=== PATIENT | male | born 1945 | race Caucasian/White ===

== ENCOUNTER 2021-04-19 04:00 | Inpatient (IN) | payer MEDICARE ==
[2021-04-19] MEDS ORDERED: NITROGLYCERIN SL TABS 0.4 MG TAB SUBLINGUAL PRN (04:16)
[2021-04-19 04:44] LABS: Anisocytosis Slight; Basophils # (A) 0.1 k/uL (0-0.2); Basophils % (A) 0 %; Eosinophils % (A) 0 %; HCT 36.1 % (39.0-53.0); HGB 11.3 gm/dL (13.0-17.5); Hypochromasia Slight; Lymphocytes # (A) 1.1 k/uL (1.0-4.8); Lymphocytes % (A) 8 %; MCH 27.7 pg (25.0-35.0); MCHC 31.4 g/dL (31.0-37.0); MCV 88.2 fL (80.0-100.0); Mean Platelet Volume 7.6; Monocytes # (A) 0.4 k/uL (0-1.0); Monocytes % (A) 3 %; Neutrophils % (A) 88 %; Platelet Count 339 k/uL (150-450); RBC 4.09 m/uL (4.30-5.90); RDW 17.7 % (11.5-15.5); WBC 14.8 k/uL (3.8-10.6)
[2021-04-19] MEDS ORDERED: SODIUM CHLORIDE 0.9% 1,000 ML IV ONE (04:48)
--- NOTE | 2021-04-19 04:49 | ED ---
Syncope HPI - General Chief Complaint: Syncope Stated Complaint: Weakness Time Seen by Provider: 04/19/21 04:10 Source: patient Mode of arrival: EMS Limitations: no limitations - History of Present Illness Initial Comments: This patient is a 76-year-old man who has been transferred here from [facility] where he had gone to see evening after having syncopal episode. The patient's recent history was notable for an admission there for a few days re lated to Coumadin coagulopathy. The patient has history of atrial fibrillation, takes Coumadin and apparently had developed elevated INR. He was admitted for approximately 4 days for his INR to normalize. The patient had been discharged. At home he had gotten up to go use the bathroom, felt that he was getting lightheaded and then reportedly passed out. He did strike his back against furniture. The patient was seen in [facility] having workup including CT scan of the head and C-spine which was negative. The patient was then transferred here for concerns about dehydration and acute kidney injury. MD Complaint: loss of consciousness, collapsed -: hour(s) Prodromal Symptoms: lightheaded Injuries Sustained Associated with Event: Neck, Back Current Symptoms: back to baseline Context: standing up Treatments Prior to Arrival: IV fluids, other - Related Data Home Medications Medication Instructions Recorded Confirmed Aspirin EC [Ecotrin Low Dose] 81 mg PO DAILY@1800 04/19/21 04/19/21 Baclofen [Lioresal] 10 mg PO TID@0800,1400,2100 04/19/21 04/19/21 Cholecalciferol [Vitamin D3 (25 50 mcg PO DAILY@0800 04/19/21 04/19/21 Mcg = 1000 Iu)] Digoxin [Lanoxin] 125 mcg PO DAILY@0800 04/19/21 04/19/21 Doxycycline Hyclate [Vibramycin] 100 mg PO BID@0900,2100 04/19/21 04/19/21 Ferrous Sulfate [Feosol] 325 mg PO DAILY@0800 04/19/21 04/19/21 Furosemide [Lasix] 40 mg PO BID@0600,1400 04/19/21 04/19/21 Levothyroxine Sodium [Synthroid] 50 mcg PO DAILY@0700 04/19/21 04/19/21 Lidocaine 5% Patch [Lidoderm] 1 patch TOPICAL DAILY 04/19/21 04/19/21 Metoprolol Tartrate [Lopressor] 25 mg PO BID@0800,1700 04/19/21 04/19/21 Multivitamins, Thera [Multivitamin 1 tab PO DAILY@0800 04/19/21 04/19/21 (formulary)] Ondansetron Odt [Zofran Odt] 4 mg PO Q6H PRN 04/19/21 04/19/21 Potassium Chloride ER [K-Dur 10] 20 meq PO DAILY@0800 04/19/21 04/19/21 Simvastatin [Zocor] 20 mg PO HS@2100 04/19/21 04/19/21 Tamsulosin HCl [Flomax] 0.4 mg PO DAILY@0800 04/19/21 04/19/21 Warfarin Sodium 4 mg PO DIRECTED 04/19/21 04/19/21 Warfarin [Coumadin] 2 mg PO DAILY@1700 04/19/21 04/19/21 lisinopriL [Zestril] 2.5 mg PO DAILY@0800 04/19/21 04/19/21 metroNIDAZOLE [Flagyl] 500 mg PO TID@0500,1400,2200 04/19/21 04/19/21 traMADol HCL 50 mg PO Q6H PRN 04/19/21 04/19/21 Allergies Allergy/AdvReac Type Severity Reaction Status Date / Time No Known Allergies Allergy Verified 04/19/21 06:19 Review of Systems ROS Statement: Those systems with pertinent positive or pertinent negative responses have been documented in the HPI. ROS Other: All systems not noted in ROS Statement are negative. Constitutional: Denies: fever, chills, weakness Eyes: Denies: vision change Respiratory: Denies: cough, dyspnea Cardiovascular: Reports: syncope. Denies: chest pain, palpitations, orthopnea, edema Gastrointestinal: Denies: abdominal pain, vomiting, diarrhea, constipation Genitourinary: Denies: dysuria, hematuria Musculoskeletal: Denies: back pain Skin: Denies: rash Neurological: Denies: headache, weakness, numbness Past Medical History History of Any Multi-Drug Resistant Organisms: None Reported Past Psychological History: No Psychological Hx Reported Smoking Status: Never smoker Past Alcohol Use History: Occasional Past Drug Use History: None Reported General Exam Limitations: no limitations General appearance: alert, in no apparent distress Head exam: Present: atraumatic, normocephalic Eye exam: Present: normal appearance. Absent: scleral icterus, conjunctival injection ENT exam: Present: mucous membranes dry Neck exam: Present: normal inspection, full ROM Respiratory exam: Present: normal lung sounds bilaterally. Absent: respiratory distress, wheezes, rales, rhonchi, stridor Cardiovascular Exam: Present: regular rate, irregular rhythm, systolic murmur. Absent: diastolic murmur, rubs, gallop GI/Abdominal exam: Present: soft. Absent: distended, tenderness, guarding, rebound, rigid, mass Extremities exam: Present: normal inspection, normal capillary refill. Absent: pedal edema, calf tenderness Back exam: Present: normal inspection. Absent: CVA tenderness (R), CVA tenderness (L) Neurological exam: Present: alert, oriented X3, CN II-XII intact. Absent: motor sensory deficit Skin exam: Present: warm, dry, intact, normal color. Absent: rash Course Vital Signs 04/19/21 04/19/21 04/19/21 04:08 04:40 04:52 Temperature 97.6 F Pulse Rate 80 80 87 Pulse Rate [ Sitting] Pulse Rate [ Standing] Pulse Rate [ Supine] Respiratory 18 18 18 Rate Blood Pressure 98/62 77/58 90/67 Blood Pressure [Sitting] Blood Pressure [Standing] Blood Pressure [Supine] O2 Sat by Pulse 97 98 97 Oximetry 04/19/21 04/19/21 04/19/21 06:00 09:16 11:18 Temperature 98.5 F Pulse Rate 72 78 Pulse Rate [ 90 Sitting] Pulse Rate [ 110 H Standing] Pulse Rate [ 78 Supine] Respiratory 18 16 Rate Blood Pressure 92/65 105/73 Blood Pressure 110/75 [Sitting] Blood Pressure 102/65 [Standing] Blood Pressure 119/78 [Supine] O2 Sat by Pulse 98 97 Oximetry 04/19/21 14:24 Temperature Pulse Rate 90 Pulse Rate [ Sitting] Pulse Rate [ Standing] Pulse Rate [ Supine] Respiratory 16 Rate Blood Pressure 102/56 Blood Pressure [Sitting] Blood Pressure [Standing] Blood Pressure [Supine] O2 Sat by Pulse 96 Oximetry EKG Findings - EKG Results: EKG: interpreted by ERMD EKG shows: atrial fibrillation - Blocks, [place], Hypertrophy, ST Abn: AV and intraventricular conduction: right bundle branch block (fixed/intermittent, complete/incomplete) (Incomplete) Repolarization changes or abnormalities: nonspecific abnormality, ST segment, and/or T wave, suggestive of digitalis effect or toxicity Medical Decision Making - Lab Data Result diagrams: 04/21/21 04:34 04/21/21 04:34 Lab Results 04/19/21 04/19/21 04/19/21 Range/Units 04:29 04:29 04:29 WBC 14.8 H (3.8-10.6) k/uL RBC 4.09 L (4.30-5.90) m/uL Hgb 11.3 L (13.0-17.5) gm/dL Hct 36.1 L (39.0-53.0) % MCV 88.2 (80.0-100.0) fL MCH 27.7 (25.0-35.0) pg MCHC 31.4 (31.0-37.0) g/dL RDW 17.7 H (11.5-15.5) % Plt Count 339 (150-450) k/uL MPV 7.6 Immature Gran % (Auto) % Absolute Nucleated RBC (0.00-0.00) X 10*3/uL Neutrophils % 88 % Lymphocytes % 8 % Monocytes % 3 % Eosinophils % 0 % Basophils % 0 % Immature Gran # (0.00-0.04) X 10*3/uL Neutrophils # 13.0 H (1.3-7.7) k/uL Lymphocytes # 1.1 (1.0-4.8) k/uL Monocytes # 0.4 (0-1.0) k/uL Eosinophils # 0.0 (0-0.7) k/uL Basophils # 0.1 (0-0.2) k/uL NRBC/100 WBC Diff (0.0-0.0) /100 WBCS Hypochromasia Slight Anisocytosis Slight ESR (0-20) mm/Hr PT (9.0-12.0) sec INR (<1.2) APTT (22.0-30.0) sec Sodium 134 L (137-145) mmol/L Potassium 4.8 (3.5-5.1) mmol/L Chloride 103 (98-107) mmol/L Carbon Dioxide 21 L (22-30) mmol/L Anion Gap 10 mmol/L BUN 41 H (9-20) mg/dL Creatinine 1.22 (0.66-1.25) mg/dL Est GFR (CKD-EPI)AfAm 67 (>60 ml/min/1.73 sqM) Est GFR (CKD-EPI)NonAf 58 (>60 ml/min/1.73 sqM) Glucose 127 H (74-99) mg/dL Plasma Lactic Acid Telly 1.5 (0.7-2.0) mmol/L Calcium 9.1 (8.4-10.2) mg/dL Magnesium 1.9 (1.6-2.3) mg/dL Total Bilirubin 0.7 (0.2-1.3) mg/dL AST 56 (17-59) U/L ALT 42 (4-49) U/L Alkaline Phosphatase 116 (38-126) U/L Troponin I (0.000-0.034) ng/mL C-Reactive Protein (0.00-0.80) mg/dL Total Protein 6.2 L (6.3-8.2) g/dL Albumin 2.9 L (3.5-5.0) g/dL Triglycerides (0.00-149.00) mg/dL Cholesterol (0.00-200.00) mg/dL LDL Cholesterol, Calc (0.0-131.0) mg/dL VLDL Cholesterol, Calc (5.00-40.00) mg/dL HDL Cholesterol (40.00-60.00) mg/dL Cholesterol/HDL Ratio Ratio Vitamin B12 (200.0-944.0) pg/mL Folate (4.40-31.00) ng/mL Procalcitonin (0.02-0.09) ng/mL Urine Color Urine Appearance (Clear) Urine pH (5.0-8.0) Ur Specific [place] (1.001-1.035) Urine Protein (Negative) Urine Glucose (UA) (Negative) Urine Ketones (Negative) Urine Blood (Negative) Urine Nitrite (Negative) Urine Bilirubin (Negative) Urine Urobilinogen (<2.0) mg/dL Ur Leukocyte Esterase (Negative) Digoxin 0.6 ng/mL Coronavirus (PCR) (Not Detectd) 04/19/21 04/19/21 04/19/21 Range/Units 04:29 04:29 04:51 WBC (3.8-10.6) k/uL RBC (4.30-5.90) m/uL Hgb (13.0-17.5) gm/dL Hct (39.0-53.0) % MCV (80.0-100.0) fL MCH (25.0-35.0) pg MCHC (31.0-37.0) g/dL RDW (11.5-15.5) % Plt Count (150-450) k/uL MPV Immature Gran % (Auto) % Absolute Nucleated RBC (0.00-0.00) X 10*3/uL Neutrophils % % Lymphocytes % % Monocytes % % Eosinophils % % Basophils % % Immature Gran # (0.00-0.04) X 10*3/uL Neutrophils # (1.3-7.7) k/uL Lymphocytes # (1.0-4.8) k/uL Monocytes # (0-1.0) k/uL Eosinophils # (0-0.7) k/uL Basophils # (0-0.2) k/uL NRBC/100 WBC Diff (0.0-0.0) /100 WBCS Hypochromasia Anisocytosis ESR (0-20) mm/Hr PT 13.2 H (9.0-12.0) sec INR 1.3 H (<1.2) APTT 24.6 (22.0-30.0) sec Sodium (137-145) mmol/L Potassium (3.5-5.1) mmol/L Chloride (98-107) mmol/L Carbon Dioxide (22-30) mmol/L Anion Gap mmol/L BUN (9-20) mg/dL Creatinine (0.66-1.25) mg/dL Est GFR (CKD-EPI)AfAm (>60 ml/min/1.73 sqM) Est GFR (CKD-EPI)NonAf (>60 ml/min/1.73 sqM) Glucose (74-99) mg/dL Plasma Lactic Acid Telly (0.7-2.0) mmol/L Calcium (8.4-10.2) mg/dL Magnesium (1.6-2.3) mg/dL Total Bilirubin (0.2-1.3) mg/dL AST (17-59) U/L ALT (4-49) U/L Alkaline Phosphatase (38-126) U/L Troponin I 0.020 (0.000-0.034) ng/mL C-Reactive Protein (0.00-0.80) mg/dL Total Protein (6.3-8.2) g/dL Albumin (3.5-5.0) g/dL Triglycerides (0.00-149.00) mg/dL Cholesterol (0.00-200.00) mg/dL LDL Cholesterol, Calc (0.0-131.0) mg/dL VLDL Cholesterol, Calc (5.00-40.00) mg/dL HDL Cholesterol (40.00-60.00) mg/dL Cholesterol/HDL Ratio Ratio Vitamin B12 (200.0-944.0) pg/mL Folate (4.40-31.00) ng/mL Procalcitonin (0.02-0.09) ng/mL Urine Color Urine Appearance (Clear) Urine pH (5.0-8.0) Ur Specific [place] (1.001-1.035) Urine Protein (Negative) Urine Glucose (UA) (Negative) Urine Ketones (Negative) Urine Blood (Negative) Urine Nitrite (Negative) Urine Bilirubin (Negative) Urine Urobilinogen (<2.0) mg/dL Ur Leukocyte Esterase (Negative) Digoxin ng/mL Coronavirus (PCR) Not Detected (Not Detectd) 04/19/21 04/19/21 04/19/21 Range/Units 07:19 10:25 11:34 WBC (3.8-10.6) k/uL RBC (4.30-5.90) m/uL Hgb (13.0-17.5) gm/dL Hct (39.0-53.0) % MCV (80.0-100.0) fL MCH (25.0-35.0) pg MCHC (31.0-37.0) g/dL RDW (11.5-15.5) % Plt Count (150-450) k/uL MPV Immature Gran % (Auto) % Absolute Nucleated RBC (0.00-0.00) X 10*3/uL Neutrophils % % Lymphocytes % % Monocytes % % Eosinophils % % Basophils % % Immature Gran # (0.00-0.04) X 10*3/uL Neutrophils # (1.3-7.7) k/uL Lymphocytes # (1.0-4.8) k/uL Monocytes # (0-1.0) k/uL Eosinophils # (0-0.7) k/uL Basophils # (0-0.2) k/uL NRBC/100 WBC Diff (0.0-0.0) /100 WBCS Hypochromasia Anisocytosis ESR (0-20) mm/Hr PT (9.0-12.0) sec INR (<1.2) APTT (22.0-30.0) sec Sodium (137-145) mmol/L Potassium (3.5-5.1) mmol/L Chloride (98-107) mmol/L Carbon Dioxide (22-30) mmol/L Anion Gap mmol/L BUN (9-20) mg/dL Creatinine (0.66-1.25) mg/dL Est GFR (CKD-EPI)AfAm (>60 ml/min/1.73 sqM) Est GFR (CKD-EPI)NonAf (>60 ml/min/1.73 sqM) Glucose (74-99) mg/dL Plasma Lactic Acid Telly (0.7-2.0) mmol/L Calcium (8.4-10.2) mg/dL Magnesium (1.6-2.3) mg/dL Total Bilirubin (0.2-1.3) mg/dL AST (17-59) U/L ALT (4-49) U/L Alkaline Phosphatase (38-126) U/L Troponin I 0.017 0.015 (0.000-0.034) ng/mL C-Reactive Protein (0.00-0.80) mg/dL Total Protein (6.3-8.2) g/dL Albumin (3.5-5.0) g/dL Triglycerides (0.00-149.00) mg/dL Cholesterol (0.00-200.00) mg/dL LDL Cholesterol, Calc (0.0-131.0) mg/dL VLDL Cholesterol, Calc (5.00-40.00) mg/dL HDL Cholesterol (40.00-60.00) mg/dL Cholesterol/HDL Ratio Ratio Vitamin B12 (200.0-944.0) pg/mL Folate (4.40-31.00) ng/mL Procalcitonin (0.02-0.09) ng/mL Urine Color Yellow Urine Appearance Clear (Clear) Urine pH 5.0 (5.0-8.0) Ur Specific [place] 1.018 (1.001-1.035) Urine Protein Trace H (Negative) Urine Glucose (UA) Negative (Negative) Urine Ketones Negative (Negative) Urine Blood Negative (Negative) Urine Nitrite Negative (Negative) Urine Bilirubin Negative (Negative) Urine Urobilinogen <2.0 (<2.0) mg/dL Ur Leukocyte Esterase Negative (Negative) Digoxin ng/mL Coronavirus (PCR) (Not Detectd) 04/20/21 04/20/21 04/20/21 Range/Units 06:33 06:33 06:33 WBC (3.8-10.6) k/uL RBC (4.30-5.90) m/uL Hgb (13.0-17.5) gm/dL Hct (39.0-53.0) % MCV (80.0-100.0) fL MCH (25.0-35.0) pg MCHC (31.0-37.0) g/dL RDW (11.5-15.5) % Plt Count (150-450) k/uL MPV Immature Gran % (Auto) % Absolute Nucleated RBC (0.00-0.00) X 10*3/uL Neutrophils % % Lymphocytes % % Monocytes % % Eosinophils % % Basophils % % Immature Gran # (0.00-0.04) X 10*3/uL Neutrophils # (1.3-7.7) k/uL Lymphocytes # (1.0-4.8) k/uL Monocytes # (0-1.0) k/uL Eosinophils # (0-0.7) k/uL Basophils # (0-0.2) k/uL NRBC/100 WBC Diff (0.0-0.0) /100 WBCS Hypochromasia Anisocytosis ESR (0-20) mm/Hr PT 17.5 H (9.0-12.0) sec INR 1.66 H (<1.2) APTT (22.0-30.0) sec Sodium 138 (137-145) mmol/L Potassium 4.6 (3.5-5.1) mmol/L Chloride 107 (98-107) mmol/L Carbon Dioxide 28 (22-30) mmol/L Anion Gap 3 mmol/L BUN 31 H (9-20) mg/dL Creatinine 0.82 (0.66-1.25) mg/dL Est GFR (CKD-EPI)AfAm >90 (>60 ml/min/1.73 sqM) Est GFR (CKD-EPI)NonAf 87 (>60 ml/min/1.73 sqM) Glucose 103 H (74-99) mg/dL Plasma Lactic Acid Telly (0.7-2.0) mmol/L Calcium 9.2 (8.4-10.2) mg/dL Magnesium 1.8 (1.6-2.3) mg/dL Total Bilirubin (0.2-1.3) mg/dL AST (17-59) U/L ALT (4-49) U/L Alkaline Phosphatase (38-126) U/L Troponin I (0.000-0.034) ng/mL C-Reactive Protein 4.20 H (0.00-0.80) mg/dL Total Protein (6.3-8.2) g/dL Albumin (3.5-5.0) g/dL Triglycerides 89.10 (0.00-149.00) mg/dL Cholesterol 77.00 (0.00-200.00) mg/dL LDL Cholesterol, Calc 28.1 (0.0-131.0) mg/dL VLDL Cholesterol, Calc 17.82 (5.00-40.00) mg/dL HDL Cholesterol 31.50 L (40.00-60.00) mg/dL Cholesterol/HDL Ratio 2.46 Ratio Vitamin B12 1358.0 H (200.0-944.0) pg/mL Folate 19.90 (4.40-31.00) ng/mL Procalcitonin (0.02-0.09) ng/mL Urine Color Urine Appearance (Clear) Urine pH (5.0-8.0) Ur Specific [place] (1.001-1.035) Urine Protein (Negative) Urine Glucose (UA) (Negative) Urine Ketones (Negative) Urine Blood (Negative) Urine Nitrite (Negative) Urine Bilirubin (Negative) Urine Urobilinogen (<2.0) mg/dL Ur Leukocyte Esterase (Negative) Digoxin ng/mL Coronavirus (PCR) (Not Detectd) 10/06/21 10/06/21 10/07/21 Range/Units 06:33 06:34 04:34 WBC 8.30 6.5 (3.8-10.6) k/uL RBC 3.84 L 3.74 L (4.30-5.90) m/uL Hgb 10.1 L 10.5 L (13.0-17.5) gm/dL Hct 33.8 L 32.8 L (39.0-53.0) % MCV 88.0 87.8 (80.0-100.0) fL MCH 26.3 L 28.0 (25.0-35.0) pg MCHC 29.9 L 31.9 (31.0-37.0) g/dL RDW 18.8 H 18.0 H (11.5-15.5) % Plt Count 326 361 (150-450) k/uL MPV 9.5 8.1 Immature Gran % (Auto) 0.8 % Absolute Nucleated RBC 0 (0.00-0.00) X 10*3/uL Neutrophils % 86.5 85 % Lymphocytes % 8.4 11 % Monocytes % 3.4 3 % Eosinophils % 0.4 1 % Basophils % 0.5 1 % Immature Gran # 0.07 H (0.00-0.04) X 10*3/uL Neutrophils # 7.18 5.5 (1.3-7.7) k/uL Lymphocytes # 0.70 L 0.7 L (1.0-4.8) k/uL Monocytes # 0.28 0.2 (0-1.0) k/uL Eosinophils # 0.03 L 0.0 (0-0.7) k/uL Basophils # 0.04 0.0 (0-0.2) k/uL NRBC/100 WBC Diff 0 (0.0-0.0) /100 WBCS Hypochromasia Slight Anisocytosis Slight ESR (0-20) mm/Hr PT (9.0-12.0) sec INR (<1.2) APTT (22.0-30.0) sec Sodium (137-145) mmol/L Potassium (3.5-5.1) mmol/L Chloride (98-107) mmol/L Carbon Dioxide (22-30) mmol/L Anion Gap mmol/L BUN (9-20) mg/dL Creatinine (0.66-1.25) mg/dL Est GFR (CKD-EPI)AfAm (>60 ml/min/1.73 sqM) Est GFR (CKD-EPI)NonAf (>60 ml/min/1.73 sqM) Glucose (74-99) mg/dL Plasma Lactic Acid Telly (0.7-2.0) mmol/L Calcium (8.4-10.2) mg/dL Magnesium (1.6-2.3) mg/dL Total Bilirubin (0.2-1.3) mg/dL AST (17-59) U/L ALT (4-49) U/L Alkaline Phosphatase (38-126) U/L Troponin I (0.000-0.034) ng/mL C-Reactive Protein (0.00-0.80) mg/dL Total Protein (6.3-8.2) g/dL Albumin (3.5-5.0) g/dL Triglycerides (0.00-149.00) mg/dL Cholesterol (0.00-200.00) mg/dL LDL Cholesterol, Calc (0.0-131.0) mg/dL VLDL Cholesterol, Calc (5.00-40.00) mg/dL HDL Cholesterol (40.00-60.00) mg/dL Cholesterol/HDL Ratio Ratio Vitamin B12 (200.0-944.0) pg/mL Folate (4.40-31.00) ng/mL Procalcitonin 0.33 H (0.02-0.09) ng/mL Urine Color Urine Appearance (Clear) Urine pH (5.0-8.0) Ur Specific [place] (1.001-1.035) Urine Protein (Negative) Urine Glucose (UA) (Negative) Urine Ketones (Negative) Urine Blood (Negative) Urine Nitrite (Negative) Urine Bilirubin (Negative) Urine Urobilinogen (<2.0) mg/dL Ur Leukocyte Esterase (Negative) Digoxin ng/mL Coronavirus (PCR) (Not Detectd) 04/21/21 04/21/21 04/21/21 Range/Units 04:34 04:37 04:37 WBC (3.8-10.6) k/uL RBC (4.30-5.90) m/uL Hgb (13.0-17.5) gm/dL Hct (39.0-53.0) % MCV (80.0-100.0) fL MCH (25.0-35.0) pg MCHC (31.0-37.0) g/dL RDW (11.5-15.5) % Plt Count (150-450) k/uL MPV Immature Gran % (Auto) % Absolute Nucleated RBC (0.00-0.00) X 10*3/uL Neutrophils % % Lymphocytes % % Monocytes % % Eosinophils % % Basophils % % Immature Gran # (0.00-0.04) X 10*3/uL Neutrophils # (1.3-7.7) k/uL Lymphocytes # (1.0-4.8) k/uL Monocytes # (0-1.0) k/uL Eosinophils # (0-0.7) k/uL Basophils # (0-0.2) k/uL NRBC/100 WBC Diff (0.0-0.0) /100 WBCS Hypochromasia Anisocytosis ESR 58 H (0-20) mm/Hr PT 20.2 H (9.0-12.0) sec INR 2.1 H (<1.2) APTT (22.0-30.0) sec Sodium 135 L (137-145) mmol/L Potassium 4.3 (3.5-5.1) mmol/L Chloride 107 (98-107) mmol/L Carbon Dioxide 23 (22-30) mmol/L Anion Gap 5 mmol/L BUN 19 (9-20) mg/dL Creatinine 0.60 L (0.66-1.25) mg/dL Est GFR (CKD-EPI)AfAm >90 (>60 ml/min/1.73 sqM) Est GFR (CKD-EPI)NonAf >90 (>60 ml/min/1.73 sqM) Glucose 100 H (74-99) mg/dL Plasma Lactic Acid Telly (0.7-2.0) mmol/L Calcium 8.9 (8.4-10.2) mg/dL Magnesium (1.6-2.3) mg/dL Total Bilirubin (0.2-1.3) mg/dL AST (17-59) U/L ALT (4-49) U/L Alkaline Phosphatase (38-126) U/L Troponin I (0.000-0.034) ng/mL C-Reactive Protein (0.00-0.80) mg/dL Total Protein (6.3-8.2) g/dL Albumin (3.5-5.0) g/dL Triglycerides (0.00-149.00) mg/dL Cholesterol (0.00-200.00) mg/dL LDL Cholesterol, Calc (0.0-131.0) mg/dL VLDL Cholesterol, Calc (5.00-40.00) mg/dL HDL Cholesterol (40.00-60.00) mg/dL Cholesterol/HDL Ratio Ratio Vitamin B12 (200.0-944.0) pg/mL Folate (4.40-31.00) ng/mL Procalcitonin (0.02-0.09) ng/mL Urine Color Urine Appearance (Clear) Urine pH (5.0-8.0) Ur Specific [place] (1.001-1.035) Urine Protein (Negative) Urine Glucose (UA) (Negative) Urine Ketones (Negative) Urine Blood (Negative) Urine Nitrite (Negative) Urine Bilirubin (Negative) Urine Urobilinogen (<2.0) mg/dL Ur Leukocyte Esterase (Negative) Digoxin ng/mL Coronavirus (PCR) (Not Detectd) Disposition Clinical Impression: Syncope, Dehydration Disposition: ADMITTED IP TO THIS [facility] Condition: Serious
[2021-04-19 05:14] LABS: Albumin 2.9 g/dL (3.5-5.0); Calcium 9.1 mg/dL (8.4-10.2); Digoxin 0.6 ng/mL; Magnesium 1.9 mg/dL (1.6-2.3); Potassium 4.8 mmol/L (3.5-5.1); Total Bilirubin 0.7 mg/dL (0.2-1.3); Total Protein 6.2 g/dL (6.3-8.2)
[2021-04-19 05:31] LABS: INR 1.3 (<1.2); Partial Thromboplastin Time 24.6 sec (22.0-30.0); Prothrombin Time 13.2 sec (9.0-12.0)
[2021-04-19] MEDS ORDERED: ONDANSETRON ODT 4 MG TAB PO PRN (08:26)
--- NOTE | 2021-04-19 08:47 | P.HPIM ---
History of Present Illness This is a pleasant 76 years old male with past medical history of atrial fibrillation, hypertension, hypothyroidism. 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 Patient was discharged about 5 PM and to his house. Into the evening he was moving from his living room to bedroom to get to sleep when he passed out after he felt very weak without dizziness, he fell on his back worse for a few seconds but workup right away with no seizure-like activity, no urine/bowel incontinence or tongue biting patient denies chest pain or dyspnea. He feels mild left lower quadrant abdominal pain about 1-2/10 for about a week. No vomiting. Last bowel movement was last night which was normal but put him on after constipation for 2 days. He denies any urinary symptoms No smoking, alcohol or illicit drugs He was hypotensive upon admission 77/58. Currently blood pressure is 92/56 Labs showing mild leukocytosis of 14.8 K, 10.3 and platelet count is 339. INR is 1.3, sodium 134, BUN is elevated 41 with creatinine 1.2. Potassium is Normal at 4.8. Liver enzymes not elevated. Digoxin 0.6. Troponins 2 are negative with 0.02 and 0.017. Davalos virus not detected. EKG showing normal sinus rhythm at 89 with atrial fibrillation and no significant ST-T changes Review of Systems CONSTITUTIONAL: No fever, no malaise, no fatigue. HEENT: No recent visual problems or hearing problems. Denied any sore throat. CARDIOVASCULAR: No orthopnea, PND, no palpitations, no syncope. PULMONARY: No shortness of breath, no cough, no hemoptysis. GASTROINTESTINAL: No diarrhea, no nausea, no vomiting, no abdominal pain. Normoactive bowel sounds. NEUROLOGICAL: No headaches, no weakness, no numbness. HEMATOLOGICAL: Denies any bleeding or petechiae. GENITOURINARY: Denies any burning micturition, frequency, or urgency. MUSCULOSKELETAL/RHEUMATOLOGICAL: Denies any joint pain, swelling, or any muscle pain. ENDOCRINE: Denies any polyuria or polydipsia. Past Medical History Past Medical History: Atrial Fibrillation, Hypertension Additional Past Medical History / Comment(s): Acute Sciatica, Lumbar pain, History of Any Multi-Drug Resistant Organisms: None Reported Past Surgical History: Joint Replacement, Pacemaker Additional Past Surgical History / Comment(s): Hip replacement, Replacement of aortic valve, Past Psychological History: No Psychological Hx Reported Smoking Status: Never smoker Past Alcohol Use History: Occasional Past Drug Use History: None Reported Medications and Allergies Home Medications Medication Instructions Recorded Confirmed Type Aspirin EC [Ecotrin Low Dose] 81 mg PO DAILY@1800 04/19/21 04/19/21 History Baclofen [Lioresal] 10 mg PO TID@0800,1400,2100 04/19/21 04/19/21 History Cholecalciferol [Vitamin D3 (25 50 mcg PO DAILY@0800 04/19/21 04/19/21 History Mcg = 1000 Iu)] Digoxin [Lanoxin] 125 mcg PO DAILY@0800 04/19/21 04/19/21 History Doxycycline Hyclate [Vibramycin] 100 mg PO BID@0900,2100 04/19/21 04/19/21 History Ferrous Sulfate [Feosol] 325 mg PO DAILY@0800 04/19/21 04/19/21 History Furosemide [Lasix] 40 mg PO BID@0600,1400 04/19/21 04/19/21 History Levothyroxine Sodium [Synthroid] 50 mcg PO DAILY@0700 04/19/21 04/19/21 History Lidocaine 5% Patch [Lidoderm] 1 patch TOPICAL DAILY 04/19/21 04/19/21 History Metoprolol Tartrate [Lopressor] 25 mg PO BID@0800,1700 04/19/21 04/19/21 History Multivitamins, Thera [Multivitamin 1 tab PO DAILY@0800 04/19/21 04/19/21 History (formulary)] Ondansetron Odt [Zofran Odt] 4 mg PO Q6H PRN 04/19/21 04/19/21 History Potassium Chloride ER [K-Dur 10] 20 meq PO DAILY@0800 04/19/21 04/19/21 History Simvastatin [Zocor] 20 mg PO HS@2100 04/19/21 04/19/21 History Tamsulosin HCl [Flomax] 0.4 mg PO DAILY@0800 04/19/21 04/19/21 History Warfarin Sodium 4 mg PO DIRECTED 04/19/21 04/19/21 History Warfarin [Coumadin] 2 mg PO DAILY@1700 04/19/21 04/19/21 History lisinopriL [Zestril] 2.5 mg PO DAILY@0800 04/19/21 04/19/21 History metroNIDAZOLE [Flagyl] 500 mg PO TID@0500,1400,2200 04/19/21 04/19/21 History traMADol HCL 50 mg PO Q6H PRN 04/19/21 04/19/21 History Allergies Allergy/AdvReac Type Severity Reaction Status Date / Time No Known Allergies Allergy Verified 04/19/21 06:19 Physical Exam Vitals: Vital Signs Temp Pulse Resp BP Pulse Ox 04/19/21 06:00 72 18 92/65 98 04/19/21 04:52 87 18 90/67 97 04/19/21 04:40 80 18 77/58 98 04/19/21 04:08 97.6 F 80 18 98/62 97 Intake and Output 04/18/21 04/19/21 04/19/21 22:59 06:59 14:59 Other: Weight 99.79 kg -GENERAL: The patient is alert and oriented x3, not in any acute distress. Well developed, well nourished. Generally weak HEENT: Pupils are round and equally reacting to light. EOMI. No scleral icterus. No conjunctival pallor. Normocephalic, atraumatic. No pharyngeal erythema. No thyromegaly. CARDIOVASCULAR: S1 and S2 present. No murmurs, rubs, or gallops. PULMONARY: Chest is clear to auscultation, no wheezing or crackles. ABDOMEN: Soft, nontender, nondistended, normoactive bowel sounds. No palpable o rganomegaly. MUSCULOSKELETAL: No joint swelling or deformity. EXTREMITIES: No cyanosis, clubbing, or pedal edema. NEUROLOGICAL: Gross neurological examination did not reveal any focal deficits. SKIN: No rashes. No petechiae Results CBC & Chem 7: 04/19/21 04:29 04/19/21 04:29 Labs: Abnormal Lab Results - Last 24 Hours (Table) 04/19/21 04/19/21 04/19/21 Range/Units 04:29 04:29 04:29 WBC 14.8 H (3.8-10.6) k/uL RBC 4.09 L (4.30-5.90) m/uL Hgb 11.3 L (13.0-17.5) gm/dL Hct 36.1 L (39.0-53.0) % RDW 17.7 H (11.5-15.5) % Neutrophils # 13.0 H (1.3-7.7) k/uL PT 13.2 H (9.0-12.0) sec INR 1.3 H (<1.2) Sodium 134 L (137-145) mmol/L Carbon Dioxide 21 L (22-30) mmol/L BUN 41 H (9-20) mg/dL Glucose 127 H (74-99) mg/dL Total Protein 6.2 L (6.3-8.2) g/dL Albumin 2.9 L (3.5-5.0) g/dL Assessment and Plan Assessment: Syncope Hypotension Chronic atrial fibrillation on digoxin and warfarin. Status post pacemaker Hypertension, currently blood pressure on the low side Hypothyroidism Plan: This is a pleasant 76 years old male who presents with syncope Hold Lasix and lisinopril. Resume warfarin pharmacy to dose Check orthostatic vitals. Check chest x-ray and urine analysis Continue with gentle hydration Get records from [facility] Labs and medication were reviewed.. Continue same treatment. Continue with symptomatic treatment. Resume home medication. Monitor lytes and vitals. DVT and GI prophylaxis. Further recommendations depends on the clinical course of the patient DVT prophylaxis: Subcutaneous heparin GI Prophylaxis: Pepcid PT/OT: Pending Prognosis is guarded
[2021-04-19] MEDS ORDERED: FAMOTIDINE 20 MG/2 ML VIAL IV SCH (09:00)
[2021-04-19] MEDS: LIDOCAINE 5% PATCH TOPICAL SCH (09:25)
[2021-04-19] MEDS: LEVOTHYROXINE 50 MCG TAB PO SCH (09:28)
[2021-04-19] MEDS: BACLOFEN 10 MG TAB PO SCH ×2 (09:28→20:55)
[2021-04-19] MEDS: SODIUM CHLORIDE 0.9% 1,000 ML IV SCH ×2 (09:33→20:55)
--- NOTE | 2021-04-19 10:14 | XR ---
EXAMINATION TYPE: XR chest 2V DATE OF EXAM: 04/19/2021 COMPARISON: NONE HISTORY: Trauma, pain, hypotension TECHNIQUE: Frontal and lateral views of the chest are obtained. FINDINGS: Patient is post median sternotomy and cardiac valve replacement. There is a generator in t he left pectoral region, lesions are present in the right atrium and ventricle. Heart is enlarged. Th ere is no evident pneumothorax or pleural effusion. Patchy basilar density is noted. Aorta is dense. IMPRESSION: No acute cardiopulmonary process. Cardiomegaly and postop changes.
[2021-04-19 11:43] LABS: Appearance,Urine Clear (Clear); Bilirubin,Urine Negative (Negative); Blood,Urine Negative (Negative); Color,Urine Yellow; Glucose,Urine (UA) Negative (Negative); Ketones,Urine Negative (Negative); Leukocyte Esterase,Urine Negative (Negative); Nitrite,Urine Negative (Negative); Protein,Urine Trace (Negative); Specific Gravity,Urine 1.018 (1.001-1.035); Urobilinogen,Urine <2.0 mg/dL (<2.0)
[2021-04-19] MEDS: DOXYCYCLINE 100 MG CAP PO SCH ×2 (12:49→20:55)
[2021-04-19] MEDS: metroNIDAZOLE 500 MG TAB PO SCH ×2 (14:24→20:55)
[2021-04-19] MEDS ORDERED: WARFARIN 3 MG TAB PO ONE (18:00)
[2021-04-19] MEDS: ASPIRIN 81 MG PO SCH (18:18)
[2021-04-19] MEDS: FAMOTIDINE 20 MG TAB PO SCH (20:55)
[2021-04-20] MEDS: metroNIDAZOLE 500 MG TAB PO SCH ×3 (05:41→21:46)
[2021-04-20] MEDS: SODIUM CHLORIDE 0.9% 1,000 ML IV SCH ×2 (05:41→18:07)
[2021-04-20 08:06] LABS: African American GFR (CKD) >90 (>60 ml/min/1.73 sqM); Anion Gap 3 mmol/L; Blood Urea Nitrogen 31 mg/dL (9-20); Calcium 9.2 mg/dL (8.4-10.2); Carbon Dioxide 28 mmol/L (22-30); Chloride 107 mmol/L (98-107); Glucose 103 mg/dL (74-99); Magnesium 1.8 mg/dL (1.6-2.3); Non-African American GFR(CKD) 87 (>60 ml/min/1.73 sqM); Potassium 4.6 mmol/L (3.5-5.1); Sodium 138 mmol/L (137-145)
[2021-04-20] MEDS: FERROUS SULFATE 325 MG TAB PO SCH (08:58)
[2021-04-20] MEDS: DIGOXIN 125 MCG TAB PO SCH (08:58)
[2021-04-20] MEDS: FAMOTIDINE 20 MG TAB PO SCH ×2 (08:58→21:46)
[2021-04-20] MEDS: LEVOTHYROXINE 50 MCG TAB PO SCH (08:58)
[2021-04-20] MEDS: TAMSULOSIN 0.4 MG CAP.ER.24H PO SCH (08:58)
[2021-04-20] MEDS: BACLOFEN 10 MG TAB PO SCH ×3 (08:58→21:46)
[2021-04-20] MEDS: DOXYCYCLINE 100 MG CAP PO SCH ×2 (08:58→21:46)
[2021-04-20] MEDS: LIDOCAINE 5% PATCH TOPICAL SCH (08:59)
[2021-04-20 09:06] LABS: Basophils # (A) 0.04 X 10*3/uL (0.00-0.10); Basophils % (A) 0.5 %; Eosinophils # (A) 0.03 X 10*3/uL (0.04-0.35); Eosinophils % (A) 0.4 %; HCT 33.8 % (39.6-50.0); HGB 10.1 g/dL (13.0-17.0); Lymphocytes % (A) 8.4 %; MCH 26.3 pg (27.0-32.0); MCHC 29.9 g/dL (32.0-37.0); Mean Platelet Volume 9.5 fL (9.5-12.2); Monocytes # (A) 0.28 X 10*3/uL (0.20-1.00); Monocytes % (A) 3.4 %; Neutrophils # (A) 7.18 X 10*3/uL (1.80-7.70); Neutrophils % (A) 86.5 %; Platelet Count 326 X 10*3/uL (140-440); RBC 3.84 X 10*6/uL (4.40-5.60); RDW 18.8 % (11.5-14.5)
[2021-04-20 09:24] LABS: INR 1.66 (0.90-1.11); Prothrombin Time 17.5 sec (9.9-11.9)
[2021-04-20] MEDS: ENOXAPARIN 80 MG/0.8 ML SYRINGE SQ SCH ×2 (11:04→21:46)
[2021-04-20] MEDS: IOPAMIDOL CONTRAST (ORAL USE) VIAL PO PRN ×2 (11:04→12:09)
--- NOTE | 2021-04-20 12:40 | P.PN ---
Subjective This is a pleasant 76 years old male with past medical history of atrial fibrillation, hypertension, hypothyroidism. 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 Agustin mendez patient states that he was discharged from [facility] in bed ax yesterday it was there since Sunday but he could not tell me exactly for what reason for hospitalization but he pointed to his lower abdomen. Patient was discharged about 5 PM and to his house. Into the evening he was moving from his living room to bedroom to get to sleep when he passed out after he felt very weak without dizziness, he fell on his back worse for a few seconds but workup right away with no seizure-like activity, no urine/bowel incontinence or tongue biting patient denies chest pain or dyspnea. He feels mild left lower quadrant abdominal pain about 1-2/10 for about a week. No vomiting. Last bowel movement was last night which was normal but put him on after constipation for 2 days. He denies any urinary symptoms No smoking, alcohol or illicit drugs He was hypotensive upon admission 77/58. Currently blood pressure is 92/56 Labs showing mild leukocytosis of 14.8 K, 10.3 and platelet count is 339. INR is 1.3, sodium 134, BUN is elevated 41 with creatinine 1.2. Potassium is Normal at 4.8. Liver enzymes not elevated. Digoxin 0.6. Troponins 2 are negative with 0.02 and 0.017. Davalos virus not detected. EKG showing normal sinus rhythm at 89 with atrial fibrillation and no significant ST-T changes 04/20/2021 Patient still feeling generally weak with low appetite, he ate 50% of his pelvis morning. Also was complaining of from chronic low back pain for the last 2 months. He does not have back pain from the fall, only little tenderness on the right side of the rib cage as he states. No chest pain or dyspnea. No coughing. He has constipation. But he complains from left lower quadrant abdominal pain with mild tenderness, no rebound tenderness. No fever. We got the records from that [facility] and his blood culture is came positive yesterday for Enterococcus faecalis. Repeat blood culture and procalcitonin are ordered, infectious disease team were consulted he remains on normal saline at 100 mL per hour, Flagyl and doxycycline, also warfarin with an INR subtherapeutic at 1.6 so he was placed on bridging dose of Lovenox. 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 He is hemodynamically stable Review of Systems -CONSTITUTIONAL: No fever,positive for fatigue. HEENT: No recent visual problems or hearing problems. Denied any sore throat. CARDIOVASCULAR: No orthopnea, PND, no palpitations, no syncope. PULMONARY: No shortness of breath, no cough, no hemoptysis. GASTROINTESTINAL: No diarrhea, no nausea, no vomiting, no abdominal pain. Normoactive bowel sounds. NEUROLOGICAL: No headaches, no weakness, no numbness. Active Medications Generic Name Dose Route Start Last Admin Trade Name Freq PRN Reason Stop Dose Admin Aspirin 81 mg 04/19/21 18:00 04/19/21 18:18 Aspirin 81 Mg PO 81 mg DAILY@1800 JAMIE Administration Baclofen 10 mg 04/19/21 14:00 04/20/21 08:58 Baclofen 10 Mg Tab PO 10 mg TID@0800,1400,2100 JAMIE Administration Digoxin 125 mcg 04/20/21 08:00 04/20/21 08:58 Digoxin 125 Mcg Tab PO 125 mcg DAILY@0800 JAMIE Administration Doxycycline Monohydrate 100 mg 04/19/21 12:00 04/20/21 08:58 Doxycycline 100 Mg Cap PO 100 mg BID@0900,2100 JAMIE Administration Enoxaparin Sodium 80 mg 04/20/21 10:00 04/20/21 11:04 Enoxaparin 80 Mg/0.8 Ml Syringe SQ 80 mg Q12HR JAMIE Administration Famotidine 20 mg 04/19/21 21:00 04/20/21 08:58 Famotidine 20 Mg Tab PO 20 mg BID JAMIE Administration Ferrous Sulfate 325 mg 04/20/21 08:00 04/20/21 08:58 Ferrous Sulfate 325 Mg Tab PO 325 mg DAILY@0800 JAMIE Administration Sodium Chloride 1,000 mls @ 100 mls/hr 04/19/21 09:30 04/20/21 05:41 Saline 0.9% IV 100 mls/hr .Q10H JAMIE Administration Levothyroxine Sodium 50 mcg 04/19/21 07:00 04/20/21 08:58 Levothyroxine 50 Mcg Tab PO 50 mcg DAILY@0700 JAMIE Administration Lidocaine 1 patch 04/19/21 09:00 04/20/21 08:59 Lidocaine 5% Patch TOPICAL 1 patch DAILY [facility] Administration Protocol Metronidazole 500 mg 04/19/21 14:00 04/20/21 05:41 Metronidazole 500 Mg Tab PO 500 mg TID@0500,1400,2200 [facility] Administration Miscellaneous Information 1 each 04/19/21 08:28 Warfarin Per Pharmacy MISCELLANE DIRECTED PRN Per Protocol Protocol Nitroglycerin 0.4 mg 04/19/21 04:16 Nitroglycerin Sl Tabs 0.4 Mg Tab SUBLINGUAL Q5M PRN Chest Pain Ondansetron HCl 4 mg 04/19/21 08:26 Ondansetron Odt 4 Mg Tab PO Q6H PRN Nausea Tamsulosin HCl 0.4 mg 04/20/21 08:00 04/20/21 08:58 Tamsulosin 0.4 Mg Cap.Er.24h PO 0.4 mg DAILY@0800 [facility] Administration Warfarin Sodium 4 mg 04/20/21 18:00 Warfarin 2 Mg Tab PO 04/20/21 18:01 ONCE@1800 ONE Objective - Vital Signs Vital signs: Vital Signs Temp 98.5 F 04/20/21 06:58 Pulse 59 L 04/20/21 08:00 Resp 16 04/20/21 08:00 BP 115/75 04/20/21 06:58 Pulse Ox 99 04/20/21 06:58 Intake & Output 04/19/21 04/20/21 04/20/21 18:59 06:59 18:59 Intake Total 120 120 Output Total 100 1200 400 Balance 20 -1200 -280 Weight 99.79 kg Intake: Oral 120 120 Output: Urine 100 1200 400 Other: Voiding Method Urinal Urinal # Voids 1 1 1 - Exam -GENERAL: The patient is alert and oriented x3, not in any acute distress. Well developed, well nourished. Generally weak HEENT: Pupils are round and equally reacting to light. EOMI. No scleral icterus. No conjunctival pallor. Normocephalic, atraumatic. No pharyngeal erythema. No thyromegaly. CARDIOVASCULAR: S1 and S2 present. No murmurs, rubs, or gallops. PULMONARY: Chest is clear to auscultation, no wheezing or crackles. -ABDOMEN: Soft, LLQ tenderness, no rebound tenderness nondistended, normoactive bowel sounds. No palpable organomegaly. MUSCULOSKELETAL: No joint swelling or deformity. EXTREMITIES: No cyanosis, clubbing, or pedal edema. NEUROLOGICAL: Gross neurological examination did not reveal any focal deficits. SKIN: No rashes. no petechiae. - Labs CBC & Chem 7: 04/20/21 06:34 04/20/21 06:33 Labs: Abnormal Lab Results - Last 24 Hours (Table) 04/20/21 04/20/21 04/20/21 Range/Units 06:33 06:33 06:34 RBC 3.84 L (4.40-5.60) X 10*6/uL Hgb 10.1 L (13.0-17.0) g/dL Hct 33.8 L (39.6-50.0) % MCH 26.3 L (27.0-32.0) pg MCHC 29.9 L (32.0-37.0) g/dL RDW 18.8 H (11.5-14.5) % Immature Gran # 0.07 H (0.00-0.04) X 10*3/uL Lymphocytes # 0.70 L (0.90-5.00) X 10*3/uL Eosinophils # 0.03 L (0.04-0.35) X 10*3/uL PT 17.5 H (9.9-11.9) sec INR 1.66 H (0.90-1.11) BUN 31 H (9-20) mg/dL Glucose 103 H (74-99) mg/dL Assessment and Plan Assessment: Enterococcus faecalis bacteremia Left lower quadrant abdominal pain and tenderness Syncope, most likely secondary to hypertension and infection Hypotension, improving with IV fluid Chronic atrial fibrillation on digoxin and warfarin. Status post pacemaker Hypertension, currently blood pressure on the low side Hypothyroidism Plan: This is a pleasant 76 years old male who presents with syncope Hold Lasix and lisinopril. Continue with IV fluid Check CT of the abdomen and pelvis with contrast, risks including but not limited to ALLERGY and nephrotoxicity are explained to the patient and he verbalized understanding and acceptance Neck shows disease consult Resume warfarin pharmacy to dose with Lovenox bridging Labs and medication were reviewed.. Continue same treatment. Continue with symptomatic treatment. Resume home medication. Monitor lytes and vitals. DVT and GI prophylaxis. Further recommendations depends on the clinical course of the patient DVT prophylaxis: Subcutaneous Lovenox and warfarin GI Prophylaxis: Pepcid PT/OT: Pending Prognosis is guarded
[2021-04-20 12:55] LABS: Chol/HDL Ratio 2.46 Ratio; LDL Cholesterol,Calculated 28.1 mg/dL (0.0-131.0); VLDL Calculation 17.82 mg/dL (5.00-40.00)
--- NOTE | 2021-04-20 12:59 | CT ---
EXAMINATION TYPE: CT abdomen pelvis w con DATE OF EXAM: 04/20/2021 COMPARISON: None. HISTORY: LLQ pain into back. CT DLP: 1358.4 mGycm, Automated Exposure Control for Dose Reduction was Utilized. CONTRAST: CT scan of the abdomen and pelvis is performed with oral and with IV Contrast, patient injected with 100 mL of Isovue 300. FINDINGS: LUNG BASES: There is cardiomegaly with pacemaker leads partially imaged. There is severe right atrial dilatation and moderate right ventricular dilatation. There is a metallic aortic valve prosthesis. T here is dependent and bibasilar linear atelectasis LIVER/GB: No significant abnormality is appreciated. PANCREAS: No significant abnormality is seen. SPLEEN: No significant abnormality is seen. ADRENALS: No significant abnormality is seen. KIDNEYS: Symmetric cortical medullary uptake and excretion with no hydronephrosis seen bilaterally. T here are single simple-appearing thin-walled cysts bilaterally, largest on the left measures 3.7 cm l yo axis upper pole level laterally. BOWEL: Oral contrast does not reach level of terminal ileum making evaluation of distal bowel subopti mal. No suspicious small or large bowel dilatation PROSTATE/SEMINAL VESICLES: Prostate is suboptimally evaluated. LYMPH NODES: No greater than 1cm abdominal or pelvic lymph nodes are appreciated. OSSEOUS STRUCTURES: Metallic hardware from bilateral hip arthroplasty causes streak artifact limiting evaluation of pelvic structures. There is severe disc space narrowing with endplate sclerosis and mo derate to severe lateral spurring at the L2-L3 level. Posterior spur disc complex effaces the anterio r thecal sac at this level. Grade 1 retrolisthesis L2 on L3. Slight left lateral step-off of L3 and L 2. Slight grade 1 anterolisthesis L5 on S1. Facet arthropathy lower lumbar levels. OTHER: Focus of subcutaneous gas in the left lower quadrant anterior abdominal wall axial image 57 no eddi. Correlate clinically for subcutaneous medicine injection. IMPRESSION: 1. Acute Source of left lower quadrant pain extending into back is not identified. 2. Severe findings L2-L3 level could reflect product of a chronic discitis/osteomyelitis as there is some bony erosive changes and sclerosis noted.
[2021-04-20 15:30] VITALS: BMI 26.7
[2021-04-20] MEDS ORDERED: WARFARIN 2 MG TAB PO ONE (18:00)
[2021-04-20] MEDS: ASPIRIN 81 MG PO SCH (18:06)
[2021-04-20 20:54] LABS: C Reactive Protein 4.2 mg/dL (0.00-0.80); Folate, Serum 19.9 ng/mL (4.40-31.00)
--- NOTE | 2021-04-21 00:13 | P.CONS ---
History of Present Illness - Reason for Consult Consult date: 04/20/21 bacteremia Requesting physician: Solomon Vieira Sheet - Chief Complaint passed out x 1 day - History of Present Illness History of present illness : Patient is 76-year-old male who has been transferred from [facility] with the patient has presented after the patient did have a syncopal episode patient was transferred to this facility yesterday morning for further work-up apparently the patient was also noticed to have evidence of Enterococcus faecalis bacteremia however the patient not very sure exactly where he can of antibiotic he was getting for it patient presented to their facility apparently came did felt lightheaded when going to the bathroom and positive subsequently patient is striking his back against the furniture patient was noticed to have evidence of a dehydration and acute kidney injury for the patient be transferred to this facility on presentation to this hospital patient has been afebrile and no fever has been recorded subsequently patient did have white count 14.8 on admission BUN was elevated as well as creatinine has came down to normal patient urine has been negative lopez PCR was negative patient did have a chest x-ray that was reported negative for acute cardiopulmonary process patient did have a CT of abdominal pelvis completed with concern for L2-L3 level chronic discitis or osteomyelitis infectious was consulted because of his bacteremia that was noticed and the other facility patient himself but not very good historian so most information has been extracted from review the chart Review of system: CONSTITUTIONAL: Positive for weakness, however denies fever. EYES: No complaint. ENT: No complaint. RESPIRATORY: No complaint. CARDIOVASCULAR: No complaint. GENITOURINARY: No complaint. GASTROINTESTINAL: No complaint. MUSCULOSKELETAL: As per history of present illness INTEGUMENTARY: No complaint. PSYCHOLOGIC: No complaint. ENDOCRINE: No complaint. NEUROLOGIC: No complaint. Past medical history : Reviewed, documented below Past surgical history : Reviewed, documented below Social history: Reviewed, documented below Medications: Reviewed, as documented below EXAMINATION: Vital sigans= Reviewed and documented below GENERAL DESCRIPTION: Elderly male lying in bed, no distress. No tachypnea or accessory muscle of respiration use. HEENT: Shows Pallor , no scleral icterus. Oral mucous membrane is dry. NECK: Trachea central, no thyromegaly. LUNGS: Unlabored breathing. Clear to auscultation anteriorly. No wheeze or crackle. HEART: S1, S2, regular rate and rhythm. ABDOMEN: Soft, no tenderness , guarding or rigidity EXTREMITIES: No edema of feet. SKIN: No rash, no masses palpable. NEUROLOGICAL: The patient is awake, alert, oriented x3, mood and affect normal. LABS AND RADIOLOGY: Reviewed results see below Assessment : Patient presented to the hospital for evaluation of a syncopal episode in this patient who did have a fall hitting his back in this patient who did have evidence of Enterococcus faecalis bacteremia antibiotic hospital which is usually off the gut or urinary origin however the patient did have a negative UA CT abdominal pelvis did not show any intra-abdominal pathology however did shows possible evidence of discitis at the L2-3 level and could be the likely source of his bacteremia Plan: 1-blood cultures will be repeated to document clearance of his bacteremia 2-check inflammatory markers 3-start the patient on ampicillin 2 g every 6 hours We will follow on clinical condition and cultures to further adjust medication if needed Thank you for this consultation we will follow the patient along with you Past Medical History Past Medical History: Atrial Fibrillation, Hypertension Additional Past Medical History / Comment(s): Acute Sciatica, Lumbar pain, History of Any Multi-Drug Resistant Organisms: None Reported Past Surgical History: Joint Replacement, Pacemaker Additional Past Surgical History / Comment(s): Hip replacement, Replacement of aortic valve, Type of Cardiac Device: Permanent Pacemaker Device Placement Date:: unk Past Psychological History: No Psychological Hx Reported Smoking Status: Never smoker Past Alcohol Use History: Occasional Past Drug Use History: None Reported Medications and Allergies Home Medications Medication Instructions Recorded Confirmed Type Aspirin EC [Ecotrin Low Dose] 81 mg PO DAILY@1800 04/19/21 04/19/21 History Baclofen [Lioresal] 10 mg PO TID@0800,1400,209904/19/21 04/19/21 History Cholecalciferol [Vitamin D3 (25 50 mcg PO DAILY@0800 04/19/21 04/19/21 History Mcg = 1000 Iu)] Digoxin [Lanoxin] 125 mcg PO DAILY@0800 04/19/21 04/19/21 History Doxycycline Hyclate [Vibramycin] 100 mg PO BID@0900,2100 04/19/21 04/19/21 History Ferrous Sulfate [Feosol] 325 mg PO DAILY@0800 04/19/21 04/19/21 History Furosemide [Lasix] 40 mg PO BID@0600,1400 04/19/21 04/19/21 History Levothyroxine Sodium [Synthroid] 50 mcg PO DAILY@0700 04/19/21 04/19/21 History Lidocaine 5% Patch [Lidoderm] 1 patch TOPICAL DAILY 04/19/21 04/19/21 History Metoprolol Tartrate [Lopressor] 25 mg PO BID@0800,1700 04/19/21 04/19/21 History Multivitamins, Thera [Multivitamin 1 tab PO DAILY@0800 04/19/21 04/19/21 History (formulary)] Ondansetron Odt [Zofran Odt] 4 mg PO Q6H PRN 04/19/21 04/19/21 History Potassium Chloride ER [K-Dur 10] 20 meq PO DAILY@0800 04/19/21 04/19/21 History Simvastatin [Zocor] 20 mg PO HS@2100 04/19/21 04/19/21 History Tamsulosin HCl [Flomax] 0.4 mg PO DAILY@0800 04/19/21 04/19/21 History Warfarin Sodium 4 mg PO DIRECTED 04/19/21 04/19/21 History Warfarin [Coumadin] 2 mg PO DAILY@1700 04/19/21 04/19/21 History lisinopriL [Zestril] 2.5 mg PO DAILY@0800 04/19/21 04/19/21 History metroNIDAZOLE [Flagyl] 500 mg PO TID@0500,1400,2200 04/19/21 04/19/21 History traMADol HCL 50 mg PO Q6H PRN 04/19/21 04/19/21 History Allergies Allergy/AdvReac Type Severity Reaction Status Date / Time No Known Allergies Allergy Verified 04/19/21 06:19 Physical Exam Vitals: Vital Signs Temp Pulse Pulse Pulse Resp BP BP 04/20/21 14:50 98 F 93 18 119/74 04/20/21 08:00 59 L 16 04/20/21 06:58 98.5 F 81 16 115/75 04/20/21 01:55 59 L 75 20 04/20/21 00:46 97.7 F 75 20 125/76 04/19/21 19:41 98.0 F 83 22 100/66 04/19/21 19:29 59 L 106 H 18 Pulse Ox 04/20/21 14:50 96 10/06/21 08:00 04/20/21 06:58 99 04/20/21 01:55 04/20/21 00:46 96 04/19/21 19:41 98 04/19/21 19:29 Intake and Output 04/20/21 04/20/21 04/20/21 06:59 14:59 22:59 Intake Total 360 Output Total 400 800 Balance -400 -440 Intake: Oral 360 Output: Urine 400 800 Other: Voiding Method Urinal Urinal # Voids 1 Weight 99.79 kg Results CBC & Chem 7: 04/20/21 06:34 04/20/21 06:33 Labs: Abnormal Lab Results - Last 24 Hours (Table) 04/20/21 04/20/21 04/20/21 Range/Units 06:33 06:33 06:34 RBC 3.84 L (4.40-5.60) X 10*6/uL Hgb 10.1 L (13.0-17.0) g/dL Hct 33.8 L (39.6-50.0) % MCH 26.3 L (27.0-32.0) pg MCHC 29.9 L (32.0-37.0) g/dL RDW 18.8 H (11.5-14.5) % Immature Gran # 0.07 H (0.00-0.04) X 10*3/uL Lymphocytes # 0.70 L (0.90-5.00) X 10*3/uL Eosinophils # 0.03 L (0.04-0.35) X 10*3/uL PT 17.5 H (9.9-11.9) sec INR 1.66 H (0.90-1.11) BUN 31 H (9-20) mg/dL Glucose 103 H (74-99) mg/dL HDL Cholesterol 31.50 L (40.00-60.00) mg/dL
[2021-04-21] MEDS: AMPICILLIN 2,000 MG in SODIUM CHLORIDE 0.9% 100 ML IVPB SCH ×5 (01:01→23:56)
[2021-04-21] MEDS: SODIUM CHLORIDE 0.9% 1,000 ML IV SCH ×2 (01:02→08:47)
[2021-04-21 05:26] LABS: INR 2.1 (<1.2); Prothrombin Time 20.2 sec (9.0-12.0)
[2021-04-21] MEDS: metroNIDAZOLE 500 MG TAB PO SCH ×2 (05:28→14:55)
[2021-04-21] MEDS: LIDOCAINE 5% PATCH TOPICAL SCH (08:45)
[2021-04-21] MEDS: ENOXAPARIN 80 MG/0.8 ML SYRINGE SQ SCH (08:45)
[2021-04-21] MEDS: TAMSULOSIN 0.4 MG CAP.ER.24H PO SCH (08:47)
[2021-04-21] MEDS: DIGOXIN 125 MCG TAB PO SCH (08:47)
[2021-04-21] MEDS: FERROUS SULFATE 325 MG TAB PO SCH (08:47)
[2021-04-21] MEDS: FAMOTIDINE 20 MG TAB PO SCH ×2 (08:47→21:09)
[2021-04-21] MEDS: LEVOTHYROXINE 50 MCG TAB PO SCH (08:47)
[2021-04-21] MEDS: BACLOFEN 10 MG TAB PO SCH ×3 (08:47→21:09)
[2021-04-21 11:53] LABS: Anisocytosis Slight; Basophils % (A) 1 %; Eosinophils % (A) 1 %; HCT 32.8 % (39.0-53.0); HGB 10.5 gm/dL (13.0-17.5); Hypochromasia Slight; Lymphocytes # (A) 0.7 k/uL (1.0-4.8); Lymphocytes % (A) 11 %; MCHC 31.9 g/dL (31.0-37.0); MCV 87.8 fL (80.0-100.0); Mean Platelet Volume 8.1; Monocytes # (A) 0.2 k/uL (0-1.0); Monocytes % (A) 3 %; Neutrophils # (A) 5.5 k/uL (1.3-7.7); Neutrophils % (A) 85 %; Platelet Count 361 k/uL (150-450); RBC 3.74 m/uL (4.30-5.90); WBC 6.5 k/uL (3.8-10.6)
[2021-04-21 12:04] LABS: African American GFR (CKD) >90 (>60 ml/min/1.73 sqM); Anion Gap 5 mmol/L; Blood Urea Nitrogen 19 mg/dL (9-20); Calcium 8.9 mg/dL (8.4-10.2); Carbon Dioxide 23 mmol/L (22-30); Chloride 107 mmol/L (98-107); Glucose 100 mg/dL (74-99); Non-African American GFR(CKD) >90 (>60 ml/min/1.73 sqM); Potassium 4.3 mmol/L (3.5-5.1); Sodium 135 mmol/L (137-145)
[2021-04-21] MEDS ORDERED: WARFARIN 2 MG TAB PO ONE (18:00)
[2021-04-21] MEDS: ASPIRIN 81 MG PO SCH (18:27)
--- NOTE | 2021-04-21 19:22 | P.PN ---
Subjective This is a pleasant 76 years old male with past medical history of atrial fibrillation, hypertension, hypothyroidism. [facility] , his supervisor heading is Dr. Agustin mendez patient states that he was discharged from [facility] in bed ax yesterday it was there since Sunday but he could not tell me exactly for what reason for hospitalization but he pointed to his lower abdomen. Patient was discharged about 5 PM and to his house. Into the evening he was moving from his living room to bedroom to get to sleep when he passed out after he felt very weak without dizziness, he fell on his back worse for a few seconds but workup right away with no seizure-like activity, no urine/bowel incontinence or tongue biting patient denies chest pain or dyspnea. He feels mild left lower quadrant abdominal pain about 1-2/10 for about a week. No vomiting. Last bowel movement was last night which was normal but put him on after constipation for 2 days. He denies any urinary symptoms No smoking, alcohol or illicit drugs He was hypotensive upon admission 77/58. Currently blood pressure is 92/56 Labs showing mild leukocytosis of 14.8 K, 10.3 and platelet count is 339. INR is 1.3, sodium 134, BUN is elevated 41 with creatinine 1.2. Potassium is Normal at 4.8. Liver enzymes not elevated. Digoxin 0.6. Troponins 2 are negative with 0.02 and 0.017. Davalos virus not detected. EKG showing normal sinus rhythm at 89 with atrial fibrillation and no significant ST-T changes 04/20/2021 Patient still feeling generally weak with low appetite, he ate 50% of his pelvis morning. Also was complaining of from chronic low back pain for the last 2 months. He does not have back pain from the fall, only little tenderness on the right side of the rib cage as he states. No chest pain or dyspnea. No coughing. He has constipation. But he complains from left lower quadrant abdominal pain with mild tenderness, no rebound tenderness. No fever. We got the records from that [facility] and his blood culture is came positive yesterday for Enterococcus faecalis. Repeat blood culture and procalcitonin are ordered, infectious disease team were consulted he remains on normal saline at 100 mL per hour, Flagyl and doxycycline, also warfarin with an INR subtherapeutic at 1.6 so he was placed on bridging dose of Lovenox. 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 He is hemodynamically stable 04/21/2021 Patient remains awake with generally weak. Lying in bed most of the time complaining of from lower back pain since last February, also he has some left lower quadrant abdominal pain which is mild most likely referred pain from his lumbar spine disease. Blood pressure improved 129/87. Patient have some evidence of basilic dictation to IV fluids were stopped and we will keep monitoring his fluid status. His antihypertensive medication from a more held since admission CT of the abdomen and pelvis: No source for left lower quadrant pain is identified however patient have severe findings L2 to L3 level discitis/ost eomyelitis. Patient currently is covered with antibiotic, ampicillin per ID team recommendation for possible L2-L3 discitis. Flagyl from home dose was stopped INR is therapeutic 2.1 with warfarin continued. Consult orthopedic team Objective - Vital Signs Vital signs: Vital Signs Temp 98.5 F 04/21/21 14:22 Pulse 91 04/21/21 14:22 Resp 18 04/21/21 14:22 BP 129/87 04/21/21 14:22 Pulse Ox 98 04/21/21 14:22 Intake & Output 04/20/21 04/21/21 04/21/21 18:59 06:59 18:59 Intake Total 530 420 Output Total 800 1450 1250 Balance -270 -1450 -830 Weight 99.79 kg 99.79 kg Intake: Oral 530 420 Output: Urine 800 1450 1250 Other: Voiding Method Urinal Urinal Urinal Diaper # Voids 1 1 - Exam -GENERAL: The patient is alert and oriented x3, not in any acute distress. Well developed, well nourished. Generally weak HEENT: Pupils are round and equally reacting to light. EOMI. No scleral icterus. No conjunctival pallor. Normocephalic, atraumatic. No pharyngeal erythema. No thyromegaly. CARDIOVASCULAR: S1 and S2 present. No murmurs, rubs, or gallops. PULMONARY: Chest is clear to auscultation, no wheezing or crackles. -ABDOMEN: Soft, LLQ tenderness, no rebound tenderness nondistended, normoactive bowel sounds. No palpable organomegaly. MUSCULOSKELETAL: No joint swelling or deformity. EXTREMITIES: No cyanosis, clubbing, or pedal edema. NEUROLOGICAL: Gross neurological examination did not reveal any focal deficits. SKIN: No rashes. no petechiae. - Labs CBC & Chem 7: 04/21/21 04:34 04/21/21 04:34 Labs: Abnormal Lab Results - Last 24 Hours (Table) 04/20/21 04/20/21 04/21/21 Range/Units 06:33 06:33 04:34 RBC 3.74 L (4.30-5.90) m/uL Hgb 10.5 L (13.0-17.5) gm/dL Hct 32.8 L (39.0-53.0) % RDW 18.0 H (11.5-15.5) % Lymphocytes # 0.7 L (1.0-4.8) k/uL ESR (0-20) mm/Hr PT (9.0-12.0) sec INR (<1.2) Sodium (137-145) mmol/L Creatinine (0.66-1.25) mg/dL Glucose (74-99) mg/dL C-Reactive Protein 4.20 H (0.00-0.80) mg/dL Vitamin B12 1358.0 H (200.0-944.0) pg/mL Procalcitonin 0.33 H (0.02-0.09) ng/mL 04/21/21 04/21/21 04/21/21 Range/Units 04:34 04:37 04:37 RBC (4.30-5.90) m/uL Hgb (13.0-17.5) gm/dL Hct (39.0-53.0) % RDW (11.5-15.5) % Lymphocytes # (1.0-4.8) k/uL ESR 58 H (0-20) mm/Hr PT 20.2 H (9.0-12.0) sec INR 2.1 H (<1.2) Sodium 135 L (137-145) mmol/L Creatinine 0.60 L (0.66-1.25) mg/dL Glucose 100 H (74-99) mg/dL C-Reactive Protein (0.00-0.80) mg/dL Vitamin B12 (200.0-944.0) pg/mL Procalcitonin (0.02-0.09) ng/mL Microbiology - Last 24 Hours (Table) 04/20/21 10:34 Blood Culture - Preliminary Blood No Growth after 24 hours Assessment and Plan Assessment: Enterococcus faecalis bacteremia , Mostly secondary to lower lumbar discitis L2 to L3 discitis/osteomyelitis Left lower quadrant abdominal pain, most likely referred pain from lower lumbar lesion Syncope, most likely secondary to hypotension and infection, improved Hypotension, improved Chronic atrial fibrillation on digoxin and warfarin. Status post pacemaker Hypertension, currently blood pressure on the low side Hypothyroidism Plan: This is a pleasant 76 years old male who presents with syncope Hold Lasix and lisinopril. Discontinue with IV fluid Continue with ampicillin per ID team for L2 to L3 discitis. Also consult orthopedic team Resume warfarin pharmacy to dose with Lovenox bridging Labs and medication were reviewed.. Continue same treatment. Continue with symptomatic treatment. Resume home medication. Monitor lytes and vitals. DVT and GI prophylaxis. Further recommendations depends on the clinical course of the patient DVT prophylaxis: warfarin GI Prophylaxis: Pepcid PT/OT: Subacute rehab Prognosis is guarded
[2021-04-22 05:17] LABS: INR 2.1 (<1.2); Prothrombin Time 20.7 sec (9.0-12.0)
[2021-04-22] MEDS: AMPICILLIN 2,000 MG in SODIUM CHLORIDE 0.9% 100 ML IVPB SCH ×3 (05:48→17:29)
[2021-04-22] MEDS: LEVOTHYROXINE 50 MCG TAB PO SCH (05:49)
--- NOTE | 2021-04-22 07:02 | PN ---
PROGRESS NOTE DATE OF SERVICE: 04/21/2021 REASON FOR FOLLOWUP: Bacteremia and concern for possible diskitis. INTERVAL HISTORY: Patient is afebrile, has been breathing comfortably. No chest pain, shortness of breath or cough. No abdominal pain. Patient mentioned has been complaining of low back pain since any trauma and no extension down to the leg. PHYSICAL EXAMINATION: Blood pressure is 122/75 with a pulse of 104, temperature 98.1, he is 100% on room air. General description is an elderly male lying in bed in no distress. Respiratory system: Unlabored breathing, clear to auscultation anteriorly. Heart S1, S2. Regular rate and rhythm. Abdomen soft, no tenderness. LABS: Hemoglobin is 10.5, white count of 6.5, creatinine 0.60. Blood culture has been negative so far. DIAGNOSTIC IMPRESSION AND PLAN: Patient with Enterococcus faecalis bacteremia diagnosed in outside facility. Blood culture has been negative so far. A CT of abdomen and pelvis was reviewed with the radiologist Dr. Lakhani. There was no abnormality seen on the intraabdominal area. There was a question of possible sclerosis or old fracture / diskitis to the lumbosacral spine. MRI has been requested per recommendation by Neurology. Continue with ampicillin with discharge antibiotic on the basis of the cultures. Continue supportive care. MMODL / IJN: [id number] / GORDON
[2021-04-22] MEDS: BACLOFEN 10 MG TAB PO SCH ×3 (07:46→19:24)
[2021-04-22] MEDS: FAMOTIDINE 20 MG TAB PO SCH ×2 (07:46→19:24)
[2021-04-22] MEDS: DIGOXIN 125 MCG TAB PO SCH (07:46)
[2021-04-22] MEDS: FERROUS SULFATE 325 MG TAB PO SCH (07:46)
[2021-04-22] MEDS: TAMSULOSIN 0.4 MG CAP.ER.24H PO SCH (07:46)
[2021-04-22] MEDS: LIDOCAINE 5% PATCH TOPICAL SCH (07:46)
[2021-04-22] MEDS ORDERED: ACETAMINOPHEN TAB 325 MG TAB PO PRN (09:55)
--- NOTE | 2021-04-22 13:18 | P.CNOR ---
History of Present Illness - [facility] Consult date: 04/22/21 Requesting physician: Solomon E Sheet Consult reason: low back pain, other (L2-3 discitis/osteomyelitis) History of present illness: Patient is a pleasant 76-year-old male who is seen examining the bedside for further evaluation regard to his lumbar spine. He states he has been having ongoing low back pain over the past 2 months without injury. He has difficulty getting in and out of bed. He has some increased pain with trying to stand which does improve over time. He was originally seen at the hospital in [place], [place]. He was having some difficulty with INR which took 4 days to resolve. He was discharged home. He did sustain a fall hitting his lumbar spine. He does not feel his low back pain is worse since that fall. He underwent further evaluation in [place], [place]. While there he had evidence of bacteremia with positive blood cultures positive for Enterococcus faecalis. We were consulted in regards to L2-3 discitis/osteomyelitis following CT imaging. He has been following with Dr. Guardado in infectious disease. He has been started on antibiotic medication including ampicillin. Blood cultures during his presentation to [facility] have been negative. He does not currently have any leukocytosis. He did have elevated sed rate with lab testing yesterday. He has remained afebrile. Patient denies any lower extremity radiculopathy bilaterally. He has had some generalized weakness and difficulty with mobility. He did recently pass out and had the fall. He states this is due to change in his blood pressure. He does admit to some left lower quadrant abdominal pain over the past week. He is being seen examining multiple medical providers including medicine and infectious disease. He continues to be seen by medicine for his other medical diagnoses including hypertension, chronic atrial fibrillation, status post pacemaker placement, hypothyroidism, left lower quadrant abdominal pain, improved hypotension. His pacemaker card states he is able to have an MRI. He does have a history of previous total hip arthroplasty performed bilaterally. Past Medical History Past Medical History: Atrial Fibrillation, Hypertension Additional Past Medical History / Comment(s): Acute Sciatica, Lumbar pain, History of Any Multi-Drug Resistant Organisms: None Reported Past Surgical History: Joint Replacement, Pacemaker Additional Past Surgical History / Comment(s): Hip replacement, Replacement of aortic valve, Type of Cardiac Device: Permanent Pacemaker Device Placement Date:: unk Past Psychological History: No Psychological Hx Reported Smoking Status: Never smoker Past Alcohol Use History: Occasional Past Drug Use History: None Reported Medications and Allergies Home Medications Medication Instructions Recorded Confirmed Type Aspirin EC [Ecotrin Low Dose] 81 mg PO DAILY@1800 04/19/21 04/19/21 History Baclofen [Lioresal] 10 mg PO TID@0800,1400,2100 04/19/21 04/19/21 History Cholecalciferol [Vitamin D3 (25 50 mcg PO DAILY@0800 04/19/21 04/19/21 History Mcg = 1000 Iu)] Digoxin [Lanoxin] 125 mcg PO DAILY@0800 04/19/21 04/19/21 History Doxycycline Hyclate [Vibramycin] 100 mg PO BID@0900,2100 04/19/21 04/19/21 History Ferrous Sulfate [Feosol] 325 mg PO DAILY@0800 04/19/21 04/19/21 History Furosemide [Lasix] 40 mg PO BID@0600,1400 04/19/21 04/19/21 History Levothyroxine Sodium [Synthroid] 50 mcg PO DAILY@0700 04/19/21 04/19/21 History Lidocaine 5% Patch [Lidoderm] 1 patch TOPICAL DAILY 04/19/21 04/19/21 History Metoprolol Tartrate [Lopressor] 25 mg PO BID@0800,1700 04/19/21 04/19/21 History Multivitamins, Thera [Multivitamin 1 tab PO DAILY@0800 04/19/21 04/19/21 History (formulary)] Ondansetron Odt [Zofran Odt] 4 mg PO Q6H PRN 04/19/21 04/19/21 History Potassium Chloride ER [K-Dur 10] 20 meq PO DAILY@0800 04/19/21 04/19/21 History Simvastatin [Zocor] 20 mg PO HS@2100 04/19/21 04/19/21 History Tamsulosin HCl [Flomax] 0.4 mg PO DAILY@0800 04/19/21 04/19/21 History Warfarin Sodium 4 mg PO DIRECTED 04/19/21 04/19/21 History Warfarin [Coumadin] 2 mg PO DAILY@1700 04/19/21 04/19/21 History lisinopriL [Zestril] 2.5 mg PO DAILY@0800 04/19/21 04/19/21 History metroNIDAZOLE [Flagyl] 500 mg PO TID@0500,1400,2200 04/19/21 04/19/21 History traMADol HCL 50 mg PO Q6H PRN 04/19/21 04/19/21 History Allergies Allergy/AdvReac Type Severity Reaction Status Date / Time No Known Allergies Allergy Verified 04/19/21 06:19 Physical Examination Physical exam: Patient is awake, alert, and oriented 3 Vital signs stable Good chest excursion with deep inspiration and expiration Abdomen soft nontender Examination of lumbar spine reveals skin is intact with no abrasions, lacerations, or bruises; no erythema, purulence or signs of infection Over the right side of the paraspinals there is some mild bruising that appears to be healing as the bruising has transitioned to more of a green/yellowish color Evidence of a small healing bruise over the left lumbar paraspinals Dorsiflexion, plantarflexion, and extensor hallucis longus positive sustained bilaterally Patient is able to go through active range of motion in the bilateral lower extremities without difficulty except movements are slow Straight leg test negative bilateral lower extremities No signs or symptoms of DVT; no calf pain No pain with internal and external rotation of the hips bilaterally Neurovascularly intact Results Pertinent studies: CT the abdomen and pelvis taken on 04/20/2021: Severe finding at L2-3 which could reflect product of chronic discitis/osteomyelitis with some bony erosive changes and sclerosis with severe lateral spurring; L2-3 grade 1 retrolisthesis; L5-S1 spondylolisthesis; lumbar facet arthropathy - Labs Labs: Abnormal Lab Results - Last 24 Hours (Table) 04/21/21 04/22/21 Range/Units 04:37 04:29 ESR 58 H (0-20) mm/Hr PT 20.7 H (9.0-12.0) sec INR 2.1 H (<1.2) Microbiology - Last 24 Hours (Table) 04/20/21 10:34 Blood Culture - Preliminary Blood No Growth after 48 hours 04/21/21 04:37 Blood Culture - Preliminary Blood No Growth after 24 hours H & H 04/19/21 04/20/21 04/21/21 Range/Units 04:29 06:34 04:34 Hgb 11.3 L 10.1 L 10.5 L (13.0-17.5) gm/dL Hct 36.1 L 33.8 L 32.8 L (39.0-53.0) % Coagulation 04/19/21 04/20/21 04/21/21 Range/Units 04:29 06:33 04:37 INR 1.3 H 1.66 H 2.1 H (<1.2) 04/22/21 Range/Units 04:29 INR 2.1 H (<1.2) Result Diagrams: 04/21/21 04:34 04/21/21 04:34 Assessment and Plan Assessment: Assessment: Low back pain 2 months L2-3 discitis/osteomyelitis Lumbar facet arthropathy L2-3 retrolisthesis L5-S1 spondylolisthesis Lumbar osteophytic spurring Positive blood cultures positive for Enterococcus faecalis taken at an outside facility Recent fall Hypertension Chronic atrial fibrillation on anticoagulation Status post pacemaker placement Hypothyroidism Left lower quadrant abdominal pain Improved hypotension History of total hip arthroplasty performed bilaterally (1) Lumbar discitis Current Visit: Yes Status: Acute Code(s): M46.46 - DISCITIS, UNSPECIFIED, LUMBAR REGION SNOMED Code(s): 705152401 (2) Low back pain Current Visit: Yes Status: Acute Code(s): M54.50 - SNOMED Code(s): 249056911 (3) Lumbar facet arthropathy Current Visit: Yes Status: Acute Code(s): M47.816 - SPONDYLOSIS W/O MYELOPATHY OR RADICULOPATHY, LUMBAR REGION SNOMED Code(s): 782439646 (4) Spondylolisthesis, lumbar region Current Visit: Yes Status: Acute Code(s): M43.16 - SPONDYLOLISTHESIS, LUMBAR REGION SNOMED Code(s): 535980428414994 (5) Spondylolisthesis, lumbosacral region Current Visit: Yes Status: Acute Code(s): M43.17 - SPONDYLOLISTHESIS, LUMBOSACRAL REGION SNOMED Code(s): 847359779 (6) Osteophyte Current Visit: Yes Status: Acute Code(s): M25.70 - OSTEOPHYTE, UNSPECIFIED JOINT SNOMED Code(s): 256198868783988 (7) Hypertension Current Visit: Yes Status: Acute Code(s): I10 - ESSENTIAL (PRIMARY) HYPERTENSION SNOMED Code(s): 76975662 (8) Chronic atrial fibrillation Current Visit: Yes Status: Acute Code(s): I48.20 - CHRONIC ATRIAL FIBRILLATION, UNSPECIFIED SNOMED Code(s): 097111228 (9) History of permanent cardiac pacemaker placement Current Visit: Yes Status: Acute Code(s): Z95.0 - PRESENCE OF CARDIAC PACEMAKER SNOMED Code(s): 000123714 (10) Hypothyroidism Current Visit: Yes Status: Acute Code(s): E03.9 - HYPOTHYROIDISM, UNSPECIFIED SNOMED Code(s): 18658008 (11) History of total replacement of both hip joints Current Visit: Yes Status: Acute Code(s): Z96.643 - PRESENCE OF ARTIFICIAL HIP JOINT, BILATERAL SNOMED Code(s): 159945984381 (12) Left lower quadrant abdominal pain Current Visit: Yes Status: Acute Code(s): R10.32 - LEFT LOWER QUADRANT PAIN SNOMED Code(s): 393956227 (13) Bacteremia due to Enterococcus Current Visit: Yes Status: Acute Code(s): R78.81 - BACTEREMIA; B95.2 - ENTEROCOCCUS THE CAUSE OF DISEASES CLASSIFIED ELSEWHERE SNOMED Code(s): 618477617933 (14) Hypotension Current Visit: Yes Status: Acute Code(s): I95.9 - HYPOTENSION, UNSPECIFIED SNOMED Code(s): 79783107 (15) Syncope Current Visit: Yes Status: Acute Code(s): R55 - SYNCOPE AND COLLAPSE SNOMED Code(s): 592047638 Plan: Plan: 1. Patient has been treated for multiple medical diagnoses recently including hypotension with fall. He had some difficulty with controlling his INR. Recent blood cultures taken in [place], [place] showed evidence of bacteremia with positive blood cultures positive for Enterococcus faecalis. He continues to be seen and examined by infectious disease. He is currently on ampicillin antibiotic medication. He is currently afebrile with a normal white count. His sed rate was elevated yesterday. He does have significant changes found CT imaging of the abdomen and pelvis. Patient did recently sustained a fall as well hitting his lumbar spine but has not had increased pain since that time. He has had difficulty with mobility and ambulation given his pain. He denies any current lower extremity radiculopathy bilaterally. Given his significant findings on CT imaging along with his positive blood cultures at an outside facility, we'll currently plan to obtain an MRI of the lumbar spine, which has been ordered by another provider. Patient does have a pacemaker but his pacemaker card states he is able to have MRI imaging. We would encourage continuing with infectious disease and antibiotics per the recommendations. We did discuss the patient if the patient would need surgical intervention in regards to his lumbar spine we may plan to transfer to a tertiary facility given the approach necessary for surgical intervention. We will currently encourage the patient continue with conservative treatment while MRI imaging of the lumbar spine is obtained. We'll plan to review this MRI imaging and follow-up with the patient to discuss an appropriate plan of care proceeding forward. Patient agrees with this plan. 2. Patient will continue be seen examining other medical providers including medicine and infectious disease. Time with Patient: Greater than 30 (Including obtaining history, physical examination, reviewing of imaging, and dictation.)
[2021-04-22 14:14] VITALS: RESP 17
--- NOTE | 2021-04-22 14:46 | P.PN ---
Subjective This is a pleasant 76 years old male with past medical history of atrial fibrillation, hypertension, hypothyroidism. 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 Agustin mendez patient states that he was discharged from [facility] in bed ax yesterday it was there since Sunday but he could not tell me exactly for what reason for hospitalization but he pointed to his lower abdomen. Patient was discharged about 5 PM and to his house. Into the evening he was moving from his living room to bedroom to get to sleep when he passed out after he felt very weak without dizziness, he fell on his back worse for a few seconds but workup right away with no seizure-like activity, no urine/bowel incontinence or tongue biting patient denies chest pain or dyspnea. He feels mild left lower quadrant abdominal pain about 1-2/10 for about a week. No vomiting. Last bowel movement was last night which was normal but put him on after constipation for 2 days. He denies any urinary symptoms No smoking, alcohol or illicit drugs He was hypotensive upon admission 77/58. Currently blood pressure is 92/56 Labs showing mild leukocytosis of 14.8 K, 10.3 and platelet count is 339. INR is 1.3, sodium 134, BUN is elevated 41 with creatinine 1.2. Potassium is Normal at 4.8. Liver enzymes not elevated. Digoxin 0.6. Troponins 2 are negative with 0.02 and 0.017. Davalos virus not detected. EKG showing normal sinus rhythm at 89 with atrial fibrillation and no significant ST-T changes 04/20/2021 Patient still feeling generally weak with low appetite, he ate 50% of his pelvis morning. Also was complaining of from chronic low back pain for the last 2 months. He does not have back pain from the fall, only little tenderness on the right side of the rib cage as he states. No chest pain or dyspnea. No coughing. He has constipation. But he complains from left lower quadrant abdominal pain with mild tenderness, no rebound tenderness. No fever. We got the records from that [facility] and his blood culture is came positive yesterday for Enterococcus faecalis. Repeat blood culture and procalcitonin are ordered, infectious disease team were consulted he remains on normal saline at 100 mL per hour, Flagyl and doxycycline, also warfarin with an INR subtherapeutic at 1.6 so he was placed on bridging dose of Lovenox. 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 He is hemodynamically stable 04/21/2021 Patient remains awake with generally weak. Lying in bed most of the time complaining of from lower back pain since last February, also he has some left lower quadrant abdominal pain which is mild most likely referred pain from his lumbar spine disease. Blood pressure improved 129/87. Patient have some evidence of basilic dictation to IV fluids were stopped and we will keep monitoring his fluid status. His antihypertensive medication from a more held since admission CT of the abdomen and pelvis: No source for left lower quadrant pain is identified however patient have severe findings L2 to L3 level discitis/ost eomyelitis. Patient currently is covered with antibiotic, ampicillin per ID team recommendation for possible L2-L3 discitis. Flagyl from home dose was stopped INR is therapeutic 2.1 with warfarin continued. Consult orthopedic team 04/22/2021 Patient does not complain from LLQ pain and tenderness today, I have low back pain which is mild since last February. Suspicious for L2 to L3 discitis. MRI recommended for him and he has a pacemaker cart stated it is compatible with MRI however the test was consulted by poultry picking machine tender reporting no MRI with pacemaker in this facility disease. Other than that he is hemodynamically stable. INR is 2.1 which is therapeutic since yesterday. He remains on ampicillin and repeat blood culture showing no growth in 24 hours Subacute rehab recommended for the patient and he agrees Objective - Vital Signs Vital signs: Vital Signs Temp 97.9 F 04/22/21 14:00 Pulse 103 H 04/22/21 14:00 Resp 17 04/22/21 14:00 BP 114/77 04/22/21 14:00 Pulse Ox 93 L 04/22/21 14:00 Intake & Output 04/21/21 04/22/21 04/22/21 18:59 06:59 18:59 Intake Total 660 236 Output Total 1250 300 Balance -590 -64 Weight 99.79 kg Intake: Oral 660 236 Output: Urine 1250 300 Other: Voiding Method Urinal Urinal Diaper # Voids 2 1 - Exam -GENERAL: The patient is alert and oriented x3, not in any acute distress. Well developed, well nourished. Generally weak HEENT: Pupils are round and equally reacting to light. EOMI. No scleral icterus. No conjunctival pallor. Normocephalic, atraumatic. No pharyngeal erythema. No thyromegaly. CARDIOVASCULAR: S1 and S2 present. No murmurs, rubs, or gallops. PULMONARY: Chest is clear to auscultation, no wheezing or crackles. -ABDOMEN: Soft, LLQ tenderness, no rebound tenderness nondistended, normoactive bowel sounds. No palpable organomegaly. MUSCULOSKELETAL: No joint swelling or deformity. EXTREMITIES: No cyanosis, clubbing, or pedal edema. NEUROLOGICAL: Gross neurological examination did not reveal any focal deficits. SKIN: No rashes. no petechiae. - Labs CBC & Chem 7: 04/21/21 04:34 04/21/21 04:34 Labs: Abnormal Lab Results - Last 24 Hours (Table) 04/22/21 Range/Units 04:29 PT 20.7 H (9.0-12.0) sec INR 2.1 H (<1.2) Microbiology - Last 24 Hours (Table) 04/20/21 10:34 Blood Culture - Preliminary Blood No Growth after 48 hours 04/21/21 04:37 Blood Culture - Preliminary Blood No Growth after 24 hours Assessment and Plan Assessment: Enterococcus faecalis bacteremia , Mostly secondary to lower lumbar discitis L2 to L3 discitis/osteomyelitis Left lower quadrant abdominal pain, most likely referred pain from lower lumbar lesion Syncope, most likely secondary to hypotension and infection, improved Hypotension, improved Chronic atrial fibrillation on digoxin and warfarin. Status post pacemaker Hypertension, currently blood pressure on the low side Hypothyroidism Plan: This is a pleasant 76 years old male who presents with syncope, enterococcus bacteremia secondary to L2 to L3 discitis Hold Lasix and lisinopril. Discontinue with IV fluid. Blood pressure is stable now Continue with ampicillin per ID team for L2 to L3 discitis. Orthopedic and infectious disease team on the case MRI canceled by radiology team. We will follow-up with consultants recommendation Labs and medication were reviewed.. Continue same treatment. Continue with symptomatic treatment. Resume home medication. Monitor lytes and vitals. DVT and GI prophylaxis. Further recommendations depends on the clinical course of the patient DVT prophylaxis: warfarin GI Prophylaxis: Pepcid PT/OT: Subacute rehab Prognosis is guarded
--- NOTE | 2021-04-22 15:20 | PN ---
PROGRESS NOTE DATE OF SERVICE: 04/22/2021 REASON FOR FOLLOWUP: Enterococcus faecalis bacteremia and a question of diskitis. INTERVAL HISTORY: The patient is currently afebrile. The patient is breathing comfortably. The patient denies any worsening pain to the lower back area or any on the leg. No chest pain, shortness of breath or cough. PHYSICAL EXAMINATION: His vital signs are stable. He is afebrile. General description is an elderly male lying in bed in no distress. RESPIRATORY SYSTEM: Unlabored breathing. Clear to auscultation anteriorly. HEART: S1, S2. Regular rate and rhythm. ABDOMEN: Soft. No tenderness. EXTREMITIES: No edema of the feet. LABS: Blood culture from here has been negative so far. DIAGNOSTIC IMPRESSION AND PLAN: Patient with Enterococcus faecalis bacteremia in this patient who did have abnormal CT of the abdomen and pelvis with the possibility of L2-3 diskitis. waiting an MRI. However, the patient did have a pacemaker and is currently being interrogated by Radiology to see whether the patient can undergo MRI or not. Plan at this time is to continue with ampicillin and continue with supportive care. MMODL / IJN: [id number] / GORD[place]
[2021-04-22] MEDS: ASPIRIN 81 MG PO SCH (17:29)
[2021-04-22] MEDS ORDERED: WARFARIN 2 MG TAB PO ONE (18:00)
[2021-04-22] MEDS ORDERED: WARFARIN 2 MG TAB PO SCH (18:00)
[2021-04-22 19:26] VITALS: BP 120/80; PULSE 107; TEMP 98.4
== END 2021-04-22 20:42 | disposition short-term general hospital (02) | DRG 540 ==
LOC: SUPCPDRO 04:00 → EC 04:00 → 6NMEDSUR 04:16 → OBSVTOIN 04-21 12:31
PROVIDERS: ADMIT Hospitalist; ATTEND Hospitalist
DX: M46.26 Osteomyelitis of vertebra, lumbar region (principal); I48.20 Chronic atrial fibrillation, unspecified; M47.16 Other spondylosis with myelopathy, lumbar region; R78.81 Bacteremia; Z20.822 Contact with and (suspected) exposure to COVID-19; E03.9 Hypothyroidism, unspecified; E86.0 Dehydration; B95.2 Enterococcus as the cause of diseases classified elsewhere; G89.29 Other chronic pain; I10 Essential (primary) hypertension; M43.16 Spondylolisthesis, lumbar region; M43.17 Spondylolisthesis, lumbosacral region; M46.46 Discitis, unspecified, lumbar region; M47.26 Other spondylosis with radiculopathy, lumbar region; Z96.643 Presence of artificial hip joint, bilateral; I95.9 Hypotension, unspecified; M54.30 Sciatica, unspecified side; R00.0 Tachycardia, unspecified; R26.9 Unspecified abnormalities of gait and mobility; R94.8 Abnormal results of function studies of other organs and systems; K59.00 Constipation, unspecified; Z79.01 Long term (current) use of anticoagulants; Z79.82 Long term (current) use of aspirin; Z79.890 Hormone replacement therapy; Z79.899 Other long term (current) drug therapy; Z95.0 Presence of cardiac pacemaker
CPT/HCPCS: 71046; 74177; 80048; 80053; 80061; 80162; 81003; 82607; 82746; 83605; 83735; 84145; 84484; 85025; 85610; 85652; 85730; 86140; 87040; 87635; 93005; 96361; 96374; 99285

== ENCOUNTER 2021-06-08 05:41 | Inpatient (IN) | payer MEDICARE ==
[2021-06-08 06:06] LABS: Anisocytosis Slight; Basophils % (A) 1 %; Eosinophils # (A) 0.2 k/uL (0-0.7); Eosinophils % (A) 3 %; HCT 33.3 % (39.0-53.0); Hypochromasia Moderate; Lymphocytes # (A) 0.8 k/uL (1.0-4.8); Lymphocytes % (A) 13 %; MCH 27.7 pg (25.0-35.0); MCHC 30.1 g/dL (31.0-37.0); Mean Platelet Volume 7.9; Monocytes # (A) 0.2 k/uL (0-1.0); Monocytes % (A) 3 %; Neutrophils # (A) 4.6 k/uL (1.3-7.7); Neutrophils % (A) 79 %; Platelet Count 245 k/uL (150-450); RBC 3.62 m/uL (4.30-5.90); WBC 5.8 k/uL (3.8-10.6)
--- NOTE | 2021-06-08 06:17 | ED ---
SOB HPI - General Chief Complaint: Shortness of Breath Stated Complaint: Shortness of Breath Time Seen by Provider: 06/08/21 05:52 Source: EMS Mode of arrival: EMS - History of Present Illness Initial Comments: Aly is a 76-year-old gentleman with extensive past medical history most significant for a prior CVA with right-sided deficits, chronic bilateral heel wounds with osteomyelitis, congestive heart failure recent admission to the hospital with sepsis, heart failure, aspiration pneumonia. Patient was intubated and had a central line during that admission. He was discharged to a halfway earlier this week, yesterday he tested positive for COVID-19, today is noted to be in moderate respiratory distress. Oxygen saturation is in the mid 80s he was tachycardic and febrile. Decision was made to refer back to the hospital for further management. - Related Data Home Medications Medication Instructions Recorded Confirmed Aspirin EC [Ecotrin Low Dose] 81 mg PO DAILY@0900 04/19/21 05/14/21 Baclofen [Lioresal] 10 mg PO TID@0900,1300,2100 04/19/21 05/14/21 Cholecalciferol [Vitamin D3 (25 25 mcg PO DAILY@0900 04/19/21 05/14/21 Mcg = 1000 Iu)] Levothyroxine Sodium [Synthroid] 50 mcg PO DAILY@0600 04/19/21 05/14/21 Lidocaine 5% Patch [Lidoderm 5% 1 patch TOPICAL DAILY@0900 04/19/21 05/14/21 Patch] Tamsulosin HCl [Flomax] 0.4 mg PO DAILY@0900 04/19/21 05/14/21 Ampicillin Sodium Solution 2 gm IV Q4H 05/14/21 05/14/21 Reconstituted 2gm Docusate Sodium [Dok] 100 mg PO BID@0900,1700 05/14/21 05/14/21 Gentamicin In Saline Solution 100 mg IV BID@0900,2100 05/14/21 05/14/21 0.8mg/Ml Magnesium Hydroxide [Milk of 1,600 mg PO DAILY PRN 05/14/21 05/14/21 Magnesia] Sennosides [Senokot] 17.2 mg PO BID@0900,1700 05/14/21 05/14/21 bisacodyL [Dulcolax] 10 mg RECTAL DAILY PRN 05/14/21 05/14/21 methocarbamoL [Methocarbamol] 750 mg PO Q8H PRN 05/14/21 05/14/21 Previous Rx's Medication Instructions Recorded Amiodarone [Cordarone] 200 mg PO BID tab 06/06/21 DAPTOmycin [Cubicin] 600 mg IV DAILY #21 each 06/06/21 Fluconazole [Diflucan] 100 mg PO DAILY #7 tablet 06/06/21 HYDROcodone/APAP 5-325MG [[place] 1 tab PO Q4HR PRN #9 tab 06/06/21 5-325] Ipratropium-Albuterol Nebulize 3 ml INHALATION RT-Q2H PRN ml 06/06/21 [Duoneb 0.5 mg-3 mg/3 ml Soln] Ipratropium-Albuterol Nebulize 3 ml INHALATION RT-QID ml 06/06/21 [Duoneb 0.5 mg-3 mg/3 ml Soln] Midodrine [ProAmatine] 10 mg PO AC-TID tab 06/06/21 Warfarin Sodium 1 mg PO HS@2100 #1 06/06/21 Allergies Allergy/AdvReac Type Severity Reaction Status Date / Time No Known Allergies Allergy Verified 05/14/21 18:03 Review of Systems ROS Statement: Those systems with pertinent positive or pertinent negative responses have been documented in the HPI. ROS Other: All systems not noted in ROS Statement are negative. Past Medical History Past Medical History: Atrial Fibrillation, Hypertension Additional Past Medical History / Comment(s): Acute Sciatica, Lumbar pain, History of Any Multi-Drug Resistant Organisms: None Reported Past Surgical History: Joint Replacement, Pacemaker Additional Past Surgical History / Comment(s): Hip replacement, Replacement of aortic valve, back surgey at [place] 05/01/21 Type of Cardiac Device: Permanent Pacemaker Device Placement Date:: unk Past Psychological History: No Psychological Hx Reported Smoking Status: Never smoker Past Alcohol Use History: Occasional Past Drug Use History: None Reported General Exam - General Exam Comments Initial Comments: Physical Exam GENERAL: Chronically ill-appearing HENT: Normocephalic, Atraumatic. EYES: PERRL, EOMI PULMONARY: Coarse breath sounds all lung singh Tachypnea CARDIOVASCULAR: Tachycardic, irregular ABDOMEN: PEG tube in place SKIN: Decubitus ulcer on the nose from previous prolonged BiPAP use Bruises in multiple stages of healing from previous hospitalization, IV accesses Chronic wounds of bilateral feet : Torrez catheter placed NEUROLOGIC: Expressive aphasia, right-sided paralysis at baseline MUSCULOSKELETAL: Left arm edema PSYCHIATRIC: Unable to assess Course Vital Signs 06/08/21 06/08/21 05:42 06:27 Temperature 99.0 F Pulse Rate 108 H 111 H Respiratory 22 22 Rate Blood Pressure 89/42 112/68 O2 Sat by Pulse 93 L 98 Oximetry Procedures - [place] Protocol (Time Out) Nurse: Ellyn Soto Medical Decision Making - Medical Decision Making Was seen and evaluated immediately upon arrival the emergency department the patient presented in acute respiratory distress, he was receiving oxygen via nonrebreather mask after having oxygen saturations in the high 70s and low 80s. It increased work of breathing. He has called with positive Labs chest x-rays were obtained Chest x-ray looks much improved from previous EKG reveals resumed A. fib RVR rate 111, blood pressure stable Patient was placed on BiPAP with a full facemask Patient care was discussed with [facility] hospitalist who accepts the admission for A. fib RVR, COVID-19, respiratory distress - Lab Data Result diagrams: 06/08/21 05:57 06/08/21 05:57 Lab Results 06/08/21 06/08/21 06/08/21 Range/Units 05:57 05:57 05:57 WBC 5.8 (3.8-10.6) k/uL RBC 3.62 L (4.30-5.90) m/uL Hgb 10.0 L (13.0-17.5) gm/dL Hct 33.3 L (39.0-53.0) % MCV 92.0 (80.0-100.0) fL MCH 27.7 (25.0-35.0) pg MCHC 30.1 L (31.0-37.0) g/dL RDW 19.0 H (11.5-15.5) % Plt Count 245 (150-450) k/uL MPV 7.9 Neutrophils % 79 % Lymphocytes % 13 % Monocytes % 3 % Eosinophils % 3 % Basophils % 1 % Neutrophils # 4.6 (1.3-7.7) k/uL Lymphocytes # 0.8 L (1.0-4.8) k/uL Monocytes # 0.2 (0-1.0) k/uL Eosinophils # 0.2 (0-0.7) k/uL Basophils # 0.0 (0-0.2) k/uL Hypochromasia Moderate Anisocytosis Slight PT 28.4 H (9.0-12.0) sec INR 2.9 H (<1.2) APTT 38.9 H (22.0-30.0) sec Sodium 144 (137-145) mmol/L Potassium 4.7 (3.5-5.1) mmol/L Chloride 105 (98-107) mmol/L Carbon Dioxide 36 H (22-30) mmol/L Anion Gap 3 mmol/L BUN 45 H (9-20) mg/dL Creatinine 1.13 (0.66-1.25) mg/dL Est GFR (CKD-EPI)AfAm 73 (>60 ml/min/1.73 sqM) Est GFR (CKD-EPI)NonAf 64 (>60 ml/min/1.73 sqM) Glucose 123 H (74-99) mg/dL Calcium 9.1 (8.4-10.2) mg/dL Magnesium 1.9 (1.6-2.3) mg/dL Total Bilirubin 0.3 (0.2-1.3) mg/dL AST 49 (17-59) U/L ALT 31 (4-49) U/L Alkaline Phosphatase 121 (38-126) U/L Lactate Dehydrogenase 747 H (313-618) U/L Troponin I (0.000-0.034) ng/mL Total Protein 6.1 L (6.3-8.2) g/dL Albumin 2.6 L (3.5-5.0) g/dL 06/08/21 Range/Units 05:57 WBC (3.8-10.6) k/uL RBC (4.30-5.90) m/uL Hgb (13.0-17.5) gm/dL Hct (39.0-53.0) % MCV (80.0-100.0) fL MCH (25.0-35.0) pg MCHC (31.0-37.0) g/dL RDW (11.5-15.5) % Plt Count (150-450) k/uL MPV Neutrophils % % Lymphocytes % % Monocytes % % Eosinophils % % Basophils % % Neutrophils # (1.3-7.7) k/uL Lymphocytes # (1.0-4.8) k/uL Monocytes # (0-1.0) k/uL Eosinophils # (0-0.7) k/uL Basophils # (0-0.2) k/uL Hypochromasia Anisocytosis PT (9.0-12.0) sec INR (<1.2) APTT (22.0-30.0) sec Sodium (137-145) mmol/L Potassium (3.5-5.1) mmol/L Chloride (98-107) mmol/L Carbon Dioxide (22-30) mmol/L Anion Gap mmol/L BUN (9-20) mg/dL Creatinine (0.66-1.25) mg/dL Est GFR (CKD-EPI)AfAm (>60 ml/min/1.73 sqM) Est GFR (CKD-EPI)NonAf (>60 ml/min/1.73 sqM) Glucose (74-99) mg/dL Calcium (8.4-10.2) mg/dL Magnesium (1.6-2.3) mg/dL Total Bilirubin (0.2-1.3) mg/dL AST (17-59) U/L ALT (4-49) U/L Alkaline Phosphatase (38-126) U/L Lactate Dehydrogenase (313-618) U/L Troponin I 0.033 (0.000-0.034) ng/mL Total Protein (6.3-8.2) g/dL Albumin (3.5-5.0) g/dL - EKG Data -: EKG Interpreted by Me EKG Comments: EKG was obtained due to complaint of shortness of breath and tachycardia, EKG w as obtained at 5:44 AM rate is 108 rhythm is narrow complex irregularly irregular rhythm consistent with an atrial fibrillation with rapid ventricular response. There are no acute ST elevations no evidence of acute infarction. Disposition Clinical Impression: Atrial fibrillation with RVR, COVID-19, Chronic atrial fibrillation Disposition: ADMITTED IP TO THIS HOSP Condition: Serious Referrals: Nonstaff,Physician [Primary Care Provider] - 1-2 days
[2021-06-08 06:31] LABS: INR 2.9 (<1.2); Partial Thromboplastin Time 38.9 sec (22.0-30.0); Prothrombin Time 28.4 sec (9.0-12.0)
[2021-06-08 06:32] LABS: Albumin 2.6 g/dL (3.5-5.0); Calcium 9.1 mg/dL (8.4-10.2); Magnesium 1.9 mg/dL (1.6-2.3); Potassium 4.7 mmol/L (3.5-5.1); Total Bilirubin 0.3 mg/dL (0.2-1.3); Total Protein 6.1 g/dL (6.3-8.2)
[2021-06-08] MEDS ORDERED: NALOXONE 0.4 MG/ML 1 ML VIAL IV PRN (06:48)
--- NOTE | 2021-06-08 07:26 | XR ---
EXAMINATION TYPE: XR chest 1V portable DATE OF EXAM: 06/08/2021 Comparison: 06/06/2021 Clinical History: 76-year-old male Suspected COVID-19 pneumonia Findings: Left anterior chest wall pacemaker generator with right atrial and ventricular leads. Right PICC tip at the cavoatrial junction. Median sternotomy wires. Prosthetic aortic valve. Heart remains enlarged. Relative lung lucencies. Focal bibasilar opacities persist and may be slightly increased. Impression: 1. Cardiomediastinal COPD. 2. Bibasilar opacities are increased suggesting prominent areas of airspace disease. Some underlying pleural fusion is difficult to exclude.
[2021-06-08 08:05] LABS: C Reactive Protein 5.4 mg/dL (<1.0)
--- NOTE | 2021-06-08 11:38 | XR ---
EXAMINATION TYPE: XR chest 1V portable DATE OF EXAM: 06/08/2021 COMPARISON: Chest x-ray 06/08/2021 at earlier time HISTORY: Congestive heart failure TECHNIQUE: Single frontal view of the chest is obtained. FINDINGS: Patient is rotated. Patient is post median sternotomy and cardiac valve replacement. There is a generator in left pectoral region, leads in right atrium and ventricle. Postop change is presen t in the lumbar region. No evident pneumothorax. Right-sided PICC line is stable. Bibasilar increased attenuation persists, heart is enlarged. Aorta is dense. There are overlying artifacts. IMPRESSION: Findings are similar to prior exam. Cardiomegaly, basilar effusions versus pneumonia, at electasis or edema.
[2021-06-08 11:52] LABS: Glucose,Whole Blood 119 mg/dL (75-99)
[2021-06-08] MEDS ORDERED: MAGNESIUM HYDROXIDE 2,400 MG/10 ML CUP PEG/G-TUBE PRN (15:04)
[2021-06-08] MEDS ORDERED: IPRATROPIUM-ALBUTEROL 3 ML NEB INHALATION PRN (15:04)
[2021-06-08] MEDS ORDERED: methocarbamoL 750 MG TAB PEG/G-TUBE PRN (15:04)
--- NOTE | 2021-06-08 15:59 | HP ---
HISTORY AND PHYSICAL CHIEF COMPLAINT: Shortness of breath. HISTORY OF PRESENT ILLNESS: This 76-year-old gentleman with a past medical history of multiple medical problems, including history of atrial fibrillation, CHF, CVA, TIA, hypertension, history of acute sciatica, was recently admitted to [facility] with features of acute right- sided stroke as well as hypotension and septic shock. The patient had PEG tube placement. The patient also had high risk of aspiration and patient was sent to long term yesterday, but the patient was found to have shortness of breath and hypoxia and the patient was sent back and was admitted for further evaluation and treatment. The patient tested positive for COVID-19 also. Currently the patient is stuporous and unable to give any significant history. The patient is with a mask and most of the history is taken from my discussion with staff and review of the chart at this time. Chest x-ray apparently showed bilateral infiltrates. PAST MEDICAL HISTORY: History of recent stroke, atrial fibrillation, CHF, CVA, TIA, hypertension, history of sciatica. HOME MEDICATIONS: Methocarbamol, Coumadin, Flomax, nystatin, midodrine, milk of magnesia, Lidoderm patch, levothyroxine, DuoNeb, [place], DOK, Cubicin, vitamin D3, Lioresal, Ecotrin, Cordarone, Tylenol. Doses are reviewed. ALLERGIES: NONE. Family history, social history, review of systems could not be taken because of mental status. PHYSICAL EXAMINATION: Patient is conscious, confused. Pulse is 114, blood pressure 83/60, respiration 22, temperature 98.6, pulse ox 99% on BiPAP 80%. HEENT: Conjunctivae normal. Oral mucosa moist. NECK: No jugular venous distention. No carotid bruit. No lymph node enlargement. CARDIOVASCULAR: S1, S2 muffled. RESPIRATION: Breath sounds diminished at the bases. A few scattered rhonchi and crackles. ABDOMEN: Soft, nontender. PEG tube in place. LEGS: No edema. No swelling. NERVOUS SYSTEM: Diffusely weak with some mild right-sided weakness. LABS: WBC 5.2, hemoglobin 10. INR is 2.9. Sodium 144. ASSESSMENT: 1. Acute bilateral pneumonia with acute hypoxic respiratory failure. 2. Change in mental status, metabolic encephalopathy. 3. COVID-19 positive. 4. History of recent aspiration pneumonia with hypoxic respiratory failure. 5. History of recent acute stroke with change in mental status and right-sided weakness. 6. History of recent complete opacification of left hemithorax secondary to aspiration. 7. Status post PEG tube placement. 8. Multiple organisms grown from the culture, including Makenna albicans and Klebsiella previously. 9. Congestive heart failure with chronic diastolic dysfunction. 10.Atrial fibrillation with fast ventricular rate. 11.History of chronic persistent atrial fibrillation. 12.Acute kidney injury with acute renal failure, acute tubular necrosis with severe sepsis. 13.History of aortic prosthetic placement. 14.Chronic low back pain, degenerative joint disease. 15.Stage II sacral decubitus ulcer. 16.Bilateral calcaneus stage I ulcer. 17.Hypertension. 18.Permanent pacemaker. 19.Severe protein-calorie malnutrition. 20.Anemia, normocytic anemia of chronic disease. 21.Coumadin monitoring. 22.Acute respiratory acidosis. 23.NO CODE, NO CPR, NO VENT. RECOMMENDATIONS AND DISCUSSION: I recommend to continue current medications, continue with symptomatic treatment. Otherwise at this time bronchodilators. Consult Dr. Copeland and Dr. Guardado. Cardiology also will be consulted for atrial fibrillation. Resume the home medications. Aspiration precautions. Prognosis guarded. Further recommendations to follow. MMODL / IJN: [id number] / MTDD
[2021-06-08] MEDS ORDERED: WARFARIN 3 MG TAB PO ONE (18:00)
[2021-06-08] MEDS: AMIODARONE 200 MG TAB PEG/G-TUBE SCH (18:51)
[2021-06-08] MEDS: MIDODRINE 5 MG TAB PEG/G-TUBE SCH (18:51)
[2021-06-08 20:12] LABS: Glucose,Whole Blood 97 mg/dL (75-99)
[2021-06-08] MEDS ORDERED: IPRATROPIUM-ALBUTEROL 3 ML NEB INHALATION SCH (21:00)
[2021-06-08] MEDS: DOCUSATE ORAL SOLN 100 MG/10 ML CUP PEG/G-TUBE SCH (22:01)
[2021-06-08] MEDS: BACLOFEN 10 MG TAB PEG/G-TUBE SCH (22:02)
[2021-06-09 06:05] LABS: Glucose,Whole Blood 95 mg/dL (75-99)
[2021-06-09] MEDS: LEVOTHYROXINE 50 MCG TAB PEG/G-TUBE SCH (06:54)
--- NOTE | 2021-06-09 08:02 | XR ---
EXAMINATION TYPE: XR chest 1V portable DATE OF EXAM: 06/09/2021 CLINICAL HISTORY: Difficulty breathing and pneumonia progress study. TECHNIQUE: Single AP portable upright view of the chest is obtained. COMPARISON: Chest x-ray from 2 days earlier and older studies. FINDINGS: Stable right-sided PICC line. Stable cardiomegaly with dual lead pacemaker. Surgical change cardiac valve redemonstrated. Overlying sternal wires again seen. Background chronic emphysematous c hange with bibasilar opacities redemonstrated. Osseous structures are intact. IMPRESSION: Chronic emphysematous change and cardiomegaly with small to tiny bilateral pleural effusi ons and bibasilar acute infiltrate and/or atelectasis redemonstrated. No significant change from most recent x-ray.
[2021-06-09] MEDS: MIDODRINE 5 MG TAB PEG/G-TUBE SCH ×3 (09:13→16:48)
[2021-06-09] MEDS: LIDOCAINE 5% PATCH TOPICAL SCH (09:13)
[2021-06-09] MEDS: BACLOFEN 10 MG TAB PEG/G-TUBE SCH ×3 (09:14→20:10)
[2021-06-09] MEDS: TAMSULOSIN 0.4 MG CAP.ER.24H PO SCH (09:14)
[2021-06-09] MEDS: DOCUSATE ORAL SOLN 100 MG/10 ML CUP PEG/G-TUBE SCH ×2 (09:14→16:47)
[2021-06-09] MEDS: CHOLECALCIFEROL 25 MCG (1000 IU) TABLET PEG/G-TUBE SCH (09:14)
[2021-06-09] MEDS: AMIODARONE 200 MG TAB PEG/G-TUBE SCH ×2 (09:14→16:48)
[2021-06-09] MEDS: ASPIRIN 81 MG PEG/G-TUBE SCH (09:14)
[2021-06-09] MEDS: ALBUTEROL HFA INHALER INHALATION PRN ×4 (09:41→20:52)
--- NOTE | 2021-06-09 10:21 | P.HPCAR ---
History of Present Illness H&P Date: 06/09/21 Chief Complaint: Covid Respiratory Failure; EKG Changes This is Alon Go NP dictating a consult on this patient on behalf of Dr. Banda. The patient was interviewed and examined. HPI: [Patient is a 76-year-old male who initially presented to the hospital with Covid Respiratory failure. Patient has a past medical history that includes atrial fibrillation, congestive heart failure, CVA, TIA, hypertension, sciatica, stroke, and PEG tube placement. Patient was recently discharged from the hospital but readmitted due to shortness of breath and hypoxia. Patient was found to have bibasilar pneumonia on imaging. Cardiology was consult for patient's atrial fibrillation. Review of the patient's EKG shows some mild ST depression in leads V3 through V6, otherwise the patient is in atrial fibrillation and is rate controlled at this time. Troponins are negative.] ROS: [No fever, chills, or rigors] [no cough, phlegm, or expectoration] [no nausea, vomiting, or diarrhea] [no hematuria, dysuria] [no musculoskelatal complaints] [no strokes or seizures] [no skin lesions] EXAMINATION: GENERAL: Well-appearing, well-nourished and in no acute distress. NECK: Supple without JVD or thyromegaly. LUNGS: Breath sounds diminished crackles. Respiration equal and unlabored. HEART: Regular rate and rhythm without murmurs, rubs or gallops. S1 and S2 heard. EXTREMITIES: Normal range of motion, no edema. No clubbing or cyanosis. Peripheral pulses intact and strong. REVIEW OF LABS, ECG & MEDICAL DATA: LABS: White blood cell 5.8, hemoglobin 10.0, platelets 245, PT 28.4, INR 2.9, sodium 144, potassium 4.7, B1 45, creatinine 1.13, magnesium 1.9, ferritin 624.0, troponin 0.033, BNP 3320 EKG: Atrial fibrillation, with mild ST depression in leads V3 through V6 IMAGING: Chest x-ray dated 06/09/2021 demonstrates chronic emphysematous change and cardiomegaly with small or tiny bilateral pleural effusions and bibasilar acute infiltrate and/or atelectasis redemonstrated. No significant change from most recent x-ray. VITALS: Temp 97.4, pulse 69, respirations 19, blood pressure 95/65, O2 saturati on 100% on BiPAP with an 80% FiO2 IMPRESSION/PLAN: [1. Atrial fibrillation-patient's currently rate controlled on current medications. Continue anticoagulation. Would consider an echocardiogram if there is a change in the patient's condition, or this could also be done as an outpatient. Seeing as how this patient is being successfully managed by the medical team, please contact us if any further needs arise.] Thank you for the consult and allowing us to participate in the care of this patient. Physical Exam Vitals: Vital Signs Temp Pulse Resp BP Pulse Ox 06/09/21 06:00 100 06/09/21 04:00 97.4 F L 69 19 95/65 100 06/09/21 00:00 97.4 F L 100 15 103/68 100 06/08/21 20:00 97.6 F 94 17 103/59 100 06/08/21 16:13 98.6 F 98 18 101/75 99 06/08/21 14:00 115 H 22 06/08/21 13:49 92/77 06/08/21 12:00 98.6 F 114 H 22 83/63 99 06/08/21 11:26 98.5 F 107 H 18 92/72 99 Intake and Output 06/08/21 06/09/21 06/09/21 22:59 06:59 14:59 Intake Total 100 Output Total 20 800 Balance -20 -700 Intake: Oral 100 Output: Urine 20 800 Coude 20 800 Other: Voiding Method Indwelling Catheter Indwelling Catheter # Voids 1 # Bowel Movements 1 2 Weight 92 kg Past Medical History Past Medical History: Atrial Fibrillation, Heart Failure, CVA/TIA, Hypertension, Respiratory Disorder Additional Past Medical History / Comment(s): Acute Sciatica, Lumbar pain, aspiraton pnuemonia, osteomyelitis b/l heels, peg tube History of Any Multi-Drug Resistant Organisms: None Reported Past Surgical History: Joint Replacement, Pacemaker Additional Past Surgical History / Comment(s): Hip replacement, Replacement of aortic valve, back surgey at [place] 05/01/21 Past Anesthesia/Blood Transfusion Reactions: No Reported Reaction Type of Cardiac Device: Permanent Pacemaker Device Placement Date:: unk Smoking Status: Never smoker Physical Examination Vital Signs Temp Pulse Resp BP Pulse Ox 06/09/21 06:00 100 06/09/21 04:00 97.4 F L 69 19 95/65 100 06/09/21 00:00 97.4 F L 100 15 103/68 100 06/08/21 20:00 97.6 F 94 17 103/59 100 06/08/21 16:13 98.6 F 98 18 101/75 99 06/08/21 14:00 115 H 22 06/08/21 13:49 92/77 06/08/21 12:00 98.6 F 114 H 22 83/63 99 06/08/21 11:26 98.5 F 107 H 18 92/72 99 Intake and Output 06/08/21 06/09/21 06/09/21 22:59 06:59 14:59 Intake Total 100 Output Total 20 800 Balance -20 -700 Intake: Oral 100 Output: Urine 20 800 Coude 20 800 Other: Voiding Method Indwelling Catheter Indwelling Catheter # Voids 1 # Bowel Movements 1 2 Weight 92 kg Results 06/08/21 05:57 06/08/21 05:57 Current Medications Generic Name Dose Route Start Last Admin Trade Name Freq PRN Reason Stop Dose Admin Hydrocodone Bitart/Acetaminophen 1 each 06/08/21 15:04 Hydrocodone/Apap 5-325mg 1 Each Tab PEG/G-TUBE Q4HR PRN Pain Albuterol Sulfate 2 puff 06/08/21 15:57 06/09/21 09:41 Albuterol Hfa Inhaler INHALATION 2 puff RT-TID PRN Administration Shortness Of Breath Or Wheezing Amiodarone HCl 200 mg 06/08/21 17:00 06/09/21 09:14 Amiodarone 200 Mg Tab PEG/G-TUBE 200 mg BID@0900,1700 JAMIE Administration Aspirin 81 mg 06/09/21 09:00 06/09/21 09:14 Aspirin 81 Mg PEG/G-TUBE 81 mg DAILY@0900 JAMIE Administration Baclofen 10 mg 06/08/21 21:00 06/09/21 09:14 Baclofen 10 Mg Tab PEG/G-TUBE 10 mg TID@0900,1300,2100 JAMIE Administration Cholecalciferol 25 mcg 06/09/21 09:00 06/09/21 09:14 Cholecalciferol 25 Mcg (1000 Iu) Tablet PEG/G-TUBE 25 mcg DAILY JAMIE Administration Docusate Sodium 100 mg 06/08/21 17:00 06/09/21 09:14 Docusate Oral Soln 100 Mg/10 Ml Cup PEG/G-TUBE 100 mg BID@0900,1700 JAMIE Administration Daptomycin 600 mg/ Sodium 50 mls @ 100 mls/hr 06/08/21 16:00 06/08/21 16:02 Chloride IVPB 06/27/21 16:29 100 mls/hr Q24H JAMIE Administration Levothyroxine Sodium 50 mcg 06/09/21 06:00 06/09/21 06:54 Levothyroxine 50 Mcg Tab PEG/G-TUBE 50 mcg DAILY@0600 JAMIE Administration Lidocaine 1 patch 06/09/21 09:00 06/09/21 09:13 Lidocaine 5% Patch TOPICAL 1 patch DAILY JAMIE Administration Protocol Magnesium Hydroxide 2,400 mg 06/08/21 15:04 Magnesium Hydroxide 2,400 Mg/10 Ml Cup PEG/G-TUBE DAILY PRN Constipation Methocarbamol 750 mg 06/08/21 15:04 Methocarbamol 750 Mg Tab PEG/G-TUBE Q8H PRN Muscle Pain Midodrine 10 mg 06/08/21 17:00 06/09/21 09:13 Midodrine 5 Mg Tab PEG/G-TUBE 10 mg TID@0900,1300,1700 JAMIE Administration Miscellaneous Information 1 each 06/08/21 16:18 Warfarin Per Pharmacy MISCELLANE DIRECTED PRN Per Protocol Naloxone HCl 0.2 mg 06/08/21 06:48 Naloxone 0.4 Mg/Ml 1 Ml Vial IV Q2M PRN Opioid Reversal Tamsulosin HCl 0.4 mg 06/09/21 09:00 06/09/21 09:14 Tamsulosin 0.4 Mg Cap.Er.24h PO 0.4 mg DAILY@0900 JAMIE Administration Intake and Output 06/08/21 06/09/21 06/09/21 22:59 06:59 14:59 Intake Total 100 Output Total 20 800 Balance -20 -700 Intake: Oral 100 Output: Urine 20 800 Coude 20 800 Other: Voiding Method Indwelling Catheter Indwelling Catheter # Voids 1 # Bowel Movements 1 2 Weight 92 kg 06/08/21 05:57 06/08/21 05:57
[2021-06-09 11:06] LABS: Anisocytosis Slight; Basophils % (A) 1 %; Eosinophils # (A) 0.1 k/uL (0-0.7); Eosinophils % (A) 3 %; HCT 31.2 % (39.0-53.0); HGB 9.3 gm/dL (13.0-17.5); Hypochromasia Marked; Lymphocytes # (A) 0.5 k/uL (1.0-4.8); Lymphocytes % (A) 12 %; MCH 28.1 pg (25.0-35.0); MCHC 29.9 g/dL (31.0-37.0); Macrocytosis Slight; Mean Platelet Volume 7.9; Monocytes # (A) 0.2 k/uL (0-1.0); Monocytes % (A) 4 %; Neutrophils # (A) 3.3 k/uL (1.3-7.7); Neutrophils % (A) 79 %; Platelet Count 192 k/uL (150-450); RBC 3.32 m/uL (4.30-5.90); WBC 4.2 k/uL (3.8-10.6)
[2021-06-09 11:12] LABS: INR 4.1 (<1.2)
[2021-06-09 11:18] LABS: Potassium 4.9 mmol/L (3.5-5.1)
[2021-06-09 11:36] LABS: Glucose,Whole Blood 94 mg/dL (75-99)
[2021-06-09] MEDS ORDERED: DAPTOmycin 500 MG VIAL IV SCH (12:00)
--- NOTE | 2021-06-09 14:49 | P.CNPUL ---
History of Present Illness Consult date: 06/09/21 Requesting physician: Payton Lazar Reason for consult: dyspnea, cough, hypoxemia, pneumonia, abnormal CXR/CT Chief complaint: Shortness of breath. History of present illness: Pulmonary consult dated 06/09/2021. 76-year-old male, seen in the emergency department, at 5:41 AM, on June 08. The patient came in with complaints of shortness of breath. He was actually brought in by EMS. The patient has a history of previous left-sided CVA, with right-sided deficits, chronic bilateral heel wounds, and osteomyelitis, as well as CHF. The patient had a recent admission to this hospital for sepsis, heart failure, and aspiration pneumonia. At that time, he was intubated and had a central line. The patient was discharged to [facility], and subsequently developed shortness of breath with saturations in the mid 80s. He tested positive for coronavirus on June 07. The patient was brought back to the hospital to be evaluated, and he was admitted. Currently, he's not on any IV fluids. The patient is on BiPAP with settings of 12 over 6 and 80%. He appears to be in [id number] respiratory distress. Chest x-ray show some emphysematous changes, cardiomegaly, and small bilateral pleural effusions. There also may be some atelectasis or infiltrate at the right and left lung base. White count 4.2, hemoglobin 9.3, hematocrit 31.2, and platelet count 192,000. PTT 39, INR 4.1, sodium 144, potassium 4.9, chlorides 107, CO2 34, anion gap 3, BUN 45, and creatinine 1.11. N-terminal proBNP was 3320. Troponin was 0.033. LDH was 747. Pro-calcitonin level was 1. Coronavirus testing was positive. Review of Systems REVIEW OF SYSTEMS: CONSTITUTIONAL: [Negative.] NEUROLOGIC: [ Negative.] HEENT: [ Negative.] CARDIAC: [Negative.] PULMONARY: Shortness of breath, and low saturations. GI: [Negative.] : [Negative.] RHEUMATOLOGIC: [ Negative.] IMMUNOLOGIC: [ Negative.] ENDOCRINE: [Negative. ] DERMATOLOGIC: [Negative.] Past Medical History Past Medical History: Atrial Fibrillation, Heart Failure, CVA/TIA, Hypertension, Respiratory Disorder Additional Past Medical History / Comment(s): Acute Sciatica, Lumbar pain, aspiraton pnuemonia, osteomyelitis b/l heels, peg tube History of Any Multi-Drug Resistant Organisms: None Reported Past Surgical History: Joint Replacement, Pacemaker Additional Past Surgical History / Comment(s): Hip replacement, Replacement of aortic valve, back surgey at [facility] 05/01/21 Past Anesthesia/Blood Transfusion Reactions: No Reported Reaction Type of Cardiac Device: Permanent Pacemaker Device Placement Date:: unk Smoking Status: Never smoker Medications and Allergies Home Medications Medication Instructions Recorded Confirmed Type Aspirin EC [Ecotrin Low Dose] 81 mg PEG/G-TUBE DAILY@0900 04/19/21 06/08/21 H istory Baclofen [Lioresal] 10 mg PEG/G-TUBE TID@0900,1300,2100 04/19/21 06/08/21 History Cholecalciferol [Vitamin D3 (25 25 mcg PEG/G-TUBE DAILY 04/19/21 06/08/21 History Mcg = 1000 Iu)] Levothyroxine Sodium [Synthroid] 50 mcg PEG/G-TUBE DAILY@0600 04/19/21 06/08/21 History Lidocaine 5% Patch [Lidoderm 5% 1 patch TRANSDERM DAILY 04/19/21 06/08/21 History Patch] Tamsulosin HCl [Flomax] 0.4 mg PEG/G-TUBE DAILY@0900 04/19/21 06/08/21 History Docusate Sodium [Dok] 100 mg PEG/G-TUBE BID@0900,1700 05/14/21 06/08/21 History Magnesium Hydroxide [Milk of 2,400 mg PEG/G-TUBE DAILY PRN 05/14/21 06/08/21 History Magnesia] methocarbamoL [Methocarbamol] 750 mg PEG/G-TUBE Q8H PRN 05/14/21 06/08/21 History Ipratropium-Albuterol Nebulize 3 ml INHALATION RT-Q2H PRN ml 06/06/21 06/08/21 Rx [Duoneb 0.5 mg-3 mg/3 ml Soln] Acetaminophen Tab [Tylenol] 650 mg PEG/G-TUBE Q6H PRN 06/08/21 06/08/21 History Amiodarone [Cordarone] 200 mg PEG/G-TUBE BID@0900,1700 06/08/21 06/08/21 History DAPTOmycin [Cubicin] 600 mg IV DAILY@1200 06/08/21 06/08/21 History HYDROcodone/APAP 5-325MG [[place] 1 tab PEG/G-TUBE Q4HR PRN 06/08/21 06/08/21 History 5-325] Ipratropium-Albuterol Nebulize 3 ml INHALATION RT-TID@,,06/08/21 06/08/21 History [Duoneb 0.5 mg-3 mg/3 ml Soln] Midodrine HCl [ProAmatine] 10 mg PEG/G-TUBE TID@0900,1300,1700 06/08/21 06/08/21 History Nystatin 100,000 Unit/gm Oint 1 applic TOPICAL BID@0900,1700 06/08/21 06/08/21 History [Mycostatin Oint] Warfarin [Coumadin] 7.5 mg PEG/G-TUBE HS 06/08/21 06/08/21 History Allergies Allergy/AdvReac Type Severity Reaction Status Date / Time No Known Allergies Allergy Verified 06/08/21 07:32 Physical Exam Osteopathic Statement: *. No significant issues noted on an osteopathic structural exam other than those noted in the History and Physical/Consult. Vitals: Vital Signs Temp Pulse Resp BP Pulse Ox 06/09/21 12:04 91 18 06/09/21 12:00 97.9 F 102 H 18 90/58 100 06/09/21 08:00 97.5 F L 91 18 101/58 100 06/09/21 06:00 100 06/09/21 04:00 97.4 F L 69 19 95/65 100 06/09/21 00:00 97.4 F L 100 15 103/68 100 06/08/21 20:00 97.6 F 94 17 103/59 100 06/08/21 16:13 98.6 F 98 18 101/75 99 Intake and Output 06/08/21 06/09/21 06/09/21 22:59 06:59 14:59 Intake Total 100 Output Total 20 800 Balance -20 -700 Intake: Oral 100 Output: Urine 20 800 Coude 20 800 Other: Voiding Method Indwelling Catheter Indwelling Catheter Indwelling Catheter # Voids 1 # Bowel Movements 1 2 Weight 92 kg 92 kg Oriented 3, mild tachypnea, BiPAP mask in place. Saturations are 100%. Blood pressure 90/58, heart rate is 91. HEENT examination is grossly unremarkable. Neck supple. Full range of motion. No adenopathy thyromegaly or neck vein distention. Cardiovascular examination reveals an irregular rhythm and rate. S1-S2 normal. No S3 or S4. No discernible murmur noted. Heart sounds are distant. Heart ra te 91 bpm. Lungs reveal scattered bilateral rhonchi. Bibasilar crackles are noted. No wheezes. Breath sounds equal bilaterally. Abdomen soft bowel sounds are heard. No masses or tenderness. Extremities are intact. No cyanosis clubbing or edema. Skin is without rash or lesion. Neurologic examination is brief but nonfocal. Results - Laboratory Findings CBC and BMP: 06/09/21 10:11 06/09/21 10:11 PT/INR, D-dimer PT 39.0 sec (9.0-12.0) H 06/09/21 10:11 INR 4.1 (<1.2) H 06/09/21 10:11 Abnormal lab findings: Abnormal Labs 06/08/21 06/08/21 06/08/21 05:57 05:57 05:57 RBC 3.62 L Hgb 10.0 L Hct 33.3 L MCHC 30.1 L RDW 19.0 H Lymphocytes # 0.8 L PT 28.4 H INR 2.9 H APTT 38.9 H Carbon Dioxide 36 H BUN 45 H Glucose 123 H POC Glucose (mg/dL) Ferritin 624.0 H Lactate Dehydrogenase 747 H C-Reactive Protein 5.4 H Total Protein 6.1 L Albumin 2.6 L Procalcitonin Coronavirus (PCR) 06/08/21 06/08/21 06/08/21 05:57 11:50 19:25 RBC Hgb Hct MCHC RDW Lymphocytes # PT INR APTT Carbon Dioxide BUN Glucose POC Glucose (mg/dL) 119 H Ferritin Lactate Dehydrogenase C-Reactive Protein Total Protein Albumin Procalcitonin 1.00 H Coronavirus (PCR) Detected A 06/09/21 06/09/21 06/09/21 10:11 10:11 10:11 RBC 3.32 L Hgb 9.3 L Hct 31.2 L MCHC 29.9 L RDW 19.0 H Lymphocytes # 0.5 L PT 39.0 H INR 4.1 H APTT Carbon Dioxide 34 H BUN 45 H Glucose POC Glucose (mg/dL) Ferritin Lactate Dehydrogenase C-Reactive Protein Total Protein Albumin Procalcitonin Coronavirus (PCR) - Diagnostic Findings Chest x-ray: image reviewed Assessment and Plan Assessment: Acute hypoxemic respiratory failure, likely multifactorial, in part related to diastolic CHF, as well as possible coronavirus associated pneumonia. History of chronic atrial fibrillation. History of hypertension. Status post pacemaker insertion. History of aortic valve replacement. History of diastolic CHF. History of CVA. History of essential hypertension. Status post PEG tube placement. History of aspiration pneumonia. Multiple other medical problems and comorbidities. Plan: Plan dated the 2020. The patient's medications are reviewed. Everything seems be appropriate. He remains on warfarin. The patient was started on daptomycin. I believe he was on this medication when he left the last time he was here. His other medications are appropriate. He is on an albuterol inhaler used as needed. Continues on BiPAP. Chest x-ray was not real consistent with coronavirus associated pneumonia. This may be a minor component and his hypoxemic respiratory failure. We will continue to follow make recommendations where appropriate. Time with Patient: Greater than 30
[2021-06-09 16:27] LABS: Glucose,Whole Blood 97 mg/dL (75-99)
[2021-06-09] MEDS ORDERED: WARFARIN 0.5 MG TAB PO ONE (18:00)
--- NOTE | 2021-06-09 18:51 | PN ---
PROGRESS NOTE DATE OF SERVICE: 06/09/2021 This 76-year-old gentleman who was admitted with acute bilateral pneumonia with acute hypoxic respiratory failure had change in mental status. The patient is slightly better today. The most recent chest x-ray done today was reviewed personally by me and showed extensive bilateral lower lobe lesions. The patient was started on antibiotics and other medication. Patient was seen by Cardiology and Pulmonology also. Past medical reviewed. Review of systems could not be taken. The patient is drowsy. CURRENT MEDICATIONS: Reviewed. They include [place], Ventolin, Cordarone, aspirin, Lioresal, daptomycin, Colace, Synthroid, Lidoderm, Robaxin, procainamide, Flomax Coumadin. PHYSICAL EXAMINATION: Patient is stuporous, arousable. Pulse is 102, blood pressure 90/58, respiration 18, temperature 97.9, pulse ox 100% on BiPAP. HEENT: Conjunctivae normal. NECK: No jugular venous distention. CARDIOVASCULAR: S1, S2 muffled. RESPIRATION: Breath sounds diminished at the bases. A few scattered rhonchi. ABDOMEN: Soft, obese LEGS: No edema. No swelling. NERVOUS SYSTEM: No focal deficit. LABS: INR 1.1. Otherwise, COVID-19 is still positive. ASSESSMENT: 1. Acute bilateral pneumonia with acute hypoxic respiratory failure with possible sepsis, present on admission. 2. Change in mental status, acute metabolic encephalopathy, multifactorial. 3. Coumadin coagulopathy. 4. COVID-19 still positive. 5. History of recent aspiration pneumonia with hypoxic respiratory failure. 6. History of recent acute stroke and change in mental status with right-sided stroke. 7. History of recent complete opacification of the left hemithorax secondary to aspiration. 8. Status post PEG tube placement. 9. PEG tube feedings and monitoring. 10.Multiple organisms grown from the culture, including Makenna albicans and Klebsiella recently. 11.Congestive heart failure with chronic diastolic dysfunction. 12.Atrial fibrillation with a fast ventricular rate. 13.History of chronic persistent atrial fibrillation. 14.Acute kidney injury with acute renal failure, acute tubular necrosis with severe sepsis. 15.History of aortic prosthetic replacement. 16.Chronic low back pain and degenerative joint disease. 17.Stage II sacral decubitus ulcer. 18.Bilateral calcaneus stage I ulcer. 19.Hypertension. 20.Permanent pacemaker. 21.Severe protein-calorie malnutrition. 22.Anemia, normocytic anemia of chronic disease. 23.Coumadin monitoring. 24.Acute respiratory acidosis. 25.NO CODE, NO CPR, NO VENT. RECOMMENDATIONS AND DISCUSSION: I recommend to continue current medications, continue with symptomatic treatment. Continue the broad-spectrum IV antibiotics. Cultures are obtained. Will closely follow with multiple consultants, including Pulmonary, Cardiology and Infectious Disease. Guarded prognosis because of multiple complex medical issues. Further recommendations to follow. Will hold the Coumadin today. INR is 4.1. Will obtain Pharmacy to re- dose the Coumadin. MMODL / IJN: [id number] / MTDD
[2021-06-09 20:39] LABS: Glucose,Whole Blood 89 mg/dL (75-99)
[2021-06-10 00:17] LABS: Glucose,Whole Blood 106 mg/dL (75-99)
[2021-06-10] MEDS: LEVOTHYROXINE 50 MCG TAB PEG/G-TUBE SCH (05:23)
[2021-06-10 06:20] LABS: Glucose,Whole Blood 114 mg/dL (75-99)
[2021-06-10] MEDS: LIDOCAINE 5% PATCH TOPICAL SCH (08:36)
[2021-06-10] MEDS: TAMSULOSIN 0.4 MG CAP.ER.24H PO SCH (09:05)
[2021-06-10] MEDS: BACLOFEN 10 MG TAB PEG/G-TUBE SCH ×3 (09:05→19:36)
[2021-06-10] MEDS: AMIODARONE 200 MG TAB PEG/G-TUBE SCH ×2 (09:05→15:05)
[2021-06-10] MEDS: ASPIRIN 81 MG PEG/G-TUBE SCH (09:05)
[2021-06-10] MEDS: CHOLECALCIFEROL 25 MCG (1000 IU) TABLET PEG/G-TUBE SCH (09:05)
[2021-06-10] MEDS: MIDODRINE 5 MG TAB PEG/G-TUBE SCH ×3 (09:05→15:05)
[2021-06-10] MEDS: DOCUSATE ORAL SOLN 100 MG/10 ML CUP PEG/G-TUBE SCH ×2 (09:06→15:04)
--- NOTE | 2021-06-10 09:35 | P.CONS ---
History of Present Illness - Reason for Consult Consult date: 06/09/21 sepsis Requesting physician: Payton Lazar - Chief Complaint shortness of breath and hypoxima x 1 day - History of Present Illness History of present illness : Patient is 76-year-old male with a past medical history significant for nontoxic in his bacteremia suspicious for lumbar discitis 40 the patient was subsequently treated at [facility] and did have a lumbar surgical procedure patient was subsequently readmitted at this facility and was treated for diastolic heart failure in addition to an aspiration pneumonia with a sputum positive for Klebsiella for the patient completed a 10-day course of antibiotics patient was initially on Unasyn however was switched over to Rocephin and daptomycin when he developed a rash patient did completed his Rocephin before discharge and the patient was subsequently [facility] to the [facility] on IV daptomycin for another 2 to 3 weeks to finish his course of therapy for his lumbar discitis patient is brought back to the hospital yesterday morning for evaluation of respiratory distress apparently the patient tested positive for COVID-19 on 06/07/2021 patient was noticed to be hypoxic with O2 sats in the mid 80s tachycardic and febrile patient was brought to the hospital on arrival to the ER patient is afebrile and no fever was recorded subsequently patient is currently on BiPAP patient did have a normal white count with lymphopenia BUN was slightly elevated liver enzymes are normal CRP is 5.4 lopez PCR was positive patient did have a chest x-ray COPD bibasilar opacity are increased suggesting prominent areas of airspace disease patient was started on bronchodilator continued on Coumadin infectious disease was consulted for further management most information has been obtained from review the chart as the patient himself was unable to provide reliable history Review of system: Positive point has been mentioned in HPI complete review could not be obtained because of underlying mental status Past medical history : Reviewed, documented below Past surgical history : Reviewed, documented below Social history: Reviewed, documented below Medications: Reviewed, as documented below EXAMINATION: Vital sigans= Reviewed and documented below GENERAL DESCRIPTION: Elderly male lying in bed, mild distress. No tachypnea or accessory muscle of respiration use. HEENT: Shows Pallor , no scleral icterus. Oral mucous membrane is dry. NECK: Trachea central, no thyromegaly. LUNGS: Unlabored breathing. Decrease intensity of breath sounds. No wheeze or crackle. HEART: S1, S2, regular rate and rhythm. ABDOMEN: Soft, no tenderness , guarding or rigidity EXTREMITIES: No edema of feet. SKIN: No rash, no masses palpable. NEUROLOGICAL: The patient is lethargic on the BiPAP orientation but IV treatment LABS AND RADIOLOGY: Reviewed results see below Assessment : 1-patient presented to hospital with acute respiratory failure with anticipated have hypoxemia requiring a BiPAP no fever has been recorded so far did have a normal white count with lymphopenia the symptom more likely combination of diastolic heart failure plus minus a component of COVID-19 infection pulmonary is already managing his underlying respiratory condition clinical suspicion low for secondary bacterial pneumonia 2-patient with Enterococcus faecalis bacteremia lumbar discitis penicillin allergy on daptomycin Plan: 1-patient to continue with the daptomycin 600 mg IV piggyback daily 2-we will recheck his inflammatory markers with a.m. lab 3-management of the BiPAP and underlying respiratory status per pulmonary we will follow on clinical condition and cultures to further adjust medication if needed Thank you for this consultation we will follow the patient along with you Past Medical History Past Medical History: Atrial Fibrillation, Heart Failure, CVA/TIA, Hypertension, Respiratory Disorder Additional Past Medical History / Comment(s): Acute Sciatica, Lumbar pain, aspiraton pnuemonia, osteomyelitis b/l heels, peg tube History of Any Multi-Drug Resistant Organisms: None Reported Past Surgical History: Joint Replacement, Pacemaker Additional Past Surgical History / Comment(s): Hip replacement, Replacement of aortic valve, back surgey at [facility] 05/01/21 Past Anesthesia/Blood Transfusion Reactions: No Reported Reaction Type of Cardiac Device: Permanent Pacemaker Device Placement Date:: unk Smoking Status: Never smoker Medications and Allergies Home Medications Medication Instructions Recorded Confirmed Type Aspirin EC [Ecotrin Low Dose] 81 mg PEG/G-TUBE DAILY@0900 04/19/21 06/08/21 History Baclofen [Lioresal] 10 mg PEG/G-TUBE TID@0900,1300,2100 04/19/21 06/08/21 History Cholecalciferol [Vitamin D3 (25 25 mcg PEG/G-TUBE DAILY 04/19/21 06/08/21 History Mcg = 1000 Iu)] Levothyroxine Sodium [Synthroid] 50 mcg PEG/G-TUBE DAILY@0600 04/19/21 06/08/21 History Lidocaine 5% Patch [Lidoderm 5% 1 patch TRANSDERM DAILY 04/19/21 06/08/21 History Patch] Tamsulosin HCl [Flomax] 0.4 mg PEG/G-TUBE DAILY@0900 04/19/21 06/08/21 History Docusate Sodium [Dok] 100 mg PEG/G-TUBE BID@0900,1700 05/14/21 06/08/21 History Magnesium Hydroxide [Milk of 2,400 mg PEG/G-TUBE DAILY PRN 05/14/21 06/08/21 History Magnesia] methocarbamoL [Methocarbamol] 750 mg PEG/G-TUBE Q8H PRN 05/14/21 06/08/21 History Ipratropium-Albuterol Nebulize 3 ml INHALATION RT-Q2H PRN ml 06/06/21 06/08/21 Rx [Duoneb 0.5 mg-3 mg/3 ml Soln] Acetaminophen Tab [Tylenol] 650 mg PEG/G-TUBE Q6H PRN 06/08/21 06/08/21 History Amiodarone [Cordarone] 200 mg PEG/G-TUBE BID@0900,1700 06/08/21 06/08/21 History DAPTOmycin [Cubicin] 600 mg IV DAILY@1200 06/08/21 06/08/21 History HYDROcodone/APAP 5-325MG [[place] 1 tab PEG/G-TUBE Q4HR PRN 06/08/21 06/08/21 History 5-325] Ipratropium-Albuterol Nebulize 3 ml INHALATION RT-TID@,,06/08/21 06/08/21 History [Duoneb 0.5 mg-3 mg/3 ml Soln] Midodrine HCl [ProAmatine] 10 mg PEG/G-TUBE TID@0900,1300,1700 06/08/21 06/08/21 History Nystatin 100,000 Unit/gm Oint 1 applic TOPICAL BID@0900,1700 06/08/21 06/08/21 History [Mycostatin Oint] Warfarin [Coumadin] 7.5 mg PEG/G-TUBE HS 06/08/21 06/08/21 History Allergies Allergy/AdvReac Type Severity Reaction Status Date / Time No Known Allergies Allergy Verified 06/08/21 07:32 Physical Exam Vitals: Vital Signs Temp Pulse Resp BP Pulse Ox 06/09/21 12:04 91 18 06/09/21 12:00 97.9 F 102 H 18 90/58 100 06/09/21 08:00 97.5 F L 91 18 101/58 100 06/09/21 06:00 100 06/09/21 04:00 97.4 F L 69 19 95/65 100 06/09/21 00:00 97.4 F L 100 15 103/68 100 06/08/21 20:00 97.6 F 94 17 103/59 100 06/08/21 16:13 98.6 F 98 18 101/75 99 06/08/21 14:00 115 H 22 06/08/21 13:49 92/77 Intake and Output 06/08/21 06/09/21 06/09/21 22:59 06:59 14:59 Intake Total 100 Output Total 20 800 Balance -20 -700 Intake: Oral 100 Output: Urine 20 800 Coude 20 800 Other: Voiding Method Indwelling Catheter Indwelling Catheter Indwelling Catheter # Voids 1 # Bowel Movements 1 2 Weight 92 kg 92 kg Results CBC & Chem 7: 06/09/21 10:11 06/09/21 10:11 Labs: Abnormal Lab Results - Last 24 Hours (Table) 06/08/21 06/09/21 06/09/21 Range/Units 19:25 10:11 10:11 RBC 3.32 L (4.30-5.90) m/uL Hgb 9.3 L (13.0-17.5) gm/dL Hct 31.2 L (39.0-53.0) % MCHC 29.9 L (31.0-37.0) g/dL RDW 19.0 H (11.5-15.5) % Lymphocytes # 0.5 L (1.0-4.8) k/uL PT (9.0-12.0) sec INR (<1.2) Carbon Dioxide 34 H (22-30) mmol/L BUN 45 H (9-20) mg/dL Coronavirus (PCR) Detected A (Not Detectd) 06/09/21 Range/Units 10:11 RBC (4.30-5.90) m/uL Hgb (13.0-17.5) gm/dL Hct (39.0-53.0) % MCHC (31.0-37.0) g/dL RDW (11.5-15.5) % Lymphocytes # (1.0-4.8) k/uL PT 39.0 H (9.0-12.0) sec INR 4.1 H (<1.2) Carbon Dioxide (22-30) mmol/L BUN (9-20) mg/dL Coronavirus (PCR) (Not Detectd) Microbiology - Last 24 Hours (Table) 06/08/21 06:22 Blood Culture - Preliminary Blood No Growth after 24 hours 06/08/21 05:59 Blood Culture - Preliminary Blood No Growth after 24 hours
[2021-06-10 10:18] LABS: Prothrombin Time 53.8 sec (9.0-12.0)
[2021-06-10 10:32] LABS: INR 5.6 (<1.2)
[2021-06-10 11:58] LABS: Glucose,Whole Blood 113 mg/dL (75-99)
[2021-06-10 17:10] LABS: Glucose,Whole Blood 105 mg/dL (75-99)
--- NOTE | 2021-06-10 17:31 | PN ---
PROGRESS NOTE DATE OF SERVICE: 06/10/2021 REASON FOR FOLLOWUP: 1. Lumbar diskitis. 2. Positive COVID test. INTERVAL HISTORY: The patient is afebrile. The patient is more awake and alert today. He is currently on 4 L nasal cannula. The patient denies having any chest pain or worsening cough. No abdominal pain or diarrhea. PHYSICAL EXAMINATION: Blood pressure 101/58 with a pulse of 91, temperature 97.9. He is 98% on 4 L nasal cannula. General description is an elderly male lying in bed in no distress. Respiratory system: Unlabored breathing, decreased intensity of breath sounds. No wheeze. Heart S1, S2. Regular rate and rhythm. Abdomen soft, no tenderness. LAB: INR is .6. DIAGNOSTIC IMPRESSION AND PLAN: 1. Patient with lumbar diskitis with Enterococcus bacteremia. Patient is covered with daptomycin. 2. Patient admitted to hospital with respiratory distress, possible diastolic heart failure, as the patient has improved very quickly and not behaving as COVID pneumonia. Continue current supportive treatment. MMODL / IJN: [id number] /
--- NOTE | 2021-06-10 18:24 | P.PN ---
Subjective Progress Note Date: 06/10/21 Principal diagnosis: Shortness of breath. Pulmonary consult dated 06/09/2021. 76-year-old male, seen in the emergency department, at 5:41 AM, on June 08. The patient came in with complaints of shortness of breath. He was actually brought in by EMS. The patient has a history of previous left-sided CVA, with right-sided deficits, chronic bilateral heel wounds, and osteomyelitis, as well as CHF. The patient had a recent admission to this hospital for sepsis, heart failure, and aspiration pneumonia. At that time, he was intubated and had a central line. The patient was discharged to long term, and subsequently developed shortness of breath with saturations in the mid 80s. He tested positive for coronavirus on June 07. The patient was brought back to the hospital to be evaluated, and he was admitted. Currently, he's not on any IV fluids. The patient is on BiPAP with settings of 12 over 6 and 80%. He appears to be in [id number] respiratory distress. Chest x-ray show some emphysematous changes, cardiomegaly, and small bilateral pleural effusions. There also may be some atelectasis or infiltrate at the right and left lung base. White count 4.2, hemoglobin 9.3, hematocrit 31.2, and platelet count 192,000. PTT 39, INR 4.1, sodium 144, potassium 4.9, chlorides 107, CO2 34, anion gap 3, BUN 45, and creatinine 1.11. N-terminal proBNP was 3320. Troponin was 0.033. LDH was 747. Pro-calcitonin level was 1. Coronavirus testing was positive. Progress note dated 06/10/2021. This is a patient who we saw yesterday in consultation. He 76 years of age, and we saw him in room 362. The patient was thought to have acute hypoxemic respi ratory failure, in part related to diastolic CHF, as well as possible coronavirus associated pneumonia. Currently, the patient is on 4 L nasal cannula. He is getting tube feedings with vital AF at 50 mL an hour. He is getting saline at 10 mL an hour. He appears much more comfortable today than he did yesterday. He's not a particularly good historian. Today's labs include a PT of 53.8, and an INR of 5.6, as well as a glucose of 105. Objective - Vital Signs Vital signs: Vital Signs Temp 97.9 F 06/10/21 15:13 Pulse 91 06/10/21 15:13 Resp 18 06/10/21 15:13 BP 101/58 06/10/21 15:13 Pulse Ox 98 06/10/21 15:13 Intake & Output 06/09/21 06/10/21 06/10/21 18:59 06:59 18:59 Output Total 650 900 Balance -650 -900 Weight 92 kg 92 kg 92 kg Output: Urine 650 900 Other: Voiding Method Indwelling Catheter Indwelling Catheter Indwelling Catheter # Bowel Movements 1 - Exam Oriented 3, mild tachypnea. Currently on 4 L nasal cannula. Saturations are 98%. HEENT examination is grossly unremarkable. Neck supple. Full range of motion. No adenopathy thyromegaly or neck vein distention. Cardiovascular examination reveals an irregular rhythm and rate. S1-S2 normal. No S3 or S4. No discernible murmur noted. Heart sounds are distant. Heart rate 91 bpm. Lungs reveal scattered bilateral rhonchi. Bibasilar crackles are noted. No wheezes. Breath sounds equal bilaterally. Abdomen soft bowel sounds are heard. No masses or tenderness. Extremities are intact. No cyanosis clubbing or edema. Skin is without rash or lesion. Neurologic examination is brief but nonfocal. - Labs CBC & Chem 7: 06/09/21 10:11 06/09/21 10:11 Labs: Abnormal Lab Results - Last 24 Hours (Table) 06/10/21 06/10/21 06/10/21 Range/Units 00:16 06:18 09:14 PT 53.8 H (9.0-12.0) sec INR 5.6 H* (<1.2) POC Glucose (mg/dL) 106 H 114 H (75-99) mg/dL 06/10/21 06/10/21 Range/Units 11:55 17:08 PT (9.0-12.0) sec INR (<1.2) POC Glucose (mg/dL) 113 H 105 H (75-99) mg/dL Microbiology - Last 24 Hours (Table) 06/08/21 06:22 Blood Culture - Preliminary Blood No Growth after 48 hours 06/08/21 05:59 Blood Culture - Preliminary Blood No Growth after 48 hours Assessment and Plan Assessment: Acute hypoxemic respiratory failure, likely multifactorial, in part related to diastolic CHF, as well as possible coronavirus associated pneumonia. History of chronic atrial fibrillation. History of hypertension. Status post pacemaker insertion. History of aortic valve replacement. History of diastolic CHF. History of CVA. History of essential hypertension. Status post PEG tube placement. History of aspiration pneumonia. Multiple other medical problems and comorbidities. Plan: Plan dated the 2020. The patient's medications are reviewed. Everything seems be appropriate. He remains on warfarin. The patient was started on daptomycin. I believe he was on this medication when he left the last time he was here. His other medications are appropriate. He is on an albuterol inhaler used as needed. Continues on BiPAP. Chest x-ray was not real consistent with coronavirus associated pneumonia. This may be a minor component and his hypoxemic respiratory failure. We will continue to follow make recommendations where appropriate. Plan dated 06/10/2021. The patient appears to be doing better. He's on 4 L nasal cannula. Yesterday, he was on BiPAP. He is much more alert today than he was yesterday. He continues on daptomycin. The rest of his medications are appropriate. We will continue to follow make recommendations where appropriate. He is currently on Coumadin as a blood thinner for his atrial fibrillation. It is currently being held because his PT/INR are prolonged. Prognosis is guarded. We will continue to follow this patient. Time with Patient: Less than 30
[2021-06-11 00:15] LABS: Glucose,Whole Blood 111 mg/dL (75-99)
--- NOTE | 2021-06-11 01:31 | P.PN ---
Subjective Progress Note Date: 06/10/21 This is a 76-year-old male who was recently admitted with acute bilateral pneumonia with acute hypoxic respiratory failure and also has had changes in mental status and is being closely monitored. Pulmonary and ID following. Patient is continued on IV daptomycin for recent diskitis. Patient had a positi ve covid test. Patient was recently at [facility] for rehabilitation and IV antibiotic therapy. Patient continued on tube feeds with recent peg tube placement. Patient off of bipap this morning and weaning FI02 as tolerated. Patient is on coumadin and will continue hold with close monitoring and labs in the am. Labs: INR is 5.6 Review of systems: Constitutional: reports of fatigue, no reports of fever, or chills Cardiovascular: No reports of chest pain or palpitations Respiratory: No reports of worsening shortness of breath GI: No reports of nausea, vomiting, or diarrhea, tolerating tube feeds : No reports of dysuria or retention Neurovascular: reports generalized weakness All medications have been reviewed Active Medications Hydrocodone Bitart/Acetaminophen (Hydrocodone/Apap 5-325mg 1 Each Tab) 1 each PEG/G-TUBE Q4HR PRN PRN Reason: Pain Albuterol Sulfate (Albuterol Hfa Inhaler) 2 puff INHALATION RT-TID PRN PRN Reason: Shortness Of Breath Or Wheezing Last Admin: 06/09/21 20:52 Dose: 2 puff Documented by: Amiodarone HCl (Amiodarone 200 Mg Tab) 200 mg PEG/G-TUBE BID@0900,1700 [facility] Last Admin: 06/10/21 15:05 Dose: 200 mg Documented by: Aspirin (Aspirin 81 Mg) 81 mg PEG/G-TUBE DAILY@0900 [facility] Last Admin: 06/10/21 09:05 Dose: 81 mg Documented by: Baclofen (Baclofen 10 Mg Tab) 10 mg PEG/G-TUBE TID@0900,1300,2100 [facility] Last Admin: 06/10/21 12:36 Dose: 10 mg Documented by: Cholecalciferol (Cholecalciferol 25 Mcg (1000 Iu) Tablet) 25 mcg PEG/G-TUBE DAILY [facility] Last Admin: 06/10/21 09:05 Dose: 25 mcg Documented by: Docusate Sodium (Docusate Oral Soln 100 Mg/10 Ml Cup) 100 mg PEG/G-TUBE BID@0900,1700 [facility] Last Admin: 06/10/21 15:04 Dose: Not Given Documented by: Daptomycin 600 mg/ Sodium (Chloride) 50 mls @ 100 mls/hr IVPB Q24H [facility] Stop: 06/27/21 16:29 Last Admin: 06/10/21 15:04 Dose: 100 mls/hr Documented by: Levothyroxine Sodium (Levothyroxine 50 Mcg Tab) 50 mcg PEG/G-TUBE DAILY@0600 [facility] Last Admin: 06/10/21 05:23 Dose: 50 mcg Documented by: Lidocaine (Lidocaine 5% Patch) 1 patch TOPICAL DAILY [facility]; Protocol Last Admin: 06/10/21 08:36 Dose: Not Given Documented by: Magnesium Hydroxide (Magnesium Hydroxide 2,400 Mg/10 Ml Cup) 2,400 mg PEG/G- TUBE DAILY PRN PRN Reason: Constipation Methocarbamol (Methocarbamol 750 Mg Tab) 750 mg PEG/G-TUBE Q8H PRN PRN Reason: Muscle Pain Midodrine (Midodrine 5 Mg Tab) 10 mg PEG/G-TUBE TID@0900,1300,1700 [facility] Last Admin: 06/10/21 15:05 Dose: 10 mg Documented by: Miscellaneous Information (Warfarin Per Pharmacy) 1 each MISCELLANE DIRECTED PRN PRN Reason: Per Protocol Naloxone HCl (Naloxone 0.4 Mg/Ml 1 Ml Vial) 0.2 mg IV Q2M PRN PRN Reason: Opioid Reversal Tamsulosin HCl (Tamsulosin 0.4 Mg Cap.Er.24h) 0.4 mg PO DAILY@0900 [facility] Last Admin: 06/10/21 09:05 Dose: 0.4 mg Documented by: Physical exam: Gen: This is 76-year-old male who is awake, alert and oriented 1-2, well- developed, well-nourished.. Temp is 98F, pulse is 91, respirations are 16, blood pressure is 94/60, oxygen saturation is 99% on 15 L via high flow nasal cannula HEENT: Head is atraumatic, normocephalic. Pupils equal, round. Sclerae is anicteric. NECK: Supple. No JVD. No lymphadenopathy. No thyromegaly. LUNGS: Breath sounds are diminished at the bases with scattered course rhonchi noted. No intercostal retractions. HEART: S1, S2 are muffled ABDOMEN: Soft. Obese. Bowel sounds are present. No masses. No tenderness. peg tube intact and infusing EXTREMITIES: generalized edema. No calf tenderness. offloading boots noted bilaterally NEUROLOGICAL: Alert and oriented 2, diffusely weak Assessment: Acute bilateral pneumonia with acute hypoxic respiratory failure with possible sepsis, present on admission Change in mental status, acute metabolic encephalopathy, multifactorial Coumadin coagulopathy COVID-19, test positive history of recent aspiration pneumonia with hypoxic respiratory failure History of recent acute stroke and change in mental status with right-sided stroke history of recent complete opacification of the left hemithorax secondary to aspiration Status post PEG tube placement PEG tube feedings and monitoring Multiple organisms growing from the culture including Makenna albicans and Klebsiella recently congestive heart failure with chronic diastolic dysfunction atrial fibrillation with fast ventricular rate history of chronic persistent atrial fibrillation Acute kidney injury with acute renal failure, acute tubular necrosis with severe sepsis history of aortic prosthetic replacement chronic low back pain and degenerative joint disease Stage II decubitus ulcer Bilateral calcaneus stage I ulcers Hypertension permanent pacemaker severe protein calorie malnutrition anemia, normocytic anemia of chronic disease Coumadin monitoring acute respiratory acidosis No code, no CPR, no vent Plan: Recommend to continue with current medications and management and symptomatic treatment. pulmonary, ID, cardio, and neurology following. Patient to continue on IV daptomycin. Patient is weaning FI02 as tolerated and was at 15L HF this morning and has been titrating down to 4 L via NC and being closely monitored. Due to multiple complex medical issues prognosis is guarded. Will Continue to monitor closely and repeat labs. Continue to hold Coumadin today and recheck INR in the am. Objective - Vital Signs Vital signs: Vital Signs Temp 98 F 06/10/21 08:00 Pulse 91 06/10/21 08:00 Resp 16 06/10/21 08:00 BP 94/60 06/10/21 08:00 Pulse Ox 99 06/10/21 08:00 Intake & Output 06/09/21 06/10/21 06/10/21 18:59 06:59 18:59 Output Total 650 900 Balance -650 -900 Weight 92 kg 92 kg Output: Urine 650 900 Other: Voiding Method Indwelling Catheter Indwelling Catheter Indwelling Catheter # Bowel Movements 1 - Labs CBC & Chem 7: 06/09/21 10:11 06/09/21 10:11 Labs: Abnormal Lab Results - Last 24 Hours (Table) 06/09/21 06/10/21 06/10/21 Range/Units 10:11 00:16 06:18 PT (9.0-12.0) sec INR (<1.2) Carbon Dioxide 34 H (22-30) mmol/L BUN 45 H (9-20) mg/dL POC Glucose (mg/dL) 106 H 114 H (75-99) mg/dL 06/10/21 Range/Units 09:14 PT 53.8 H (9.0-12.0) sec INR 5.6 H* (<1.2) Carbon Dioxide (22-30) mmol/L BUN (9-20) mg/dL POC Glucose (mg/dL) (75-99) mg/dL Microbiology - Last 24 Hours (Table) 06/08/21 06:22 Blood Culture - Preliminary Blood No Growth after 48 hours 06/08/21 05:59 Blood Culture - Preliminary Blood No Growth after 48 hours
[2021-06-11] MEDS: LEVOTHYROXINE 50 MCG TAB PEG/G-TUBE SCH (05:16)
[2021-06-11 06:09] LABS: Glucose,Whole Blood 122 mg/dL (75-99)
[2021-06-11] MEDS: ALBUTEROL HFA INHALER INHALATION PRN (07:30)
--- NOTE | 2021-06-11 08:17 | XR ---
EXAMINATION TYPE: XR chest 1V portable DATE OF EXAM: 06/11/2021 CLINICAL HISTORY: Difficulty breathing and covid progress study. TECHNIQUE: Single AP portable upright view of the chest is obtained. COMPARISON: Chest x-ray from 2 days earlier and older studies FINDINGS: Stable right-sided PICC line. Stable cardiomegaly with dual lead pacemaker. Surgical change cardiac valve redemonstrated. Overlying sternal wires and mediastinal clips redemonstrated. Background chronic emphysematous change with bib asilar opacities redemonstrated. Osseous structures are intact. IMPRESSION: Chronic emphysematous change and cardiomegaly with small bilateral pleural effusions and associated bibasilar acute infiltrate and/or atelectasis redemonstrated. No significant change from 2 days earlier.
[2021-06-11 08:58] LABS: Anisocytosis Slight; Basophils % (A) 1 %; Eosinophils # (A) 0.1 k/uL (0-0.7); Eosinophils % (A) 3 %; HCT 30.6 % (39.0-53.0); HGB 9.6 gm/dL (13.0-17.5); Hypochromasia Moderate; Lymphocytes # (A) 0.5 k/uL (1.0-4.8); Lymphocytes % (A) 13 %; MCH 28.1 pg (25.0-35.0); MCHC 31.5 g/dL (31.0-37.0); MCV 89.2 fL (80.0-100.0); Monocytes # (A) 0.2 k/uL (0-1.0); Monocytes % (A) 4 %; Neutrophils # (A) 3.3 k/uL (1.3-7.7); Neutrophils % (A) 79 %; Platelet Count 206 k/uL (150-450); RBC 3.43 m/uL (4.30-5.90); RDW 18.9 % (11.5-15.5); WBC 4.2 k/uL (3.8-10.6)
[2021-06-11 09:12] LABS: Calcium 8.8 mg/dL (8.4-10.2)
[2021-06-11 09:14] LABS: INR 3.9 (<1.2); Prothrombin Time 37.4 sec (9.0-12.0)
[2021-06-11] MEDS: ASPIRIN 81 MG PEG/G-TUBE SCH (10:10)
[2021-06-11] MEDS: LIDOCAINE 5% PATCH TOPICAL SCH (10:11)
[2021-06-11] MEDS: DOCUSATE ORAL SOLN 100 MG/10 ML CUP PEG/G-TUBE SCH ×2 (10:11→17:57)
[2021-06-11] MEDS: MIDODRINE 5 MG TAB PEG/G-TUBE SCH ×3 (10:11→17:57)
[2021-06-11] MEDS: CHOLECALCIFEROL 25 MCG (1000 IU) TABLET PEG/G-TUBE SCH (10:11)
[2021-06-11] MEDS: TAMSULOSIN 0.4 MG CAP.ER.24H PO SCH (10:11)
[2021-06-11] MEDS: AMIODARONE 200 MG TAB PEG/G-TUBE SCH ×2 (10:11→17:57)
[2021-06-11] MEDS: BACLOFEN 10 MG TAB PEG/G-TUBE SCH ×3 (10:11→20:52)
[2021-06-11 12:00] LABS: Glucose,Whole Blood 117 mg/dL (75-99)
--- NOTE | 2021-06-11 14:53 | P.PN ---
Subjective Progress Note Date: 06/11/21 This is a 76-year-old male who was recently admitted with acute bilateral pneumonia with acute hypoxic respiratory failure and also has had changes in mental status and is being closely monitored. Pulmonary and ID following. Patient is continued on IV daptomycin for recent diskitis. Patient had a positi ve covid test. Patient was recently at [facility] for rehabilitation and IV antibiotic therapy. Patient continued on tube feeds with recent peg tube placement. Patient off of bipap this morning and weaning FI02 as tolerated. Patient is on coumadin and will continue hold with close monitoring and labs in the am. 06/11/2021 Patient is seen and evaluated and follow-up this morning awake and responding to commands and questions appropriately. Patient continues with BiPAP at night and maintained on 4 L via nasal cannula and denies any worsening shortness of breath. Patient states he still feels shortness of breath though. Coumadin continues to be held pharmacy to dose and INR today is 3.9 and will hold and repeat labs. Pulmonary following closely and chest x-ray was ordered showing chronic emphysematous change and cardiomegaly with small bilateral pleural effusions and associated bibasilar infiltrate and/or atelectasis redemonstrated with no significant change from 2 days previous. Continue with local wound care to the coccyx region along with bilateral calcaneus. Continue with offloading boots and frequent position changes. Labs: White blood count is 4.2, hemoglobin is 9.6, platelets are 206, INR is 3.9, sodium is 143, potassium is 4.0, creatinine is 1.07, calcium is 8.8. Review of systems: Constitutional: reports of fatigue, no reports of fever, or chills Cardiovascular: No reports of chest pain or palpitations Respiratory: No reports of worsening shortness of breath continues with shortness of breath GI: No reports of nausea, vomiting, or diarrhea, tolerating tube feeds : No reports of dysuria or retention Neurovascular: reports generalized weakness All medications have been reviewed Active Medications Hydrocodone Bitart/Acetaminophen (Hydrocodone/Apap 5-325mg 1 Each Tab) 1 each PEG/G-TUBE Q4HR PRN PRN Reason: Pain Albuterol Sulfate (Albuterol Hfa Inhaler) 2 puff INHALATION RT-TID PRN PRN Reason: Shortness Of Breath Or Wheezing Last Admin: 06/11/21 07:30 Dose: 2 puff Documented by: Amiodarone HCl (Amiodarone 200 Mg Tab) 200 mg PEG/G-TUBE BID@0900,1700 [facility] Last Admin: 06/11/21 10:11 Dose: 200 mg Documented by: Aspirin (Aspirin 81 Mg) 81 mg PEG/G-TUBE DAILY@0900 [facility] Last Admin: 06/11/21 10:10 Dose: 81 mg Documented by: Baclofen (Baclofen 10 Mg Tab) 10 mg PEG/G-TUBE TID@0900,1300,2100 [facility] Last Admin: 06/11/21 13:03 Dose: 10 mg Documented by: Cholecalciferol (Cholecalciferol 25 Mcg (1000 Iu) Tablet) 25 mcg PEG/G-TUBE DAILY [facility] Last Admin: 06/11/21 10:11 Dose: 25 mcg Documented by: Docusate Sodium (Docusate Oral Soln 100 Mg/10 Ml Cup) 100 mg PEG/G-TUBE BID@0900,1700 [facility] Last Admin: 06/11/21 10:11 Dose: Not Given Documented by: Daptomycin 600 mg/ Sodium (Chloride) 50 mls @ 100 mls/hr IVPB Q24H [facility] Stop: 06/27/21 16:29 Last Admin: 06/10/21 15:04 Dose: 100 mls/hr Documented by: Levothyroxine Sodium (Levothyroxine 50 Mcg Tab) 50 mcg PEG/G-TUBE DAILY@0600 [facility] Last Admin: 06/11/21 05:16 Dose: 50 mcg Documented by: Lidocaine (Lidocaine 5% Patch) 1 patch TOPICAL DAILY [facility]; Protocol Last Admin: 06/11/21 10:11 Dose: Not Given Documented by: Magnesium Hydroxide (Magnesium Hydroxide 2,400 Mg/10 Ml Cup) 2,400 mg PEG/G- TUBE DAILY PRN PRN Reason: Constipation Methocarbamol (Methocarbamol 750 Mg Tab) 750 mg PEG/G-TUBE Q8H PRN PRN Reason: Muscle Pain Midodrine (Midodrine 5 Mg Tab) 10 mg PEG/G-TUBE TID@0900,1300,1700 [facility] Last Admin: 06/11/21 13:03 Dose: 10 mg Documented by: Miscellaneous Information (Warfarin Per Pharmacy) 1 each MISCELLANE DIRECTED PRN PRN Reason: Per Protocol Naloxone HCl (Naloxone 0.4 Mg/Ml 1 Ml Vial) 0.2 mg IV Q2M PRN PRN Reason: Opioid Reversal Tamsulosin HCl (Tamsulosin 0.4 Mg Cap.Er.24h) 0.4 mg PO DAILY@0900 [facility] Last Admin: 06/11/21 10:11 Dose: 0.4 mg Documented by: Warfarin Sodium (Warfarin 0.5 Mg Tab) 0 mg PO ONCE@1800 [facility] Stop: 06/11/21 18:01 Physical exam: Gen: This is 76-year-old male who is awake, alert and oriented 1-2, well- developed, well-nourished.. Temp is 98.2F, pulse is 94, respirations are 18, blood pressure is 97/60, oxygen saturation is 94% on 4 L via high flow nasal cannula HEENT: Head is atraumatic, normocephalic. Pupils equal, round. Sclerae is anicteric. NECK: Supple. No JVD. No lymphadenopathy. No thyromegaly. LUNGS: Breath sounds are diminished at the bases with scattered course rhonchi noted. No intercostal retractions. HEART: S1, S2 are muffled ABDOMEN: Soft. Obese. Bowel sounds are present. No masses. No tenderness. peg tube intact and infusing EXTREMITIES: generalized edema. No calf tenderness. offloading boots noted bilaterally NEUROLOGICAL: Alert and oriented 2, diffusely weak Assessment: Acute bilateral pneumonia with acute hypoxic respiratory failure with possible sepsis, present on admission Change in mental status, acute metabolic encephalopathy, multifactorial Coumadin coagulopathy COVID-19, test positive history of recent aspiration pneumonia with hypoxic respiratory failure History of recent acute stroke and change in mental status with right-sided stroke history of recent complete opacification of the left hemithorax secondary to aspiration Status post PEG tube placement PEG tube feedings and monitoring Multiple organisms growing from the culture including Makenna albicans and Klebsiella recently congestive heart failure with chronic diastolic dysfunction atrial fibrillation with fast ventricular rate history of chronic persistent atrial fibrillation Acute kidney injury with acute renal failure, acute tubular necrosis with severe sepsis history of aortic prosthetic replacement chronic low back pain and degenerative joint disease Stage II decubitus ulcer Bilateral calcaneus stage I ulcers Hypertension permanent pacemaker severe protein calorie malnutrition anemia, normocytic anemia of chronic disease Coumadin monitoring acute respiratory acidosis No code, no CPR, no vent Plan: Recommend to continue with current medications and management and symptomatic treatment. pulmonary, ID, cardio, and neurology following. Patient to continue on IV daptomycin. Patient is weaning FI02 as tolerated and currently 4 L via NC and being closely monitored. Continues with BiPAP at night. INR continues to be elevated although improving at 3.9 and will hold and pharmacy to dose. Recommend continue with local wound care and frequent position changes and offloading boots. Discussed with nursing staff about goal rate as it is 75 mL p er hour and will discuss further with dietitian about this goal order as patient is high risk for aspiration and this large volume. Also discussed with the nurse about maintaining strict aspiration precautions of head of the bed elevated 45 at all times. As patient is an extremely high risk for aspiration pneumonia. Due to multiple complex medical issues prognosis is guarded. Will Continue to monitor closely and repeat labs. Continue to hold Coumadin today and recheck INR in the am. Objective - Vital Signs Vital signs: Vital Signs Temp 98.1 F 06/11/21 04:00 Pulse 89 06/11/21 04:00 Resp 18 06/11/21 04:00 BP 116/75 06/11/21 04:00 Pulse Ox 93 L 06/11/21 04:00 Intake & Output 06/10/21 06/11/21 06/11/21 18:59 06:59 18:59 Output Total 1375 Balance -1375 Weight 92 kg Output: Urine 1375 Other: Voiding Method Indwelling Catheter Indwelling Catheter # Bowel Movements 1 - Labs CBC & Chem 7: 06/11/21 08:00 06/11/21 08:00 Labs: Abnormal Lab Results - Last 24 Hours (Table) 06/10/21 06/10/21 06/10/21 Range/Units 09:14 11:55 17:08 RBC (4.30-5.90) m/uL Hgb (13.0-17.5) gm/dL Hct (39.0-53.0) % RDW (11.5-15.5) % Lymphocytes # (1.0-4.8) k/uL PT 53.8 H (9.0-12.0) sec INR 5.6 H* (<1.2) Carbon Dioxide (22-30) mmol/L BUN (9-20) mg/dL Glucose (74-99) mg/dL POC Glucose (mg/dL) 113 H 105 H (75-99) mg/dL 06/11/21 06/11/21 06/11/21 Range/Units 00:14 06:08 08:00 RBC (4.30-5.90) m/uL Hgb (13.0-17.5) gm/dL Hct (39.0-53.0) % RDW (11.5-15.5) % Lymphocytes # (1.0-4.8) k/uL PT 37.4 H (9.0-12.0) sec INR 3.9 H (<1.2) Carbon Dioxide (22-30) mmol/L BUN (9-20) mg/dL Glucose (74-99) mg/dL POC Glucose (mg/dL) 111 H 122 H (75-99) mg/dL 06/11/21 06/11/21 Range/Units 08:00 08:00 RBC 3.43 L (4.30-5.90) m/uL Hgb 9.6 L (13.0-17.5) gm/dL Hct 30.6 L (39.0-53.0) % RDW 18.9 H (11.5-15.5) % Lymphocytes # 0.5 L (1.0-4.8) k/uL PT (9.0-12.0) sec INR (<1.2) Carbon Dioxide 37 H (22-30) mmol/L BUN 40 H (9-20) mg/dL Glucose 125 H (74-99) mg/dL POC Glucose (mg/dL) (75-99) mg/dL Microbiology - Last 24 Hours (Table) 06/08/21 06:22 Blood Culture - Preliminary Blood No Growth after 72 hours 06/08/21 05:59 Blood Culture - Preliminary Blood No Growth after 72 hours
--- NOTE | 2021-06-11 15:47 | P.PN ---
Subjective Progress Note Date: 06/11/21 Principal diagnosis: Shortness of breath. Pulmonary consult dated 06/09/2021. 76-year-old male, seen in the emergency department, at 5:41 AM, on June 08. The patient came in with complaints of shortness of breath. He was actually brought in by EMS. The patient has a history of previous left-sided CVA, with right-sided deficits, chronic bilateral heel wounds, and osteomyelitis, as well as CHF. The patient had a recent admission to this hospital for sepsis, heart failure, and aspiration pneumonia. At that time, he was intubated and had a central line. The patient was discharged to group home, and subsequently developed shortness of breath with saturations in the mid 80s. He tested positive for coronavirus on June 07. The patient was brought back to the hospital to be evaluated, and he was admitted. Currently, he's not on any IV fluids. The patient is on BiPAP with settings of 12 over 6 and 80%. He appears to be in [id number] respiratory distress. Chest x-ray show some emphysematous changes, cardiomegaly, and small bilateral pleural effusions. There also may be some atelectasis or infiltrate at the right and left lung base. White count 4.2, hemoglobin 9.3, hematocrit 31.2, and platelet count 192,000. PTT 39, INR 4.1, sodium 144, potassium 4.9, chlorides 107, CO2 34, anion gap 3, BUN 45, and creatinine 1.11. N-terminal proBNP was 3320. Troponin was 0.033. LDH was 747. Pro-calcitonin level was 1. Coronavirus testing was positive. Progress note dated 06/10/2021. This is a patient who we saw yesterday in consultation. He 76 years of age, and we saw him in room 362. The patient was thought to have acute hypoxemic respi ratory failure, in part related to diastolic CHF, as well as possible coronavirus associated pneumonia. Currently, the patient is on 4 L nasal cannula. He is getting tube feedings with vital AF at 50 mL an hour. He is getting saline at 10 mL an hour. He appears much more comfortable today than he did yesterday. He's not a particularly good historian. Today's labs include a PT of 53.8, and an INR of 5.6, as well as a glucose of 105. Progress note dated 06/11/2021. This is a 76-year-old male, who is again seen today in room 362. Currently, he's on 4 L nasal cannula. He is getting saline at 10 mL an hour, and getting tube feedings with vital AF. He appears to be relatively stable. He is not manifesting any signs or symptoms of respiratory distress or difficulty. Currently, his temperature is 98.9, heart rate 92, respiratory rate 18, blood pressure 100/64, and saturations on 4 L of 96%. White count 4.2, hemoglobin 9.6, hematocrit 30.6, and platelet count 20 6000. PTT 37.4 with an INR 3.9. Sodium 143, potassium 4, chlorides 104, CO2 37. Anion gap is 2. BUN and creatinine were 40 and 1.07. Chest x-ray shows COPD changes, cardiomegaly, small bilateral pleural effusions. The chest x-ray is unchanged when compared to an x-ray that was done 2 days earlier. Objective - Vital Signs Vital signs: Vital Signs Temp 98.9 F 06/11/21 12:00 Pulse 92 06/11/21 12:00 Resp 18 06/11/21 12:00 BP 98/64 06/11/21 12:00 Pulse Ox 96 06/11/21 12:00 Intake & Output 06/10/21 06/11/21 06/11/21 18:59 06:59 18:59 Output Total 1375 440 Balance -1375 -440 Weight 92 kg Output: Urine 1375 440 Other: Voiding Method Indwelling Catheter Indwelling Catheter # Bowel Movements 1 - Exam Oriented 3, mild tachypnea. Currently on 4 L nasal cannula. Saturations are 96 %. HEENT examination is grossly unremarkable. Neck supple. Full range of motion. No adenopathy thyromegaly or neck vein distention. Cardiovascular examination reveals an irregular rhythm and rate. S1-S2 normal. No S3 or S4. No discernible murmur noted. Heart sounds are distant. Heart rate 92 bpm. Lungs reveal scattered bilateral rhonchi. Bibasilar crackles are noted. No wheezes. Breath sounds equal bilaterally. Abdomen soft bowel sounds are heard. No masses or tenderness. Extremities are intact. No cyanosis clubbing or edema. Skin is without rash or lesion. Neurologic examination is brief but nonfocal. - Labs CBC & Chem 7: 06/11/21 08:00 06/11/21 08:00 Labs: Abnormal Lab Results - Last 24 Hours (Table) 06/10/21 06/11/21 06/11/21 Range/Units 17:08 00:14 06:08 RBC (4.30-5.90) m/uL Hgb (13.0-17.5) gm/dL Hct (39.0-53.0) % RDW (11.5-15.5) % Lymphocytes # (1.0-4.8) k/uL PT (9.0-12.0) sec INR (<1.2) Carbon Dioxide (22-30) mmol/L BUN (9-20) mg/dL Glucose (74-99) mg/dL POC Glucose (mg/dL) 105 H 111 H 122 H (75-99) mg/dL 06/11/21 06/11/21 06/11/21 Range/Units 08:00 08:00 08:00 RBC 3.43 L (4.30-5.90) m/uL Hgb 9.6 L (13.0-17.5) gm/dL Hct 30.6 L (39.0-53.0) % RDW 18.9 H (11.5-15.5) % Lymphocytes # 0.5 L (1.0-4.8) k/uL PT 37.4 H (9.0-12.0) sec INR 3.9 H (<1.2) Carbon Dioxide 37 H (22-30) mmol/L BUN 40 H (9-20) mg/dL Glucose 125 H (74-99) mg/dL POC Glucose (mg/dL) (75-99) mg/dL 06/11/21 Range/Units 11:58 RBC (4.30-5.90) m/uL Hgb (13.0-17.5) gm/dL Hct (39.0-53.0) % RDW (11.5-15.5) % Lymphocytes # (1.0-4.8) k/uL PT (9.0-12.0) sec INR (<1.2) Carbon Dioxide (22-30) mmol/L BUN (9-20) mg/dL Glucose (74-99) mg/dL POC Glucose (mg/dL) 117 H (75-99) mg/dL Microbiology - Last 24 Hours (Table) 06/08/21 06:22 Blood Culture - Preliminary Blood No Growth after 72 hours 06/08/21 05:59 Blood Culture - Preliminary Blood No Growth after 72 hours Assessment and Plan Assessment: Acute hypoxemic respiratory failure, likely multifactorial, in part related to diastolic CHF, as well as possible coronavirus associated pneumonia. History of chronic atrial fibrillation. History of hypertension. Status post pacemaker insertion. History of aortic valve replacement. History of diastolic CHF. History of CVA. History of essential hypertension. Status post PEG tube placement. History of aspiration pneumonia. Multiple other medical problems and comorbidities. Plan: Plan dated the 2020. The patient's medications are reviewed. Everything seems be appropriate. He remains on warfarin. The patient was started on daptomycin. I believe he was on this medication when he left the last time he was here. His other medications are appropriate. He is on an albuterol inhaler used as needed. Continues on BiPAP. Chest x-ray was not real consistent with coronavirus associated pneumonia. This may be a minor component and his hypoxemic respiratory failure. We will continue to follow make recommendations where appropriate. Plan dated 06/10/2021. The patient appears to be doing better. He's on 4 L nasal cannula. Yesterday, he was on BiPAP. He is much more alert today than he was yesterday. He continues on daptomycin. The rest of his medications are appropriate. We will continue to follow make recommendations where appropriate. He is currently on Coumadin as a blood thinner for his atrial fibrillation. It is currently being held because his PT/INR are prolonged. Prognosis is guarded. We will continue to follow this patient. Plan dated 06/11/2021. The patient remains on 4 L nasal cannula. He is getting saline at 10 mL an hour. He is getting tube feeds. The patient continues on daptomycin. We will continue to follow make recommendations where appropriate. Clinically, he looks very stable. He is not manifesting any signs or symptoms of respiratory distress or difficulty. The patient is currently on Coumadin for his atrial fibrillation. Prognosis is guarded. Time with Patient: Less than 30
--- NOTE | 2021-06-11 17:54 | PN ---
PROGRESS NOTE DATE OF SERVICE: 06/11/2021 REASON FOR FOLLOW UP: 1. Diskitis. 2. Pneumonia. INTERVAL HISTORY: The patient is afebrile. The patient is currently on BiPAP. The patient is slightly lethargic, is unable to provide any history. No vomiting, diarrhea or any other changes reported by the nursing staff. PHYSICAL EXAMINATION: Blood pressure 98/64, pulse of 92, temperature 98.9. He is 96% on 3 L nasal cannula. General description is an elderly male lying in bed in no distress. Respiratory system: Unlabored breathing, decreased intensity of breath sounds, no wheeze. Heart S1, S2. Regular rate and rhythm. Abdomen soft, no tenderness. LABS: Hemoglobin 9.6, white count 4.2, creatinine 1.07. DIAGNOSTIC IMPRESSION AND PLAN: 1. Patient with lumbar diskitis with Enterococcus faecalis bacteremia for which the patient is currently covered with daptomycin. 2. Patient admitted to the hospital with hypoxemia, shortness of breath. Did have positive COVID test, currently being treated with supportive treatment. Continue supportive care. MMODL / IJN: [id number] /
[2021-06-11 18:00] LABS: Glucose,Whole Blood 125 mg/dL (75-99)
[2021-06-11] MEDS ORDERED: WARFARIN 0.5 MG TAB PO ONE (18:00)
[2021-06-11 23:58] LABS: Glucose,Whole Blood 107 mg/dL (75-99)
[2021-06-12] MEDS: LEVOTHYROXINE 50 MCG TAB PEG/G-TUBE SCH (05:21)
[2021-06-12 06:36] LABS: Glucose,Whole Blood 111 mg/dL (75-99)
[2021-06-12] MEDS: ALBUTEROL HFA INHALER INHALATION PRN ×3 (08:14→21:16)
[2021-06-12] MEDS: DOCUSATE ORAL SOLN 100 MG/10 ML CUP PEG/G-TUBE SCH ×2 (08:19→12:48)
[2021-06-12] MEDS: LIDOCAINE 5% PATCH TOPICAL SCH (08:19)
[2021-06-12] MEDS: MIDODRINE 5 MG TAB PEG/G-TUBE SCH ×3 (08:25→17:25)
[2021-06-12] MEDS: TAMSULOSIN 0.4 MG CAP.ER.24H PO SCH (08:26)
[2021-06-12] MEDS: BACLOFEN 10 MG TAB PEG/G-TUBE SCH ×3 (08:26→21:28)
[2021-06-12] MEDS: ASPIRIN 81 MG PEG/G-TUBE SCH (08:26)
[2021-06-12] MEDS: CHOLECALCIFEROL 25 MCG (1000 IU) TABLET PEG/G-TUBE SCH (08:26)
[2021-06-12] MEDS: AMIODARONE 200 MG TAB PEG/G-TUBE SCH ×2 (08:26→17:25)
[2021-06-12 08:46] LABS: Anisocytosis Slight; Basophils % (A) 0 %; Eosinophils # (A) 0.2 k/uL (0-0.7); Eosinophils % (A) 3 %; HCT 29.8 % (39.0-53.0); HGB 9.4 gm/dL (13.0-17.5); Hypochromasia Moderate; Lymphocytes # (A) 0.6 k/uL (1.0-4.8); Lymphocytes % (A) 12 %; MCH 28.2 pg (25.0-35.0); MCHC 31.7 g/dL (31.0-37.0); MCV 89.1 fL (80.0-100.0); Monocytes # (A) 0.2 k/uL (0-1.0); Monocytes % (A) 4 %; Neutrophils # (A) 3.9 k/uL (1.3-7.7); Neutrophils % (A) 80 %; Platelet Count 191 k/uL (150-450); RBC 3.34 m/uL (4.30-5.90); RDW 18.6 % (11.5-15.5); WBC 4.9 k/uL (3.8-10.6)
[2021-06-12 08:49] LABS: INR 2.7 (<1.2); Prothrombin Time 25.7 sec (9.0-12.0)
[2021-06-12 11:08] LABS: Calcium 8.7 mg/dL (8.4-10.2); Magnesium 1.7 mg/dL (1.6-2.3); Potassium 4.6 mmol/L (3.5-5.1)
[2021-06-12 11:48] LABS: Glucose,Whole Blood 125 mg/dL (75-99)
[2021-06-12] MEDS: MAGNESIUM SULFATE-D5W PMX 1 GM in DEXTROSE/WATER 1 100ML.BAG IVPB SCH ×2 (15:43→16:45)
--- NOTE | 2021-06-12 16:45 | P.PN ---
Subjective Progress Note Date: 06/12/21 Principal diagnosis: Shortness of breath. Pulmonary consult dated 06/09/2021. 76-year-old male, seen in the emergency department, at 5:41 AM, on June 08. The patient came in with complaints of shortness of breath. He was actually brought in by EMS. The patient has a history of previous left-sided CVA, with right-sided deficits, chronic bilateral heel wounds, and osteomyelitis, as well as CHF. The patient had a recent admission to this hospital for sepsis, heart failure, and aspiration pneumonia. At that time, he was intubated and had a central line. The patient was discharged to correction, and subsequently developed shortness of breath with saturations in the mid 80s. He tested positive for coronavirus on June 07. The patient was brought back to the hospital to be evaluated, and he was admitted. Currently, he's not on any IV fluids. The patient is on BiPAP with settings of 12 over 6 and 80%. He appears to be in [id number] respiratory distress. Chest x-ray show some emphysematous changes, cardiomegaly, and small bilateral pleural effusions. There also may be some atelectasis or infiltrate at the right and left lung base. White count 4.2, hemoglobin 9.3, hematocrit 31.2, and platelet count 192,000. PTT 39, INR 4.1, sodium 144, potassium 4.9, chlorides 107, CO2 34, anion gap 3, BUN 45, and creatinine 1.11. N-terminal proBNP was 3320. Troponin was 0.033. LDH was 747. Pro-calcitonin level was 1. Coronavirus testing was positive. Progress note dated 06/10/2021. This is a patient who we saw yesterday in consultation. He 76 years of age, and we saw him in room 362. The patient was thought to have acute hypoxemic respi ratory failure, in part related to diastolic CHF, as well as possible coronavirus associated pneumonia. Currently, the patient is on 4 L nasal cannula. He is getting tube feedings with vital AF at 50 mL an hour. He is getting saline at 10 mL an hour. He appears much more comfortable today than he did yesterday. He's not a particularly good historian. Today's labs include a PT of 53.8, and an INR of 5.6, as well as a glucose of 105. Progress note dated 06/11/2021. This is a 76-year-old male, who is again seen today in room 362. Currently, he's on 4 L nasal cannula. He is getting saline at 10 mL an hour, and getting tube feedings with vital AF. He appears to be relatively stable. He is not manifesting any signs or symptoms of respiratory distress or difficulty. Currently, his temperature is 98.9, heart rate 92, respiratory rate 18, blood pressure 100/64, and saturations on 4 L of 96%. White count 4.2, hemoglobin 9.6, hematocrit 30.6, and platelet count 20 6000. PTT 37.4 with an INR 3.9. Sodium 143, potassium 4, chlorides 104, CO2 37. Anion gap is 2. BUN and creatinine were 40 and 1.07. Chest x-ray shows COPD changes, cardiomegaly, small bilateral pleural effusions. The chest x-ray is unchanged when compared to an x-ray that was done 2 days earlier. Progress note dated 06/12/2021. 76-year-old male, again seen in room 362. Currently, he's up to 6 L nasal annie wilian. He is getting saline at 10 mL an hour, and getting tube feedings with vital AF, at 60 mL an hour. Apparently, his saturations were lower, which is widely bumped up his oxygen requirements. Currently, his white count is 4.9, hemoglobin 9.4, hematocrit 29.8, and platelet count 191,000. PTT was 25.7 with an INR of 2.7. Sodium 142, potassium 4.6, chlorides 105, CO2 33, anion gap 4, BUN 45, and creatinine 1.01. Chest x-ray from yesterday shows diffuse bilateral infiltrates. Objective - Vital Signs Vital signs: Vital Signs Temp 97.8 F 06/12/21 16:02 Pulse 98 06/12/21 16:02 Resp 17 06/12/21 16:02 BP 103/68 06/12/21 16:02 Pulse Ox 95 06/12/21 16:02 Intake & Output 06/11/21 06/12/21 06/12/21 18:59 06:59 18:59 Intake Total 360 Output Total 440 1650 Balance -440 -1650 360 Weight 93.5 kg Intake: Tube Feeding 360 Output: Urine 440 1650 Other: Voiding Method Indwelling Catheter Indwelling Catheter Indwelling Catheter # Bowel Movements 1 1 - Exam Oriented 3, mild tachypnea. Currently on 6 L nasal cannula. Saturations are 95 %. HEENT examination is grossly unremarkable. Neck supple. Full range of motion. No adenopathy thyromegaly or neck vein distention. Cardiovascular examination reveals an irregular rhythm and rate. S1-S2 normal. No S3 or S4. No discernible murmur noted. Heart sounds are distant. Heart rate 98 bpm. Lungs reveal scattered bilateral rhonchi. Bibasilar crackles are noted. No wheezes. Breath sounds equal bilaterally. Abdomen soft bowel sounds are heard. No masses or tenderness. Extremities are intact. No cyanosis clubbing or edema. Skin is without rash or lesion. Neurologic examination is brief but nonfocal. - Labs CBC & Chem 7: 06/12/21 07:56 06/12/21 09:54 Labs: Abnormal Lab Results - Last 24 Hours (Table) 06/11/21 06/11/21 06/12/21 Range/Units 17:58 23:55 06:33 RBC (4.30-5.90) m/uL Hgb (13.0-17.5) gm/dL Hct (39.0-53.0) % RDW (11.5-15.5) % Lymphocytes # (1.0-4.8) k/uL PT (9.0-12.0) sec INR (<1.2) Carbon Dioxide (22-30) mmol/L BUN (9-20) mg/dL Glucose (74-99) mg/dL POC Glucose (mg/dL) 125 H 107 H 111 H (75-99) mg/dL 06/12/21 06/12/21 06/12/21 Range/Units 07:56 07:56 09:54 RBC 3.34 L (4.30-5.90) m/uL Hgb 9.4 L (13.0-17.5) gm/dL Hct 29.8 L (39.0-53.0) % RDW 18.6 H (11.5-15.5) % Lymphocytes # 0.6 L (1.0-4.8) k/uL PT 25.7 H (9.0-12.0) sec INR 2.7 H (<1.2) Carbon Dioxide 33 H (22-30) mmol/L BUN 45 H (9-20) mg/dL Glucose 116 H (74-99) mg/dL POC Glucose (mg/dL) (75-99) mg/dL 06/12/21 Range/Units 11:46 RBC (4.30-5.90) m/uL Hgb (13.0-17.5) gm/dL Hct (39.0-53.0) % RDW (11.5-15.5) % Lymphocytes # (1.0-4.8) k/uL PT (9.0-12.0) sec INR (<1.2) Carbon Dioxide (22-30) mmol/L BUN (9-20) mg/dL Glucose (74-99) mg/dL POC Glucose (mg/dL) 125 H (75-99) mg/dL Microbiology - Last 24 Hours (Table) 06/08/21 06:22 Blood Culture - Preliminary Blood No Growth after 96 hours 06/08/21 05:59 Blood Culture - Preliminary Blood No Growth after 96 hours Assessment and Plan Assessment: Acute hypoxemic respiratory failure, likely multifactorial, in part related to diastolic CHF, as well as possible coronavirus associated pneumonia. History of chronic atrial fibrillation. History of hypertension. Status post pacemaker insertion. History of aortic valve replacement. History of diastolic CHF. History of CVA. History of essential hypertension. Status post PEG tube placement. History of aspiration pneumonia. Multiple other medical problems and comorbidities. Plan: Plan dated the 2020. The patient's medications are reviewed. Everything seems be appropriate. He r emains on warfarin. The patient was started on daptomycin. I believe he was on this medication when he left the last time he was here. His other medications are appropriate. He is on an albuterol inhaler used as needed. Continues on BiPAP. Chest x-ray was not real consistent with coronavirus associated pneumonia. This may be a minor component and his hypoxemic respiratory failure. We will continue to follow make recommendations where appropriate. Plan dated 06/10/2021. The patient appears to be doing better. He's on 4 L nasal cannula. Yesterday, he was on BiPAP. He is much more alert today than he was yesterday. He continues on daptomycin. The rest of his medications are appropriate. We will continue to follow make recommendations where appropriate. He is currently on Coumadin as a blood thinner for his atrial fibrillation. It is currently being held because his PT/INR are prolonged. Prognosis is guarded. We will continue to follow this patient. Plan dated 06/11/2021. The patient remains on 4 L nasal cannula. He is getting saline at 10 mL an hour. He is getting tube feeds. The patient continues on daptomycin. We will continue to follow make recommendations where appropriate. Clinically, he looks very stable. He is not manifesting any signs or symptoms of respiratory distress or difficulty. The patient is currently on Coumadin for his atrial fibrillation. Prognosis is guarded. Plan dated 06/12/2021. The patient was up to 6 L nasal cannula. His saturation had dropped earlier. He is getting saline at 10 mL an hour, and tube feeds, at 60 mL an hour. The patient continues on daptomycin. The patient is also been on and off the BiPAP. Patient has been adequately anticoagulated for his atrial fibrillation with Coumadin. We will continue to follow make recommendations were appropriate. Prognosis is certainly guarded. Time with Patient: Less than 30
[2021-06-12 17:31] LABS: Glucose,Whole Blood 131 mg/dL (75-99)
[2021-06-12] MEDS ORDERED: WARFARIN 3 MG TAB PO ONE (18:00)
--- NOTE | 2021-06-12 22:39 | PN ---
PROGRESS NOTE DATE OF SERVICE: 06/12/2021 REASON FOR FOLLOWUP: 1. Lumbar diskitis. 2. COVID-19 infection. INTERVAL HISTORY: The patient is afebrile. The patient remains the patient seems lethargic and is unable to provide any history. No vomiting or diarrhea or any other changes reported by the nursing staff. PHYSICAL EXAMINATION: Blood pressure 97/68 with a pulse 100, temperature 98.3. He is 98% on BiPAP. General description is an elderly male lying in bed in no distress. Respiratory system: Unlabored breathing, decreased intensity of breath sounds. No wheeze. Heart S1, S2. Regular rate and rhythm. Abdomen soft, no tenderness. LABS: Hemoglobin is 9.4, white count 4.9, creatinine is 2.7, 1.01. DIAGNOSTIC IMPRESSION AND PLAN: 1. Patient with lumbar diskitis with the previous culture positive for Enterococcus faecalis. Patient is covered with daptomycin because of his [employer]ILL[employer], which should be documented. 2. Patient with positive COVID test and admitted to hospital with acute respiratory distress that could be related to diastolic clinically not behaving as COVID pneumonia. Continue with current supportive treatment. Continue supportive care. MMODL / IJN: [id number] /
--- NOTE | 2021-06-12 23:56 | P.PN ---
Subjective Progress Note Date: 06/12/21 This is a 76-year-old male who was recently admitted with acute bilateral pneumonia with acute hypoxic respiratory failure and also has had changes in mental status and is being closely monitored. Pulmonary and ID following. Patient is continued on IV daptomycin for recent diskitis. Patient had a positi ve covid test. Patient was recently at [facility] for rehabilitation and IV antibiotic therapy. Patient continued on tube feeds with recent peg tube placement. Patient off of bipap this morning and weaning FI02 as tolerated. Patient is on coumadin and will continue hold with close monitoring and labs in the am. 06/11/2021 Patient is seen and evaluated and follow-up this morning awake and responding to commands and questions appropriately. Patient continues with BiPAP at night and maintained on 4 L via nasal cannula and denies any worsening shortness of breath. Patient states he still feels shortness of breath though. Coumadin continues to be held pharmacy to dose and INR today is 3.9 and will hold and repeat labs. Pulmonary following closely and chest x-ray was ordered showing chronic emphysematous change and cardiomegaly with small bilateral pleural effusions and associated bibasilar infiltrate and/or atelectasis redemonstrated with no significant change from 2 days previous. Continue with local wound care to the coccyx region along with bilateral calcaneus. Continue with offloading boots and frequent position changes. 06/12/2021 Patient is seen in follow up this morning and is being closely monitored. Patient is having some low oxygen readings and using intermittent bipap and also maintained on 5-6 L via NC. Patient is awake, somewhat confused at times, but more alert. Patient is being followed by ID and pulmonary. Patient is also maintained on IV antibiotics and tube feedings and tolerating. Patient is afebrile. No reports of chest pain. Patient has been having loose frequent stools and will order cdiff. Discontinue colace. INR is 2.7 and will have pharmacy dose coumadin. Labs: White blood count is 4.9, hemoglobin is 9.4, platelets are 191, INR is 2.7, sodi um is 142, potassium 4.6, BUN 45, creatinine 1.01, magnesium 1.7, calcium 8.7 Review of systems: Constitutional: reports of fatigue, no reports of fever, or chills Cardiovascular: No reports of chest pain or palpitations Respiratory: No reports of worsening shortness of breath continues with shor tness of breath GI: No reports of nausea, vomiting, reports frequent episodes of diarrhea, tolerating tube feeds : No reports of dysuria or retention Neurovascular: reports generalized weakness All medications have been reviewed Active Medications Hydrocodone Bitart/Acetaminophen (Hydrocodone/Apap 5-325mg 1 Each Tab) 1 each PEG/G-TUBE Q4HR PRN PRN Reason: Pain Albuterol Sulfate (Albuterol Hfa Inhaler) 2 puff INHALATION RT-TID PRN PRN Reason: Shortness Of Breath Or Wheezing Last Admin: 06/12/21 12:02 Dose: 2 puff Documented by: Amiodarone HCl (Amiodarone 200 Mg Tab) 200 mg PEG/G-TUBE BID@0900,1700 [facility] Last Admin: 06/12/21 08:26 Dose: 200 mg Documented by: Aspirin (Aspirin 81 Mg) 81 mg PEG/G-TUBE DAILY@0900 [facility] Last Admin: 06/12/21 08:26 Dose: 81 mg Documented by: Baclofen (Baclofen 10 Mg Tab) 10 mg PEG/G-TUBE TID@0900,1300,2100 [facility] Last Admin: 06/12/21 11:37 Dose: 10 mg Documented by: Cholecalciferol (Cholecalciferol 25 Mcg (1000 Iu) Tablet) 25 mcg PEG/G-TUBE DAILY [facility] Last Admin: 06/12/21 08:26 Dose: 25 mcg Documented by: Docusate Sodium (Docusate Oral Soln 100 Mg/10 Ml Cup) 100 mg PEG/G-TUBE BID@0900,1700 [facility] Last Admin: 06/12/21 12:48 Dose: Not Given Documented by: Daptomycin 600 mg/ Sodium (Chloride) 50 mls @ 100 mls/hr IVPB Q24H [facility] Stop: 06/27/21 16:29 Last Admin: 06/11/21 17:57 Dose: 100 mls/hr Documented by: Levothyroxine Sodium (Levothyroxine 50 Mcg Tab) 50 mcg PEG/G-TUBE DAILY@0600 [facility] Last Admin: 06/12/21 05:21 Dose: 50 mcg Documented by: Lidocaine (Lidocaine 5% Patch) 1 patch TOPICAL DAILY [facility]; Protocol Last Admin: 06/12/21 08:19 Dose: Not Given Documented by: Magnesium Hydroxide (Magnesium Hydroxide 2,400 Mg/10 Ml Cup) 2,400 mg PEG/G- TUBE DAILY PRN PRN Reason: Constipation Methocarbamol (Methocarbamol 750 Mg Tab) 750 mg PEG/G-TUBE Q8H PRN PRN Reason: Muscle Pain Midodrine (Midodrine 5 Mg Tab) 10 mg PEG/G-TUBE TID@0900,1300,1700 [facility] Last Admin: 06/12/21 11:37 Dose: 10 mg Documented by: Miscellaneous Information (Warfarin Per Pharmacy) 1 each MISCELLANE DIRECTED PRN PRN Reason: Per Protocol Naloxone HCl (Naloxone 0.4 Mg/Ml 1 Ml Vial) 0.2 mg IV Q2M PRN PRN Reason: Opioid Reversal Tamsulosin HCl (Tamsulosin 0.4 Mg Cap.Er.24h) 0.4 mg PO DAILY@0900 [facility] Last Admin: 06/12/21 08:26 Dose: 0.4 mg Documented by: Warfarin Sodium (Warfarin 3 Mg Tab) 3 mg PO ONCE@1800 [facility] Stop: 06/12/21 18:01 Physical exam: Gen: This is 76-year-old male who is awake, alert and oriented 2-3, well- developed, well-nourished.. Temp is 98.1F, pulse is 90, respirations are 17, blood pressure is 96/63, oxygen saturation is 94% on 5 L via high flow nasal cannula HEENT: Head is atraumatic, normocephalic. Pupils equal, round. Sclerae is anicteric. NECK: Supple. No JVD. No lymphadenopathy. No thyromegaly. LUNGS: Breath sounds are diminished at the bases with scattered course rhonchi noted. Some mild crackles noted as well. No intercostal retractions. HEART: S1, S2 are muffled ABDOMEN: Soft. Obese. Bowel sounds are present. No masses. No tenderness. peg tube intact and infusing EXTREMITIES: generalized edema. No calf tenderness. offloading boots noted mei aterally NEUROLOGICAL: Alert and oriented 2, diffusely weak Assessment: Acute bilateral pneumonia with acute hypoxic respiratory failure with possible sepsis, present on admission Change in mental status, acute metabolic encephalopathy, multifactorial Coumadin coagulopathy COVID-19, test positive diarrhea history of recent aspiration pneumonia with hypoxic respiratory failure History of recent acute stroke and change in mental status with right-sided stroke history of recent complete opacification of the left hemithorax secondary to aspiration Status post PEG tube placement PEG tube feedings and monitoring Multiple organisms growing from the culture including Makenna albicans and Klebsiella recently congestive heart failure with chronic diastolic dysfunction atrial fibrillation with fast ventricular rate, currently rate controlled. history of chronic persistent atrial fibrillation Acute kidney injury with acute renal failure, acute tubular necrosis with severe sepsis history of aortic prosthetic replacement chronic low back pain and degenerative joint disease Stage II decubitus ulcer Bilateral calcaneus stage I ulcers Hypertension permanent pacemaker severe protein calorie malnutrition anemia, normocytic anemia of chronic disease Coumadin monitoring acute respiratory acidosis No code, no CPR, no vent Plan: Recommend to continue with current medications and management and symptomatic treatment. pulmonary, ID, cardio, and neurology following. Patient to continue on IV daptomycin. Patient is weaning FI02 as tolerated and currently requiring more oxygen today with low saturations. Currently on 5 L via NC and being closely monitored. Continues with BiPAP at night and as needed. INR trending down and is 2.7 and will have pharmacy to dose. Recommend continue with local wound care and frequent position changes and offloading boots. Discussed with nursing staff about goal rate as it is 75 mL per hour and will discuss further with dietitian about this goal order as patient is high risk for aspiration and this large volume. Closely monitor for residuals.Also discussed with the nurse about maintaining strict aspiration precautions of head of the bed elevated 45 at all times. As patient is an extremely high risk Patient with multiple episodes of loose stools and Cdiff was ordered although cancelled as stool was more formed. will discontinue colace. Due to multiple complex medical issues prognosis is guarded. Will Continue to monitor closely and repeat labs. Will discuss with social work about possible Covid hubs for placement once stabilized. Objective - Vital Signs Vital signs: Vital Signs Temp 97.4 F L 06/12/21 03:28 Pulse 93 06/12/21 03:28 Resp 22 06/12/21 03:28 BP 106/71 06/12/21 03:28 Pulse Ox 94 L 06/12/21 06:03 Intake & Output 06/11/21 06/12/21 06/12/21 18:59 06:59 18:59 Output Total 440 1650 Balance -440 -1650 Weight 93.5 kg Output: Urine 440 1650 Other: Voiding Method Indwelling Catheter Indwelling Catheter # Bowel Movements 1 - Labs CBC & Chem 7: 11/28/21 07:56 06/12/21 09:54 Labs: Abnormal Lab Results - Last 24 Hours (Table) 06/11/21 06/11/21 06/11/21 Range/Units 08:00 08:00 08:00 RBC 3.43 L (4.30-5.90) m/uL Hgb 9.6 L (13.0-17.5) gm/dL Hct 30.6 L (39.0-53.0) % RDW 18.9 H (11.5-15.5) % Lymphocytes # 0.5 L (1.0-4.8) k/uL PT 37.4 H (9.0-12.0) sec INR 3.9 H (<1.2) Carbon Dioxide 37 H (22-30) mmol/L BUN 40 H (9-20) mg/dL Glucose 125 H (74-99) mg/dL POC Glucose (mg/dL) (75-99) mg/dL 06/11/21 06/11/21 06/11/21 Range/Units 11:58 17:58 23:55 RBC (4.30-5.90) m/uL Hgb (13.0-17.5) gm/dL Hct (39.0-53.0) % RDW (11.5-15.5) % Lymphocytes # (1.0-4.8) k/uL PT (9.0-12.0) sec INR (<1.2) Carbon Dioxide (22-30) mmol/L BUN (9-20) mg/dL Glucose (74-99) mg/dL POC Glucose (mg/dL) 117 H 125 H 107 H (75-99) mg/dL 06/12/21 Range/Units 06:33 RBC (4.30-5.90) m/uL Hgb (13.0-17.5) gm/dL Hct (39.0-53.0) % RDW (11.5-15.5) % Lymphocytes # (1.0-4.8) k/uL PT (9.0-12.0) sec INR (<1.2) Carbon Dioxide (22-30) mmol/L BUN (9-20) mg/dL Glucose (74-99) mg/dL POC Glucose (mg/dL) 111 H (75-99) mg/dL Microbiology - Last 24 Hours (Table) 06/08/21 05:59 Blood Culture - Preliminary Blood No Growth after 96 hours 06/08/21 06:22 Blood Culture - Preliminary Blood No Growth after 72 hours
[2021-06-13 00:01] LABS: Glucose,Whole Blood 107 mg/dL (75-99)
[2021-06-13] MEDS: LEVOTHYROXINE 50 MCG TAB PEG/G-TUBE SCH (05:47)
[2021-06-13 05:55] LABS: Glucose,Whole Blood 124 mg/dL (75-99)
[2021-06-13 06:44] LABS: Anisocytosis Slight; Basophils % (A) 1 %; Eosinophils # (A) 0.1 k/uL (0-0.7); Eosinophils % (A) 2 %; HCT 28.8 % (39.0-53.0); HGB 9.2 gm/dL (13.0-17.5); Hypochromasia Slight; Lymphocytes # (A) 0.6 k/uL (1.0-4.8); Lymphocytes % (A) 13 %; MCH 28.2 pg (25.0-35.0); MCHC 31.8 g/dL (31.0-37.0); MCV 88.8 fL (80.0-100.0); Mean Platelet Volume 8.1; Monocytes # (A) 0.2 k/uL (0-1.0); Monocytes % (A) 3 %; Neutrophils % (A) 80 %; Platelet Count 185 k/uL (150-450); RBC 3.24 m/uL (4.30-5.90); RDW 18.7 % (11.5-15.5); WBC 4.9 k/uL (3.8-10.6)
[2021-06-13 06:51] LABS: Prothrombin Time 19.7 sec (9.0-12.0)
[2021-06-13 08:47] LABS: Calcium 8.6 mg/dL (8.4-10.2); Potassium 4.4 mmol/L (3.5-5.1)
[2021-06-13] MEDS: TAMSULOSIN 0.4 MG CAP.ER.24H PO SCH (09:53)
[2021-06-13] MEDS: AMIODARONE 200 MG TAB PEG/G-TUBE SCH ×2 (09:54→18:12)
[2021-06-13] MEDS: BACLOFEN 10 MG TAB PEG/G-TUBE SCH ×3 (09:54→21:35)
[2021-06-13] MEDS: MIDODRINE 5 MG TAB PEG/G-TUBE SCH ×3 (09:54→18:12)
[2021-06-13] MEDS: CHOLECALCIFEROL 25 MCG (1000 IU) TABLET PEG/G-TUBE SCH (09:54)
[2021-06-13] MEDS: LIDOCAINE 5% PATCH TOPICAL SCH (09:54)
[2021-06-13] MEDS: ASPIRIN 81 MG PEG/G-TUBE SCH (09:54)
--- NOTE | 2021-06-13 10:48 | P.PN ---
Subjective Progress Note Date: 06/13/21 76-year-old male patient was hospitalized on 06/08/2021 for shortness of breath. 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 He was also recently admitted for sepsis, aspiration pneumonia and congestion heart failure. At that time the patient was intubated and he was in a mechanical ventilator. He also tested positive for COVID-19 on 06/07/2021. Since admission, the patient was on BiPAP at a pressure of 12/6 cm of water with an FiO2 of 80%. His chest x-ray showed emphysema, cardiomegaly and small bilateral pleural effusions and some atelectatic changes in lung bases right more than le ft. His pro calcitonin level was at 1.0, LDH level was 747, and his proBNP level was 3320. he was subsequently weaned off and he was placed on oxygen 6 L per minute nasal cannula. His hypoxemic respiratory failure was multifactorial related to diastolic heart failure and a component of COVID-19 related pneumonia. He is also known to have chronic atrial fibrillation and he has a permanent pacemaker in place. He has undergone previous aortic valve replacement. He has PEG tube for enteral feeding and nutritional support and currently is on vital AF for enteral feeding and nutritional support at 60 mL an hour. He remains to receive rapamycin regarding his wounds and osteomyelitis. He was on warfarin on outpatient basis and his INR is therapeutic at this point in time at 2.7 from yesterday and 2.0 from today. Currently is on oxygen at 15 L high flow nasal cannula. Note that he was able to wean off as low as 26 L and currently is up to 15 L. In terms of his blood work, the patient is on white cell count of 4.9, sodium is at 142, potassium is at 4.4, the renal function is normal. INR is at 2.0. Objective - Vital Signs Vital signs: Vital Signs Temp 98.3 F 06/13/21 08:00 Pulse 95 06/13/21 08:00 Resp 20 06/13/21 08:00 BP 99/62 06/13/21 08:00 Pulse Ox 92 L 06/13/21 09:16 Intake & Output 06/12/21 06/13/21 06/13/21 18:59 06:59 18:59 Intake Total 930 Output Total 750 Balance 930 -750 Weight 90.5 kg Intake: Intake, IV Titration 150 Amount DAPTOmycin 600 mg In 50 Sodium Chloride 0.9% 50 ml @ 100 mls/hr IVPB Q24H [facility] Rx#:[id number] Magnesium Sulfate-D5w Pmx 100 1 gm In Dextrose/Water 1 100ml.bag @ 100 mls/hr IVPB Q1H [facility] Rx#: [id number] Tube Feeding 780 Output: Urine 750 Coude 300 Other: Voiding Method Indwelling Catheter Indwelling Catheter # Bowel Movements 1 - Exam Oriented 3, mild tachypnea. Currently on 6 L nasal cannula. Saturations are 95 %. HEENT examination is grossly unremarkable. Neck supple. Full range of motion. No adenopathy thyromegaly or neck vein di stention. Cardiovascular examination reveals an irregular rhythm and rate. S1-S2 normal. No S3 or S4. No discernible murmur noted. Heart sounds are distant. Heart rate 98 bpm. Lungs reveal scattered bilateral rhonchi. Bibasilar crackles are noted. No wheezes. Breath sounds equal bilaterally. Abdomen soft bowel sounds are heard. No masses or tenderness. Extremities are intact. No cyanosis clubbing or edema. Skin is without rash or lesion. Neurologic examination is brief but nonfocal. - Labs CBC & Chem 7: 06/13/21 06:23 06/13/21 06:23 Labs: Abnormal Lab Results - Last 24 Hours (Table) 06/12/21 06/12/21 06/12/21 Range/Units 09:54 11:46 17:18 RBC (4.30-5.90) m/uL Hgb (13.0-17.5) gm/dL Hct (39.0-53.0) % RDW (11.5-15.5) % Lymphocytes # (1.0-4.8) k/uL PT (9.0-12.0) sec INR (<1.2) Carbon Dioxide 33 H (22-30) mmol/L BUN 45 H (9-20) mg/dL Glucose 116 H (74-99) mg/dL POC Glucose (mg/dL) 125 H 131 H (75-99) mg/dL 06/13/21 06/13/21 06/13/21 Range/Units 00:00 05:38 06:23 RBC (4.30-5.90) m/uL Hgb (13.0-17.5) gm/dL Hct (39.0-53.0) % RDW (11.5-15.5) % Lymphocytes # (1.0-4.8) k/uL PT 19.7 H (9.0-12.0) sec INR 2.0 H (<1.2) Carbon Dioxide (22-30) mmol/L BUN (9-20) mg/dL Glucose (74-99) mg/dL POC Glucose (mg/dL) 107 H 124 H (75-99) mg/dL 06/13/21 06/13/21 Range/Units 06:23 06:23 RBC 3.24 L (4.30-5.90) m/uL Hgb 9.2 L (13.0-17.5) gm/dL Hct 28.8 L (39.0-53.0) % RDW 18.7 H (11.5-15.5) % Lymphocytes # 0.6 L (1.0-4.8) k/uL PT (9.0-12.0) sec INR (<1.2) Carbon Dioxide 33 H (22-30) mmol/L BUN 46 H (9-20) mg/dL Glucose 117 H (74-99) mg/dL POC Glucose (mg/dL) (75-99) mg/dL Microbiology - Last 24 Hours (Table) 06/08/21 06:22 Blood Culture - Preliminary Blood No Growth after 120 hours 06/08/21 05:59 Blood Culture - Preliminary Blood No Growth after 120 hours Assessment and Plan Plan: 1 Acute hypoxemic respiratory failure, likely multifactorial, in part related to diastolic CHF, as well as possible coronavirus associated pneumonia. Note that the patient was in the hospital back in early May 2021 and at that time, the patient had complete opacification of the left lung requiring intubation mechanical ventilation and a bronchial alveolar lavage that was obtained via bronchoscopy on 05/20/2021 was positive for Klebsiella and the patient was covered with IV Zosyn. He did have also bilateral pneumonia with lower lobe pulmonary infiltrates. At that time, the patient had a weak cough and inability to protect his airways and his overall respiratory status was quite borderline. On today's evaluation, there has been some interval worsening in his oxygenation and is currently on 15 L. 2 History of chronic atrial fibrillation. Patient has been maintained on warfarin outpatient basis, INR from yesterday was at 2.0 3 History of discitis with recent surgical intervention [facility] with underlying enterococcal bacteremia and the patient remains on daptomycin 4 Status post pacemaker insertion. 5 History of aortic valve replacement. 6 History of diastolic CHF. The patient has chronic diastolic heart failure with an ejection fraction of 55-60% 7 History of CVA. 8 History of essential hypertension. 9 Status post PEG tube placement. The patient is being vital AF at the rate of 60s an hour 10 History of aspiration pneumonia. 11 Multiple other medical problems and comorbidities. 12 decubitus ulcer stage III unstageable at other spots 13 hypertension 14 chronic back pain 15 history of persistent chronic atrial fibrillation maintained on amiodarone on outpatient basis Plan: The patient was up to 15 L nasal cannula. His saturation had dropped earlier. He is getting saline at 10 mL an hour, and tube feeds vital 1.5, at 60 mL an hour. The patient continues on daptomycin. The patient is also been on and off the BiPAP. Patient has been adequately anticoagulated for his atrial fibrillation with Coumadin. We will continue to follow make recommendations were appropriate. Prognosis is certainly guarded. Going to repeat the chest x-ray. Monitor the oxygenation. CODE STATUS is full. The patient continues to have a week off and for ability to perform adequate pulmonate toileting. I made recommendations on several occasions to change his CODE STATUS to comfort care only. The brother has not been able to make it final decision. On today's evaluation, his oxidation is slightly worse in the patient's breathing is slightly more labored compared to earlier. We'll continue to follow. The pulmonary toileting and encouraged use of incentive spirometer if possible.
--- NOTE | 2021-06-13 11:26 | XR ---
EXAMINATION TYPE: XR chest 1V portable DATE OF EXAM: 06/13/2021 COMPARISON: 06/11/2021 HISTORY: Shortness of breath TECHNIQUE: Single frontal view of the chest is obtained. FINDINGS: Heart is enlarged. Postoperative changes cardiac device. Bilateral consolidation and pleur al effusion. Right-sided PICC line noted. No pneumothorax. Diffuse osteopenia. Postsurgical changes n oted. IMPRESSION: Stable x-ray correlate for bilateral pneumonia. Likely superimposed on a background COPD .
[2021-06-13 12:56] LABS: Glucose,Whole Blood 103 mg/dL (75-99)
--- NOTE | 2021-06-13 13:37 | P.CONS ---
History of Present Illness - Reason for Consult Consult date: 06/13/21 wound care - History of Present Illness This is a 76-year-old patient being seen in the 3 [facility]. for nonhealing ulceration to the sacrum. Patient has maceration to bilateral buttocks. He has a stage II ulceration to his left buttocks measuring approximately 12 x 4 x 0.2 cm with fat layer exposure, minimal to no granulation seen within the wound bed significant amount of slough maceration and ecchymosis. Wound edges are attached to the wound base there is no tunneling or undermining noted. Her wound shows excoriation with flaking of the skin. Left calcaneus has a stage I pressure ulcer with intact skin. Patient's past medical history significant for atrial fibrillation, hypertension, no diabetes, lifelong nonsmoker. Review Of Systems: Constitutional: No fever, no chills, no night sweats. No weight change. No weakness, fatigue or lethargy. No daytime sleepiness. Integumentary:reports wounds, no lesions. No rash or pruritus. No unusual bruising. No change in hair or nails. Physical exam: General Appearance: Alert, cooperative, no distress, appears stated age. Skin: See HPI all other Skin color, texture, tugor normal, no rashes or lesions. Neurologic: Alert oriented x3 Assessment: 1. Stage II pressure ulcer sacrum 2. Stage I pressure injury to bilateral calcaneus Plan: 1. Sacral ulceration: Apply honey alginate, saline moistened gauze, border foam. Change Sunday. Turn patient every 2 hours. Consult nutrition to ensure a increasing protein. Patient will require wound care post discharge. We will be happy to see him in the wound care center. Utilize a waffle cushion when sitting in a chair. Recommend a mattress overlay or air filled mattress. 2. Left calcaneus ulceration: Stage I pressure injury. Utilize foam boot heel protectors. Thank you for the consultation any questions please contact the wound care center DNP note has been reviewed and discussed with Dr. Garcia and the impression and plan of care has been directed as dictated. Past Medical History Past Medical History: Atrial Fibrillation, Heart Failure, CVA/TIA, Hypertension, Respiratory Disorder Additional Past Medical History / Comment(s): Acute Sciatica, Lumbar pain, aspiraton pnuemonia, osteomyelitis b/l heels, peg tube History of Any Multi-Drug Resistant Organisms: None Reported Past Surgical History: Joint Replacement, Pacemaker Additional Past Surgical History / Comment(s): Hip replacement, Replacement of aortic valve, back surgey at [facility] 05/01/21 Past Anesthesia/Blood Transfusion Reactions: No Reported Reaction Type of Cardiac Device: Permanent Pacemaker Device Placement Date:: unk Smoking Status: Never smoker Medications and Allergies Home Medications Medication Instructions Recorded Confirmed Type Aspirin EC [Ecotrin Low Dose] 81 mg PEG/G-TUBE DAILY@0900 04/19/21 06/08/21 History Baclofen [Lioresal] 10 mg PEG/G-TUBE TID@0900,1300,2100 04/19/21 06/08/21 History Cholecalciferol [Vitamin D3 (25 25 mcg PEG/G-TUBE DAILY 04/19/21 06/08/21 History Mcg = 1000 Iu)] Levothyroxine Sodium [Synthroid] 50 mcg PEG/G-TUBE DAILY@0600 04/19/21 06/08/21 History Lidocaine 5% Patch [Lidoderm 5% 1 patch TRANSDERM DAILY 04/19/21 06/08/21 History Patch] Tamsulosin HCl [Flomax] 0.4 mg PEG/G-TUBE DAILY@0900 04/19/21 06/08/21 History Docusate Sodium [Dok] 100 mg PEG/G-TUBE BID@0900,1700 05/14/21 06/08/21 History Magnesium Hydroxide [Milk of 2,400 mg PEG/G-TUBE DAILY PRN 05/14/21 06/08/21 History Magnesia] methocarbamoL [Methocarbamol] 750 mg PEG/G-TUBE Q8H PRN 05/14/21 06/08/21 History Ipratropium-Albuterol Nebulize 3 ml INHALATION RT-Q2H PRN ml 06/06/21 06/08/21 Rx [Duoneb 0.5 mg-3 mg/3 ml Soln] Acetaminophen Tab [Tylenol] 650 mg PEG/G-TUBE Q6H PRN 06/08/21 06/08/21 History Amiodarone [Cordarone] 200 mg PEG/G-TUBE BID@0900,1700 06/08/21 06/08/21 History DAPTOmycin [Cubicin] 600 mg IV DAILY@1200 06/08/21 06/08/21 History HYDROcodone/APAP 5-325MG [Lenore 1 tab PEG/G-TUBE Q4HR PRN 06/08/21 06/08/21 History 5-325] Ipratropium-Albuterol Nebulize 3 ml INHALATION RT-TID@,,06/08/21 06/08/21 History [Duoneb 0.5 mg-3 mg/3 ml Soln] Midodrine HCl [ProAmatine] 10 mg PEG/G-TUBE TID@0900,1300,1700 06/08/21 06/08/21 History Nystatin 100,000 Unit/gm Oint 1 applic TOPICAL BID@0900,1700 06/08/21 06/08/21 History [Mycostatin Oint] Warfarin [Coumadin] 7.5 mg PEG/G-TUBE HS 06/08/21 06/08/21 History Allergies Allergy/AdvReac Type Severity Reaction Status Date / Time No Known Allergies Allergy Verified 06/08/21 07:32 Physical Exam Vitals: Vital Signs Temp Pulse Resp BP Pulse Ox 06/13/21 09:16 92 L 06/13/21 08:00 98.3 F 95 20 99/62 90 L 06/13/21 05:51 98 06/13/21 04:00 98.7 F 93 23 98/66 97 06/13/21 00:00 98.6 F 92 24 99/63 98 06/12/21 20:00 98.3 F 100 20 97/68 98 06/12/21 16:02 97.8 F 98 17 103/68 95 Intake and Output 06/12/21 06/13/21 06/13/21 22:59 06:59 14:59 Intake Total 570 Output Total 450 300 Balance 120 -300 Intake: Intake, IV Titration 150 Amount DAPTOmycin 600 mg In 50 Sodium Chloride 0.9% 50 ml @ 100 mls/hr IVPB Q24H [facility] Rx#:[id number] Magnesium Sulfate-D5w Pmx 100 1 gm In Dextrose/Water 1 100ml.bag @ 100 mls/hr IVPB Q1H [facility] Rx#: [id number] Tube Feeding 420 Output: Urine 450 300 Coude 300 Other: Voiding Method Indwelling Catheter Indwelling Catheter Indwelling Catheter # Voids 0 # Bowel Movements 1 Weight 90.5 kg 90.5 kg Results CBC & Chem 7: 06/13/21 06:23 06/13/21 06:23 Labs: Abnormal Lab Results - Last 24 Hours (Table) 06/12/21 06/13/21 06/13/21 Range/Units 17:18 00:00 05:38 RBC (4.30-5.90) m/uL Hgb (13.0-17.5) gm/dL Hct (39.0-53.0) % RDW (11.5-15.5) % Lymphocytes # (1.0-4.8) k/uL PT (9.0-12.0) sec INR (<1.2) Carbon Dioxide (22-30) mmol/L BUN (9-20) mg/dL Glucose (74-99) mg/dL POC Glucose (mg/dL) 131 H 107 H 124 H (75-99) mg/dL 06/13/21 06/13/21 06/13/21 Range/Units 06:23 06:23 06:23 RBC 3.24 L (4.30-5.90) m/uL Hgb 9.2 L (13.0-17.5) gm/dL Hct 28.8 L (39.0-53.0) % RDW 18.7 H (11.5-15.5) % Lymphocytes # 0.6 L (1.0-4.8) k/uL PT 19.7 H (9.0-12.0) sec INR 2.0 H (<1.2) Carbon Dioxide 33 H (22-30) mmol/L BUN 46 H (9-20) mg/dL Glucose 117 H (74-99) mg/dL POC Glucose (mg/dL) (75-99) mg/dL 06/13/21 Range/Units 12:21 RBC (4.30-5.90) m/uL Hgb (13.0-17.5) gm/dL Hct (39.0-53.0) % RDW (11.5-15.5) % Lymphocytes # (1.0-4.8) k/uL PT (9.0-12.0) sec INR (<1.2) Carbon Dioxide (22-30) mmol/L BUN (9-20) mg/dL Glucose (74-99) mg/dL POC Glucose (mg/dL) 103 H (75-99) mg/dL Microbiology - Last 24 Hours (Table) 06/08/21 06:22 Blood Culture - Preliminary Blood No Growth after 120 hours 06/08/21 05:59 Blood Culture - Preliminary Blood No Growth after 120 hours Assessment and Plan (1) Pressure injury of left heel, stage 1 Current Visit: No Status: Acute Code(s): L89.621 - PRESSURE ULCER OF LEFT HEEL, STAGE 1 SNOMED Code(s): 080809491 (2) Pressure ulcer of sacral region, stage 2 Current Visit: No Status: Acute Code(s): L89.152 - PRESSURE ULCER OF SACRAL REGION, STAGE 2 SNOMED Code(s): 471763180
[2021-06-13 17:00] LABS: Glucose,Whole Blood 103 mg/dL (75-99)
[2021-06-13] MEDS ORDERED: WARFARIN 3 MG TAB PO ONE (18:00)
[2021-06-13] MEDS: ALBUTEROL HFA INHALER INHALATION PRN (19:50)
--- NOTE | 2021-06-13 22:22 | PN ---
PROGRESS NOTE DATE OF SERVICE: 06/13/2021 REASON FOR FOLLOWUP: 1. Lumbar diskitis. 2. Positive COVID test. INTERVAL HISTORY: The patient is afebrile. The patient remains on a non-rebreather on high-flow oxygen. The patient is lethargic and sleepy. He is unable to provide any history. No vomiting, diarrhea or other changes reported by the nursing staff. PHYSICAL EXAMINATION: Blood pressure 119/72 with a pulse of 83, temperature 97.2. He is 91% on 15 L high- flow oxygen. General description is an elderly male lying in bed in no distress. Respiratory system: Unlabored breathing, coarse breath sounds bilaterally. No wheeze. Heart S1, S2. Regular rate and rhythm. Abdomen soft, no tenderness. LABS: Hemoglobin is 9.2, white count creatinine is 1.04. DIAGNOSTIC IMPRESSION AND PLAN: 1. Patient with lumbar diskitis with Enterococcus faecalis bacteremia. Patient does have PENICILLIN ALLERGY. Currently on daptomycin; to be continued. 2. Patient admitted to hospital with acute respiratory failure with concern for possible COVID infection. This patient did not have any fever during this admission; could relate to underlying heart failure. Patient is currently being monitored by Pulmonary and Cardiology Services. Continue with supportive care. MMODL / IJN: [id number] /
[2021-06-13 23:47] LABS: Glucose,Whole Blood 112 mg/dL (75-99)
--- NOTE | 2021-06-14 02:28 | P.PN ---
Subjective Progress Note Date: 06/13/21 This is a 76-year-old male who was recently admitted with acute bilateral pneumonia with acute hypoxic respiratory failure and also has had changes in mental status and is being closely monitored. Pulmonary and ID following. Patient is continued on IV daptomycin for recent diskitis. Patient had a positi ve covid test. Patient was recently at [facility] for rehabilitation and IV antibiotic therapy. Patient continued on tube feeds with recent peg tube placement. Patient off of bipap this morning and weaning FI02 as tolerated. Patient is on coumadin and will continue hold with close monitoring and labs in the am. 06/11/2021 Patient is seen and evaluated and follow-up this morning awake and responding to commands and questions appropriately. Patient continues with BiPAP at night and maintained on 4 L via nasal cannula and denies any worsening shortness of breath. Patient states he still feels shortness of breath though. Coumadin continues to be held pharmacy to dose and INR today is 3.9 and will hold and repeat labs. Pulmonary following closely and chest x-ray was ordered showing chronic emphysematous change and cardiomegaly with small bilateral pleural effusions and associated bibasilar infiltrate and/or atelectasis redemonstrated with no significant change from 2 days previous. Continue with local wound care to the coccyx region along with bilateral calcaneus. Continue with offloading boots and frequent position changes. 06/12/2021 Patient is seen in follow up this morning and is being closely monitored. Patient is having some low oxygen readings and using intermittent bipap and also maintained on 5-6 L via NC. Patient is awake, somewhat confused at times, but more alert. Patient is being followed by ID and pulmonary. Patient is also maintained on IV antibiotics and tube feedings and tolerating. Patient is afebrile. No reports of chest pain. Patient has been having loose frequent stools and will order cdiff. Discontinue colace. INR is 2.7 and will have pharmacy dose coumadin. 06/13/2021 Patient seen this morning extremely lethargic and requiring more oxygen. Patient continues with bipap at night and as needed. Patient currently on 15L HF and non-rebreather. Chest xray shows stable correlate for bilateral pneumonia. Pulmonary, ID, and cardio following. Patient was also covid positive although not behaving as such. Patient continues on IV daptomycin. Review of systems: Unable to obtain as patient is lethargic All medications have been reviewed Active Medications Hydrocodone Bitart/Acetaminophen (Hydrocodone/Apap 5-325mg 1 Each Tab) 1 each PEG/G-TUBE Q4HR PRN PRN Reason: Pain Albuterol Sulfate (Albuterol Hfa Inhaler) 2 puff INHALATION RT-TID PRN PRN Reason: Shortness Of Breath Or Wheezing Last Admin: 06/13/21 19:50 Dose: 2 puff Documented by: Amiodarone HCl (Amiodarone 200 Mg Tab) 200 mg PEG/G-TUBE BID@0900,1700 [facility] Last Admin: 06/13/21 18:12 Dose: 200 mg Documented by: Aspirin (Aspirin 81 Mg) 81 mg PEG/G-TUBE DAILY@0900 [facility] Last Admin: 06/13/21 09:54 Dose: 81 mg Documented by: Baclofen (Baclofen 10 Mg Tab) 10 mg PEG/G-TUBE TID@0900,1300,2100 [facility] Last Admin: 06/13/21 21:35 Dose: 10 mg Documented by: Cholecalciferol (Cholecalciferol 25 Mcg (1000 Iu) Tablet) 25 mcg PEG/G-TUBE DAILY [facility] Last Admin: 06/13/21 09:54 Dose: 25 mcg Documented by: Daptomycin 600 mg/ Sodium (Chloride) 50 mls @ 100 mls/hr IVPB Q24H [facility] Stop: 06/27/21 16:29 Last Admin: 06/13/21 15:04 Dose: 100 mls/hr Documented by: Levothyroxine Sodium (Levothyroxine 50 Mcg Tab) 50 mcg PEG/G-TUBE DAILY@0600 [facility] Last Admin: 06/13/21 05:47 Dose: 50 mcg Documented by: Lidocaine (Lidocaine 5% Patch) 1 patch TOPICAL DAILY [facility]; Protocol Last Admin: 06/13/21 09:54 Dose: 1 patch Documented by: Magnesium Hydroxide (Magnesium Hydroxide 2,400 Mg/10 Ml Cup) 2,400 mg PEG/G- TUBE DAILY PRN PRN Reason: Constipation Methocarbamol (Methocarbamol 750 Mg Tab) 750 mg PEG/G-TUBE Q8H PRN PRN Reason: Muscle Pain Midodrine (Midodrine 5 Mg Tab) 10 mg PEG/G-TUBE TID@0900,1300,1700 [facility] Last Admin: 06/13/21 18:12 Dose: 10 mg Documented by: Miscellaneous Information (Warfarin Per Pharmacy) 1 each MISCELLANE DIRECTED PRN PRN Reason: Per Protocol Naloxone HCl (Naloxone 0.4 Mg/Ml 1 Ml Vial) 0.2 mg IV Q2M PRN PRN Reason: Opioid Reversal Tamsulosin HCl (Tamsulosin 0.4 Mg Cap.Er.24h) 0.4 mg PO DAILY@0900 [facility] Last Admin: 06/13/21 09:53 Dose: Not Given Documented by: Physical exam: Gen: This is 76-year-old male who is extremely lethargic and somewhat arousable but falls asleep quickly, well-developed, well-nourished..Ill appearing HEENT: Head is atraumatic, normocephalic. Pupils equal, round. Sclerae is anicteric. NECK: Supple. No JVD. No lymphadenopathy. No thyromegaly. LUNGS: Breath sounds are diminished at the bases with scattered course rhonchi noted. Some mild crackles noted as well. No intercostal retractions. HEART: S1, S2 are muffled ABDOMEN: Soft. Obese. Bowel sounds are present. No masses. No tenderness. peg tube intact and infusing EXTREMITIES: generalized edema. No calf tenderness. offloading boots noted bilaterally NEUROLOGICAL: Alert and oriented 2, diffusely weak SKIN: generalized edema noted throughout, muscle wasting noted as well. Assessment: Acute bilateral pneumonia with acute hypoxic respiratory failure with possible sepsis, present on admission Change in mental status, acute metabolic encephalopathy, multifactorial Coumadin coagulopathy COVID-19, test positive diarrhea history of recent aspiration pneumonia with hypoxic respiratory failure History of recent acute stroke and change in mental status with right-sided stroke history of recent complete opacification of the left hemithorax secondary to aspiration Status post PEG tube placement PEG tube feedings and monitoring Multiple organisms growing from the culture including Makenna albicans and Klebsiella recently congestive heart failure with chronic diastolic dysfunction atrial fibrillation with fast ventricular rate, currently rate controlled. history of chronic persistent atrial fibrillation Acute kidney injury with acute renal failure, acute tubular necrosis with severe sepsis history of aortic prosthetic replacement chronic low back pain and degenerative joint disease Stage II decubitus ulcer Bilateral calcaneus stage I ulcers Hypertension permanent pacemaker severe protein calorie malnutrition anemia, normocytic anemia of chronic disease Coumadin monitoring acute respiratory acidosis No code, no CPR, no vent Plan: Recommend to continue with current medications and management and symptomatic treatment. pulmonary, ID, cardio, and neurology following. Patient to continue on IV daptomycin. Patient is weaning FI02 as tolerated and continues to require more oxygen today with 15 L HF and Non-rebreather. Continues with BiPAP at night and as needed. INR trending down and is 2.0 and will have pharmacy to dose. Recommend continue with local wound care and frequent position changes and offloading boots. Discussed with nursing staff about goal rate as it is 75 mL p er hour and will discuss further with dietitian about this goal order as patient is high risk for aspiration and this large volume. Decreased rate to 60ml. Closely monitor for residuals.Also discussed with the nurse about maintaining strict aspiration precautions of head of the bed elevated 45 at all times. As patient is an extremely high risk Due to multiple complex medical issues prognosis is guarded. Will Continue to monitor closely and repeat labs. Objective - Vital Signs Vital signs: Vital Signs Temp 98.7 F 06/13/21 04:00 Pulse 93 06/13/21 04:00 Resp 23 06/13/21 04:00 BP 98/66 06/13/21 04:00 Pulse Ox 98 06/13/21 05:51 Intake & Output 06/12/21 06/13/21 06/13/21 18:59 06:59 18:59 Intake Total 930 Output Total 750 Balance 930 -750 Weight 90.5 kg Intake: Intake, IV Titration 150 Amount DAPTOmycin 600 mg In 50 Sodium Chloride 0.9% 50 ml @ 100 mls/hr IVPB Q24H [facility] Rx#:[id number] Magnesium Sulfate-D5w Pmx 100 1 gm In Dextrose/Water 1 100ml.bag @ 100 mls/hr IVPB Q1H [facility] Rx#: [id number] Tube Feeding 780 Output: Urine 750 Coude 300 Other: Voiding Method Indwelling Catheter Indwelling Catheter # Bowel Movements 1 - Labs CBC & Chem 7: 06/13/21 06:23 06/13/21 06:23 Labs: Abnormal Lab Results - Last 24 Hours (Table) 06/12/21 06/12/21 06/12/21 Range/Units 09:54 11:46 17:18 RBC (4.30-5.90) m/uL Hgb (13.0-17.5) gm/dL Hct (39.0-53.0) % RDW (11.5-15.5) % Lymphocytes # (1.0-4.8) k/uL PT (9.0-12.0) sec INR (<1.2) Carbon Dioxide 33 H (22-30) mmol/L BUN 45 H (9-20) mg/dL Glucose 116 H (74-99) mg/dL POC Glucose (mg/dL) 125 H 131 H (75-99) mg/dL 06/13/21 06/13/21 06/13/21 Range/Units 00:00 05:38 06:23 RBC (4.30-5.90) m/uL Hgb (13.0-17.5) gm/dL Hct (39.0-53.0) % RDW (11.5-15.5) % Lymphocytes # (1.0-4.8) k/uL PT 19.7 H (9.0-12.0) sec INR 2.0 H (<1.2) Carbon Dioxide (22-30) mmol/L BUN (9-20) mg/dL Glucose (74-99) mg/dL POC Glucose (mg/dL) 107 H 124 H (75-99) mg/dL 06/13/21 06/13/21 Range/Units 06:23 06:23 RBC 3.24 L (4.30-5.90) m/uL Hgb 9.2 L (13.0-17.5) gm/dL Hct 28.8 L (39.0-53.0) % RDW 18.7 H (11.5-15.5) % Lymphocytes # 0.6 L (1.0-4.8) k/uL PT (9.0-12.0) sec INR (<1.2) Carbon Dioxide 33 H (22-30) mmol/L BUN 46 H (9-20) mg/dL Glucose 117 H (74-99) mg/dL POC Glucose (mg/dL) (75-99) mg/dL Microbiology - Last 24 Hours (Table) 06/08/21 06:22 Blood Culture - Preliminary Blood No Growth after 120 hours 06/08/21 05:59 Blood Culture - Preliminary Blood No Growth after 120 hours
[2021-06-14] MEDS: LEVOTHYROXINE 50 MCG TAB PEG/G-TUBE SCH (05:48)
[2021-06-14 06:01] LABS: Glucose,Whole Blood 112 mg/dL (75-99)
[2021-06-14 06:32] LABS: Anisocytosis Slight; Basophils % (A) 0 %; Eosinophils # (A) 0.2 k/uL (0-0.7); Eosinophils % (A) 4 %; HCT 28.5 % (39.0-53.0); HGB 8.9 gm/dL (13.0-17.5); Hypochromasia Moderate; Lymphocytes # (A) 0.6 k/uL (1.0-4.8); Lymphocytes % (A) 12 %; MCHC 31.3 g/dL (31.0-37.0); MCV 89.4 fL (80.0-100.0); Mean Platelet Volume 8.2; Monocytes # (A) 0.2 k/uL (0-1.0); Monocytes % (A) 3 %; Neutrophils # (A) 3.9 k/uL (1.3-7.7); Neutrophils % (A) 80 %; Platelet Count 186 k/uL (150-450); RBC 3.19 m/uL (4.30-5.90); RDW 18.6 % (11.5-15.5); WBC 4.9 k/uL (3.8-10.6)
[2021-06-14 06:48] LABS: INR 1.9 (<1.2); Prothrombin Time 18.8 sec (9.0-12.0)
[2021-06-14 06:59] LABS: African American GFR (CKD) >90 (>60 ml/min/1.73 sqM); Anion Gap 2 mmol/L; Blood Urea Nitrogen 43 mg/dL (9-20); Calcium 8.6 mg/dL (8.4-10.2); Carbon Dioxide 34 mmol/L (22-30); Chloride 105 mmol/L (98-107); Glucose 112 mg/dL (74-99); Non-African American GFR(CKD) 81 (>60 ml/min/1.73 sqM); Potassium 4.4 mmol/L (3.5-5.1); Sodium 141 mmol/L (137-145)
--- NOTE | 2021-06-14 08:01 | XR ---
EXAMINATION TYPE: XR chest 1V DATE OF EXAM: 06/14/2021 COMPARISON: 06/13/2021 HISTORY: Shortness of breath TECHNIQUE: Single frontal view of the chest is obtained. FINDINGS: Heart is enlarged. Postoperative changes cardiac device. Bilateral consolidation and pleur al effusion. Right-sided PICC line noted. No pneumothorax. Diffuse osteopenia. Postsurgical changes n oted. IMPRESSION: Stable x-ray correlate for bilateral pneumonia. Likely superimposed on a background COPD.
[2021-06-14] MEDS: ALBUTEROL HFA INHALER INHALATION PRN (08:38)
[2021-06-14] MEDS: ASPIRIN 81 MG PEG/G-TUBE SCH (09:25)
[2021-06-14] MEDS: CHOLECALCIFEROL 25 MCG (1000 IU) TABLET PEG/G-TUBE SCH (09:25)
[2021-06-14] MEDS: MIDODRINE 5 MG TAB PEG/G-TUBE SCH ×3 (09:25→17:35)
[2021-06-14] MEDS: BACLOFEN 10 MG TAB PEG/G-TUBE SCH ×3 (09:26→20:36)
[2021-06-14] MEDS: AMIODARONE 200 MG TAB PEG/G-TUBE SCH ×2 (09:26→17:35)
--- NOTE | 2021-06-14 11:05 | P.PN ---
Subjective Progress Note Date: 06/14/21 76-year-old male patient was hospitalized on 06/08/2021 for shortness of breath. 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 He was also recently admitted for sepsis, aspiration pneumonia and congestion heart failure. At that time the patient was intubated and he was in a mechanical ventilator. He also tested positive for COVID-19 on 06/07/2021. Since admission, the patient was on BiPAP at a pressure of 12/6 cm of water with an FiO2 of 80%. His chest x-ray showed emphysema, cardiomegaly and small bilateral pleural effusions and some atelectatic changes in lung bases right more than l eft. His pro calcitonin level was at 1.0, LDH level was 747, and his proBNP level was 3320. he was subsequently weaned off and he was placed on oxygen 6 L per minute nasal cannula. His hypoxemic respiratory failure was multifactorial related to diastolic heart failure and a component of COVID-19 related pneumonia. He is also known to have chronic atrial fibrillation and he has a permanent pacemaker in place. He has undergone previous aortic valve replacement. He has PEG tube for enteral feeding and nutritional support and currently is on vital AF for enteral feeding and nutritional support at 60 mL an hour. He remains to receive rapamycin regarding his wounds and osteomyelitis. He was on warfarin on outpatient basis and his INR is therapeutic at this point in time at 2.7 from yesterday and 2.0 from today. Currently is on oxygen at 15 L high flow nasal cannula. Note that he was able to wean off as low as 26 L and currently is up to 15 L. In terms of his blood work, the patient is on white cell count of 4.9, sodium is at 142, potassium is at 4.4, the renal function is normal. INR is at 2.0. Days evaluation of 06/14/2021, the patient seems to much more alert and awake co mpared to yesterday. He is currently on oxygen which is running at 10 L high flow. He has a congested cough. Unable to bring up much sputum. A repeat chest x-ray was done yesterday which showed stable bilateral pulmonary infiltrates and I repeated the chest x-ray today which again showed stable changes with bilateral pneumonia. The patient has diffuse osteopenia. Small bilateral pleural effusions also also suspected. The blood cultures of been negative. The patient's white cell count is at 4.9. Electrolytes are all within normal limits. He continues to receive enteral feeding for nutritional support and the patient is currently on vital AF at the rate of 60 mL an hour. Otherwise, no other significant events overnight. INR today is at 1.9 and the patient has limited on anticoagulation with warfarin on outpatient basis. He has a stage II coccygeal wound and wound services have been consulted. Note that there are other areas around the 1 that are essentially unstageable. Objective - Vital Signs Vital signs: Vital Signs Temp 98.5 F 06/14/21 08:00 Pulse 78 06/14/21 08:00 Resp 20 06/14/21 08:00 BP 100/66 06/14/21 08:00 Pulse Ox 100 06/14/21 08:36 Intake & Output 06/13/21 06/14/21 06/14/21 18:59 06:59 18:59 Output Total 1201 825 Balance -1201 -825 Weight 90.5 kg 90 kg Output: Urine 1200 825 Coude 825 Stool 1 Other: Voiding Method Indwelling Catheter Indwelling Catheter # Voids 0 # Bowel Movements 1 - Exam Oriented 3, mild tachypnea. Currently on 10 L nasal cannula. Saturations are 95 %. HEENT examination is grossly unremarkable. Neck supple. Full range of motion. No adenopathy thyromegaly or neck vein distention. Cardiovascular examination reveals an irregular rhythm and rate. S1-S2 normal. No S3 or S4. No discernible murmur noted. Heart sounds are distant. Heart rate 98 bpm. Lungs reveal scattered bilateral rhonchi. Bibasilar crackles are noted. No wheezes. Breath sounds equal bilaterally. Abdomen soft bowel sounds are heard. No masses or tenderness. Extremities are intact. No cyanosis clubbing or edema. Skin is without rash or lesion. Neurologic examination is brief but nonfocal. - Labs CBC & Chem 7: 06/14/21 06:01 06/14/21 06:01 Labs: Abnormal Lab Results - Last 24 Hours (Table) 06/13/21 06/13/21 06/13/21 Range/Units 12:21 16:56 23:42 RBC (4.30-5.90) m/uL Hgb (13.0-17.5) gm/dL Hct (39.0-53.0) % RDW (11.5-15.5) % Lymphocytes # (1.0-4.8) k/uL PT (9.0-12.0) sec INR (<1.2) Carbon Dioxide (22-30) mmol/L BUN (9-20) mg/dL Glucose (74-99) mg/dL POC Glucose (mg/dL) 103 H 103 H 112 H (75-99) mg/dL 06/14/21 06/14/21 06/14/21 Range/Units 05:59 06:01 06:01 RBC (4.30-5.90) m/uL Hgb (13.0-17.5) gm/dL Hct (39.0-53.0) % RDW (11.5-15.5) % Lymphocytes # (1.0-4.8) k/uL PT 18.8 H (9.0-12.0) sec INR 1.9 H (<1.2) Carbon Dioxide 34 H (22-30) mmol/L BUN 43 H (9-20) mg/dL Glucose 112 H (74-99) mg/dL POC Glucose (mg/dL) 112 H (75-99) mg/dL 06/14/21 Range/Units 06:01 RBC 3.19 L (4.30-5.90) m/uL Hgb 8.9 L (13.0-17.5) gm/dL Hct 28.5 L (39.0-53.0) % RDW 18.6 H (11.5-15.5) % Lymphocytes # 0.6 L (1.0-4.8) k/uL PT (9.0-12.0) sec INR (<1.2) Carbon Dioxide (22-30) mmol/L BUN (9-20) mg/dL Glucose (74-99) mg/dL POC Glucose (mg/dL) (75-99) mg/dL Microbiology - Last 24 Hours (Table) 06/08/21 06:22 Blood Culture - Final Blood No Growth after 144 hours 06/08/21 05:59 Blood Culture - Final Blood No Growth after 144 hours Assessment and Plan Plan: 1 Acute hypoxemic respiratory failure, likely multifactorial, in part related to diastolic CHF, as well as possible coronavirus associated pneumonia. Note that the patient was in the hospital back in early May 2021 and at that time, the patient had complete opacification of the left lung requiring intubation mechanical ventilation and a bronchial alveolar lavage that was obtained via bronchoscopy on 05/20/2021 was positive for Klebsiella and the patient was covered with IV Zosyn. He did have also bilateral pneumonia with lower lobe pulmonary infiltrates. the chest x-ray still showing bilateral lower lobe pulmonary infiltrates and effusions. The patient clinically is improved on today's evaluation. Is able to cough although his cough is weak. I was able to wean himself from 15 L down to 10 L. 2 History of chronic atrial fibrillation. Patient has been maintained on warfarin outpatient basis, INR from yesterday was at 1.9 3 History of discitis with recent surgical intervention [facility] with underlying enterococcal bacteremia and the patient remains on daptomycin 4 Status post pacemaker insertion. 5 History of aortic valve replacement. 6 History of diastolic CHF. The patient has chronic diastolic heart failure w ith an ejection fraction of 55-60% 7 History of CVA. 8 History of essential hypertension. 9 Status post PEG tube placement. The patient is being vital AF at the rate of 60s an hour 10 History of aspiration pneumonia. 11 Multiple other medical problems and comorbidities. 12 decubitus ulcer stage II/ unstageable at other spots 13 hypertension 14 chronic back pain 15 history of persistent chronic atrial fibrillation maintained on amiodarone on outpatient basis Plan: On today's evaluation the patient is clinically more stable compared to yesterday. He has been weaned down to 10 L of oxygen by nasal cannula. Overall prognosis remains extremely poor. The patient continues to have poor cough and for ability to clear his secretions. He is obviously at high risk of progressing either from COVID 19 or from aspiration pneumonia which can be an ongoing episodic problem. For now, we'll patient will be kept nothing by mouth. Continue enteral feeding for nutritional support. I checked a chest x-ray from today. Findings were noted. We are going to move Monitor the oxygenation. CODE STATUS is full. The patient continues to have a week off and for ability to perform adequate pulmonate toileting. I made recommendations on several occasions to change his CODE STATUS to comfort care only. The brother has not been able to make it final decision. On today's evaluation, his oxidation is slightly worse in the patient's breathing is slightly more labored compared to earlier. We'll continue to follow. The pulmonary toileting and encouraged use of incentive spirometer if possible. Meanwhile, we'll continue anticoagulation with Coumadin. The patient will be given a dose of 5 mg today and repeat PT/INR will be done tomorrow. INR today is at 1.9. Wound care services have been involved as the patient has a stage II and a surrounding unstageable coccygeal wounds. No signs of any infection.
[2021-06-14 11:54] LABS: Glucose,Whole Blood 115 mg/dL (75-99)
[2021-06-14] MEDS: LIDOCAINE 5% PATCH TOPICAL SCH (12:11)
[2021-06-14] MEDS: TAMSULOSIN 0.4 MG CAP.ER.24H PO SCH (12:11)
--- NOTE | 2021-06-14 16:31 | P.PN ---
Subjective Progress Note Date: 06/14/21 This is a 76-year-old male who was recently admitted with acute bilateral pneumonia with acute hypoxic respiratory failure and also has had changes in mental status and is being closely monitored. Pulmonary and ID following. Patient is continued on IV daptomycin for recent diskitis. Patient had a positi ve covid test. Patient was recently at [facility] for rehabilitation and IV antibiotic therapy. Patient continued on tube feeds with recent peg tube placement. Patient off of bipap this morning and weaning FI02 as tolerated. Patient is on coumadin and will continue hold with close monitoring and labs in the am. 06/11/2021 Patient is seen and evaluated and follow-up this morning awake and responding to commands and questions appropriately. Patient continues with BiPAP at night and maintained on 4 L via nasal cannula and denies any worsening shortness of breath. Patient states he still feels shortness of breath though. Coumadin continues to be held pharmacy to dose and INR today is 3.9 and will hold and repeat labs. Pulmonary following closely and chest x-ray was ordered showing chronic emphysematous change and cardiomegaly with small bilateral pleural effusions and associated bibasilar infiltrate and/or atelectasis redemonstrated with no significant change from 2 days previous. Continue with local wound care to the coccyx region along with bilateral calcaneus. Continue with offloading boots and frequent position changes. 06/12/2021 Patient is seen in follow up this morning and is being closely monitored. Patient is having some low oxygen readings and using intermittent bipap and also maintained on 5-6 L via NC. Patient is awake, somewhat confused at times, but more alert. Patient is being followed by ID and pulmonary. Patient is also maintained on IV antibiotics and tube feedings and tolerating. Patient is afebrile. No reports of chest pain. Patient has been having loose frequent stools and will order cdiff. Discontinue colace. INR is 2.7 and will have pharmacy dose coumadin. 06/13/2021 Patient seen this morning extremely lethargic and requiring more oxygen. Patient continues with bipap at night and as needed. Patient currently on 15L HF and non-rebreather. Chest xray shows stable correlate for bilateral pneumonia. Pulmonary, ID, and cardio following. Patient was also covid positive although not behaving as such. Patient continues on IV daptomycin. 06/14/2021 Patient is seen today awake alert and oriented 2-3. Patient is maintained on 15 L high flow this morning and did not use BiPAP last night. Attempts at weaning FiO2 continue and patient tends to have shortness of breath. Rhonchorous lung sounds throughout and crackles noted as well. Chest x-ray shows a stable x-ray to correlate for bilateral pneumonia likely superimposed on a background COPD. Wound care consulted again as patient's decubitus ulcer is worse in intensity. Stage II decubitus ulcer being treated with honey alginate and saline moistened gauze and sacrum border foam and recommend continue with frequent position changes. Is extremely weak and will require ECF once st abilized. Patient may also likely require a Covid hub center that can accommodate BiPAP. Social work is following. Review of systems: Unable to obtain as patient is lethargic and somewhat confused Labs: White blood count is 4.9, hemoglobin is 8.9, platelets are 186, INR is 1.9, sodium is 141, potassium 4.4, BUN 43, creatinine 0.92, calcium 8.6. All medications have been reviewed Active Medications Hydrocodone Bitart/Acetaminophen (Hydrocodone/Apap 5-325mg 1 Each Tab) 1 each PEG/G-TUBE Q4HR PRN PRN Reason: Pain Albuterol Sulfate (Albuterol Hfa Inhaler) 2 puff INHALATION RT-TID PRN PRN Reason: Shortness Of Breath Or Wheezing Last Admin: 06/14/21 08:38 Dose: 2 puff Documented by: Amiodarone HCl (Amiodarone 200 Mg Tab) 200 mg PEG/G-TUBE BID@0900,1700 [facility] Last Admin: 06/14/21 09:26 Dose: 200 mg Documented by: Aspirin (Aspirin 81 Mg) 81 mg PEG/G-TUBE DAILY@0900 [facility] Last Admin: 06/14/21 09:25 Dose: 81 mg Documented by: Baclofen (Baclofen 10 Mg Tab) 10 mg PEG/G-TUBE TID@0900,1300,2100 [facility] Last Admin: 06/14/21 15:35 Dose: 10 mg Documented by: Cholecalciferol (Cholecalciferol 25 Mcg (1000 Iu) Tablet) 25 mcg PEG/G-TUBE DAILY [facility] Last Admin: 06/14/21 09:25 Dose: 25 mcg Documented by: Daptomycin 600 mg/ Sodium (Chloride) 50 mls @ 100 mls/hr IVPB Q24H [facility] Stop: 06/27/21 16:29 Last Admin: 06/14/21 15:35 Dose: 100 mls/hr Documented by: Levothyroxine Sodium (Levothyroxine 50 Mcg Tab) 50 mcg PEG/G-TUBE DAILY@0600 [facility] Last Admin: 06/14/21 05:48 Dose: 50 mcg Documented by: Lidocaine (Lidocaine 5% Patch) 1 patch TOPICAL DAILY [facility]; Protocol Last Admin: 06/14/21 12:11 Dose: Not Given Documented by: Magnesium Hydroxide (Magnesium Hydroxide 2,400 Mg/10 Ml Cup) 2,400 mg PEG/G- TUBE DAILY PRN PRN Reason: Constipation Methocarbamol (Methocarbamol 750 Mg Tab) 750 mg PEG/G-TUBE Q8H PRN PRN Reason: Muscle Pain Midodrine (Midodrine 5 Mg Tab) 10 mg PEG/G-TUBE TID@0900,1300,1700 [facility] Last Admin: 06/14/21 15:18 Dose: Not Given Documented by: Miscellaneous Information (Warfarin Per Pharmacy) 1 each MISCELLANE DIRECTED PRN PRN Reason: Per Protocol Naloxone HCl (Naloxone 0.4 Mg/Ml 1 Ml Vial) 0.2 mg IV Q2M PRN PRN Reason: Opioid Reversal Tamsulosin HCl (Tamsulosin 0.4 Mg Cap.Er.24h) 0.4 mg PO DAILY@0900 [facility] Last Admin: 06/14/21 12:11 Dose: Not Given Documented by: Warfarin Sodium (Warfarin 3 Mg Tab) 3 mg PO ONCE@1800 ONE Stop: 06/14/21 18:01 Physical exam: Gen: This is 76-year-old male who is awake, alert and oriented 2, well- developed, well-nourished..Ill appearing HEENT: Head is atraumatic, normocephalic. Pupils equal, round. Sclerae is anicteric. NECK: Supple. No JVD. No lymphadenopathy. No thyromegaly. LUNGS: Breath sounds are diminished at the bases with scattered course rhonchi noted. Some mild crackles noted as well. No intercostal retractions. HEART: S1, S2 are muffled ABDOMEN: Soft. Obese. Bowel sounds are present. No masses. No tenderness. peg tube intact and infusing EXTREMITIES: generalized edema. No calf tenderness. offloading boots noted bilaterally NEUROLOGICAL: Alert and oriented 2, diffusely weak SKIN: generalized edema noted throughout, muscle wasting noted as well. Assessment: Acute bilateral pneumonia with acute hypoxic respiratory failure with possible sepsis, present on admission Change in mental status, acute metabolic encephalopathy, multifactorial Coumadin coagulopathy COVID-19, test positive diarrhea history of recent aspiration pneumonia with hypoxic respiratory failure History of recent acute stroke and change in mental status with right-sided stroke history of recent complete opacification of the left hemithorax secondary to a spiration Status post PEG tube placement PEG tube feedings and monitoring Multiple organisms growing from the culture including Makenna albicans and Klebsiella recently congestive heart failure with chronic diastolic dysfunction atrial fibrillation with fast ventricular rate, currently rate controlled. history of chronic persistent atrial fibrillation Acute kidney injury with acute renal failure, acute tubular necrosis with severe sepsis history of aortic prosthetic replacement chronic low back pain and degenerative joint disease Stage II decubitus ulcer Bilateral calcaneus stage I ulcers Hypertension permanent pacemaker severe protein calorie malnutrition anemia, normocytic anemia of chronic disease Coumadin monitoring acute respiratory acidosis No code, no CPR, no vent Plan: Recommend to continue with current medications and management and symptomatic treatment. pulmonary, ID, cardio, and neurology following. Patient to continue on IV daptomycin. Patient is weaning FI02 as tolerated and continues to require more oxygen today with 15 L HF. Continues with BiPAP at night and as needed. Patient did not wear the BiPAP last night. Patient oxygen settings varying between 8 and 15 L high flow. INR is 1.9 and will have pharmacy to dose. Recommend continue with local wound care and frequent position changes and offloading boots. discussed with the nurse about maintaining strict aspiration precautions of head of the bed elevated 45 at all times. As patient is an extremely high risk Due to multiple complex medical issues prognosis is guarded. Will Continue to monitor closely and repeat labs. Objective - Vital Signs Vital signs: Vital Signs Temp 97.6 F 06/14/21 04:00 Pulse 72 06/14/21 04:00 Resp 20 06/14/21 04:00 BP 103/65 06/14/21 04:00 Pulse Ox 100 06/14/21 08:36 Intake & Output 06/13/21 06/14/21 06/14/21 18:59 06:59 18:59 Output Total 1201 825 Balance -1201 -825 Weight 90.5 kg 90 kg Output: Urine 1200 825 Coude 825 Stool 1 Other: Voiding Method Indwelling Catheter Indwelling Catheter # Voids 0 # Bowel Movements 1 - Labs CBC & Chem 7: 06/14/21 06:01 06/14/21 06:01 Labs: Abnormal Lab Results - Last 24 Hours (Table) 06/13/21 06/13/21 06/13/21 Range/Units 06:23 12:21 16:56 RBC (4.30-5.90) m/uL Hgb (13.0-17.5) gm/dL Hct (39.0-53.0) % RDW (11.5-15.5) % Lymphocytes # (1.0-4.8) k/uL PT (9.0-12.0) sec INR (<1.2) Carbon Dioxide 33 H (22-30) mmol/L BUN 46 H (9-20) mg/dL Glucose 117 H (74-99) mg/dL POC Glucose (mg/dL) 103 H 103 H (75-99) mg/dL 06/13/21 06/14/21 06/14/21 Range/Units 23:42 05:59 06:01 RBC (4.30-5.90) m/uL Hgb (13.0-17.5) gm/dL Hct (39.0-53.0) % RDW (11.5-15.5) % Lymphocytes # (1.0-4.8) k/uL PT 18.8 H (9.0-12.0) sec INR 1.9 H (<1.2) Carbon Dioxide (22-30) mmol/L BUN (9-20) mg/dL Glucose (74-99) mg/dL POC Glucose (mg/dL) 112 H 112 H (75-99) mg/dL 06/14/21 06/14/21 Range/Units 06:01 06:01 RBC 3.19 L (4.30-5.90) m/uL Hgb 8.9 L (13.0-17.5) gm/dL Hct 28.5 L (39.0-53.0) % RDW 18.6 H (11.5-15.5) % Lymphocytes # 0.6 L (1.0-4.8) k/uL PT (9.0-12.0) sec INR (<1.2) Carbon Dioxide 34 H (22-30) mmol/L BUN 43 H (9-20) mg/dL Glucose 112 H (74-99) mg/dL POC Glucose (mg/dL) (75-99) mg/dL Microbiology - Last 24 Hours (Table) 06/08/21 06:22 Blood Culture - Final Blood No Growth after 144 hours 06/08/21 05:59 Blood Culture - Final Blood No Growth after 144 hours
[2021-06-14 16:53] LABS: Glucose,Whole Blood 89 mg/dL (75-99)
[2021-06-14] MEDS ORDERED: WARFARIN 3 MG TAB PO ONE (18:00)
[2021-06-14 20:17] LABS: Glucose,Whole Blood 114 mg/dL (75-99)
--- NOTE | 2021-06-14 23:04 | PN ---
PROGRESS NOTE DATE OF SERVICE: 06/14/2021 REASON FOR FOLLOWUP: 1. Lumbar diskitis. 2. Positive COVID test. INTERVAL HISTORY: The patient is afebrile. The patient seems to be slightly more awake and alert today. He is breathing comfortably, hemodynamically stable. Unable to provide any history. No vomiting or diarrhea was reported. PHYSICAL EXAMINATION: Blood pressure 114/74, pulse of 73, temperature 98.2. He is 92% on 12 L nasal cannula. General description is an elderly male lying in bed in no distress. Respiratory system: Unlabored breathing, decreased intensity of breath sounds. No wheeze. Heart S1, S2. Regular rate and rhythm. Abdomen soft, no tenderness. LABS: Hemoglobin is 8.9, white count 4.9, creatinine 0.92. DIAGNOSTIC IMPRESSION AND PLAN: 1. Patient with lumbar diskitis. Previous culture positive for Enterococcus faecalis. Patient is covered with daptomycin because of his PENICILLIN [employer]ERGY. 2. Positive COVID test respiratory being monitored by Pulmonary. Continue with supportive care. MMODL / IJN: [id number] /
[2021-06-15] MEDS: HYDROcodone/APAP 5-325MG 1 EACH TAB PEG/G-TUBE PRN (00:38)
[2021-06-15 05:56] LABS: Glucose,Whole Blood 117 mg/dL (75-99)
[2021-06-15] MEDS: LEVOTHYROXINE 50 MCG TAB PEG/G-TUBE SCH (06:24)
[2021-06-15] MEDS: ALBUTEROL HFA INHALER INHALATION PRN ×3 (08:19→20:22)
[2021-06-15 08:38] LABS: INR 1.9 (<1.2); Prothrombin Time 18.9 sec (9.0-12.0)
[2021-06-15] MEDS: CHOLECALCIFEROL 25 MCG (1000 IU) TABLET PEG/G-TUBE SCH (10:17)
[2021-06-15] MEDS: MIDODRINE 5 MG TAB PEG/G-TUBE SCH ×3 (10:17→18:41)
[2021-06-15] MEDS: BACLOFEN 10 MG TAB PEG/G-TUBE SCH ×3 (10:17→21:06)
[2021-06-15] MEDS: ASPIRIN 81 MG PEG/G-TUBE SCH (10:17)
[2021-06-15] MEDS: AMIODARONE 200 MG TAB PEG/G-TUBE SCH ×2 (10:17→18:51)
--- NOTE | 2021-06-15 10:48 | P.PN ---
Subjective Progress Note Date: 06/15/21 76-year-old male patient was hospitalized on 06/08/2021 for shortness of breath. 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 He was also recently admitted for sepsis, aspiration pneumonia and congestion heart failure. At that time the patient was intubated and he was in a mechanical ventilator. He also tested positive for COVID-19 on 06/07/2021. Since admission, the patient was on BiPAP at a pressure of 12/6 cm of water with an FiO2 of 80%. His chest x-ray showed emphysema, cardiomegaly and small bilateral pleural effusions and some atelectatic changes in lung bases right more than l eft. His pro calcitonin level was at 1.0, LDH level was 747, and his proBNP level was 3320. he was subsequently weaned off and he was placed on oxygen 6 L per minute nasal cannula. His hypoxemic respiratory failure was multifactorial related to diastolic heart failure and a component of COVID-19 related pneumonia. He is also known to have chronic atrial fibrillation and he has a permanent pacemaker in place. He has undergone previous aortic valve replacement. He has PEG tube for enteral feeding and nutritional support and currently is on vital AF for enteral feeding and nutritional support at 60 mL an hour. He remains to receive rapamycin regarding his wounds and osteomyelitis. He was on warfarin on outpatient basis and his INR is therapeutic at this point in time at 2.7 from yesterday and 2.0 from today. Currently is on oxygen at 15 L high flow nasal cannula. Note that he was able to wean off as low as 26 L and currently is up to 15 L. In terms of his blood work, the patient is on white cell count of 4.9, sodium is at 142, potassium is at 4.4, the renal function is normal. INR is at 2.0. Days evaluation of 06/14/2021, the patient seems to much more alert and awake co mpared to yesterday. He is currently on oxygen which is running at 10 L high flow. He has a congested cough. Unable to bring up much sputum. A repeat chest x-ray was done yesterday which showed stable bilateral pulmonary infiltrates and I repeated the chest x-ray today which again showed stable changes with bilateral pneumonia. The patient has diffuse osteopenia. Small bilateral pleural effusions also also suspected. The blood cultures of been negative. The patient's white cell count is at 4.9. Electrolytes are all within normal limits. He continues to receive enteral feeding for nutritional support and the patient is currently on vital AF at the rate of 60 mL an hour. Otherwise, no other significant events overnight. INR today is at 1.9 and the patient has limited on anticoagulation with warfarin on outpatient basis. He has a stage II coccygeal wound and wound services have been consulted. Note that there are other areas around the 1 that are essentially unstageable. 06/15/2021, condition essentially the same as yesterday and the patient is currently on 9 L of oxygen by nasal cannula. He has a congested cough. Unable to bring up much sputum. No signs of any significant respiratory distress. His breathing is nonlabored and the patient is still being treated for complications of COVID 19 related pneumonia. Meanwhile, he is receiving enteral feeding for nutritional support. The patient is currently on anticoagulation with warfarin. INR today is at 1.9 and accordingly the warfarin will be dosed. He is receiving enteral feeding for the treatment support with vital AF at the rate of cc an hour. He is having liquidy loose bowel movements. No nausea. No vomiting. No abdominal pain. He is awake and alert. He has had a previous left-sided CVA with chronic right-sided deficits. He has CHF and chronic wounds in his lower extremities/healed and the patient has a unstageable wound in his sacrum. Objective - Vital Signs Vital signs: Vital Signs Temp 98.5 F 06/15/21 00:00 Pulse 84 06/15/21 02:00 Resp 26 H 06/15/21 04:00 BP 132/80 06/15/21 04:00 Pulse Ox 93 L 06/15/21 06:00 Intake & Output 06/14/21 06/15/21 06/15/21 18:59 06:59 18:59 Output Total 1700 Balance -1700 Weight 90.5 kg Output: Urine 1700 Other: Voiding Method Indwelling Catheter Indwelling Catheter - Exam Oriented 3, mild tachypnea. Currently on 9-10 L nasal cannula. Saturations are 95 %. HEENT examination is grossly unremarkable. Neck supple. Full range of motion. No adenopathy thyromegaly or neck vein distention. Cardiovascular examination reveals an irregular rhythm and rate. S1-S2 normal. No S3 or S4. No discernible murmur noted. Heart sounds are distant. Heart rate 98 bpm. Lungs reveal scattered bilateral rhonchi. Bibasilar crackles are noted. No wheezes. Breath sounds equal bilaterally. Abdomen soft bowel sounds are heard. No masses or tenderness. Extremities are intact. No cyanosis clubbing or edema. Skin is without rash or lesion. Neurologic examination is brief right sided weakness because of a secondary to old CVA - Labs CBC & Chem 7: 06/14/21 06:01 06/14/21 06:01 Labs: Abnormal Lab Results - Last 24 Hours (Table) 06/14/21 06/14/21 06/15/21 Range/Units 11:52 20:13 05:55 PT (9.0-12.0) sec INR (<1.2) POC Glucose (mg/dL) 115 H 114 H 117 H (75-99) mg/dL 06/15/21 Range/Units 07:53 PT 18.9 H (9.0-12.0) sec INR 1.9 H (<1.2) POC Glucose (mg/dL) (75-99) mg/dL Microbiology - Last 24 Hours (Table) 06/08/21 06:22 Blood Culture - Final Blood No Growth after 144 hours 06/08/21 05:59 Blood Culture - Final Blood No Growth after 144 hours Assessment and Plan Plan: 1 Acute hypoxemic respiratory failure, likely multifactorial, in part related to diastolic CHF, as well as possible coronavirus associated pneumonia. Note that the patient was in the hospital back in early May 2021 and at that time, the patient had complete opacification of the left lung requiring intubation mechanical ventilation and a bronchial alveolar lavage that was obtained via bronchoscopy on 05/20/2021 was positive for Klebsiella and the patient was covered with IV Zosyn. He did have also bilateral pneumonia with lower lobe pulmonary infiltrates. the chest x-ray still showing bilateral lower lobe pulmonary infiltrates and effusions. The patient clinically is improved on today's evaluation. Is able to cough although his cough is weak. I was able to wean himself from 9 L. overall condition is stable compared to yesterday. No signs of any further decompensation. The patient's breathing is nonlabored. 2 History of chronic atrial fibrillation. Patient has been maintained on warfarin outpatient basis, INR from yesterday was at 1.9 3 History of discitis with recent surgical intervention [facility] with underlying enterococcal bacteremia and the patient remains on daptomycin 4 Status post pacemaker insertion. 5 History of aortic valve replacement. 6 History of diastolic CHF. The patient has chronic diastolic heart failure with an ejection fraction of 55-60% 7 History of CVA. 8 History of essential hypertension. 9 Status post PEG tube placement. The patient is being vital AF at the rate of 60s an hour 10 History of aspiration pneumonia. 11 Multiple other medical problems and comorbidities. 12 decubitus ulcer stage II/ unstageable at other spots 13 hypertension 14 chronic back pain 15 history of persistent chronic atrial fibrillation maintained on amiodarone on outpatient basis Plan: Admitting anticoagulation with Coumadin and given another dose of 3 mg today. Pulmonary toileting Continue attempting to wean down the FiO2 currently on 9 L of oxygen by nasal cannula. Based on further discussion with his brother, the patient and his family agreed to DO NOT INTUBATE but they have made recommendations to no CPR if needed. The patient continues to have poor cough and for ability to clear his secretions. He is obviously at high risk of progressing either from COVID 19 or from aspiration pneumonia which can be an ongoing episodic problem. For now, we'll patient will be kept nothing by mouth. Continue enteral feeding for nutritional support. Repeat chest x-ray in the morning Wound care services have been involved as the patient has a stage II and a surrounding unstageable coccygeal wounds. No signs of any infection.
[2021-06-15] MEDS: TAMSULOSIN 0.4 MG CAP.ER.24H PO SCH (11:15)
[2021-06-15] MEDS: LIDOCAINE 5% PATCH TOPICAL SCH (11:15)
[2021-06-15 11:53] LABS: Glucose,Whole Blood 104 mg/dL (75-99)
--- NOTE | 2021-06-15 16:27 | PN ---
PROGRESS NOTE DATE OF SERVICE: 06/15/2021 REASON FOR FOLLOWUP: 1. Lumbar diskitis. 2. COVID-19 pneumonia. INTERVAL HISTORY: The patient is afebrile. The patient is more awake and alert today. He is currently breathing comfortably on nasal cannula oxygen. The patient denies having any chest pain. No cough. No abdominal pain or diarrhea. PHYSICAL EXAMINATION: Blood pressure 108/74 with a pulse of 82, temperature 98.2. He is 96% on 8 L high-flow oxygen. General description is an elderly male lying in bed in no distress. Respiratory system: Unlabored breathing, decreased intensity of breath sounds. No wheeze. Heart S1, S2. Regular rate and rhythm. Abdomen soft, no tenderness. LABS: INR is 1.9, white count 4.9, creatinine 0.92. DIAGNOSTIC IMPRESSION AND PLAN: 1. Patient with lumbar diskitis with history of Enterococcus faecalis bacteremia likely source, for which the patient is currently on daptomycin. That will be continued. 2. Patient admitted to hospital with respiratory distress and concerning for positive COVID test. Patient's respiratory status seems to have shown clinical improvement. To continue on current supportive treatment and monitor clinical course closely. MMODL / IJN: [id number] /
[2021-06-15 16:46] LABS: Glucose,Whole Blood 94 mg/dL (75-99)
[2021-06-15] MEDS ORDERED: WARFARIN 5 MG TAB PO ONE (18:00)
[2021-06-15 21:05] LABS: Glucose,Whole Blood 114 mg/dL (75-99)
--- NOTE | 2021-06-15 23:42 | P.PN ---
Subjective Progress Note Date: 06/15/21 This is a 76-year-old male who was recently admitted with acute bilateral pneumonia with acute hypoxic respiratory failure and also has had changes in mental status and is being closely monitored. Pulmonary and ID following. Patient is continued on IV daptomycin for recent diskitis. Patient had a positi ve covid test. Patient was recently at [facility] for rehabilitation and IV antibiotic therapy. Patient continued on tube feeds with recent peg tube placement. Patient off of bipap this morning and weaning FI02 as tolerated. Patient is on coumadin and will continue hold with close monitoring and labs in the am. 06/11/2021 Patient is seen and evaluated and follow-up this morning awake and responding to commands and questions appropriately. Patient continues with BiPAP at night and maintained on 4 L via nasal cannula and denies any worsening shortness of breath. Patient states he still feels shortness of breath though. Coumadin continues to be held pharmacy to dose and INR today is 3.9 and will hold and repeat labs. Pulmonary following closely and chest x-ray was ordered showing chronic emphysematous change and cardiomegaly with small bilateral pleural effusions and associated bibasilar infiltrate and/or atelectasis redemonstrated with no significant change from 2 days previous. Continue with local wound care to the coccyx region along with bilateral calcaneus. Continue with offloading boots and frequent position changes. 06/12/2021 Patient is seen in follow up this morning and is being closely monitored. Patient is having some low oxygen readings and using intermittent bipap and also maintained on 5-6 L via NC. Patient is awake, somewhat confused at times, but more alert. Patient is being followed by ID and pulmonary. Patient is also maintained on IV antibiotics and tube feedings and tolerating. Patient is afebrile. No reports of chest pain. Patient has been having loose frequent stools and will order cdiff. Discontinue colace. INR is 2.7 and will have pharmacy dose coumadin. 06/13/2021 Patient seen this morning extremely lethargic and requiring more oxygen. Patient continues with bipap at night and as needed. Patient currently on 15L HF and non-rebreather. Chest xray shows stable correlate for bilateral pneumonia. Pulmonary, ID, and cardio following. Patient was also covid positive although not behaving as such. Patient continues on IV daptomycin. 06/14/2021 Patient is seen today awake alert and oriented 2-3. Patient is maintained on 15 L high flow this morning and did not use BiPAP last night. Attempts at weaning FiO2 continue and patient tends to have shortness of breath. Rhonchorous lung sounds throughout and crackles noted as well. Chest x-ray shows a stable x-ray to correlate for bilateral pneumonia likely superimposed on a background COPD. Wound care consulted again as patient's decubitus ulcer is worse in intensity. Stage II decubitus ulcer being treated with honey alginate and saline moistened gauze and sacrum border foam and recommend continue with frequent position changes. Is extremely weak and will require ECF once st abilized. Patient may also likely require a Covid hub center that can accommodate BiPAP. Social work is following. 06/15/2021 Patient is seen in follow up this morning and continues on 8 L HF and has been more alert today and more responsive. Per nursing staff patient is brushing his own teeth. Discussion was had with patient and brother about code status and patient would not like to be on mechanical vent other hernandez yes to other life saving measures. Patient is afebrile. Pulmonary, ID, and cardio following. Patient INR today is 1.9 today and pharmacy dosing. will repeat am labs. Review of systems: Constitutional: reports of fatigue and overall weakness Resp: Continues with shortness of breath and patient states still with BREANA with minimal exertion Cardio: no reports of chest pain or palpitations Neuro: reports weakness All medications have been reviewed Active Medications Hydrocodone Bitart/Acetaminophen (Hydrocodone/Apap 5-325mg 1 Each Tab) 1 each P EG/G-TUBE Q4HR PRN PRN Reason: Pain Last Admin: 06/15/21 00:38 Dose: 1 each Documented by: Albuterol Sulfate (Albuterol Hfa Inhaler) 2 puff INHALATION RT-TID PRN PRN Reason: Shortness Of Breath Or Wheezing Last Admin: 06/15/21 20:22 Dose: 2 puff Documented by: Amiodarone HCl (Amiodarone 200 Mg Tab) 200 mg PEG/G-TUBE BID@0900,1700 [facility] Last Admin: 06/15/21 18:51 Dose: 200 mg Documented by: Aspirin (Aspirin 81 Mg) 81 mg PEG/G-TUBE DAILY@0900 [facility] Last Admin: 06/15/21 10:17 Dose: 81 mg Documented by: Baclofen (Baclofen 10 Mg Tab) 10 mg PEG/G-TUBE TID@0900,1300,2100 [facility] Last Admin: 06/15/21 21:06 Dose: 10 mg Documented by: Cholecalciferol (Cholecalciferol 25 Mcg (1000 Iu) Tablet) 25 mcg PEG/G-TUBE DAILY [facility] Last Admin: 06/15/21 10:17 Dose: 25 mcg Documented by: Daptomycin 600 mg/ Sodium (Chloride) 50 mls @ 100 mls/hr IVPB Q24H [facility] Stop: 06/27/21 16:29 Last Admin: 06/15/21 15:52 Dose: 100 mls/hr Documented by: Levothyroxine Sodium (Levothyroxine 50 Mcg Tab) 50 mcg PEG/G-TUBE DAILY@0600 [facility] Last Admin: 06/15/21 06:24 Dose: 50 mcg Documented by: Lidocaine (Lidocaine 5% Patch) 1 patch TOPICAL DAILY [facility]; Protocol Last Admin: 06/15/21 11:15 Dose: Not Given Documented by: Magnesium Hydroxide (Magnesium Hydroxide 2,400 Mg/10 Ml Cup) 2,400 mg PEG/G- TUBE DAILY PRN PRN Reason: Constipation Methocarbamol (Methocarbamol 750 Mg Tab) 750 mg PEG/G-TUBE Q8H PRN PRN Reason: Muscle Pain Midodrine (Midodrine 5 Mg Tab) 10 mg PEG/G-TUBE TID@0900,1300,1700 [facility] Last Admin: 06/15/21 18:41 Dose: 10 mg Documented by: Miscellaneous Information (Warfarin Per Pharmacy) 1 each MISCELLANE DIRECTED PRN PRN Reason: Per Protocol Naloxone HCl (Naloxone 0.4 Mg/Ml 1 Ml Vial) 0.2 mg IV Q2M PRN PRN Reason: Opioid Reversal Tamsulosin HCl (Tamsulosin 0.4 Mg Cap.Er.24h) 0.4 mg PO DAILY@0900 [facility] Last Admin: 06/15/21 11:15 Dose: Not Given Documented by: Physical exam: Gen: This is 76-year-old male who is awake, alert and oriented 3, well-dev eloped, well-nourished..Ill appearing, appears depressed HEENT: Head is atraumatic, normocephalic. Pupils equal, round. Sclerae is anicteric. NECK: Supple. No JVD. No lymphadenopathy. No thyromegaly. LUNGS: Breath sounds are diminished at the bases with scattered course rhonchi noted. Some mild crackles noted as well. No intercostal retractions. HEART: S1, S2 are muffled ABDOMEN: Soft. Obese. Bowel sounds are present. No masses. No tenderness. peg tube intact and infusing EXTREMITIES: generalized edema. No calf tenderness. NEUROLOGICAL: Alert and oriented 2, diffusely weak SKIN: generalized edema noted throughout, muscle wasting noted as well of face, neck, and shoulders. Assessment: Acute bilateral pneumonia with acute hypoxic respiratory failure with possible sepsis, present on admission Change in mental status, acute metabolic encephalopathy, multifactorial, improving Coumadin coagulopathy COVID-19, test positive diarrhea, improved history of recent aspiration pneumonia with hypoxic respiratory failure History of recent acute stroke and change in mental status with right-sided stroke history of recent complete opacification of the left hemithorax secondary to aspiration Status post PEG tube placement PEG tube feedings and monitoring Multiple organisms growing from the culture including Makenna albicans and Klebsiella recently congestive heart failure with chronic diastolic dysfunction atrial fibrillation with fast ventricular rate, currently rate controlled. history of chronic persistent atrial fibrillation Acute kidney injury with acute renal failure, acute tubular necrosis with severe sepsis history of aortic prosthetic replacement chronic low back pain and degenerative joint disease Stage II decubitus ulcer Bilateral calcaneus stage I ulcers Hypertension permanent pacemaker severe protein calorie malnutrition anemia, normocytic anemia of chronic disease Coumadin monitoring acute respiratory acidosis Full code, with no vent Plan: Recommend to continue with current medications and management and symptomatic treatment. pulmonary, ID, cardio, and neurology following. Patient to continue on IV daptomycin. Patient is weaning FI02 as tolerated and continues to require more oxygen today with 8L HF. Continues with BiPAP at night and as needed. INR is 1.9 and will have pharmacy to dose. Recommend continue with local wound care and frequent position changes and offloading boots. discussed with the nurse about maintaining strict aspiration precautions of head of the bed elevated 45 at all times. As patient is an extremely high risk. Code status addressed and wishes for full code with no intubation. Due to multiple complex medical issues prognosis is guarded. Will Continue to monitor closely and repeat labs. Objective - Vital Signs Vital signs: Vital Signs Temp 97.7 F 06/15/21 20:00 Pulse 71 06/15/21 20:00 Resp 18 06/15/21 20:00 BP 113/77 06/15/21 20:00 Pulse Ox 96 06/15/21 20:25 Intake & Output 06/15/21 06/15/21 06/16/21 06:59 18:59 06:59 Output Total 1700 801 Balance -1700 -801 Weight 90.5 kg Output: Urine 1700 800 Stool 1 Other: Voiding Method Indwelling Catheter Indwelling Catheter Indwelling Catheter - Labs CBC & Chem 7: 06/14/21 06:01 06/14/21 06:01 Labs: Abnormal Lab Results - Last 24 Hours (Table) 06/15/21 06/15/21 06/15/21 Range/Units 05:55 07:53 11:52 PT 18.9 H (9.0-12.0) sec INR 1.9 H (<1.2) POC Glucose (mg/dL) 117 H 104 H (75-99) mg/dL 06/15/21 Range/Units 21:04 PT (9.0-12.0) sec INR (<1.2) POC Glucose (mg/dL) 114 H (75-99) mg/dL
[2021-06-16 00:05] LABS: Glucose,Whole Blood 113 mg/dL (75-99)
[2021-06-16 06:23] LABS: Glucose,Whole Blood 103 mg/dL (75-99)
[2021-06-16] MEDS: LEVOTHYROXINE 50 MCG TAB PEG/G-TUBE SCH (06:38)
[2021-06-16 07:43] LABS: Anisocytosis Slight; Basophils % (A) 1 %; Eosinophils # (A) 0.2 k/uL (0-0.7); Eosinophils % (A) 4 %; HGB 8.5 gm/dL (13.0-17.5); Hypochromasia Moderate; Lymphocytes # (A) 0.7 k/uL (1.0-4.8); Lymphocytes % (A) 15 %; MCHC 31.6 g/dL (31.0-37.0); MCV 88.8 fL (80.0-100.0); Mean Platelet Volume 7.8; Monocytes # (A) 0.2 k/uL (0-1.0); Monocytes % (A) 4 %; Neutrophils # (A) 3.4 k/uL (1.3-7.7); Neutrophils % (A) 76 %; Platelet Count 189 k/uL (150-450); RBC 3.04 m/uL (4.30-5.90); RDW 18.4 % (11.5-15.5); WBC 4.5 k/uL (3.8-10.6)
[2021-06-16 07:59] LABS: African American GFR (CKD) >90 (>60 ml/min/1.73 sqM); Anion Gap 1 mmol/L; Blood Urea Nitrogen 43 mg/dL (9-20); Calcium 8.4 mg/dL (8.4-10.2); Carbon Dioxide 35 mmol/L (22-30); Chloride 104 mmol/L (98-107); Glucose 104 mg/dL (74-99); Non-African American GFR(CKD) 82 (>60 ml/min/1.73 sqM); Potassium 4.7 mmol/L (3.5-5.1); Sodium 140 mmol/L (137-145)
[2021-06-16] MEDS: ALBUTEROL HFA INHALER INHALATION PRN ×3 (07:59→21:20)
[2021-06-16] MEDS: LIDOCAINE 5% PATCH TOPICAL SCH (09:31)
[2021-06-16] MEDS: ASPIRIN 81 MG PEG/G-TUBE SCH (09:32)
[2021-06-16] MEDS: BACLOFEN 10 MG TAB PEG/G-TUBE SCH ×3 (09:32→21:06)
[2021-06-16] MEDS: CHOLECALCIFEROL 25 MCG (1000 IU) TABLET PEG/G-TUBE SCH (09:32)
[2021-06-16] MEDS: AMIODARONE 200 MG TAB PEG/G-TUBE SCH ×2 (09:32→17:29)
[2021-06-16] MEDS: MIDODRINE 5 MG TAB PEG/G-TUBE SCH ×3 (09:32→17:29)
[2021-06-16] MEDS: TAMSULOSIN 0.4 MG CAP.ER.24H PO SCH (09:32)
--- NOTE | 2021-06-16 10:22 | XR ---
EXAMINATION TYPE: XR chest 1V portable DATE OF EXAM: 06/16/2021 COMPARISON: 06/14/2021 HISTORY: Cough TECHNIQUE: Single frontal view of the chest is obtained. FINDINGS: Heart is enlarged. Postoperative changes cardiac device. Bilateral consolidation and pleur al effusion. Right-sided PICC line noted. No pneumothorax. Diffuse osteopenia. Postsurgical changes n oted. Hyperinflation of the lungs. IMPRESSION: Stable bilateral consolidation and pleural effusion unchanged from prior exam likely sup erimposed on a background of COPD. Correlate for bilateral pneumonia. CHF not excluded.
[2021-06-16 11:48] LABS: Glucose,Whole Blood 114 mg/dL (75-99)
[2021-06-16 16:37] LABS: Glucose,Whole Blood 115 mg/dL (75-99)
[2021-06-16] MEDS ORDERED: WARFARIN 5 MG TAB PO ONE (18:00)
--- NOTE | 2021-06-16 18:15 | P.PN ---
Subjective Progress Note Date: 06/16/21 On today's evaluation on 06/16/2021 patient seen in follow-up on selective care unit, he is awake and alert, she is currently on 8 L per high flow nasal cannula his pulse ox of 98%. This is an improvement from a couple days ago when patient was requiring 15 L per high flow nasal cannula. He has been wearing BiPAP support at bedtime and intermittently, tolerates it very well. His been afebrile, hemodynamically has been stable, he denies worsening dyspnea, his cough is still weak, and congested, but patient is able to clear some phlegm with encouragement. He remains on PEG tube feedings, he is receiving vital EF at a rate of 75 at goal, we stand water flushes, overall she is looking better, he is more alert, he is able to make his needs known, he discussed his CODE STATUS with his brother on the phone, and it was decided that he does not want to be intubated but wants to continue with supportive treatment. His voice is weak, but he is able to communicate, and at times she is writing stuff down for the staff to read. He is oriented 3. He is currently talking to his brother on the phone. He denies any acute distress. His chest x-ray today shows stable bilateral consolidation and pleural effusion unchanged from prior exam. Today his labs have been reviewed, his white count is stable and is within normal limits at 4.5, hemoglobin is 8.5, his INR today is 2.0, sodium is 140, potassium is 4.7, CO2 is 35, BUN 23 creatinine 0.91. His blood cultures have been negative. Patient remains on daptomycin antibiotics, he is not on any steroids, and he is on Coumadin for anticoagulation. Oxygenation is improving. Objective - Vital Signs Vital signs: Vital Signs Temp 97.5 F L 06/16/21 16:00 Pulse 76 06/16/21 16:00 Resp 18 06/16/21 16:00 BP 101/58 06/16/21 16:00 Pulse Ox 98 06/16/21 16:00 Intake & Output 06/15/21 06/16/21 06/16/21 18:59 06:59 18:59 Intake Total 0 Output Total 1601 1375 Balance -1601 -1375 Weight 87 kg 87 kg Intake: Oral 0 Output: Urine 1600 1375 Stool 1 Other: Voiding Method Indwelling Catheter Indwelling Catheter Indwelling Catheter - Exam GENERAL EXAM: Alert, 76-year-old frail white male, currently on 8 L of oxygen breathing comfortably, with a pulse ox of 98%, does have a weak cough, she is slow to verbally respond, but he is oriented 3, at times utilizes a writing pad to communicate with staff comfortable in no apparent distress. HEAD: Normocephalic/atraumatic. EYES: Normal reaction of pupils, equal size. Conjunctiva pink, sclera white. NOSE: Clear with pink turbinates. THROAT: No erythema or exudates. NECK: No masses, no JVD, no thyroid enlargement, no adenopathy. CHEST: No chest wall deformity. Symmetrical expansion. LUNGS: Equal air entry with a few scattered rhonchi CVS: Regular rate and rhythm, normal S1 and S2, no gallops, no murmurs, no rubs ABDOMEN: Soft, nontender. No hepatosplenomegaly, normal bowel sounds, no guarding or rigidity. PEG tube is in place EXTREMITIES: No clubbing, no edema, no cyanosis, 2+ pulses and upper and lower extremities. MUSCULOSKELETAL: Muscle strength and tone normal. SPINE: No scoliosis or deformity SKIN: No rashes CENTRAL NERVOUS SYSTEM: Alert and oriented -3. No focal deficits, tone is normal in all 4 extremities. - Labs CBC & Chem 7: 06/16/21 06:35 06/16/21 06:35 Labs: Abnormal Lab Results - Last 24 Hours (Table) 06/15/21 06/16/21 06/16/21 Range/Units 21:04 00:04 06:21 RBC (4.30-5.90) m/uL Hgb (13.0-17.5) gm/dL Hct (39.0-53.0) % RDW (11.5-15.5) % Lymphocytes # (1.0-4.8) k/uL PT (9.0-12.0) sec INR (<1.2) Carbon Dioxide (22-30) mmol/L BUN (9-20) mg/dL Glucose (74-99) mg/dL POC Glucose (mg/dL) 114 H 113 H 103 H (75-99) mg/dL 06/16/21 06/16/21 06/16/21 Range/Units 06:35 06:35 06:35 RBC 3.04 L (4.30-5.90) m/uL Hgb 8.5 L (13.0-17.5) gm/dL Hct 27.0 L (39.0-53.0) % RDW 18.4 H (11.5-15.5) % Lymphocytes # 0.7 L (1.0-4.8) k/uL PT 20.0 H (9.0-12.0) sec INR 2.0 H (<1.2) Carbon Dioxide 35 H (22-30) mmol/L BUN 43 H (9-20) mg/dL Glucose 104 H (74-99) mg/dL POC Glucose (mg/dL) (75-99) mg/dL 06/16/21 06/16/21 Range/Units 11:47 16:34 RBC (4.30-5.90) m/uL Hgb (13.0-17.5) gm/dL Hct (39.0-53.0) % RDW (11.5-15.5) % Lymphocytes # (1.0-4.8) k/uL PT (9.0-12.0) sec INR (<1.2) Carbon Dioxide (22-30) mmol/L BUN (9-20) mg/dL Glucose (74-99) mg/dL POC Glucose (mg/dL) 114 H 115 H (75-99) mg/dL Assessment and Plan Plan: Assessment: 1 Acute hypoxemic respiratory failure, likely multifactorial, in part related to diastolic CHF, as well as possible coronavirus associated pneumonia. Note that the patient was in the hospital back in early May 2021 and at that time, the patient had complete opacification of the left lung requiring intubation mechanical ventilation and a bronchial alveolar lavage that was obtained via bronchoscopy on 05/20/2021 was positive for Klebsiella and the patient was covered with IV Zosyn. He did have also bilateral pneumonia with lower lobe pulmonary infiltrates. the chest x-ray still showing bilateral lower lobe pulmonary infiltrates and effusions. The patient clinically is improved on today's evaluation. Is able to cough although his cough is weak. I was able to wean himself from 8 L. overall condition is stable compared to yesterday. No signs of any further decompensation. The patient's breathing is nonlabored. 2 History of chronic atrial fibrillation. Patient has been maintained on warfarin outpatient basis, INR from yesterday was at 1.9 3 History of discitis with recent surgical intervention [facility] with underlying enterococcal bacteremia and the patient remains on daptomycin 4 Status post pacemaker insertion. 5 History of aortic valve replacement. 6 History of diastolic CHF. The patient has chronic diastolic heart failure with an ejection fraction of 55-60% 7 History of CVA. 8 History of essential hypertension. 9 Status post PEG tube placement. The patient is being vital AF at the rate of 60s an hour 10 History of aspiration pneumonia. 11 Multiple other medical problems and comorbidities. 12 decubitus ulcer stage II/ unstageable at other spots 13 hypertension 14 chronic back pain 15 history of persistent chronic atrial fibrillation maintained on amiodarone on outpatient basis Plan: FiO2 is currently down to 8 L, Patient is improving, Continue weaning FiO2 He is breathing comfortably His cough is weak, Maintain aspiration precautions Continue with current antibiotics CODE STATUS has been addressed and patient does not want to be intubated and placed on mechanical ventilator Otherwise continue with supportive treatment, and CPR and emergency medication if need be We'll continue to follow I performed a history & physical examination of the patient and discussed their management with my nurse practitioner, Yoselin Johnson. I reviewed the nurse practitioner's note and agree with the documented findings and plan of care. Lung sounds are positive for mild diffuse rhonchi throughout the lung singh. The findings and the impression was discussed with the patient. I attest to the documentation by the nurse practitioner. Time with Patient: Less than 30
--- NOTE | 2021-06-16 22:38 | PN ---
PROGRESS NOTE DATE OF SERVICE: 06/16/2021 REASON FOR FOLLOWUP: Lumbar diskitis and positive COVID test. INTERVAL HISTORY: The patient is afebrile. The patient is currently breathing comfortably. He is down to 8 L nasal cannula oxygen. The patient was slightly lethargic and was unable to provide any history, though no vomiting or diarrhea has been reported. PHYSICAL EXAMINATION: Blood pressure 101/58 with a pulse of 76, temperature 97.5. He is 98% on 8 L high-flow oxygen. General description is an elderly male lying in bed in no distress. Respiratory system: Unlabored breathing, decreased intensity of breath sounds. No wheeze. Heart S1, S2. Regular rate and rhythm. Abdomen soft, no tenderness. LABS: Hemoglobin is 8.5, white count 4.5, creatinine 0.91. DIAGNOSTIC IMPRESSION AND PLAN: 1. Patient with lumbar diskitis with Enterococcus faecalis bacteremia, a PENICILLIN ALLERGY. He is covered with daptomycin. That will be continued to finish his course of therapy. 2. Patient with positive COVID test, clinically not behaving as COVID pneumonia. He has been treated with mostly supportive treatment and has shown overall clinical improvement. Continue with current medication and supportive care. MMODL / IJN: [id number] /
[2021-06-16] MEDS: HYDROcodone/APAP 5-325MG 1 EACH TAB PEG/G-TUBE PRN (23:57)
[2021-06-17 00:15] LABS: Glucose,Whole Blood 109 mg/dL (75-99)
--- NOTE | 2021-06-17 00:56 | P.PN ---
Subjective Progress Note Date: 06/16/21 This is a 76-year-old male who was recently admitted with acute bilateral pneumonia with acute hypoxic respiratory failure and also has had changes in mental status and is being closely monitored. Pulmonary and ID following. Patient is continued on IV daptomycin for recent diskitis. Patient had a positi ve covid test. Patient was recently at [facility] for rehabilitation and IV antibiotic therapy. Patient continued on tube feeds with recent peg tube placement. Patient off of bipap this morning and weaning FI02 as tolerated. Patient is on coumadin and will continue hold with close monitoring and labs in the am. 06/11/2021 Patient is seen and evaluated and follow-up this morning awake and responding to commands and questions appropriately. Patient continues with BiPAP at night and maintained on 4 L via nasal cannula and denies any worsening shortness of breath. Patient states he still feels shortness of breath though. Coumadin continues to be held pharmacy to dose and INR today is 3.9 and will hold and repeat labs. Pulmonary following closely and chest x-ray was ordered showing chronic emphysematous change and cardiomegaly with small bilateral pleural effusions and associated bibasilar infiltrate and/or atelectasis redemonstrated with no significant change from 2 days previous. Continue with local wound care to the coccyx region along with bilateral calcaneus. Continue with offloading boots and frequent position changes. 06/12/2021 Patient is seen in follow up this morning and is being closely monitored. Patient is having some low oxygen readings and using intermittent bipap and also maintained on 5-6 L via NC. Patient is awake, somewhat confused at times, but more alert. Patient is being followed by ID and pulmonary. Patient is also maintained on IV antibiotics and tube feedings and tolerating. Patient is afebrile. No reports of chest pain. Patient has been having loose frequent stools and will order cdiff. Discontinue colace. INR is 2.7 and will have pharmacy dose coumadin. 06/13/2021 Patient seen this morning extremely lethargic and requiring more oxygen. Patient continues with bipap at night and as needed. Patient currently on 15L HF and non-rebreather. Chest xray shows stable correlate for bilateral pneumonia. Pulmonary, ID, and cardio following. Patient was also covid positive although not behaving as such. Patient continues on IV daptomycin. 06/14/2021 Patient is seen today awake alert and oriented 2-3. Patient is maintained on 15 L high flow this morning and did not use BiPAP last night. Attempts at weaning FiO2 continue and patient tends to have shortness of breath. Rhonchorous lung sounds throughout and crackles noted as well. Chest x-ray shows a stable x-ray to correlate for bilateral pneumonia likely superimposed on a background COPD. Wound care consulted again as patient's decubitus ulcer is worse in intensity. Stage II decubitus ulcer being treated with honey alginate and saline moistened gauze and sacrum border foam and recommend continue with frequent position changes. Is extremely weak and will require ECF once st abilized. Patient may also likely require a Covid hub center that can accommodate BiPAP. Social work is following. 06/15/2021 Patient is seen in follow up this morning and continues on 8 L HF and has been more alert today and more responsive. Per nursing staff patient is brushing his own teeth. Discussion was had with patient and brother about code status and patient would not like to be on mechanical vent other hernandez yes to other life saving measures. Patient is afebrile. Pulmonary, ID, and cardio following. Patient INR today is 1.9 today and pharmacy dosing. will repeat am labs. 06/16/2021 Patient is seen and evaluated in follow up this morning and maintained on 8L HF with oxygen saturations about 96% and will continue to wean as tolerated. Intermittent bipap use as needed. Multiple medical consultations following. Patient maintained on IV daptomycin and ID is following. Maintain tube feeding and tolerating. INR is 2.0 with pharmacy dosing coumadin. Sodium is 140, potassium is 4.7, creatinine is 0.91, WBC is 4.5, hemoglobin is 8.5. Sacral region continues with local wound care with frequent position changes and will order specialty mattress for offloading pressure. Review of systems: Constitutional: reports of fatigue and overall weakness Resp: Continues with shortness of breath and patient states no worse, weak cough and getting some phlegm up Cardio: no reports of chest pain or palpitations Neuro: reports weakness All medications have been reviewed Active Medications Hydrocodone Bitart/Acetaminophen (Hydrocodone/Apap 5-325mg 1 Each Tab) 1 each PEG/G-TUBE Q4HR PRN PRN Reason: Pain Last Admin: 06/16/21 23:57 Dose: 1 each Documented by: Albuterol Sulfate (Albuterol Hfa Inhaler) 2 puff INHALATION RT-TID PRN PRN Reason: Shortness Of Breath Or Wheezing Last Admin: 06/16/21 21:20 Dose: 2 puff Documented by: Amiodarone HCl (Amiodarone 200 Mg Tab) 200 mg PEG/G-TUBE BID@0900,1700 [facility] Last Admin: 06/16/21 17:29 Dose: 200 mg Documented by: Aspirin (Aspirin 81 Mg) 81 mg PEG/G-TUBE DAILY@0900 [facility] Last Admin: 06/16/21 09:32 Dose: 81 mg Documented by: Baclofen (Baclofen 10 Mg Tab) 10 mg PEG/G-TUBE TID@0900,1300,2100 [facility] Last Admin: 06/16/21 21:06 Dose: 10 mg Documented by: Cholecalciferol (Cholecalciferol 25 Mcg (1000 Iu) Tablet) 25 mcg PEG/G-TUBE DAILY [facility] Last Admin: 06/16/21 09:32 Dose: 25 mcg Documented by: Daptomycin 600 mg/ Sodium (Chloride) 50 mls @ 100 mls/hr IVPB Q24H [facility] Stop: 06/27/21 16:29 Last Admin: 06/16/21 16:15 Dose: 100 mls/hr Documented by: Levothyroxine Sodium (Levothyroxine 50 Mcg Tab) 50 mcg PEG/G-TUBE DAILY@0600 [facility] Last Admin: 06/16/21 06:38 Dose: 50 mcg Documented by: Lidocaine (Lidocaine 5% Patch) 1 patch TOPICAL DAILY [facility]; Protocol Last Admin: 06/16/21 09:31 Dose: 1 patch Documented by: Magnesium Hydroxide (Magnesium Hydroxide 2,400 Mg/10 Ml Cup) 2,400 mg PEG/G- TUBE DAILY PRN PRN Reason: Constipation Methocarbamol (Methocarbamol 750 Mg Tab) 750 mg PEG/G-TUBE Q8H PRN PRN Reason: Muscle Pain Midodrine (Midodrine 5 Mg Tab) 10 mg PEG/G-TUBE TID@0900,1300,1700 [facility] Last Admin: 06/16/21 17:29 Dose: 10 mg Documented by: Miscellaneous Information (Warfarin Per Pharmacy) 1 each MISCELLANE DIRECTED PRN PRN Reason: Per Protocol Naloxone HCl (Naloxone 0.4 Mg/Ml 1 Ml Vial) 0.2 mg IV Q2M PRN PRN Reason: Opioid Reversal Tamsulosin HCl (Tamsulosin 0.4 Mg Cap.Er.24h) 0.4 mg PO DAILY@0900 [facility] Last Admin: 06/16/21 09:32 Dose: 0.4 mg Documented by: Physical exam: Gen: This is 76-year-old male who is awake, alert and oriented 3, well- developed, well-nourished..Ill appearing HEENT: Head is atraumatic, normocephalic. Pupils equal, round. Sclerae is anicteric. NECK: Supple. No JVD. No lymphadenopathy. No thyromegaly. LUNGS: Breath sounds are diminished at the bases with scattered course rhonchi noted. Some mild crackles noted as well. No intercostal retractions. HEART: S1, S2 are muffled ABDOMEN: Soft. Obese. Bowel sounds are present. No masses. No tenderness. peg tube intact and infusing EXTREMITIES: generalized edema. No calf tenderness. NEUROLOGICAL: Alert and oriented 3, diffusely weak SKIN: generalized edema noted throughout, muscle wasting noted as well of face, neck, and shoulders. Assessment: Acute bilateral pneumonia with acute hypoxic respiratory failure with possible sepsis, present on admission Change in mental status, acute metabolic encephalopathy, multifactorial, improving Coumadin coagulopathy COVID-19, test positive diarrhea, improved history of recent aspiration pneumonia with hypoxic respiratory failure History of recent acute stroke and change in mental status with right-sided stroke history of recent complete opacification of the left hemithorax secondary to aspiration Status post PEG tube placement PEG tube feedings and monitoring Multiple organisms growing from the culture including Makenna albicans and Klebsiella recently congestive heart failure with chronic diastolic dysfunction atrial fibrillation with fast ventricular rate, currently rate controlled. history of chronic persistent atrial fibrillation Acute kidney injury with acute renal failure, acute tubular necrosis with severe sepsis, improved history of aortic prosthetic replacement chronic low back pain and degenerative joint disease Stage II decubitus ulcer Bilateral calcaneus stage I ulcers Hypertension permanent pacemaker severe protein calorie malnutrition anemia, normocytic anemia of chronic disease Coumadin monitoring acute respiratory acidosis Full code, with no vent Plan: Recommend to continue with current medications and management. pulmonary, ID, cardio, following. Patient to continue on IV daptomycin. Patient is weaning FI02 as tolerated and continues with 8L HF. Oxygen saturations above 95% and will discuss with nursing staff about weaning. Continues with BiPAP at night and as needed. INR is 2.0 and pharmacy to dose coumadin. Recommend continue with local wound care and frequent position changes and offloading boots. Will order specialty offloading mattress. discussed with the nurse about maintaining strict aspiration precautions of head of the bed elevated 45 at all times. As patient is an extremely high risk. Code status addressed and wishes for full code with no intubation. Due to multiple complex medical issues prognosis is guarded. Will Continue to monitor closely and repeat labs. Objective - Vital Signs Vital signs: Vital Signs Temp 98.0 F 06/16/21 02:57 Pulse 74 06/16/21 02:57 Resp 20 06/16/21 02:57 BP 104/62 06/16/21 02:57 Pulse Ox 97 06/16/21 02:57 Intake & Output 06/15/21 06/16/21 06/16/21 18:59 06:59 18:59 Output Total 1601 Balance -1601 Weight 87 kg Output: Urine 1600 Stool 1 Other: Voiding Method Indwelling Catheter Indwelling Catheter - Labs CBC & Chem 7: 06/16/21 06:35 06/16/21 06:35 Labs: Abnormal Lab Results - Last 24 Hours (Table) 06/15/21 06/15/21 06/16/21 Range/Units 11:52 21:04 00:04 RBC (4.30-5.90) m/uL Hgb (13.0-17.5) gm/dL Hct (39.0-53.0) % RDW (11.5-15.5) % Lymphocytes # (1.0-4.8) k/uL PT (9.0-12.0) sec INR (<1.2) Carbon Dioxide (22-30) mmol/L BUN (9-20) mg/dL Glucose (74-99) mg/dL POC Glucose (mg/dL) 104 H 114 H 113 H (75-99) mg/dL 06/16/21 06/16/21 06/16/21 Range/Units 06:21 06:35 06:35 RBC 3.04 L (4.30-5.90) m/uL Hgb 8.5 L (13.0-17.5) gm/dL Hct 27.0 L (39.0-53.0) % RDW 18.4 H (11.5-15.5) % Lymphocytes # 0.7 L (1.0-4.8) k/uL PT 20.0 H (9.0-12.0) sec INR 2.0 H (<1.2) Carbon Dioxide (22-30) mmol/L BUN (9-20) mg/dL Glucose (74-99) mg/dL POC Glucose (mg/dL) 103 H (75-99) mg/dL 06/16/21 Range/Units 06:35 RBC (4.30-5.90) m/uL Hgb (13.0-17.5) gm/dL Hct (39.0-53.0) % RDW (11.5-15.5) % Lymphocytes # (1.0-4.8) k/uL PT (9.0-12.0) sec INR (<1.2) Carbon Dioxide 35 H (22-30) mmol/L BUN 43 H (9-20) mg/dL Glucose 104 H (74-99) mg/dL POC Glucose (mg/dL) (75-99) mg/dL
[2021-06-17 06:16] LABS: Glucose,Whole Blood 111 mg/dL (75-99)
[2021-06-17] MEDS: LEVOTHYROXINE 50 MCG TAB PEG/G-TUBE SCH (06:48)
[2021-06-17] MEDS: MIDODRINE 5 MG TAB PEG/G-TUBE SCH ×3 (08:34→16:48)
[2021-06-17] MEDS: BACLOFEN 10 MG TAB PEG/G-TUBE SCH ×3 (08:34→20:38)
[2021-06-17] MEDS: ASPIRIN 81 MG PEG/G-TUBE SCH (08:34)
[2021-06-17] MEDS: TAMSULOSIN 0.4 MG CAP.ER.24H PO SCH (08:34)
[2021-06-17] MEDS: CHOLECALCIFEROL 25 MCG (1000 IU) TABLET PEG/G-TUBE SCH (08:34)
[2021-06-17] MEDS: AMIODARONE 200 MG TAB PEG/G-TUBE SCH ×2 (08:34→16:48)
[2021-06-17] MEDS: LIDOCAINE 5% PATCH TOPICAL SCH (08:34)
[2021-06-17] MEDS: ALBUTEROL HFA INHALER INHALATION PRN ×4 (09:01→20:54)
[2021-06-17 09:47] LABS: Anisocytosis Slight; Basophils % (A) 0 %; Eosinophils # (A) 0.1 k/uL (0-0.7); Eosinophils % (A) 3 %; HCT 27.9 % (39.0-53.0); HGB 8.8 gm/dL (13.0-17.5); Hypochromasia Moderate; Lymphocytes # (A) 0.6 k/uL (1.0-4.8); Lymphocytes % (A) 14 %; MCH 28.1 pg (25.0-35.0); MCHC 31.7 g/dL (31.0-37.0); MCV 88.7 fL (80.0-100.0); Mean Platelet Volume 7.8; Monocytes # (A) 0.2 k/uL (0-1.0); Monocytes % (A) 5 %; Neutrophils # (A) 3.6 k/uL (1.3-7.7); Neutrophils % (A) 78 %; Platelet Count 219 k/uL (150-450); RBC 3.15 m/uL (4.30-5.90); RDW 18.3 % (11.5-15.5); WBC 4.6 k/uL (3.8-10.6)
[2021-06-17 10:11] LABS: African American GFR (CKD) >90 (>60 ml/min/1.73 sqM); Anion Gap 3 mmol/L; Blood Urea Nitrogen 39 mg/dL (9-20); Calcium 8.6 mg/dL (8.4-10.2); Carbon Dioxide 32 mmol/L (22-30); Chloride 101 mmol/L (98-107); Glucose 106 mg/dL (74-99); Non-African American GFR(CKD) 85 (>60 ml/min/1.73 sqM); Sodium 136 mmol/L (137-145)
[2021-06-17 10:12] LABS: INR 2.2 (<1.2); Prothrombin Time 21.8 sec (9.0-12.0)
[2021-06-17 12:12] LABS: Glucose,Whole Blood 96 mg/dL (75-99)
--- NOTE | 2021-06-17 15:50 | P.PN ---
Subjective Progress Note Date: 06/17/21 76-year-old male patient was hospitalized on 06/08/2021 for shortness of breath. 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 He was also recently admitted for sepsis, aspiration pneumonia and congestion heart failure. At that time the patient was intubated and he was in a mechanical ventilator. He also tested positive for COVID-19 on 06/07/2021. Since admission, the patient was on BiPAP at a pressure of 12/6 cm of water with an FiO2 of 80%. His chest x-ray showed emphysema, cardiomegaly and small bilateral pleural effusions and some atelectatic changes in lung bases right more than l eft. His pro calcitonin level was at 1.0, LDH level was 747, and his proBNP level was 3320. he was subsequently weaned off and he was placed on oxygen 6 L per minute nasal cannula. His hypoxemic respiratory failure was multifactorial related to diastolic heart failure and a component of COVID-19 related pneumonia. He is also known to have chronic atrial fibrillation and he has a permanent pacemaker in place. He has undergone previous aortic valve replacement. He has PEG tube for enteral feeding and nutritional support and currently is on vital AF for enteral feeding and nutritional support at 60 mL an hour. He remains to receive rapamycin regarding his wounds and osteomyelitis. He was on warfarin on outpatient basis and his INR is therapeutic at this point in time at 2.7 from yesterday and 2.0 from today. Currently is on oxygen at 15 L high flow nasal cannula. Note that he was able to wean off as low as 26 L and currently is up to 15 L. In terms of his blood work, the patient is on white cell count of 4.9, sodium is at 142, potassium is at 4.4, the renal function is normal. INR is at 2.0. Days evaluation of 06/14/2021, the patient seems to much more alert and awake co mpared to yesterday. He is currently on oxygen which is running at 10 L high flow. He has a congested cough. Unable to bring up much sputum. A repeat chest x-ray was done yesterday which showed stable bilateral pulmonary infiltrates and I repeated the chest x-ray today which again showed stable changes with bilateral pneumonia. The patient has diffuse osteopenia. Small bilateral pleural effusions also also suspected. The blood cultures of been negative. The patient's white cell count is at 4.9. Electrolytes are all within normal limits. He continues to receive enteral feeding for nutritional support and the patient is currently on vital AF at the rate of 60 mL an hour. Otherwise, no other significant events overnight. INR today is at 1.9 and the patient has limited on anticoagulation with warfarin on outpatient basis. He has a stage II coccygeal wound and wound services have been consulted. Note that there are other areas around the 1 that are essentially unstageable. 06/15/2021, condition essentially the same as yesterday and the patient is currently on 9 L of oxygen by nasal cannula. He has a congested cough. Unable to bring up much sputum. No signs of any significant respiratory distress. His breathing is nonlabored and the patient is still being treated for complications of COVID 19 related pneumonia. Meanwhile, he is receiving enteral feeding for nutritional support. The patient is currently on anticoagulation with warfarin. INR today is at 1.9 and accordingly the warfarin will be dosed. He is receiving enteral feeding for the treatment support with vital AF at the rate of cc an hour. He is having liquidy loose bowel movements. No nausea. No vomiting. No abdominal pain. He is awake and alert. He has had a previous left-sided CVA with chronic right-sided deficits. He has CHF and chronic wounds in his lower extremities/healed and the patient has a unstageable wound in his sacrum. On today's evaluation on 06/16/2021 patient seen in follow-up on selective care unit, he is awake and alert, she is currently on 8 L per high flow nasal cannula his pulse ox of 98%. This is an improvement from a couple days ago when patient was requiring 15 L per high flow nasal cannula. He has been wearing BiPAP support at bedtime and intermittently, tolerates it very well. His been afebrile, hemodynamically has been stable, he denies worsening dyspnea, his cough is still weak, and congested, but patient is able to clear some phlegm with encouragement. He remains on PEG tube feedings, he is receiving vital EF at a rate of 75 at goal, we stand water flushes, overall she is looking better, he is more alert, he is able to make his needs known, he discussed his CODE STATUS with his brother on the phone, and it was decided that he does not want to be intubated but wants to continue with supportive treatment. His voice is weak, but he is able to communicate, and at times she is writing stuff down for the staff to read. He is oriented 3. He is currently talking to his brother on the phone. He denies any acute distress. His chest x-ray today shows stable bilateral consolidation and pleural effusion unchanged from prior exam. Today his labs have been reviewed, his white count is stable and is within normal limits at 4.5, hemoglobin is 8.5, his INR today is 2.0, sodium is 140, potassium is 4.7, CO2 is 35, BUN 23 creatinine 0.91. His blood cultures have been negative. Patient remains on daptomycin antibiotics, he is not on any steroids, and he is on Coumadin for anticoagulation. Oxygenation is improving. 06/17/2021, the patient is looking much better. He is on 8 L of Oxymizer nasal cannula. His, dictating normally. He had some issues with a PEG tube the Clock with some probably medication particles and crystals and this is going to be taking care of her flushed accordingly. Otherwise, the patient is doing well. No nausea or vomiting. No chest pain. No shortness of breath. He is resting comfortably in bed. The patient's blood work today shows a white cell count of 4.6 with a hemoglobin of 8.8. INR is septic at 2.2. Urine is a 39 with a creatinine of 0.8 and the sodium is at 136 with a potassium level of 5.0. No other significant events otherwise for now. No hypotension. 9 chronic instability. The patient continues to be on warfarin and INR today is up to 2.2. Objective - Vital Signs Vital signs: Vital Signs Temp 97.6 F 06/17/21 12:00 Pulse 79 06/17/21 12:00 Resp 18 06/17/21 12:00 BP 99/66 06/17/21 12:00 Pulse Ox 96 06/17/21 12:00 Intake & Output 06/16/21 06/17/21 06/17/21 18:59 06:59 18:59 Intake Total 0 80 720 Output Total 1375 1700 450 Balance -1375 -1620 270 Weight 87 kg 94 kg Intake: IV 20 Invasive Line 1 20 Oral 0 Tube Feeding 720 Other 60 Output: Urine 1375 1700 450 Other: Voiding Method Indwelling Catheter Indwelling Catheter Indwelling Catheter - Exam Oriented 3, mild tachypnea. Currently on 8 L of oxygen by nasal cannula. He has signs of CVA and right-sided weakness and hemiparesis. Otherwise, his breathing is nonlabored and the patient is calm and comfortable. HEENT examination is grossly unremarkable. Neck supple. Full range of motion. No adenopathy thyromegaly or neck vein distention. Cardiovascular examination reveals an irregular rhythm and rate. S1-S2 normal. No S3 or S4. No discernible murmur noted. Heart sounds are distant. Lungs reveal scattered bilateral rhonchi. Bibasilar crackles are noted. No wheezes. Breath sounds equal bilaterally. Abdomen soft bowel sounds are heard. No masses or tenderness. The patient is a PEG tube in the abdominal wall. The exit site is dry clean and intact. Extremities are intact. No cyanosis clubbing or edema. Skin is without rash or lesion. Neurologic examination is brief right sided weakness because of a secondary to old CVA - Labs CBC & Chem 7: 06/17/21 09:20 06/17/21 09:20 Labs: Abnormal Lab Results - Last 24 Hours (Table) 06/16/21 06/17/21 06/17/21 Range/Units 16:34 00:14 06:15 RBC (4.30-5.90) m/uL Hgb (13.0-17.5) gm/dL Hct (39.0-53.0) % RDW (11.5-15.5) % Lymphocytes # (1.0-4.8) k/uL PT (9.0-12.0) sec INR (<1.2) Sodium (137-145) mmol/L Carbon Dioxide (22-30) mmol/L BUN (9-20) mg/dL Glucose (74-99) mg/dL POC Glucose (mg/dL) 115 H 109 H 111 H (75-99) mg/dL 06/17/21 06/17/21 06/17/21 Range/Units 09:20 09:20 09:20 RBC 3.15 L (4.30-5.90) m/uL Hgb 8.8 L (13.0-17.5) gm/dL Hct 27.9 L (39.0-53.0) % RDW 18.3 H (11.5-15.5) % Lymphocytes # 0.6 L (1.0-4.8) k/uL PT 21.8 H (9.0-12.0) sec INR 2.2 H (<1.2) Sodium 136 L (137-145) mmol/L Carbon Dioxide 32 H (22-30) mmol/L BUN 39 H (9-20) mg/dL Glucose 106 H (74-99) mg/dL POC Glucose (mg/dL) (75-99) mg/dL Assessment and Plan Plan: 1 Acute hypoxemic respiratory failure, likely multifactorial, in part related to diastolic CHF, as well as possible coronavirus associated pneumonia. Note that the patient was in the hospital back in early May 2021 and at that time, the patient had complete opacification of the left lung requiring intubation mechanical ventilation and a bronchial alveolar lavage that was obtained via bronchoscopy on 05/20/2021 was positive for Klebsiella and the patient was covered with IV Zosyn. He did have also bilateral pneumonia with lower lobe pulmonary infiltrates. the chest x-ray still showing bilateral lower lobe pulmonary infiltrates and effusions. The patient clinically is improved on today's evaluation. Is able to cough although his cough is weak. The patient has shown ongoing improvement and the patient is currently on down to 8 L of O xymizer nasal cannula. Breathing is nonlabored and his resting comfortably in bed. 2 History of chronic atrial fibrillation. Patient has been maintained on warfarin outpatient basis, INR from yesterday was at 2.2 3 History of discitis with recent surgical intervention [facility] with underlying enterococcal bacteremia and the patient remains on daptomycin 4 Status post pacemaker insertion. 5 History of aortic valve replacement. 6 History of diastolic CHF. The patient has chronic diastolic heart failure with an ejection fraction of 55-60% 7 History of CVA. 8 History of essential hypertension. 9 Status post PEG tube placement. The patient is being vital AF at the rate of 60s an hour, current tube feeds on hold as the patient has having issues with a clogged connection tubing. This will be replaced. 10 History of aspiration pneumonia. 11 Multiple other medical problems and comorbidities. 12 decubitus ulcer stage II/ unstageable at other spots 13 hypertension 14 chronic back pain 15 history of persistent chronic atrial fibrillation maintained on amiodarone on outpatient basis Plan: Monitor respiratory status and keep the patient on 8 L of oxygen by nasal cannula Continue anticoagulation with warfarin and INR is at 2.2 Resume the tube feeding once the appropriate connection is found then connected The patient continues to have poor cough and for ability to clear his secretions. He is obviously at high risk of progressing either from COVID 19 or from aspiration pneumonia which can be an ongoing episodic problem. For now, we'll patient will be kept nothing by mouth. Continue enteral feeding for nutritional support. Repeat chest x-ray in the morning Wound care services have been involved as the patient has a stage II and a surrounding unstageable coccygeal wounds. No signs of any infection.
--- NOTE | 2021-06-17 16:10 | PN ---
PROGRESS NOTE DATE OF SERVICE: 06/17/2021 REASON FOR FOLLOWUP: 1. Enterococcus lumbar diskitis. 2. Positive COVID test. INTERVAL HISTORY: The patient is currently afebrile. The patient is on high-flow nasal cannula oxygen. He is slightly more awake and alert. When asked specifically, denies any chest pain or cough. No abdominal pain or diarrhea. PHYSICAL EXAMINATION: Blood pressure 99/66, pulse of 69, temperature 97.6. He is 96% 8 L nasal cannula. General description is an elderly male lying in bed in no distress. Respiratory system: Unlabored breathing, decreased intensity of breath sounds. No wheeze. Heart S1, S2. Regular rate and rhythm. Abdomen soft, no tenderness. LABS: Hemoglobin 8.8, white count 4.6, BUN of 39, creatinine 0.86. DIAGNOSTIC IMPRESSION AND PLAN: 1. Patient with lumbar diskitis with a history of Enterococcus faecalis bacteremia. Patient is on daptomycin; to continue to finish his course of therapy. 2. Patient admitted to hospital with shortness of breath with a positive COVID test; seems to have shown improvement as far as respiratory status is concerned. Continue with current treatment protocol. MMODL / IJN: [id number] /
[2021-06-17] MEDS ORDERED: WARFARIN 5 MG TAB PO ONE (18:00)
--- NOTE | 2021-06-17 23:54 | P.PN ---
Subjective Progress Note Date: 06/17/21 This is a 76-year-old male who was recently admitted with acute bilateral pneumonia with acute hypoxic respiratory failure and also has had changes in mental status and is being closely monitored. Pulmonary and ID following. Patient is continued on IV daptomycin for recent diskitis. Patient had a positi ve covid test. Patient was recently at [facility] for rehabilitation and IV antibiotic therapy. Patient continued on tube feeds with recent peg tube placement. Patient off of bipap this morning and weaning FI02 as tolerated. Patient is on coumadin and will continue hold with close monitoring and labs in the am. 06/11/2021 Patient is seen and evaluated and follow-up this morning awake and responding to commands and questions appropriately. Patient continues with BiPAP at night and maintained on 4 L via nasal cannula and denies any worsening shortness of breath. Patient states he still feels shortness of breath though. Coumadin continues to be held pharmacy to dose and INR today is 3.9 and will hold and repeat labs. Pulmonary following closely and chest x-ray was ordered showing chronic emphysematous change and cardiomegaly with small bilateral pleural effusions and associated bibasilar infiltrate and/or atelectasis redemonstrated with no significant change from 2 days previous. Continue with local wound care to the coccyx region along with bilateral calcaneus. Continue with offloading boots and frequent position changes. 06/12/2021 Patient is seen in follow up this morning and is being closely monitored. Patient is having some low oxygen readings and using intermittent bipap and also maintained on 5-6 L via NC. Patient is awake, somewhat confused at times, but more alert. Patient is being followed by ID and pulmonary. Patient is also maintained on IV antibiotics and tube feedings and tolerating. Patient is afebrile. No reports of chest pain. Patient has been having loose frequent stools and will order cdiff. Discontinue colace. INR is 2.7 and will have pharmacy dose coumadin. 06/13/2021 Patient seen this morning extremely lethargic and requiring more oxygen. Patient continues with bipap at night and as needed. Patient currently on 15L HF and non-rebreather. Chest xray shows stable correlate for bilateral pneumonia. Pulmonary, ID, and cardio following. Patient was also covid positive although not behaving as such. Patient continues on IV daptomycin. 06/14/2021 Patient is seen today awake alert and oriented 2-3. Patient is maintained on 15 L high flow this morning and did not use BiPAP last night. Attempts at weaning FiO2 continue and patient tends to have shortness of breath. Rhonchorous lung sounds throughout and crackles noted as well. Chest x-ray shows a stable x-ray to correlate for bilateral pneumonia likely superimposed on a background COPD. Wound care consulted again as patient's decubitus ulcer is worse in intensity. Stage II decubitus ulcer being treated with honey alginate and saline moistened gauze and sacrum border foam and recommend continue with frequent position changes. Is extremely weak and will require ECF once st abilized. Patient may also likely require a Covid hub center that can accommodate BiPAP. Social work is following. 06/15/2021 Patient is seen in follow up this morning and continues on 8 L HF and has been more alert today and more responsive. Per nursing staff patient is brushing his own teeth. Discussion was had with patient and brother about code status and patient would not like to be on mechanical vent other hernandez yes to other life saving measures. Patient is afebrile. Pulmonary, ID, and cardio following. Patient INR today is 1.9 today and pharmacy dosing. will repeat am labs. 06/16/2021 Patient is seen and evaluated in follow up this morning and maintained on 8L HF with oxygen saturations about 96% and will continue to wean as tolerated. Intermittent bipap use as needed. Multiple medical consultations following. Patient maintained on IV daptomycin and ID is following. Maintain tube feeding and tolerating. INR is 2.0 with pharmacy dosing coumadin. Sodium is 140, potassium is 4.7, creatinine is 0.91, WBC is 4.5, hemoglobin is 8.5. Sacral region continues with local wound care with frequent position changes and will order specialty mattress for offloading pressure. 06/17/2021 Patient is seen this morning resting comfortably and easily arousable. Patient contiinues on 8L HF via NC and instructed nursing staff to continue to wean FI02 as tolerated. Intermittent bipap use at night as needed. Patient also maintained on IV daptomycin with ID following. INR is 2.2 as patient continues on coumadin Review of systems: Constitutional: reports of fatigue and overall weakness Resp: Continues with shortness of breath and patient states no worse, weak cough Cardio: no reports of chest pain or palpitations Neuro: reports weakness All medications have been reviewed Active Medications Hydrocodone Bitart/Acetaminophen (Hydrocodone/Apap 5-325mg 1 Each Tab) 1 each PEG/G-TUBE Q4HR PRN PRN Reason: Pain Last Admin: 06/16/21 23:57 Dose: 1 each Documented by: Albuterol Sulfate (Albuterol Hfa Inhaler) 2 puff INHALATION RT-TID PRN PRN Reason: Shortness Of Breath Or Wheezing Last Admin: 06/17/21 11:46 Dose: 2 puff Documented by: Amiodarone HCl (Amiodarone 200 Mg Tab) 200 mg PEG/G-TUBE BID@0900,1700 [facility] Last Admin: 06/17/21 08:34 Dose: 200 mg Documented by: Aspirin (Aspirin 81 Mg) 81 mg PEG/G-TUBE DAILY@0900 [facility] Last Admin: 06/17/21 08:34 Dose: 81 mg Documented by: Baclofen (Baclofen 10 Mg Tab) 10 mg PEG/G-TUBE TID@0900,1300,2100 [facility] Last Admin: 06/17/21 12:52 Dose: 10 mg Documented by: Cholecalciferol (Cholecalciferol 25 Mcg (1000 Iu) Tablet) 25 mcg PEG/G-TUBE DAILY [facility] Last Admin: 06/17/21 08:34 Dose: 25 mcg Documented by: Daptomycin 600 mg/ Sodium (Chloride) 50 mls @ 100 mls/hr IVPB Q24H [facility] Stop: 06/27/21 16:29 Last Admin: 06/16/21 16:15 Dose: 100 mls/hr Documented by: Levothyroxine Sodium (Levothyroxine 50 Mcg Tab) 50 mcg PEG/G-TUBE DAILY@0600 [facility] Last Admin: 06/17/21 06:48 Dose: 50 mcg Documented by: Lidocaine (Lidocaine 5% Patch) 1 patch TOPICAL DAILY [facility]; Protocol Last Admin: 06/17/21 08:34 Dose: 1 patch Documented by: Magnesium Hydroxide (Magnesium Hydroxide 2,400 Mg/10 Ml Cup) 2,400 mg PEG/G- TUBE DAILY PRN PRN Reason: Constipation Methocarbamol (Methocarbamol 750 Mg Tab) 750 mg PEG/G-TUBE Q8H PRN PRN Reason: Muscle Pain Midodrine (Midodrine 5 Mg Tab) 10 mg PEG/G-TUBE TID@0900,1300,1700 [facility] Last Admin: 06/17/21 12:52 Dose: 10 mg Documented by: Miscellaneous Information (Warfarin Per Pharmacy) 1 each MISCELLANE DIRECTED PRN PRN Reason: Per Protocol Naloxone HCl (Naloxone 0.4 Mg/Ml 1 Ml Vial) 0.2 mg IV Q2M PRN PRN Reason: Opioid Reversal Warfarin Sodium (Warfarin 5 Mg Tab) 5 mg PO ONCE@1800 ONE Stop: 06/17/21 18:01 Physical exam: Gen: This is 76-year-old male who is awake, alert and oriented 3, well- developed, well-nourished..Ill appearing HEENT: Head is atraumatic, normocephalic. Pupils equal, round. Sclerae is anicteric. NECK: Supple. No JVD. No lymphadenopathy. No thyromegaly. LUNGS: Breath sounds are diminished at the bases with scattered course rhonchi noted. Some mild crackles noted as well. No intercostal retractions. HEART: S1, S2 are muffled ABDOMEN: Soft. Obese. Bowel sounds are present. No masses. No tenderness. EXTREMITIES: generalized edema. No calf tenderness. NEUROLOGICAL: Alert and oriented 3, diffusely weak SKIN: generalized edema noted throughout, muscle wasting noted as well of face, neck, and shoulders. Assessment: Acute bilateral pneumonia with acute hypoxic respiratory failure with possible sepsis, present on admission Change in mental status, acute metabolic encephalopathy, multifactorial, improving Coumadin coagulopathy COVID-19, test positive diarrhea, improved history of recent aspiration pneumonia with hypoxic respiratory failure History of recent acute stroke and change in mental status with right-sided stroke history of recent complete opacification of the left hemithorax secondary to aspiration Status post PEG tube placement PEG tube feedings and monitoring Multiple organisms growing from the culture including Makenna albicans and Klebsiella recently congestive heart failure with chronic diastolic dysfunction atrial fibrillation with fast ventricular rate, currently rate controlled. history of chronic persistent atrial fibrillation Acute kidney injury with acute renal failure, acute tubular necrosis with severe sepsis, improved history of aortic prosthetic replacement chronic low back pain and degenerative joint disease Stage II decubitus ulcer Bilateral calcaneus stage I ulcers Hypertension permanent pacemaker severe protein calorie malnutrition anemia, normocytic anemia of chronic disease Coumadin monitoring acute respiratory acidosis Full code, with no vent Plan: Recommend to continue with current medications and management. pulmonary, ID, cardio, following. Patient to continue on IV daptomycin. Patient is weaning FI02 as tolerated and continues with 8L HF. Oxygen saturations above 95% and pulmonary following recommending to continue patient on 8L and only using bipap at night as needed. INR is 2.2 and pharmacy to dose coumadin. Recommend co ntinue with local wound care and frequent position changes and offloading boots. Will order specialty offloading mattress. discussed with the nurse about maintaining strict aspiration precautions of head of the bed elevated 45 at all times. As patient is an extremely high risk. Per nursing staff there was some resistance with the peg tube and feedings on hold for now and will resume. Due to multiple complex medical issues prognosis is guarded. Patient will be going to ECF once stabilized and discharged. Objective - Vital Signs Vital signs: Vital Signs Temp 97.8 F 06/17/21 08:30 Pulse 72 06/17/21 08:30 Resp 20 06/17/21 08:30 BP 104/63 06/17/21 08:30 Pulse Ox 92 L 06/17/21 08:30 Intake & Output 06/16/21 06/17/21 06/17/21 18:59 06:59 18:59 Intake Total 0 80 Output Total 1375 1700 Balance -1375 -1620 Weight 87 kg 94 kg Intake: IV 20 Invasive Line 1 20 Oral 0 Other 60 Output: Urine 1375 1700 Other: Voiding Method Indwelling Catheter Indwelling Catheter - Labs CBC & Chem 7: 06/17/21 09:20 06/17/21 09:20 Labs: Abnormal Lab Results - Last 24 Hours (Table) 06/16/21 06/16/21 06/17/21 Range/Units 11:47 16:34 00:14 POC Glucose (mg/dL) 114 H 115 H 109 H (75-99) mg/dL 06/17/21 Range/Units 06:15 POC Glucose (mg/dL) 111 H (75-99) mg/dL
[2021-06-18 00:36] LABS: Glucose,Whole Blood 116 mg/dL (75-99)
[2021-06-18] MEDS: LEVOTHYROXINE 50 MCG TAB PEG/G-TUBE SCH (05:46)
[2021-06-18 05:49] LABS: Glucose,Whole Blood 115 mg/dL (75-99)
[2021-06-18] MEDS: LIDOCAINE 5% PATCH TOPICAL SCH ×2 (09:46→10:03)
[2021-06-18] MEDS: ASPIRIN 81 MG PEG/G-TUBE SCH (09:47)
[2021-06-18] MEDS: CHOLECALCIFEROL 25 MCG (1000 IU) TABLET PEG/G-TUBE SCH (09:47)
[2021-06-18] MEDS: AMIODARONE 200 MG TAB PEG/G-TUBE SCH ×2 (09:47→17:10)
[2021-06-18] MEDS: MIDODRINE 5 MG TAB PEG/G-TUBE SCH ×3 (09:47→17:10)
[2021-06-18] MEDS: BACLOFEN 10 MG TAB PEG/G-TUBE SCH ×3 (09:47→21:36)
[2021-06-18 11:02] LABS: INR 2.5 (<1.2); Prothrombin Time 23.8 sec (9.0-12.0)
[2021-06-18 11:25] LABS: African American GFR (CKD) >90 (>60 ml/min/1.73 sqM); Anion Gap 2 mmol/L; Blood Urea Nitrogen 38 mg/dL (9-20); Calcium 8.8 mg/dL (8.4-10.2); Carbon Dioxide 34 mmol/L (22-30); Chloride 100 mmol/L (98-107); Glucose 120 mg/dL (74-99); Non-African American GFR(CKD) 81 (>60 ml/min/1.73 sqM); Sodium 136 mmol/L (137-145)
[2021-06-18 11:53] LABS: Glucose,Whole Blood 130 mg/dL (75-99)
--- NOTE | 2021-06-18 14:42 | P.PN ---
Subjective Progress Note Date: 06/18/21 76-year-old male patient was hospitalized on 06/08/2021 for shortness of breath. 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 He was also recently admitted for sepsis, aspiration pneumonia and congestion heart failure. At that time the patient was intubated and he was in a mechanical ventilator. He also tested positive for COVID-19 on 06/07/2021. Since admission, the patient was on BiPAP at a pressure of 12/6 cm of water with an FiO2 of 80%. His chest x-ray showed emphysema, cardiomegaly and small bilateral pleural effusions and some atelectatic changes in lung bases right more than l eft. His pro calcitonin level was at 1.0, LDH level was 747, and his proBNP level was 3320. he was subsequently weaned off and he was placed on oxygen 6 L per minute nasal cannula. His hypoxemic respiratory failure was multifactorial related to diastolic heart failure and a component of COVID-19 related pneumonia. He is also known to have chronic atrial fibrillation and he has a permanent pacemaker in place. He has undergone previous aortic valve replacement. He has PEG tube for enteral feeding and nutritional support and currently is on vital AF for enteral feeding and nutritional support at 60 mL an hour. He remains to receive rapamycin regarding his wounds and osteomyelitis. He was on warfarin on outpatient basis and his INR is therapeutic at this point in time at 2.7 from yesterday and 2.0 from today. Currently is on oxygen at 15 L high flow nasal cannula. Note that he was able to wean off as low as 26 L and currently is up to 15 L. In terms of his blood work, the patient is on white cell count of 4.9, sodium is at 142, potassium is at 4.4, the renal function is normal. INR is at 2.0. Days evaluation of 06/14/2021, the patient seems to much more alert and awake co mpared to yesterday. He is currently on oxygen which is running at 10 L high flow. He has a congested cough. Unable to bring up much sputum. A repeat chest x-ray was done yesterday which showed stable bilateral pulmonary infiltrates and I repeated the chest x-ray today which again showed stable changes with bilateral pneumonia. The patient has diffuse osteopenia. Small bilateral pleural effusions also also suspected. The blood cultures of been negative. The patient's white cell count is at 4.9. Electrolytes are all within normal limits. He continues to receive enteral feeding for nutritional support and the patient is currently on vital AF at the rate of 60 mL an hour. Otherwise, no other significant events overnight. INR today is at 1.9 and the patient has limited on anticoagulation with warfarin on outpatient basis. He has a stage II coccygeal wound and wound services have been consulted. Note that there are other areas around the 1 that are essentially unstageable. 06/15/2021, condition essentially the same as yesterday and the patient is currently on 9 L of oxygen by nasal cannula. He has a congested cough. Unable to bring up much sputum. No signs of any significant respiratory distress. His breathing is nonlabored and the patient is still being treated for complications of COVID 19 related pneumonia. Meanwhile, he is receiving enteral feeding for nutritional support. The patient is currently on anticoagulation with warfarin. INR today is at 1.9 and accordingly the warfarin will be dosed. He is receiving enteral feeding for the treatment support with vital AF at the rate of cc an hour. He is having liquidy loose bowel movements. No nausea. No vomiting. No abdominal pain. He is awake and alert. He has had a previous left-sided CVA with chronic right-sided deficits. He has CHF and chronic wounds in his lower extremities/healed and the patient has a unstageable wound in his sacrum. On today's evaluation on 06/16/2021 patient seen in follow-up on selective care unit, he is awake and alert, she is currently on 8 L per high flow nasal cannula his pulse ox of 98%. This is an improvement from a couple days ago when patient was requiring 15 L per high flow nasal cannula. He has been wearing BiPAP support at bedtime and intermittently, tolerates it very well. His been afebrile, hemodynamically has been stable, he denies worsening dyspnea, his cough is still weak, and congested, but patient is able to clear some phlegm with encouragement. He remains on PEG tube feedings, he is receiving vital EF at a rate of 75 at goal, we stand water flushes, overall she is looking better, he is more alert, he is able to make his needs known, he discussed his CODE STATUS with his brother on the phone, and it was decided that he does not want to be intubated but wants to continue with supportive treatment. His voice is weak, but he is able to communicate, and at times she is writing stuff down for the staff to read. He is oriented 3. He is currently talking to his brother on the phone. He denies any acute distress. His chest x-ray today shows stable bilateral consolidation and pleural effusion unchanged from prior exam. Today his labs have been reviewed, his white count is stable and is within normal limits at 4.5, hemoglobin is 8.5, his INR today is 2.0, sodium is 140, potassium is 4.7, CO2 is 35, BUN 23 creatinine 0.91. His blood cultures have been negative. Patient remains on daptomycin antibiotics, he is not on any steroids, and he is on Coumadin for anticoagulation. Oxygenation is improving. 06/17/2021, the patient is looking much better. He is on 8 L of Oxymizer nasal cannula. His, dictating normally. He had some issues with a PEG tube the Clock with some probably medication particles and crystals and this is going to be taking care of her flushed accordingly. Otherwise, the patient is doing well. No nausea or vomiting. No chest pain. No shortness of breath. He is resting comfortably in bed. The patient's blood work today shows a white cell count of 4.6 with a hemoglobin of 8.8. INR is septic at 2.2. Urine is a 39 with a creatinine of 0.8 and the sodium is at 136 with a potassium level of 5.0. No other significant events otherwise for now. No hypotension. 9 chronic instability. The patient continues to be on warfarin and INR today is up to 2.2. 06/18/2021, the patient is on 6 L of oxygen by nasal cannula. Activity and flushed and the patient was restarted on enteral feeding for nutritional support. Doing well. No specific complaints. No signs of any respiratory dis tress. Cough is essentially stronger compared to earlier evaluations. No abdominal distention. No nausea or vomiting. The INR today is at 2.5. Aggressive electrodes are all within normal limits. No other significant events overnight. No aspiration. Patient is stooling. Objective - Vital Signs Vital signs: Vital Signs Temp 98.5 F 06/18/21 08:00 Pulse 78 06/18/21 08:00 Resp 18 06/18/21 08:00 BP 101/67 06/18/21 08:00 Pulse Ox 98 06/18/21 08:00 Intake & Output 06/17/21 06/18/21 06/18/21 18:59 06:59 18:59 Intake Total 1440 780 720 Output Total 450 1525 Balance 990 -745 720 Weight 89 kg Intake: Oral 0 Tube Feeding 1440 720 720 Other 60 Output: Urine 450 1525 Other: Voiding Method Indwelling Catheter Indwelling Catheter Indwelling Catheter - Exam Oriented 3, mild tachypnea. Currently on 8 L of oxygen by nasal cannula. He has signs of CVA and right-sided weakness and hemiparesis. Otherwise, his breathing is nonlabored and the patient is calm and comfortable. HEENT examination is grossly unremarkable. Neck supple. Full range of motion. No adenopathy thyromegaly or neck vein distention. Cardiovascular examination reveals an irregular rhythm and rate. S1-S2 normal. No S3 or S4. No discernible murmur noted. Heart sounds are distant. Lungs reveal scattered bilateral rhonchi. Bibasilar crackles are noted. No wheezes. Breath sounds equal bilaterally. Abdomen soft bowel sounds are heard. No masses or tenderness. The patient is a PEG tube in the abdominal wall. The exit site is dry clean and intact. Extremities are intact. No cyanosis clubbing or edema. Skin is without rash or lesion. Neurologic examination is brief right sided weakness because of a secondary to old CVA - Labs CBC & Chem 7: 06/17/21 09:20 06/18/21 10:27 Labs: Abnormal Lab Results - Last 24 Hours (Table) 06/18/21 06/18/21 06/18/21 Range/Units 00:25 05:45 10:27 PT 23.8 H (9.0-12.0) sec INR 2.5 H (<1.2) Sodium (137-145) mmol/L Carbon Dioxide (22-30) mmol/L BUN (9-20) mg/dL Glucose (74-99) mg/dL POC Glucose (mg/dL) 116 H 115 H (75-99) mg/dL 06/18/21 06/18/21 Range/Units 10:27 11:52 PT (9.0-12.0) sec INR (<1.2) Sodium 136 L (137-145) mmol/L Carbon Dioxide 34 H (22-30) mmol/L BUN 38 H (9-20) mg/dL Glucose 120 H (74-99) mg/dL POC Glucose (mg/dL) 130 H (75-99) mg/dL Assessment and Plan Plan: 1 Acute hypoxemic respiratory failure, likely multifactorial, in part related to diastolic CHF, as well as possible coronavirus associated pneumonia. Note that the patient was in the hospital back in early May 2021 and at that time, the patient had complete opacification of the left lung requiring intubation mechanical ventilation and a bronchial alveolar lavage that was obtained via bronchoscopy on 05/20/2021 was positive for Klebsiella and the patient was covered with IV Zosyn. He did have also bilateral pneumonia with lower lobe pulmonary infiltrates. the chest x-ray still showing bilateral lower lobe pulmonary infiltrates and effusions. The patient clinically is improved on today's evaluation. Overall condition is stable for now. He remains on 6 L of oxygen by nasal cannula. Much more alert and awake and the strength of the cough is improved compared to earlier evaluations. 2 History of chronic atrial fibrillation. Patient has been maintained on warfarin outpatient basis, INR from yesterday was at 2.5 3 History of discitis with recent surgical intervention [facility] with underlying enterococcal bacteremia and the patient remains on daptomycin 4 Status post pacemaker insertion. 5 History of aortic valve replacement. 6 History of diastolic CHF. The patient has chronic diastolic heart failure with an ejection fraction of 55-60% 7 History of CVA. 8 History of essential hypertension. 9 Status post PEG tube placement. The patient is being vital AF at the rate of 60s an hour, the tube has been flushed 10 History of aspiration pneumonia. 11 Multiple other medical problems and comorbidities. 12 decubitus ulcer stage II/ unstageable at other spots 13 hypertension 14 chronic back pain 15 history of persistent chronic atrial fibrillation maintained on amiodarone on outpatient basis Plan: Monitor respiratory status and keep the patient on 6 L per minute nasal cannula, we'll titrate oxygen. Neck is a saturation above 90%. Continue anticoagulation with warfarin and INR is at 2. 5 Resume the tube feeding once the appropriate connection is found then connected , the tube is functional and the patient is continued on enteral feeding for nutritional support. The patient continues to have poor cough and for ability to clear his secretions. He is obviously at high risk of progressing either from COVID 19 or from aspiration pneumonia which can be an ongoing episodic problem. For now, we'll patient will be kept nothing by mouth. Continue enteral feeding for nutritional support. Wound care services have been involved as the patient has a stage II and a surrounding unstageable coccygeal wounds. No signs of any infection.
--- NOTE | 2021-06-18 15:36 | P.PN ---
Subjective Progress Note Date: 06/18/21 This is a 76-year-old male who was recently admitted with acute bilateral pneumonia with acute hypoxic respiratory failure and also has had changes in mental status and is being closely monitored. Pulmonary and ID following. Patient is continued on IV daptomycin for recent diskitis. Patient had a positiv e covid test. Patient was recently at [facility] for rehabilitation and IV antibiotic therapy. Patient continued on tube feeds with recent peg tube placement. Patient off of bipap this morning and weaning FI02 as tolerated. Patient is on coumadin and will continue hold with close monitoring and labs in the am. 06/11/2021 Patient is seen and evaluated and follow-up this morning awake and responding to commands and questions appropriately. Patient continues with BiPAP at night and maintained on 4 L via nasal cannula and denies any worsening shortness of breath. Patient states he still feels shortness of breath though. Coumadin continues to be held pharmacy to dose and INR today is 3.9 and will hold and repeat labs. Pulmonary following closely and chest x-ray was ordered showing chronic emphysematous change and cardiomegaly with small bilateral pleural effusions and associated bibasilar infiltrate and/or atelectasis redemonstrated with no significant change from 2 days previous. Continue with local wound care to the coccyx region along with bilateral calcaneus. Continue with offloading boots and frequent position changes. 06/12/2021 Patient is seen in follow up this morning and is being closely monitored. Patient is having some low oxygen readings and using intermittent bipap and also maintained on 5-6 L via NC. Patient is awake, somewhat confused at times, but more alert. Patient is being followed by ID and pulmonary. Patient is also maintained on IV antibiotics and tube feedings and tolerating. Patient is afebrile. No reports of chest pain. Patient has been having loose frequent stools and will order cdiff. Discontinue colace. INR is 2.7 and will have pharmacy dose coumadin. 06/13/2021 Patient seen this morning extremely lethargic and requiring more oxygen. Patient continues with bipap at night and as needed. Patient currently on 15L HF and non-rebreather. Chest xray shows stable correlate for bilateral pneumonia. Pulmonary, ID, and cardio following. Patient was also covid positive although not behaving as such. Patient continues on IV daptomycin. 06/14/2021 Patient is seen today awake alert and oriented 2-3. Patient is maintained on 15 L high flow this morning and did not use BiPAP last night. Attempts at weaning FiO2 continue and patient tends to have shortness of breath. Rhonchorous lung sounds throughout and crackles noted as well. Chest x-ray shows a stable x-ray to correlate for bilateral pneumonia likely superimposed on a background COPD. Wound care consulted again as patient's decubitus ulcer is worse in intensity. Stage II decubitus ulcer being treated with honey alginate and saline moistened gauze and sacrum border foam and recommend continue with frequent position changes. Is extremely weak and will require ECF once sta bilized. Patient may also likely require a Covid hub center that can accommodate BiPAP. Social work is following. 06/15/2021 Patient is seen in follow up this morning and continues on 8 L HF and has been more alert today and more responsive. Per nursing staff patient is brushing his own teeth. Discussion was had with patient and brother about code status and patient would not like to be on mechanical vent other hernandez yes to other life saving measures. Patient is afebrile. Pulmonary, ID, and cardio following. Patient INR today is 1.9 today and pharmacy dosing. will repeat am labs. 06/16/2021 Patient is seen and evaluated in follow up this morning and maintained on 8L HF with oxygen saturations about 96% and will continue to wean as tolerated. Intermittent bipap use as needed. Multiple medical consultations following. Patient maintained on IV daptomycin and ID is following. Maintain tube feeding and tolerating. INR is 2.0 with pharmacy dosing coumadin. Sodium is 140, potassium is 4.7, creatinine is 0.91, WBC is 4.5, hemoglobin is 8.5. Sacral region continues with local wound care with frequent position changes and will order specialty mattress for offloading pressure. 06/17/2021 Patient is seen this morning resting comfortably and easily arousable. Patient contiinues on 8L HF via NC and instructed nursing staff to continue to wean FI02 as tolerated. Intermittent bipap use at night as needed. Patient also maintained on IV daptomycin with ID following. INR is 2.2 as patient continues on coumadin 06/18/2021 Patient evaluated today resting in bed. Patient is currently denying pain. Vitals today: Temp 98.5, heart rate 78, blood pressure 101/67, 98% on 6L HF NC. INR today is 2.5, sodium 136, potassium 5, co2 34, BUN 38, creatinine 0.92. Sugars in the 100's. Patient stated that he had a difficult night, and was advised to use the BiPAP as needed while sleeping. There was a stat urinalysis ordered 10 days ago that was never collected. Patient is being followed by pulmarcela quijano and ID. Enteral feeding was able to be resumed today. Abdomen is soft and nontender. Review of systems: Constitutional: reports of fatigue and overall weakness Resp: Continues with shortness of breath and patient states no worse, weak cough Cardio: no reports of chest pain or palpitations Neuro: reports weakness All medications have been reviewed Active Medications Physical exam: Gen: This is 76-year-old male who is awake, alert and oriented 3, well-dev eloped, well-nourished..Ill appearing HEENT: Head is atraumatic, normocephalic. Pupils equal, round. Sclerae is anicteric. NECK: Supple. No JVD. No lymphadenopathy. No thyromegaly. LUNGS: Breath sounds are diminished at the bases with scattered course rhonchi noted. Some mild crackles noted as well. No intercostal retractions. HEART: S1, S2 are muffled ABDOMEN: Soft. Obese. Bowel sounds are present. No masses. No tenderness. EXTREMITIES: generalized edema. No calf tenderness. NEUROLOGICAL: Alert and oriented 3, diffusely weak SKIN: generalized edema noted throughout, muscle wasting noted as well of face, neck, and shoulders. Assessment: -Acute bilateral pneumonia with acute hypoxic respiratory failure with possible sepsis, present on admission, on 6L NC HF -Acute respiratory acidosis -Change in mental status, acute metabolic encephalopathy, multifactorial, improving -Coumadin coagulopathy with monitoring -COVID-19, test positive -history of recent aspiration pneumonia with hypoxic respiratory failure -History of recent acute stroke and change in mental status with right-sided stroke -history of recent complete opacification of the left hemithorax secondary to aspiration -Status post PEG tube placement -PEG tube feedings and monitoring with diarrhea, that has resolved -Multiple organisms growing from the culture including Makenna albicans and Klebsiella recently -congestive heart failure with chronic diastolic dysfunction -Chronic atrial fibrillation with fast ventricular rate this admission, currently rate controlled. -Acute kidney injury with acute renal failure, acute tubular necrosis with severe sepsis, improved -history of aortic prosthetic replacement -chronic low back pain and degenerative joint disease -Stage II decubitus ulcer with surrounding unstageable -Bilateral calcaneus stage I ulcers -Hypertension -permanent pacemaker -severe protein calorie malnutrition -anemia, normocytic anemia of chronic disease DVT Prophylaxis: Coumadin Full code, with no vent Plan: Recommend to continue with current medications and management. pulmonary, ID, cardio, following. Patient to continue on IV daptomycin. Patient is weaning FI02 as tolerated and continues with 6L HF. Oxygen saturations above 95%, use BiPAP as needed. INR is 2.5 and pharmacy to dose coumadin. Recommend continue with local wound care and frequent position changes and offloading boots. Will order specialty offloading mattress. discussed with the nurse about maintaining strict aspiration precautions of head of the bed elevated 45 at all times. As patient is an extremely high risk. PEG tube feedings were able to be resumed. Due to multiple complex medical issues prognosis is guarded. Patient will be going to ECF once stabilized and discharged. Objective - Vital Signs Vital signs: Vital Signs Temp 98.5 F 06/18/21 08:00 Pulse 78 06/18/21 08:00 Resp 18 06/18/21 08:00 BP 101/67 06/18/21 08:00 Pulse Ox 98 06/18/21 08:00 Intake & Output 06/17/21 06/18/21 06/18/21 18:59 06:59 18:59 Intake Total 1440 780 720 Output Total 450 1525 Balance 990 -745 720 Weight 89 kg Intake: Oral 0 Tube Feeding 1440 720 720 Other 60 Output: Urine 450 1525 Other: Voiding Method Indwelling Catheter Indwelling Catheter Indwelling Catheter - Labs CBC & Chem 7: 06/17/21 09:20 06/18/21 10:27 Labs: Abnormal Lab Results - Last 24 Hours (Table) 06/18/21 06/18/21 06/18/21 Range/Units 00:25 05:45 10:27 PT 23.8 H (9.0-12.0) sec INR 2.5 H (<1.2) Sodium (137-145) mmol/L Carbon Dioxide (22-30) mmol/L BUN (9-20) mg/dL Glucose (74-99) mg/dL POC Glucose (mg/dL) 116 H 115 H (75-99) mg/dL 06/18/21 06/18/21 Range/Units 10:27 11:52 PT (9.0-12.0) sec INR (<1.2) Sodium 136 L (137-145) mmol/L Carbon Dioxide 34 H (22-30) mmol/L BUN 38 H (9-20) mg/dL Glucose 120 H (74-99) mg/dL POC Glucose (mg/dL) 130 H (75-99) mg/dL
[2021-06-18] MEDS ORDERED: WARFARIN 5 MG TAB PO ONE (18:00)
[2021-06-18 18:18] LABS: Glucose,Whole Blood 127 mg/dL (75-99)
[2021-06-18 20:49] LABS: Glucose,Whole Blood 112 mg/dL (75-99)
--- NOTE | 2021-06-18 21:45 | PN ---
PROGRESS NOTE DATE OF SERVICE: 06/18/2021 REASON FOR FOLLOWUP: Lumbar diskitis and positive COVID test. INTERVAL HISTORY: The patient is afebrile. The patient is slightly more awake and alert. The patient is currently down to 5 L nasal cannula. The patient denies having any chest pain. No worsening cough or sputum production. No abdominal pain or diarrhea. PHYSICAL EXAMINATION: Blood pressure is 106/66, pulse of 75, temperature 98.7. He is 98% on 5 L nasal cannula. General description is an elderly male up in the bed in no distress. Respiratory system: Unlabored breathing, decreased intensity of breath sounds. No wheeze. Heart S1, S2. Regular rate and rhythm. Abdomen soft, no tenderness. LABS: BUN of 38, creatinine 0.92. Blood culture repeat has been negative. DIAGNOSTIC IMPRESSION AND PLAN: 1. Patient with lumbar diskitis with a history of Enterococcus faecalis bacteremia. Patient is covered with daptomycin; to finish his course of antibiotic. 2. Patient admitted to hospital with a positive COVID test, some respiratory distress, possibly cardiac etiology, as the patient seems to have shown overall clinical improvement. Continue with supportive care. MMODL / IJN: [id number] /
[2021-06-18 23:57] LABS: Glucose,Whole Blood 98 mg/dL (75-99)
[2021-06-19 03:37] LABS: Appearance,Urine Clear (Clear); Bilirubin,Urine Negative (Negative); Blood,Urine Negative (Negative); Color,Urine Yellow; Glucose,Urine (UA) Negative (Negative); Ketones,Urine Negative (Negative); Leukocyte Esterase,Urine Moderate (Negative); Mucus,Urine Rare /hpf; Nitrite,Urine Negative (Negative); Protein,Urine Trace (Negative); Specific Gravity,Urine 1.018 (1.001-1.035); Squamous Epithelial Cell,Urine <1 /hpf (0-4); Urobilinogen,Urine <2.0 mg/dL (<2.0); WBC,Urine 36 /hpf (0-5)
[2021-06-19] MEDS: LEVOTHYROXINE 50 MCG TAB PEG/G-TUBE SCH (06:04)
[2021-06-19 06:34] LABS: Glucose,Whole Blood 122 mg/dL (75-99)
[2021-06-19 08:49] LABS: INR 2.7 (<1.2); Prothrombin Time 26.4 sec (9.0-12.0)
[2021-06-19 08:51] LABS: ALT 18 U/L (4-49); AST 26 U/L (17-59); African American GFR (CKD) >90 (>60 ml/min/1.73 sqM); Albumin 2.7 g/dL (3.5-5.0); Alkaline Phosphatase 102 U/L (38-126); Anion Gap 3 mmol/L; Blood Urea Nitrogen 41 mg/dL (9-20); Carbon Dioxide 34 mmol/L (22-30); Chloride 98 mmol/L (98-107); Glucose 108 mg/dL (74-99); Non-African American GFR(CKD) 84 (>60 ml/min/1.73 sqM); Potassium 4.9 mmol/L (3.5-5.1); Sodium 135 mmol/L (137-145); Total Bilirubin 0.2 mg/dL (0.2-1.3); Total Protein 6.2 g/dL (6.3-8.2)
[2021-06-19] MEDS: LIDOCAINE 5% PATCH TOPICAL SCH (09:05)
[2021-06-19] MEDS: MIDODRINE 5 MG TAB PEG/G-TUBE SCH ×3 (09:05→17:22)
[2021-06-19] MEDS: ASPIRIN 81 MG PEG/G-TUBE SCH (09:05)
[2021-06-19] MEDS: CHOLECALCIFEROL 25 MCG (1000 IU) TABLET PEG/G-TUBE SCH (09:05)
[2021-06-19] MEDS: AMIODARONE 200 MG TAB PEG/G-TUBE SCH ×2 (09:05→17:22)
[2021-06-19] MEDS: BACLOFEN 10 MG TAB PEG/G-TUBE SCH ×3 (09:05→21:12)
[2021-06-19 11:47] LABS: Glucose,Whole Blood 125 mg/dL (75-99)
--- NOTE | 2021-06-19 14:34 | P.PN ---
Subjective Progress Note Date: 06/19/21 This is a 76-year-old male who was recently admitted with acute bilateral pneumonia with acute hypoxic respiratory failure and also has had changes in mental status and is being closely monitored. Pulmonary and ID following. Patient is continued on IV daptomycin for recent diskitis. Patient had a positiv e covid test. Patient was recently at [facility] for rehabilitation and IV antibiotic therapy. Patient continued on tube feeds with recent peg tube placement. Patient off of bipap this morning and weaning FI02 as tolerated. Patient is on coumadin and will continue hold with close monitoring and labs in the am. 06/11/2021 Patient is seen and evaluated and follow-up this morning awake and responding to commands and questions appropriately. Patient continues with BiPAP at night and maintained on 4 L via nasal cannula and denies any worsening shortness of breath. Patient states he still feels shortness of breath though. Coumadin continues to be held pharmacy to dose and INR today is 3.9 and will hold and repeat labs. Pulmonary following closely and chest x-ray was ordered showing chronic emphysematous change and cardiomegaly with small bilateral pleural effusions and associated bibasilar infiltrate and/or atelectasis redemonstrated with no significant change from 2 days previous. Continue with local wound care to the coccyx region along with bilateral calcaneus. Continue with offloading boots and frequent position changes. 06/12/2021 Patient is seen in follow up this morning and is being closely monitored. Patient is having some low oxygen readings and using intermittent bipap and also maintained on 5-6 L via NC. Patient is awake, somewhat confused at times, but more alert. Patient is being followed by ID and pulmonary. Patient is also maintained on IV antibiotics and tube feedings and tolerating. Patient is afebrile. No reports of chest pain. Patient has been having loose frequent stools and will order cdiff. Discontinue colace. INR is 2.7 and will have pharmacy dose coumadin. 06/13/2021 Patient seen this morning extremely lethargic and requiring more oxygen. Patient continues with bipap at night and as needed. Patient currently on 15L HF and non-rebreather. Chest xray shows stable correlate for bilateral pneumonia. Pulmonary, ID, and cardio following. Patient was also covid positive although not behaving as such. Patient continues on IV daptomycin. 06/14/2021 Patient is seen today awake alert and oriented 2-3. Patient is maintained on 15 L high flow this morning and did not use BiPAP last night. Attempts at weaning FiO2 continue and patient tends to have shortness of breath. Rhonchorous lung sounds throughout and crackles noted as well. Chest x-ray shows a stable x-ray to correlate for bilateral pneumonia likely superimposed on a background COPD. Wound care consulted again as patient's decubitus ulcer is worse in intensity. Stage II decubitus ulcer being treated with honey alginate and saline moistened gauze and sacrum border foam and recommend continue with frequent position changes. Is extremely weak and will require ECF once sta bilized. Patient may also likely require a Covid hub center that can accommodate BiPAP. Social work is following. 06/15/2021 Patient is seen in follow up this morning and continues on 8 L HF and has been more alert today and more responsive. Per nursing staff patient is brushing his own teeth. Discussion was had with patient and brother about code status and patient would not like to be on mechanical vent other hernandez yes to other life saving measures. Patient is afebrile. Pulmonary, ID, and cardio following. Patient INR today is 1.9 today and pharmacy dosing. will repeat am labs. 06/16/2021 Patient is seen and evaluated in follow up this morning and maintained on 8L HF with oxygen saturations about 96% and will continue to wean as tolerated. Intermittent bipap use as needed. Multiple medical consultations following. Patient maintained on IV daptomycin and ID is following. Maintain tube feeding and tolerating. INR is 2.0 with pharmacy dosing coumadin. Sodium is 140, potassium is 4.7, creatinine is 0.91, WBC is 4.5, hemoglobin is 8.5. Sacral region continues with local wound care with frequent position changes and will order specialty mattress for offloading pressure. 06/17/2021 Patient is seen this morning resting comfortably and easily arousable. Patient contiinues on 8L HF via NC and instructed nursing staff to continue to wean FI02 as tolerated. Intermittent bipap use at night as needed. Patient also maintained on IV daptomycin with ID following. INR is 2.2 as patient continues on coumadin 06/18/2021 Patient evaluated today resting in bed. Patient is currently denying pain. Vitals today: Temp 98.5, heart rate 78, blood pressure 101/67, 98% on 6L HF NC. INR today is 2.5, sodium 136, potassium 5, co2 34, BUN 38, creatinine 0.92. Sugars in the 100's. Patient stated that he had a difficult night, and was advised to use the BiPAP as needed while sleeping. There was a stat urinalysis ordered 10 days ago that was never collected. Patient is being followed by pulmarcela quijano and ID. Enteral feeding was able to be resumed today. Abdomen is soft and nontender. 06/19/2021 Patient today states that there was no acute events overnight. RN at the bedside states that his decubitus ulcer on his bottom is worsening and we will request a reevaluation by wound care services tomorrow Sunday, for now continue current orders. The pressure injury to his left heel seems to have progressed past a stage 1 as there is purple discoloration not blanchable however the skin is intact, more likely an unstageable deep tissue, right heel remains blanchab le. Otherwise, oxygen is being weaned, he is 99% on 4L HF cannual, blood pressure marginal at 104/64, heart rate 72, temp 98.1. Labs today, INR 2.7, sodium 135, potassium 4.9. Patient is on bag of IV daptomycin. Review of systems: Constitutional: reports of fatigue and overall weakness Resp: Continues with shortness of breath and patient states no worse, weak cough Cardio: no reports of chest pain or palpitations Neuro: reports weakness All medications have been reviewed Physical exam: Gen: This is 76-year-old male who is awake, alert and oriented 3, well- developed, well-nourished..Ill appearing HEENT: Head is atraumatic, normocephalic. Pupils equal, round. Sclerae is anict clemente. NECK: Supple. No JVD. No lymphadenopathy. No thyromegaly. LUNGS: Breath sounds are diminished at the bases with scattered course rhonchi noted. Some mild crackles noted as well. No intercostal retractions. HEART: S1, S2 are muffled ABDOMEN: Soft. Obese. Bowel sounds are present. No masses. No tenderness. EXTREMITIES: generalized edema. No calf tenderness. NEUROLOGICAL: Alert and oriented 3, diffusely weak SKIN: generalized edema noted throughout, muscle wasting noted as well of face, neck, and shoulders. As described above in HPI, deferred to wound management Assessment: -Acute bilateral pneumonia with acute hypoxic respiratory failure with possible sepsis, present on admission, on 4L NC HF -Acute respiratory acidosis, improved -Change in mental status, acute metabolic encephalopathy, multifactorial, improved -Coumadin coagulopathy with monitoring -COVID-19, test positive -history of recent aspiration pneumonia with hypoxic respiratory failure -History of recent acute stroke and change in mental status with right-sided stroke -history of recent complete opacification of the left hemithorax secondary to aspiration -Status post PEG tube placement -PEG tube feedings and monitoring with diarrhea, that has resolved -Multiple organisms growing from the culture including Makenna albicans and Klebsiella recently -congestive heart failure with chronic diastolic dysfunction -Chronic atrial fibrillation with fast ventricular rate this admission, currently rate controlled. -Acute kidney injury with acute renal failure, acute tubular necrosis with severe sepsis, improved -history of aortic prosthetic replacement -chronic low back pain and degenerative joint disease -Stage II decubitus ulcer with surrounding unstageable -Bilateral calcaneus stage I ulcers -Hypertension -permanent pacemaker -severe protein calorie malnutrition -anemia, normocytic anemia of chronic disease DVT Prophylaxis: Coumadin Full code, with no vent Plan: Recommend to continue with current medications and management. pulmonary, ID, cardio, following. Patient to continue on IV daptomycin. Patient is weaning FI02 as tolerated and continues with 4L HF. Oxygen saturations above 95%, use BiPAP as needed. INR is 2.7 and pharmacy to dose coumadin. Recommend continue with local wound care and frequent position changes and offloading boots. Will order specialty offloading mattress. discussed with the nurse about maintaining strict aspiration precautions of head of the bed elevated 45 at all times. As patient is an extremely high risk. PEG tube feedings were able to be resumed. Due to multiple complex medical issues prognosis is guarded. Patient will be going to ECF once stabilized and discharged. -Reconsult wound management for re-evaluation of decubitus ulcer as it has progressed beyond stage 2 per RN. Objective - Vital Signs Vital signs: Vital Signs Temp 98.0 F 06/19/21 08:00 Pulse 71 06/19/21 08:00 Resp 18 06/19/21 08:00 BP 103/62 06/19/21 08:00 Pulse Ox 97 06/19/21 06:00 Intake & Output 06/18/21 06/19/21 06/19/21 18:59 06:59 18:59 Intake Total 375 750 Output Total 550 402 Balance -175 348 Weight 88.5 kg Intake: Tube Feeding 375 750 Output: Urine 550 400 Coude 550 200 Stool 2 Other: Voiding Method Indwelling Catheter Indwelling Catheter - Labs CBC & Chem 7: 06/17/21 09:20 06/19/21 07:51 Labs: Abnormal Lab Results - Last 24 Hours (Table) 06/18/21 06/18/21 06/18/21 Range/Units 10:27 11:52 18:16 PT (9.0-12.0) sec INR (<1.2) Sodium 136 L (137-145) mmol/L Carbon Dioxide 34 H (22-30) mmol/L BUN 38 H (9-20) mg/dL Glucose 120 H (74-99) mg/dL POC Glucose (mg/dL) 130 H 127 H (75-99) mg/dL Total Protein (6.3-8.2) g/dL Albumin (3.5-5.0) g/dL Urine Protein (Negative) Ur Leukocyte Esterase (Negative) Urine WBC (0-5) /hpf Urine Mucus (None) /hpf 06/18/21 06/19/21 06/19/21 Range/Units 20:26 03:00 06:16 PT (9.0-12.0) sec INR (<1.2) Sodium (137-145) mmol/L Carbon Dioxide (22-30) mmol/L BUN (9-20) mg/dL Glucose (74-99) mg/dL POC Glucose (mg/dL) 112 H 122 H (75-99) mg/dL Total Protein (6.3-8.2) g/dL Albumin (3.5-5.0) g/dL Urine Protein Trace H (Negative) Ur Leukocyte Esterase Moderate H (Negative) Urine WBC 36 H (0-5) /hpf Urine Mucus Rare H (None) /hpf 06/19/21 06/19/21 Range/Units 07:51 07:51 PT 26.4 H (9.0-12.0) sec INR 2.7 H (<1.2) Sodium 135 L (137-145) mmol/L Carbon Dioxide 34 H (22-30) mmol/L BUN 41 H (9-20) mg/dL Glucose 108 H (74-99) mg/dL POC Glucose (mg/dL) (75-99) mg/dL Total Protein 6.2 L (6.3-8.2) g/dL Albumin 2.7 L (3.5-5.0) g/dL Urine Protein (Negative) Ur Leukocyte Esterase (Negative) Urine WBC (0-5) /hpf Urine Mucus (None) /hpf
--- NOTE | 2021-06-19 15:04 | P.PN ---
Subjective Progress Note Date: 06/19/21 76-year-old male patient was hospitalized on 06/08/2021 for shortness of breath. 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 He was also recently admitted for sepsis, aspiration pneumonia and congestion heart failure. At that time the patient was intubated and he was in a mechanical ventilator. He also tested positive for COVID-19 on 06/07/2021. Since admission, the patient was on BiPAP at a pressure of 12/6 cm of water with an FiO2 of 80%. His chest x-ray showed emphysema, cardiomegaly and small bilateral pleural effusions and some atelectatic changes in lung bases right more than l eft. His pro calcitonin level was at 1.0, LDH level was 747, and his proBNP level was 3320. he was subsequently weaned off and he was placed on oxygen 6 L per minute nasal cannula. His hypoxemic respiratory failure was multifactorial related to diastolic heart failure and a component of COVID-19 related pneumonia. He is also known to have chronic atrial fibrillation and he has a permanent pacemaker in place. He has undergone previous aortic valve replacement. He has PEG tube for enteral feeding and nutritional support and currently is on vital AF for enteral feeding and nutritional support at 60 mL an hour. He remains to receive rapamycin regarding his wounds and osteomyelitis. He was on warfarin on outpatient basis and his INR is therapeutic at this point in time at 2.7 from yesterday and 2.0 from today. Currently is on oxygen at 15 L high flow nasal cannula. Note that he was able to wean off as low as 26 L and currently is up to 15 L. In terms of his blood work, the patient is on white cell count of 4.9, sodium is at 142, potassium is at 4.4, the renal function is normal. INR is at 2.0. Days evaluation of 06/14/2021, the patient seems to much more alert and awake co mpared to yesterday. He is currently on oxygen which is running at 10 L high flow. He has a congested cough. Unable to bring up much sputum. A repeat chest x-ray was done yesterday which showed stable bilateral pulmonary infiltrates and I repeated the chest x-ray today which again showed stable changes with bilateral pneumonia. The patient has diffuse osteopenia. Small bilateral pleural effusions also also suspected. The blood cultures of been negative. The patient's white cell count is at 4.9. Electrolytes are all within normal limits. He continues to receive enteral feeding for nutritional support and the patient is currently on vital AF at the rate of 60 mL an hour. Otherwise, no other significant events overnight. INR today is at 1.9 and the patient has limited on anticoagulation with warfarin on outpatient basis. He has a stage II coccygeal wound and wound services have been consulted. Note that there are other areas around the 1 that are essentially unstageable. 06/15/2021, condition essentially the same as yesterday and the patient is currently on 9 L of oxygen by nasal cannula. He has a congested cough. Unable to bring up much sputum. No signs of any significant respiratory distress. His breathing is nonlabored and the patient is still being treated for complications of COVID 19 related pneumonia. Meanwhile, he is receiving enteral feeding for nutritional support. The patient is currently on anticoagulation with warfarin. INR today is at 1.9 and accordingly the warfarin will be dosed. He is receiving enteral feeding for the treatment support with vital AF at the rate of cc an hour. He is having liquidy loose bowel movements. No nausea. No vomiting. No abdominal pain. He is awake and alert. He has had a previous left-sided CVA with chronic right-sided deficits. He has CHF and chronic wounds in his lower extremities/healed and the patient has a unstageable wound in his sacrum. On today's evaluation on 06/16/2021 patient seen in follow-up on selective care unit, he is awake and alert, she is currently on 8 L per high flow nasal cannula his pulse ox of 98%. This is an improvement from a couple days ago when patient was requiring 15 L per high flow nasal cannula. He has been wearing BiPAP support at bedtime and intermittently, tolerates it very well. His been afebrile, hemodynamically has been stable, he denies worsening dyspnea, his cough is still weak, and congested, but patient is able to clear some phlegm with encouragement. He remains on PEG tube feedings, he is receiving vital EF at a rate of 75 at goal, we stand water flushes, overall she is looking better, he is more alert, he is able to make his needs known, he discussed his CODE STATUS with his brother on the phone, and it was decided that he does not want to be intubated but wants to continue with supportive treatment. His voice is weak, but he is able to communicate, and at times she is writing stuff down for the staff to read. He is oriented 3. He is currently talking to his brother on the phone. He denies any acute distress. His chest x-ray today shows stable bilateral consolidation and pleural effusion unchanged from prior exam. Today his labs have been reviewed, his white count is stable and is within normal limits at 4.5, hemoglobin is 8.5, his INR today is 2.0, sodium is 140, potassium is 4.7, CO2 is 35, BUN 23 creatinine 0.91. His blood cultures have been negative. Patient remains on daptomycin antibiotics, he is not on any steroids, and he is on Coumadin for anticoagulation. Oxygenation is improving. 06/17/2021, the patient is looking much better. He is on 8 L of Oxymizer nasal cannula. His, dictating normally. He had some issues with a PEG tube the Clock with some probably medication particles and crystals and this is going to be taking care of her flushed accordingly. Otherwise, the patient is doing well. No nausea or vomiting. No chest pain. No shortness of breath. He is resting comfortably in bed. The patient's blood work today shows a white cell count of 4.6 with a hemoglobin of 8.8. INR is septic at 2.2. Urine is a 39 with a creatinine of 0.8 and the sodium is at 136 with a potassium level of 5.0. No other significant events otherwise for now. No hypotension. 9 chronic instability. The patient continues to be on warfarin and INR today is up to 2.2. 06/18/2021, the patient is on 6 L of oxygen by nasal cannula. Activity and flushed and the patient was restarted on enteral feeding for nutritional support. Doing well. No specific complaints. No signs of any respiratory dis tress. Cough is essentially stronger compared to earlier evaluations. No abdominal distention. No nausea or vomiting. The INR today is at 2.5. Aggressive electrodes are all within normal limits. No other significant events overnight. No aspiration. Patient is stooling. 06/19/2021, the patient is on 4 L of oxygen by nasal cannula. On and off is also utilizing the 100% on a nonrebreather facemask. Upon talking to the nursing staff, I was told that the patient prefers to get more supplemental oxygen which gives him psychologically some relief. Otherwise, his condition of the same. The patient is receiving enteral feeding for nutritional support. He denies any complaints. He has expressive aphasia and the patient has chronic right-sided weakness related to previous CVA. Cough is weak yet improved. Unable to bring up much sputum. On today's blood work, the INR is at 2.7, sod ium is at 135, creatinine is at 41 with a creatinine of 0.8. Glucose 125. Objective - Vital Signs Vital signs: Vital Signs Temp 98.1 F 06/19/21 12:47 Pulse 72 06/19/21 14:00 Resp 20 06/19/21 14:00 BP 104/64 06/19/21 12:47 Pulse Ox 99 06/19/21 12:47 Intake & Output 06/18/21 06/19/21 06/19/21 18:59 06:59 18:59 Intake Total 375 750 375 Output Total 550 402 402 Balance -175 348 -27 Weight 88.5 kg Intake: Tube Feeding 375 750 375 Output: Urine 550 400 400 Coude 550 200 400 Stool 2 2 Other: Voiding Method Indwelling Catheter Indwelling Catheter Indwelling Catheter - Exam Oriented 3, mild tachypnea. Currently on 4 L of oxygen by nasal cannula. He has signs of CVA and right-sided weakness and hemiparesis. Otherwise, his breathing is nonlabored and the patient is calm and comfortable. HEENT examination is grossly unremarkable. Neck supple. Full range of motion. No adenopathy thyromegaly or neck vein distention. Cardiovascular examination reveals an irregular rhythm and rate. S1-S2 normal. No S3 or S4. No discernible murmur noted. Heart sounds are distant. Lungs reveal scattered bilateral rhonchi. Bibasilar crackles are noted. No wheezes. Breath sounds equal bilaterally. Abdomen soft bowel sounds are heard. No masses or tenderness. The patient is a PEG tube in the abdominal wall. The exit site is dry clean and intact. Extremities are intact. No cyanosis clubbing or edema. Skin is without rash or lesion. Neurologic examination is brief right sided weakness because of a secondary to old CVA - Labs CBC & Chem 7: 06/17/21 09:20 06/19/21 07:51 Labs: Abnormal Lab Results - Last 24 Hours (Table) 06/18/21 06/18/21 06/19/21 Range/Units 18:16 20:26 03:00 PT (9.0-12.0) sec INR (<1.2) Sodium (137-145) mmol/L Carbon Dioxide (22-30) mmol/L BUN (9-20) mg/dL Glucose (74-99) mg/dL POC Glucose (mg/dL) 127 H 112 H (75-99) mg/dL Total Protein (6.3-8.2) g/dL Albumin (3.5-5.0) g/dL Urine Protein Trace H (Negative) Ur Leukocyte Esterase Moderate H (Negative) Urine WBC 36 H (0-5) /hpf Urine Mucus Rare H (None) /hpf 06/19/21 06/19/21 06/19/21 Range/Units 06:16 07:51 07:51 PT 26.4 H (9.0-12.0) sec INR 2.7 H (<1.2) Sodium 135 L (137-145) mmol/L Carbon Dioxide 34 H (22-30) mmol/L BUN 41 H (9-20) mg/dL Glucose 108 H (74-99) mg/dL POC Glucose (mg/dL) 122 H (75-99) mg/dL Total Protein 6.2 L (6.3-8.2) g/dL Albumin 2.7 L (3.5-5.0) g/dL Urine Protein (Negative) Ur Leukocyte Esterase (Negative) Urine WBC (0-5) /hpf Urine Mucus (None) /hpf 06/19/21 Range/Units 11:45 PT (9.0-12.0) sec INR (<1.2) Sodium (137-145) mmol/L Carbon Dioxide (22-30) mmol/L BUN (9-20) mg/dL Glucose (74-99) mg/dL POC Glucose (mg/dL) 125 H (75-99) mg/dL Total Protein (6.3-8.2) g/dL Albumin (3.5-5.0) g/dL Urine Protein (Negative) Ur Leukocyte Esterase (Negative) Urine WBC (0-5) /hpf Urine Mucus (None) /hpf Assessment and Plan Plan: 1 Acute hypoxemic respiratory failure, likely multifactorial, in part related to diastolic CHF, as well as possible coronavirus associated pneumonia. Note that the patient was in the hospital back in early May 2021 and at that time, the patient had complete opacification of the left lung requiring intubation mechanical ventilation and a bronchial alveolar lavage that was obtained via bronchoscopy on 05/20/2021 was positive for Klebsiella and the patient was covered with IV Zosyn. He did have also bilateral pneumonia with lower lobe pulmonary infiltrates. the chest x-ray still showing bilateral lower lobe pulmonary infiltrates and effusions. The patient clinically is improved on today's evaluation. Overall condition is stable for now. He remains on 4 L of oxygen by nasal cannula. Much more alert and awake and the strength of the cough is improved compared to earlier evaluations. 2 History of chronic atrial fibrillation. Patient has been maintained on warfarin outpatient basis, INR from yesterday was at 2.7 3 History of discitis with recent surgical intervention [facility] with underlying enterococcal bacteremia and the patient remains on daptomycin 4 Status post pacemaker insertion. 5 History of aortic valve replacement. 6 History of diastolic CHF. The patient has chronic diastolic heart failure with an ejection fraction of 55-60% 7 History of CVA. 8 History of essential hypertension. 9 Status post PEG tube placement. The patient is being vital AF at the rate of 60s an hour, the tube has been flushed 10 History of aspiration pneumonia. 11 Multiple other medical problems and comorbidities. 12 decubitus ulcer stage II/ unstageable at other spots 13 hypertension 14 chronic back pain 15 history of persistent chronic atrial fibrillation maintained on amiodarone on outpatient basis Plan: Monitor respiratory status and keep the patient on 4 L per minute nasal cannula, we'll titrate oxygen. Neck is a saturation above 90%. Continue anticoagulation with warfarin and INR is at 2. 7 Resumed the tube feeding once the appropriate connection is found then connected , the tube is functional and the patient is continued on enteral feeding for nutritional support. The patient continues to have poor cough and for ability to clear his secretions. He is obviously at high risk of progressing either from COVID 19 or from aspiration pneumonia which can be an ongoing episodic problem. For now, we'll patient will be kept nothing by mouth. Continue enteral feeding for nutritional support. Wound care services have been involved as the patient has a stage II and a surrounding unstageable coccygeal wounds. No signs of any infection. We are going to sign of the case and we'll see the patient on a when necessary basis only.
[2021-06-19] MEDS ORDERED: WARFARIN 5 MG TAB PO ONE (18:00)
[2021-06-19 18:04] LABS: Glucose,Whole Blood 107 mg/dL (75-99)
[2021-06-19] MEDS: ALBUTEROL HFA INHALER INHALATION PRN (21:03)
--- NOTE | 2021-06-19 21:45 | PN ---
PROGRESS NOTE DATE OF SERVICE: 06/19/2021 REASON FOR FOLLOWUP: Lumbar diskitis. INTERVAL HISTORY: The patient is afebrile. The patient is slightly more awake and alert today. He is breathing comfortably. FiO2 is currently down to 4 L. The patient denies having any chest pain or worsening cough. No abdominal pain or diarrhea. PHYSICAL EXAMINATION: Blood pressure 96/58 with a pulse of 80, temperature 97.9. He is 99% on 4 L nasal cannula. General description is an elderly male up in the bed in no distress. Respiratory system: Unlabored breathing, decreased intensity of breath sounds. No wheeze. Heart S1, S2. Regular rate and rhythm. Abdomen soft, no tenderness. LABS: Creatinine 0.88. INR is 2.7. DIAGNOSTIC IMPRESSION AND PLAN: 1. Patient with lumbar diskitis, for which the patient is currently on daptomycin. He needs another 8 days of IV daptomycin to finish his course of therapy and close outpatient followup. 2. Patient admitted to hospital with a positive COVID test with respiratory distress, possibly related to renal failure. Seems to have shown overall improvement. Continue with the current treatment protocol. MMODL / IJN: [id number] /
[2021-06-19 23:57] LABS: Glucose,Whole Blood 107 mg/dL (75-99)
[2021-06-20] MEDS: LEVOTHYROXINE 50 MCG TAB PEG/G-TUBE SCH (05:54)
[2021-06-20 06:02] LABS: Glucose,Whole Blood 122 mg/dL (75-99)
[2021-06-20] MEDS: AMIODARONE 200 MG TAB PEG/G-TUBE SCH ×2 (08:16→17:31)
[2021-06-20] MEDS: MIDODRINE 5 MG TAB PEG/G-TUBE SCH ×3 (08:16→17:30)
[2021-06-20] MEDS: CHOLECALCIFEROL 25 MCG (1000 IU) TABLET PEG/G-TUBE SCH (08:16)
[2021-06-20] MEDS: LIDOCAINE 5% PATCH TOPICAL SCH (08:16)
[2021-06-20] MEDS: ASPIRIN 81 MG PEG/G-TUBE SCH (08:16)
[2021-06-20] MEDS: BACLOFEN 10 MG TAB PEG/G-TUBE SCH ×3 (08:16→21:30)
--- NOTE | 2021-06-20 08:25 | XR ---
EXAMINATION TYPE: XR chest 1V DATE OF EXAM: 06/20/2021 COMPARISON: Chest x-ray 06/16/2021 HISTORY: Pneumonia TECHNIQUE: Single frontal view of the chest is obtained. FINDINGS: Generators present in the left pectoral region, there are leads in right atrium and ventri yonny. Patient is post median sternotomy and cardiac valve replacement. Cardiac mediastinal silhouette is stable. Bibasilar density persists, the hemidiaphragms are obscured. There is no evident pneumotho rax. There is a right-sided PICC line the distal tip coursing into the right atrium, tip not well see n. There are overlying artifacts. IMPRESSION: Bibasilar effusions and associated atelectasis, cardiomegaly, difficult to exclude pneum onia, congestive heart failure
[2021-06-20] MEDS: ALBUTEROL HFA INHALER INHALATION PRN ×3 (09:04→20:40)
[2021-06-20 10:10] LABS: Anisocytosis Slight; Basophils % (A) 1 %; Eosinophils # (A) 0.2 k/uL (0-0.7); Eosinophils % (A) 3 %; HCT 28.8 % (39.0-53.0); HGB 9.1 gm/dL (13.0-17.5); Hypochromasia Moderate; Lymphocytes # (A) 0.6 k/uL (1.0-4.8); Lymphocytes % (A) 10 %; MCH 28.2 pg (25.0-35.0); MCHC 31.6 g/dL (31.0-37.0); MCV 89.3 fL (80.0-100.0); Mean Platelet Volume 7.5; Monocytes # (A) 0.3 k/uL (0-1.0); Monocytes % (A) 5 %; Neutrophils # (A) 4.8 k/uL (1.3-7.7); Neutrophils % (A) 81 %; Platelet Count 275 k/uL (150-450); RBC 3.22 m/uL (4.30-5.90); RDW 18.1 % (11.5-15.5)
[2021-06-20 10:33] LABS: African American GFR (CKD) >90 (>60 ml/min/1.73 sqM); Anion Gap 3 mmol/L; Blood Urea Nitrogen 45 mg/dL (9-20); Carbon Dioxide 36 mmol/L (22-30); Chloride 99 mmol/L (98-107); Glucose 100 mg/dL (74-99); Non-African American GFR(CKD) 86 (>60 ml/min/1.73 sqM); Potassium 4.9 mmol/L (3.5-5.1); Sodium 138 mmol/L (137-145)
[2021-06-20 10:53] LABS: INR 2.7 (<1.2); Prothrombin Time 26.4 sec (9.0-12.0)
[2021-06-20 11:54] LABS: Glucose,Whole Blood 134 mg/dL (75-99)
--- NOTE | 2021-06-20 12:36 | P.PN ---
Subjective Progress Note Date: 06/20/21 This is a 76-year-old patient being seen in the 3 S. for nonhealing ulceration to the sacrum. Patient has maceration to bilateral buttocks. He has a stage II ulceration to his left buttocks measuring approximately 12 x 4 x 0.2 cm with fat layer exposure, minimal to no granulation seen within the wound bed significant amount of slough maceration and ecchymosis. Wound edges are attached to the wound base there is no tunneling or undermining noted. Her wound shows excoriation with flaking of the skin. Left calcaneus has a stage I pressure ulcer with intact skin. Patient's past medical history significant for atrial fibrillation, hypertension, no diabetes, lifelong nonsmoker. 06/20/2021: This is a 76-year-old patient being seen for reevaluation and acute ulcer. At the time of the of of the assessment patient was found to have no advanced wound care products on his wound. Speaking with the patient, he stated that he was not sure if any dressings were applied to the site. Patient was ord ered honey alginate however the ulceration has showed significant decline since previous assessment. Patient has increased eschar, Slough and nonviable tissue noted. Still measuring approximately 12 x 4 x 0.4 cm no tunneling or undermining noted. The periwound does show excoriation with flaking of the skin and erythema. The left calcaneus ulceration is still a stage I with ecchymosis. The skin is intact. However it is boggy. At this time there is no protection to the heels noted. Review Of Systems: Constitutional: No fever, no chills, no night sweats. No weight change. No weakness, fatigue or lethargy. No daytime sleepiness. Integumentary:reports wounds, no lesions. No rash or pruritus. No unusual bruising. No change in hair or nails. Physical exam: General Appearance: Alert, cooperative, no distress, appears stated age. Skin: See HPI all other Skin color, texture, tugor normal, no rashes or lesions. Neurologic: Alert oriented x3 Assessment: 1. Stage II pressure ulcer sacrum 2. Stage I pressure injury to left calcaneus Plan: 1. Sacral ulceration: Apply Santyl, saline moistened gauze, dry cough, ABDs and secured with paper tape. Change daily. Turn patient every 2 hours. Increased protein intake. With the patient is sitting please have him sit on air-filled cushion. Utilize the surface algorithm for the appropriate surfaces. 2. Left calcaneus: Apply zinc barrier cream and a foam border dressing rolled gauze and secured paper tape. Change daily. Utilize foam heel protectors whenever patient is sitting or lying in bed. Only remove when when he is a mbulating. Thank you for the consultation any questions please contact the wound care center DNP note has been reviewed and discussed with Dr. Garcia and the impression and plan of care has been directed as dictated. Objective - Vital Signs Vital signs: Vital Signs Temp 97.5 F L 06/20/21 08:15 Pulse 81 06/20/21 08:15 Resp 20 06/20/21 08:15 BP 100/66 06/20/21 08:15 Pulse Ox 94 L 06/20/21 08:15 Intake & Output 06/19/21 06/20/21 06/20/21 18:59 06:59 18:59 Intake Total 750 750 375 Output Total 902 750 400 Balance -152 0 -25 Weight 89.5 kg Intake: Tube Feeding 750 750 375 Output: Urine 900 750 400 Coude 400 350 Stool 2 Other: Voiding Method Indwelling Catheter Indwelling Catheter Indwelling Catheter - Labs CBC & Chem 7: 06/20/21 08:33 06/20/21 08:33 Labs: Abnormal Lab Results - Last 24 Hours (Table) 06/19/21 06/19/21 06/20/21 Range/Units 18:01 23:56 06:01 RBC (4.30-5.90) m/uL Hgb (13.0-17.5) gm/dL Hct (39.0-53.0) % RDW (11.5-15.5) % Lymphocytes # (1.0-4.8) k/uL PT (9.0-12.0) sec INR (<1.2) Carbon Dioxide (22-30) mmol/L BUN (9-20) mg/dL Glucose (74-99) mg/dL POC Glucose (mg/dL) 107 H 107 H 122 H (75-99) mg/dL 06/20/21 06/20/21 06/20/21 Range/Units 08:33 08:33 08:33 RBC 3.22 L (4.30-5.90) m/uL Hgb 9.1 L (13.0-17.5) gm/dL Hct 28.8 L (39.0-53.0) % RDW 18.1 H (11.5-15.5) % Lymphocytes # 0.6 L (1.0-4.8) k/uL PT 26.4 H (9.0-12.0) sec INR 2.7 H (<1.2) Carbon Dioxide 36 H (22-30) mmol/L BUN 45 H (9-20) mg/dL Glucose 100 H (74-99) mg/dL POC Glucose (mg/dL) (75-99) mg/dL 06/20/21 Range/Units 11:52 RBC (4.30-5.90) m/uL Hgb (13.0-17.5) gm/dL Hct (39.0-53.0) % RDW (11.5-15.5) % Lymphocytes # (1.0-4.8) k/uL PT (9.0-12.0) sec INR (<1.2) Carbon Dioxide (22-30) mmol/L BUN (9-20) mg/dL Glucose (74-99) mg/dL POC Glucose (mg/dL) 134 H (75-99) mg/dL Assessment and Plan (1) Pressure injury of left heel, stage 1 Current Visit: No Status: Acute Code(s): L89.621 - PRESSURE ULCER OF LEFT HEEL, STAGE 1 SNOMED Code(s): 301074613 (2) Pressure ulcer of sacral region, stage 2 Current Visit: No Status: Acute Code(s): L89.152 - PRESSURE ULCER OF SACRAL REGION, STAGE 2 SNOMED Code(s): 141756699
[2021-06-20] MEDS ORDERED: COLLAGENASE 250 UNIT/GM OINTMENT 30 GM TUBE TOPICAL SCH (12:45)
[2021-06-20 14:32] VITALS: BMI 24.6
[2021-06-20] MEDS ORDERED: WARFARIN 5 MG TAB PO ONE (18:00)
--- NOTE | 2021-06-20 18:01 | P.PN ---
Subjective Progress Note Date: 06/20/21 Principal diagnosis: Acute hypoxic respiratory failure secondary to diastolic congestive heart failure as well as Klebsiella pneumonia and COVID-19 pneumonia 06/17/2021, the patient is looking much better. He is on 8 L of Oxymizer nasal cannula. His, dictating normally. He had some issues with a PEG tube the Clock with some probably medication particles and crystals and this is going to be taking care of her flushed accordingly. Otherwise, the patient is doing well. No nausea or vomiting. No chest pain. No shortness of breath. He is resting comfortably in bed. The patient's blood work today shows a white cell count of 4.6 with a hemoglobin of 8.8. INR is septic at 2.2. Urine is a 39 with a creatinine of 0.8 and the sodium is at 136 with a potassium level of 5.0. No other significant events otherwise for now. No hypotension. 9 chronic instability. The patient continues to be on warfarin and INR today is up to 2.2. 06/18/2021, the patient is on 6 L of oxygen by nasal cannula. Activity and flushed and the patient was restarted on enteral feeding for nutritional support. Doing well. No specific complaints. No signs of any respiratory distress. Cough is essentially stronger compared to earlier evaluations. No abdominal distention. No nausea or vomiting. The INR today is at 2.5. Aggressive electrodes are all within normal limits. No other significant events overnight. No aspiration. Patient is stooling. 06/19/2021, the patient is on 4 L of oxygen by nasal cannula. On and off is also utilizing the 100% on a nonrebreather facemask. Upon talking to the nursing staff, I was told that the patient prefers to get more supplemental oxy gen which gives him psychologically some relief. Otherwise, his condition of the same. The patient is receiving enteral feeding for nutritional support. He denies any complaints. He has expressive aphasia and the patient has chronic right-sided weakness related to previous CVA. Cough is weak yet improved. Unable to bring up much sputum. On today's blood work, the INR is at 2.7, sodium is at 135, creatinine is at 41 with a creatinine of 0.8. Glucose 125. Reevaluated today on 06/20/2021, remains on 4 L nasal cannula, patient seems to be doing much better, he has been here in the hospital for a long time. Patient is receiving enteral feeding for nutritional support as he may have had a spiration episodes previously, patient is relatively asymptomatic, continues to have some right sided weakness and expressive aphasia related to his previous CVA. He does have weak cough. Unable to bring up any sputum. WBC count is 6 hemoglobin 9.1 INR is 2.7 electrodes are normal renal profile is normal BUN is 45 creatinine 0.84. Objective - Vital Signs Vital signs: Vital Signs Temp 98.1 F 06/20/21 15:25 Pulse 77 06/20/21 15:25 Resp 20 06/20/21 15:25 BP 105/60 06/20/21 15:25 Pulse Ox 97 06/20/21 15:25 Intake & Output 06/19/21 06/20/21 06/20/21 18:59 06:59 18:59 Intake Total 431 108 6388 Output Total 902 750 760 Balance -152 0 365 Weight 89.5 kg 89.5 kg Intake: Tube Feeding 487 791 5175 Output: Urine 900 750 760 Coude 400 350 Stool 2 Other: Voiding Method Indwelling Catheter Indwelling Catheter Indwelling Catheter - Exam Physical Exam revealed a 76-year-old white male on 4 L nasal cannula, in no dist ress. HEENT:[Neck is supple.] [No neck masses.] [No thyromegaly.] [No JVD.] Chest: Symmetrical chest expansion, crackles bilaterally with rhonchi bilaterally noted.] Cardiac Exam: [Normal S1 and S2, no S3 gallop, no murmur.] Abdomen: [Soft, nontender, no megaly, no rebound, no guarding, normal bowel sounds.] PEG tube is in place. Extremities: [No clubbing, no edema, no cyanosis.] Neurological Exam: Chronic right-sided weakness and expressive aphasia noted. Secondary to previous CVA. Psychiatric: Normal mood, affect and appropriate mental status. - Labs CBC & Chem 7: 06/20/21 08:33 06/20/21 08:33 Labs: Abnormal Lab Results - Last 24 Hours (Table) 06/19/21 06/19/21 06/20/21 Range/Units 18:01 23:56 06:01 RBC (4.30-5.90) m/uL Hgb (13.0-17.5) gm/dL Hct (39.0-53.0) % RDW (11.5-15.5) % Lymphocytes # (1.0-4.8) k/uL PT (9.0-12.0) sec INR (<1.2) Carbon Dioxide (22-30) mmol/L BUN (9-20) mg/dL Glucose (74-99) mg/dL POC Glucose (mg/dL) 107 H 107 H 122 H (75-99) mg/dL 06/20/21 06/20/21 06/20/21 Range/Units 08:33 08:33 08:33 RBC 3.22 L (4.30-5.90) m/uL Hgb 9.1 L (13.0-17.5) gm/dL Hct 28.8 L (39.0-53.0) % RDW 18.1 H (11.5-15.5) % Lymphocytes # 0.6 L (1.0-4.8) k/uL PT 26.4 H (9.0-12.0) sec INR 2.7 H (<1.2) Carbon Dioxide 36 H (22-30) mmol/L BUN 45 H (9-20) mg/dL Glucose 100 H (74-99) mg/dL POC Glucose (mg/dL) (75-99) mg/dL 06/20/21 Range/Units 11:52 RBC (4.30-5.90) m/uL Hgb (13.0-17.5) gm/dL Hct (39.0-53.0) % RDW (11.5-15.5) % Lymphocytes # (1.0-4.8) k/uL PT (9.0-12.0) sec INR (<1.2) Carbon Dioxide (22-30) mmol/L BUN (9-20) mg/dL Glucose (74-99) mg/dL POC Glucose (mg/dL) 134 H (75-99) mg/dL Assessment and Plan Assessment: Impression: Acute hypoxic respiratory failure, multifactorial, secondary to COVID-19 pneumonia, Klebsiella pneumonia, and acute on chronic diastolic congestive heart failure. Chronic atrial fibrillation maintained on Coumadin History of enterococcal bacteremia History of pacemaker insertion. History of aortic valve replacement History of diastolic congestive heart failure History of CVA Benign essential hypertension Aspiration pneumonia secondary to CVA, patient is status post PEG tube placement Decubitus ulcer stage II Hypertension Recommendation: Continue oxygen and titrate accordingly Continue cardiac meds/Coumadin Continue enteral tube feeding via PEG tube Consider placement on this patient, social contact worker to address discharge planning and placement. Continue wound care as outlined by wound services. Patient is being followed by wound care services for his coccygeal ones Will sign off the patient and see on when necessary basis Time with Patient: Less than 30
[2021-06-20 18:03] LABS: Glucose,Whole Blood 126 mg/dL (75-99)
--- NOTE | 2021-06-20 20:22 | P.PN ---
Subjective Progress Note Date: 06/20/21 This is a 76-year-old male who was recently admitted with acute bilateral pneumonia with acute hypoxic respiratory failure and also has had changes in mental status and is being closely monitored. Pulmonary and ID following. Patient is continued on IV daptomycin for recent diskitis. Patient had a positi ve covid test. Patient was recently at [facility] for rehabilitation and IV antibiotic therapy. Patient continued on tube feeds with recent peg tube placement. Patient off of bipap this morning and weaning FI02 as tolerated. Patient is on coumadin and will continue hold with close monitoring and labs in the am. 06/11/2021 Patient is seen and evaluated and follow-up this morning awake and responding to commands and questions appropriately. Patient continues with BiPAP at night and maintained on 4 L via nasal cannula and denies any worsening shortness of breath. Patient states he still feels shortness of breath though. Coumadin continues to be held pharmacy to dose and INR today is 3.9 and will hold and repeat labs. Pulmonary following closely and chest x-ray was ordered showing chronic emphysematous change and cardiomegaly with small bilateral pleural effusions and associated bibasilar infiltrate and/or atelectasis redemonstrated with no significant change from 2 days previous. Continue with local wound care to the coccyx region along with bilateral calcaneus. Continue with offloading boots and frequent position changes. 06/12/2021 Patient is seen in follow up this morning and is being closely monitored. Patient is having some low oxygen readings and using intermittent bipap and also maintained on 5-6 L via NC. Patient is awake, somewhat confused at times, but more alert. Patient is being followed by ID and pulmonary. Patient is also maintained on IV antibiotics and tube feedings and tolerating. Patient is afebrile. No reports of chest pain. Patient has been having loose frequent stools and will order cdiff. Discontinue colace. INR is 2.7 and will have pharmacy dose coumadin. 06/13/2021 Patient seen this morning extremely lethargic and requiring more oxygen. Patient continues with bipap at night and as needed. Patient currently on 15L HF and non-rebreather. Chest xray shows stable correlate for bilateral pneumonia. Pulmonary, ID, and cardio following. Patient was also covid positive although not behaving as such. Patient continues on IV daptomycin. 06/14/2021 Patient is seen today awake alert and oriented 2-3. Patient is maintained on 15 L high flow this morning and did not use BiPAP last night. Attempts at weaning FiO2 continue and patient tends to have shortness of breath. Rhonchorous lung sounds throughout and crackles noted as well. Chest x-ray shows a stable x-ray to correlate for bilateral pneumonia likely superimposed on a background COPD. Wound care consulted again as patient's decubitus ulcer is worse in intensity. Stage II decubitus ulcer being treated with honey alginate and saline moistened gauze and sacrum border foam and recommend continue with frequent position changes. Is extremely weak and will require ECF once st abilized. Patient may also likely require a Covid hub center that can accommodate BiPAP. Social work is following. 06/15/2021 Patient is seen in follow up this morning and continues on 8 L HF and has been more alert today and more responsive. Per nursing staff patient is brushing his own teeth. Discussion was had with patient and brother about code status and patient would not like to be on mechanical vent other hernandez yes to other life saving measures. Patient is afebrile. Pulmonary, ID, and cardio following. Patient INR today is 1.9 today and pharmacy dosing. will repeat am labs. 06/16/2021 Patient is seen and evaluated in follow up this morning and maintained on 8L HF with oxygen saturations about 96% and will continue to wean as tolerated. Intermittent bipap use as needed. Multiple medical consultations following. Patient maintained on IV daptomycin and ID is following. Maintain tube feeding and tolerating. INR is 2.0 with pharmacy dosing coumadin. Sodium is 140, potassium is 4.7, creatinine is 0.91, WBC is 4.5, hemoglobin is 8.5. Sacral region continues with local wound care with frequent position changes and will order specialty mattress for offloading pressure. 06/17/2021 Patient is seen this morning resting comfortably and easily arousable. Patient contiinues on 8L HF via NC and instructed nursing staff to continue to wean FI02 as tolerated. Intermittent bipap use at night as needed. Patient also maintained on IV daptomycin with ID following. INR is 2.2 as patient continues on coumadin 06/18/2021 Patient evaluated today resting in bed. Patient is currently denying pain. Vitals today: Temp 98.5, heart rate 78, blood pressure 101/67, 98% on 6L HF NC. INR today is 2.5, sodium 136, potassium 5, co2 34, BUN 38, creatinine 0.92. Sugars in the 100's. Patient stated that he had a difficult night, and was advised to use the BiPAP as needed while sleeping. There was a stat urinalysis ordered 10 days ago that was never collected. Patient is being followed by [facility] and ID. Enteral feeding was able to be resumed today. Abdomen is soft and nontender. 06/19/2021 Patient today states that there was no acute events overnight. RN at the bedside states that his decubitus ulcer on his bottom is worsening and we will request a reevaluation by wound care services tomorrow Sunday, for now continue current orders. The pressure injury to his left heel seems to have progressed past a stage 1 as there is purple discoloration not blanchable however the skin is intact, more likely an unstageable deep tissue, right heel remains blancha ble. Otherwise, oxygen is being weaned, he is 99% on 4L HF cannual, blood pressure marginal at 104/64, heart rate 72, temp 98.1. Labs today, INR 2.7, sodium 135, potassium 4.9. Patient is on bag of IV daptomycin. 06/20/2021 Patient is seen and evaluated in follow-up today and currently maintained on 4L via NC. Patient continues with IV daptomycin and will require 8 more days to complete the course. Patient does have a PICC line. Continue local wound care and wounds revaluated the patient and will continue with santyl to the sacral wound and gauze and dressings as described in their note. Patient INR is 2.7 today and will continue with current coumadin monitoring. Social work following and states the plan is for [facility] or [facility] on discharge and arrangements are being made. Review of systems: Constitutional: reports of fatigue and overall weakness Resp: Continues with shortness of breath and patient states no worse, weak cough Cardio: no reports of chest pain or palpitations Neuro: reports weakness All medications have been reviewed Active Medications Hydrocodone Bitart/Acetaminophen (Hydrocodone/Apap 5-325mg 1 Each Tab) 1 each PEG/G-TUBE Q4HR PRN PRN Reason: Pain Last Admin: 06/16/21 23:57 Dose: 1 each Documented by: Albuterol Sulfate (Albuterol Hfa Inhaler) 2 puff INHALATION RT-TID PRN PRN Reason: Shortness Of Breath Or Wheezing Last Admin: 06/20/21 12:45 Dose: 2 puff Documented by: Amiodarone HCl (Amiodarone 200 Mg Tab) 200 mg PEG/G-TUBE BID@0900,1700 REPLACED BY [facility] Last Admin: 06/20/21 08:16 Dose: 200 mg Documented by: Aspirin (Aspirin 81 Mg) 81 mg PEG/G-TUBE DAILY@0900 REPLACED BY [facility] Last Admin: 06/20/21 08:16 Dose: 81 mg Documented by: Baclofen (Baclofen 10 Mg Tab) 10 mg PEG/G-TUBE TID@0900,1300,2100 REPLACED BY [facility] Last Admin: 06/20/21 12:41 Dose: 10 mg Documented by: Cholecalciferol (Cholecalciferol 25 Mcg (1000 Iu) Tablet) 25 mcg PEG/G-TUBE DAILY REPLACED BY [facility] Last Admin: 06/20/21 08:16 Dose: 25 mcg Documented by: Collagenase (Collagenase 250 Unit/Gm Ointment 30 Gm Tube) 1 applic TOPICAL DAILY REPLACED BY [facility]; Protocol Last Admin: 06/20/21 15:26 Dose: 1 applic Documented by: Daptomycin 600 mg/ Sodium (Chloride) 50 mls @ 100 mls/hr IVPB Q24H REPLACED BY [facility] Stop: 06/27/21 16:29 Last Admin: 06/20/21 15:26 Dose: 100 mls/hr Documented by: Levothyroxine Sodium (Levothyroxine 50 Mcg Tab) 50 mcg PEG/G-TUBE DAILY@0600 REPLACED BY [facility] Last Admin: 06/20/21 05:54 Dose: 50 mcg Documented by: Lidocaine (Lidocaine 5% Patch) 1 patch TOPICAL DAILY REPLACED BY [facility]; Protocol Last Admin: 06/20/21 08:16 Dose: 1 patch Documented by: Magnesium Hydroxide (Magnesium Hydroxide 2,400 Mg/10 Ml Cup) 2,400 mg PEG/G- TUBE DAILY PRN PRN Reason: Constipation Methocarbamol (Methocarbamol 750 Mg Tab) 750 mg PEG/G-TUBE Q8H PRN PRN Reason: Muscle Pain Midodrine (Midodrine 5 Mg Tab) 10 mg PEG/G-TUBE TID@0900,1300,1700 REPLACED BY [facility] Last Admin: 06/20/21 12:41 Dose: 10 mg Documented by: Miscellaneous Information (Warfarin Per Pharmacy) 1 each MISCELLANE DIRECTED PRN PRN Reason: Per Protocol Naloxone HCl (Naloxone 0.4 Mg/Ml 1 Ml Vial) 0.2 mg IV Q2M PRN PRN Reason: Opioid Reversal Warfarin Sodium (Warfarin 5 Mg Tab) 5 mg PO ONCE@1800 ONE Stop: 06/20/21 18:01 Physical exam: Gen: This is 76-year-old male who is awake, alert and oriented 3, well-develop ed, well-nourished..Ill appearing, currently on 4L via NC HEENT: Head is atraumatic, normocephalic. Pupils equal, round. Sclerae is anicteric. NECK: Supple. No JVD. No lymphadenopathy. No thyromegaly. LUNGS: Breath sounds are diminished at the bases with scattered course rhonchi noted. Some mild crackles noted as well. No intercostal retractions. HEART: S1, S2 are muffled ABDOMEN: Soft. Obese. Bowel sounds are present. No masses. No tenderness. EXTREMITIES: generalized edema. No calf tenderness. NEUROLOGICAL: Alert and oriented 3, diffusely weak SKIN: generalized edema noted throughout, muscle wasting noted as well of face, neck, and shoulders. Assessment: Acute bilateral pneumonia with acute hypoxic respiratory failure with possible sepsis, present on admission Acute respiratory acidosis, improved Change in mental status, acute metabolic encephalopathy, multifactorial, imp roving Coumadin coagulopathy COVID-19, test positive diarrhea, improved history of recent aspiration pneumonia with hypoxic respiratory failure History of recent acute stroke and change in mental status with right-sided stroke history of recent complete opacification of the left hemithorax secondary to aspiration Status post PEG tube placement PEG tube feedings and monitoring Multiple organisms growing from the culture including Makenna albicans and Klebsiella recently congestive heart failure with chronic diastolic dysfunction atrial fibrillation with fast ventricular rate, currently rate controlled. history of chronic persistent atrial fibrillation Acute kidney injury with acute renal failure, acute tubular necrosis with severe sepsis, improved history of aortic prosthetic replacement chronic low back pain and degenerative joint disease Stage II decubitus ulcer Bilateral calcaneus stage I ulcers Hypertension permanent pacemaker severe protein calorie malnutrition anemia, normocytic anemia of chronic disease Coumadin monitoring acute respiratory acidosis Full code, with no vent Plan: Continue current medications, continue IV daptomycin with 8 days remaining of current regimen, has PICC line Continue with 4L via NC Pulmonary, ID and cardiology following Social work following for [facility] on discharge possible 24-48 hours Will repeat am labs and monitor closely continue tube feedings and aspiration precautions Continue with coumadin, inr 2.7 Continue wound care per wound care orders Prognosis is guarded. Objective - Vital Signs Vital signs: Vital Signs Temp 97.5 F L 06/20/21 08:15 Pulse 81 06/20/21 08:15 Resp 20 06/20/21 08:15 BP 100/66 06/20/21 08:15 Pulse Ox 94 L 06/20/21 08:15 Intake & Output 06/19/21 06/20/21 06/20/21 18:59 06:59 18:59 Intake Total 750 750 Output Total 902 750 Balance -152 0 Weight 89.5 kg Intake: Tube Feeding 750 750 Output: Urine 900 750 Coude 400 350 Stool 2 Other: Voiding Method Indwelling Catheter Indwelling Catheter - Labs CBC & Chem 7: 06/20/21 08:33 06/20/21 08:33 Labs: Abnormal Lab Results - Last 24 Hours (Table) 06/19/21 06/19/21 06/19/21 Range/Units 11:45 18:01 23:56 POC Glucose (mg/dL) 125 H 107 H 107 H (75-99) mg/dL 06/20/21 Range/Units 06:01 POC Glucose (mg/dL) 122 H (75-99) mg/dL
--- NOTE | 2021-06-20 22:21 | PN ---
PROGRESS NOTE DATE OF SERVICE: 06/20/2021 REASON FOR FOLLOW UP: 1. Lumbar diskitis. 2. Covid infection. INTERVAL HISTORY: Patient is afebrile. The patient is more awake and alert. The patient has come down to 4 L nasal cannula. The patient denies having any chest pain. No worsening cough or sputum production. No abdominal pain. No back pain. No diarrhea. PHYSICAL EXAMINATION: Blood pressure 105/60 with a pulse of 77, temperature 98.1. He is 97% on 4 L nasal cannula. General description is an elderly male up in the bed in no distress. Respiratory system: Unlabored breathing, decreased breath sounds in the bases. No wheeze. Heart S1, S2. Regular rate and rhythm. Abdomen soft, no tenderness. LABS: Hemoglobin 9.1, white count 6.0, BUN of 45, creatinine 0.84. DIAGNOSTIC IMPRESSION AND PLAN: 1. Patient with lumbar diskitis with Enterococcus faecalis bacteremia. Repeat culture negative. Patient is on daptomycin to finish course of therapy. 2. Admitted to the hospital with worsening shortness of breath, more likely related to the underlying diastolic heart failure, less likely Covid infection, seemed to have shown overall clinical improvement. Continue current supportive treatment. MMODL / IJN: [id number] /
[2021-06-21 00:10] LABS: Glucose,Whole Blood 123 mg/dL (75-99)
[2021-06-21 06:09] LABS: Glucose,Whole Blood 123 mg/dL (75-99)
[2021-06-21] MEDS: LEVOTHYROXINE 50 MCG TAB PEG/G-TUBE SCH (06:57)
[2021-06-21 07:03] VITALS: RESP 18
[2021-06-21 07:07] LABS: INR 2.8 (<1.2)
[2021-06-21] MEDS: ALBUTEROL HFA INHALER INHALATION PRN ×2 (09:36→12:22)
[2021-06-21] MEDS: CHOLECALCIFEROL 25 MCG (1000 IU) TABLET PEG/G-TUBE SCH (09:52)
[2021-06-21] MEDS: LIDOCAINE 5% PATCH TOPICAL SCH (09:52)
[2021-06-21] MEDS: ASPIRIN 81 MG PEG/G-TUBE SCH (09:52)
[2021-06-21] MEDS: AMIODARONE 200 MG TAB PEG/G-TUBE SCH (09:52)
[2021-06-21] MEDS: BACLOFEN 10 MG TAB PEG/G-TUBE SCH ×2 (09:52→13:02)
[2021-06-21] MEDS: MIDODRINE 5 MG TAB PEG/G-TUBE SCH ×2 (09:52→13:02)
[2021-06-21 11:07] VITALS: TEMP 98
[2021-06-21 12:10] LABS: Glucose,Whole Blood 124 mg/dL (75-99)
--- NOTE | 2021-06-21 13:23 | P.DS ---
Providers Date of admission: 06/08/21 06:48 Expected date of discharge: 06/21/21 Attending physician: Payton Lazar Consults: 06/08/21 12:53 Consult Physician Routine Consulting Provider: Brandin Banda Consult Reason/Comments: a-fib Do you want consulting provider notified?: Yes 06/08/21 15:07 Consult Physician Routine Consulting Provider: Girma Copeland Consult Reason/Comments: hypoxia Do you want consulting provider notified?: Yes Consult Physician Routine Consulting Provider: Priyanka Guardado Consult Reason/Comments: covid, sepsis Do you want consulting provider notified?: Yes Primary care physician: Physician Nonstaff Hospital Course: Final diagnosis Acute bilateral pneumonia with acute hypoxic respiratory failure with possible sepsis, present on admission Acute respiratory acidosis, improved Change in mental status, acute metabolic encephalopathy, multifactorial, improved Coumadin coagulopathy COVID-19, test positive diarrhea, improved history of recent aspiration pneumonia with hypoxic respiratory failure History of recent acute stroke and change in mental status with right-sided stroke history of recent complete opacification of the left hemithorax secondary to aspiration Status post PEG tube placement PEG tube feedings and monitoring Multiple organisms growing from the culture including Makenna albicans and Klebsiella recently congestive heart failure with chronic diastolic dysfunction atrial fibrillation with fast ventricular rate, currently rate controlled. history of chronic persistent atrial fibrillation Acute kidney injury with acute renal failure, acute tubular necrosis with severe sepsis, improved history of aortic prosthetic replacement chronic low back pain and degenerative joint disease Stage II decubitus ulcer Bilateral calcaneus stage I ulcers Hypertension permanent pacemaker severe protein calorie malnutrition anemia, normocytic anemia of chronic disease Coumadin monitoring acute respiratory acidosis Full code, with no vent Discharge disposition Patient is being discharged in a stable condition with guarded prognosis to [facility] for continued PT/OT therapy. Patient will follow-up with primary care provider in the outpatient setting upon discharge. Patient will also need to follow-up with orthopedics out of [place] for follow-up. Patient will continue on IV daptomycin daily for another 8 days to complete the course. Patient does have a PICC line. Patient is also to continue with local wound care to the buttocks and bilateral heels and a specialty mattress is recommended. Total time taken is greater than 35 minutes. Hospital course This is a 76-year-old male who was recently admitted with acute bilateral pneumonia with acute hypoxic respiratory failure also changes in mental status with multiple medical consultations following including pulmonary, cardiology, infectious disease. Patient was also found to have a positive Covid test. Patient requiring oxygen and has titrated down to 2-4 L via nasal cannula and maintaining adequate oxygen saturations above 90%. Patient with extensive stage II decubitus ulcer with surrounding excoriation of the skin and will continue with local wound care by cleansing the site daily and as needed if becoming soiled and applying Santyl, saline moistened gauze, dry gauze, ABDs and secured with paper tape and recommend frequent position changes every 2 hours and appropriate specialty mattress for offloading. Patient to continue with a waffle air-filled cushion while sitting and also local wound care of the left calcaneus ulceration by applying zinc barrier cream and a foam dressing for protection wrapped with will gauze and tape and utilize foam heel protectors. Patient to continue with tube feedings via PEG tube and uses vital AF 1.2 with a goal rate of 75 and to continue with free water flushes every 4 hours and monitor closely for residuals. Aspiration precautions with head of the bed elevated 45 at all times. Currently no reports of chest pain, shortness of breath, or palpitations. Patient is afebrile. No reports of nausea or vomiting and patient is tolerating tube feedings. Patient will be going to [facility] today. Guarded prognosis. Gen: This is 76-year-old male who is awake, alert and oriented 3, well- developed, well-nourished.. currently on 4L via [place] HEENT: Head is atraumatic, normocephalic. Pupils equal, round. Sclerae is anicteric. NECK: Supple. No JVD. No lymphadenopathy. No thyromegaly. LUNGS: Breath sounds are diminished at the bases with scattered course rhonchi noted. Some mild crackles noted as well. No intercostal retractions. HEART: S1, S2 are muffled ABDOMEN: Soft. Obese. Bowel sounds are present. No masses. No tenderness. EXTREMITIES: generalized edema. No calf tenderness. NEUROLOGICAL: Alert and oriented 3, diffusely weak SKIN: generalized edema noted throughout, muscle wasting noted as well of face, neck, and shoulders. Please refer to medication reconciliation sheet for a list of medications. Patient Condition at Discharge: Stable Plan - Discharge Summary Discharge Rx Participant: Yes New Discharge Prescriptions: New Warfarin [Coumadin] 5 mg PO ONCE@1800 tab Collagenase [Santyl Ointment] 1 applic TOPICAL HS gm DAPTOmycin [Cubicin] 600 mg IVPB Q24H 8 Days #8 each Albuterol Inhaler [Ventolin Hfa Inhaler] 2 puff INHALATION RT-TID PRN gm PRN Reason: Shortness Of Breath Or Wheezing Continue Lidocaine 5% Patch [Lidoderm 5% Patch] 1 patch TRANSDERM DAILY Baclofen [Lioresal] 10 mg PEG/G-TUBE TID@0900,1300,2100 Aspirin EC [Ecotrin Low Dose] 81 mg PEG/G-TUBE DAILY@0900 Magnesium Hydroxide [Milk of Magnesia] 2,400 mg PEG/G-TUBE DAILY PRN PRN Reason: Constipation Ipratropium-Albuterol Nebulize [Duoneb 0.5 mg-3 mg/3 ml Soln] 3 ml INHALATION RT-Q2H PRN ml PRN Reason: Shortness Of Breath Or Wheezing Amiodarone [Cordarone] 200 mg PEG/G-TUBE BID@0900,1700 Levothyroxine Sodium [Synthroid] 50 mcg PEG/G-TUBE DAILY@0600 Cholecalciferol [Vitamin D3 (25 Mcg = 1000 Iu)] 25 mcg PEG/G-TUBE DAILY methocarbamoL [Methocarbamol] 750 mg PEG/G-TUBE Q8H PRN PRN Reason: Muscle Pain Acetaminophen Tab [Tylenol] 650 mg PEG/G-TUBE Q6H PRN PRN Reason: Fever And/ Or Pain Midodrine HCl [ProAmatine] 10 mg PEG/G-TUBE TID@0900,1300,1700 Ipratropium-Albuterol Nebulize [Duoneb 0.5 mg-3 mg/3 ml Soln] 3 ml INHALATION RT-TID@09,,21 Nystatin 100,000 Unit/gm Oint [Mycostatin Oint] 1 applic TOPICAL BID@0900,1700 DAPTOmycin [Cubicin] 600 mg IV DAILY@1200 Changed HYDROcodone/APAP 5-325MG [[place] 5-325] 1 tab PEG/G-TUBE Q4HR PRN #4 tab PRN Reason: Pain Discontinued Docusate Sodium [Dok] 100 mg PEG/G-TUBE BID@0900,1700 Warfarin [Coumadin] 7.5 mg PEG/G-TUBE HS Tamsulosin HCl [Flomax] 0.4 mg PEG/G-TUBE DAILY@0900 Discharge Medication List Aspirin EC [Ecotrin Low Dose] 81 mg PEG/G-TUBE DAILY@0900 04/19/21 [History] Baclofen [Lioresal] 10 mg PEG/G-TUBE TID@0900,1300,2100 04/19/21 [History] Cholecalciferol [Vitamin D3 (25 Mcg = 1000 Iu)] 25 mcg PEG/G-TUBE DAILY 04/19/21 [History] Levothyroxine Sodium [Synthroid] 50 mcg PEG/G-TUBE DAILY@0600 04/19/21 [History] Lidocaine 5% Patch [Lidoderm 5% Patch] 1 patch TRANSDERM DAILY 04/19/21 [History] Magnesium Hydroxide [Milk of Magnesia] 2,400 mg PEG/G-TUBE DAILY PRN 05/14/21 [History] methocarbamoL [Methocarbamol] 750 mg PEG/G-TUBE Q8H PRN 05/14/21 [History] Ipratropium-Albuterol Nebulize [Duoneb 0.5 mg-3 mg/3 ml Soln] 3 ml INHALATION RT-Q2H PRN ml 06/06/21 [Rx] Acetaminophen Tab [Tylenol] 650 mg PEG/G-TUBE Q6H PRN 06/08/21 [History] Amiodarone [Cordarone] 200 mg PEG/G-TUBE BID@0900,1700 06/08/21 [History] DAPTOmycin [Cubicin] 600 mg IV DAILY@1200 06/08/21 [History] Ipratropium-Albuterol Nebulize [Duoneb 0.5 mg-3 mg/3 ml Soln] 3 ml INHALATION RT-TID@,,06/08/21 [History] Midodrine HCl [ProAmatine] 10 mg PEG/G-TUBE TID@0900,1300,1700 06/08/21 [History] Nystatin 100,000 Unit/gm Oint [Mycostatin Oint] 1 applic TOPICAL BID@0900,1700 06/08/21 [History] Albuterol Inhaler [Ventolin Hfa Inhaler] 2 puff INHALATION RT-TID PRN gm 06/21/21 [Rx] Collagenase [Santyl Ointment] 1 applic TOPICAL HS gm 06/21/21 [Rx] DAPTOmycin [Cubicin] 600 mg IVPB Q24H 8 Days #8 each 06/21/21 [Rx] HYDROcodone/APAP 5-325MG [[place] 5-325] 1 tab PEG/G-TUBE Q4HR PRN #4 tab 06/21/21 [Rx] Warfarin [Coumadin] 5 mg PO ONCE@1800 tab 06/21/21 [Rx] Follow up Appointment(s)/Referral(s): Nonstaff,Physician [Primary Care Provider] - 1-2 days Ambulatory/Diagnostic Orders: Complete Blood Count w/diff [LAB.AMB] Time Frame: 2 Days, Location: None Selected Activity/Diet/Wound Care/Special Instructions: Patient is going to [facility] as tolerated Continue oxygen and wean as tolerated as continues on 2 L via nasal cannula Patient to continue with IV daptomycin via PICC line for another 8 days and then may discontinue Patient will need to follow-up with orthopedics outpatient from his original surgery Patient to follow up with pulmonary outpatient continue with medications as prescribed Discharge Disposition: TRANSFER TO SNF/ECF
[2021-06-21 14:00] VITALS: BP 98/65; PULSE 86
--- NOTE | 2021-06-21 15:54 | P.PN ---
Subjective Progress Note Date: 06/21/21 On today's evaluation on 06/16/2021 patient seen in follow-up on selective care unit, he is awake and alert, she is currently on 8 L per high flow nasal cannula his pulse ox of 98%. This is an improvement from a couple days ago when patient was requiring 15 L per high flow nasal cannula. He has been wearing BiPAP support at bedtime and intermittently, tolerates it very well. His been afebrile, hemodynamically has been stable, he denies worsening dyspnea, his cough is still weak, and congested, but patient is able to clear some phlegm with encouragement. He remains on PEG tube feedings, he is receiving vital EF at a rate of 75 at goal, we stand water flushes, overall she is looking better, he is more alert, he is able to make his needs known, he discussed his CODE STATUS with his brother on the phone, and it was decided that he does not want to be intubated but wants to continue with supportive treatment. His voice is weak, but he is able to communicate, and at times she is writing stuff down for the staff to read. He is oriented 3. He is currently talking to his brother on the phone. He denies any acute distress. His chest x-ray today shows stable bilateral consolidation and pleural effusion unchanged from prior exam. Today his labs have been reviewed, his white count is stable and is within normal limits at 4.5, hemoglobin is 8.5, his INR today is 2.0, sodium is 140, potassium is 4.7, CO2 is 35, BUN 23 creatinine 0.91. His blood cultures have been negative. Patient remains on daptomycin antibiotics, he is not on any steroids, and he is on Coumadin for anticoagulation. Oxygenation is improving. On 06/21/2021 patient seen in follow-up on selective care unit. He is resting comfortably in bed, he is currently down to 2 L of oxygen pulse ox of 96-98%, he is generally weak, he has not been up out of bed, his been for the most part bedbound, but breathing comfortably, lung sounds are positive for minimal scattered crackles, no rhonchi or wheezing, his been afebrile, breathing comfortably, he is awake and alert, oriented 3, he is responding appropriately although his verbal responses are slow however very appropriate, patient is oriented 3. His last chest x-ray from 06/20/2021 shows bibasilar effusions and associated atelectasis, cardiomegaly, and pneumonia congestive heart failure were difficult to exclude. Patient remains on daptomycin for antibiotic coverage, he continues on nebulized bronchodilators, and his steroids have been discontinued, he remains on Coumadin today's INR is 2.8. He's had no acute events overnight. He is nothing by mouth related to his history of recurrent aspiration pneumonia, and he is tolerating tube feedings that he is receiving through the PEG tube Objective - Vital Signs Vital signs: Vital Signs Temp 98.0 F 06/21/21 08:00 Pulse 86 06/21/21 14:00 Resp 18 06/21/21 14:00 BP 98/65 06/21/21 12:00 Pulse Ox 96 06/21/21 12:00 Intake & Output 06/20/21 06/21/21 06/21/21 18:59 06:59 18:59 Intake Total 1125 675 Output Total 760 601 2 Balance 365 74 -2 Weight 89.5 kg 90 kg Intake: Tube Feeding 1125 675 Output: Urine 760 600 Stool 1 2 Other: Voiding Method Indwelling Catheter Indwelling Catheter Indwelling Catheter - Exam GENERAL EXAM: Alert, 76-year-old frail white male, currently on 2 L of oxygen breathing comfortably, with a pulse ox of 98%, does have a weak cough, she is slow to verbally respond, but he is oriented 3, at times utilizes a writing pad to communicate with staff comfortable in no apparent distress. HEAD: Normocephalic/atraumatic. EYES: Normal reaction of pupils, equal size. Conjunctiva pink, sclera white. NOSE: Clear with pink turbinates. THROAT: No erythema or exudates. NECK: No masses, no JVD, no thyroid enlargement, no adenopathy. CHEST: No chest wall deformity. Symmetrical expansion. LUNGS: Equal air entry with a few scattered rhonchi CVS: Regular rate and rhythm, normal S1 and S2, no gallops, no murmurs, no rubs ABDOMEN: Soft, nontender. No hepatosplenomegaly, normal bowel sounds, no guarding or rigidity. PEG tube is in place EXTREMITIES: No clubbing, no edema, no cyanosis, 2+ pulses and upper and lower extremities. MUSCULOSKELETAL: Muscle strength and tone normal. SPINE: No scoliosis or deformity SKIN: No rashes, patient has an unstageable area on his coccyx currently covered with a dressing CENTRAL NERVOUS SYSTEM: Alert and oriented -3. No focal deficits, tone is normal in all 4 extremities. - Labs CBC & Chem 7: 06/20/21 08:33 06/20/21 08:33 Labs: Abnormal Lab Results - Last 24 Hours (Table) 06/20/21 06/21/21 06/21/21 Range/Units 18:01 00:07 06:08 PT (9.0-12.0) sec INR (<1.2) POC Glucose (mg/dL) 126 H 123 H 123 H (75-99) mg/dL 06/21/21 06/21/21 Range/Units 06:30 12:09 PT 27.0 H (9.0-12.0) sec INR 2.8 H (<1.2) POC Glucose (mg/dL) 124 H (75-99) mg/dL Assessment and Plan Plan: Assessment: #1. Acute hypoxemic respiratory failure, likely multifactorial, in part related to diastolic CHF, as well as possible coronavirus associated pneumonia. Note that the patient was in the hospital back in early May 2021 and at that time, the patient had complete opacification of the left lung requiring intub ation mechanical ventilation and a bronchial alveolar lavage that was obtained via bronchoscopy on 05/20/2021 was positive for Klebsiella and the patient was covered with IV Zosyn. He did have also bilateral pneumonia with lower lobe pulmonary infiltrates. the chest x-ray still showing bilateral lower lobe pulmonary infiltrates and effusions. The patient clinically is improved on today's evaluation. Is able to cough although his cough is weak. FiO2 is currently down to 2 L #2. History of chronic atrial fibrillation. Patient has been maintained on warfarin outpatient basis, INR from yesterday was at 2.8 #3. History of discitis with recent surgical intervention [facility] with underlying enterococcal bacteremia and the patient remains on daptomycin #4. Status post pacemaker insertion. #5. History of aortic valve replacement. #6. History of diastolic CHF. The patient has chronic diastolic heart failure with an ejection fraction of 55-60% #7. History of CVA. #8. History of essential hypertension. #9. Status post PEG tube placement. The patient is being vital AF at the rate of 60s an hour #10.History of aspiration pneumonia. #11. Multiple other medical problems and comorbidities. #12. Decubitus ulcer stage III/ unstageable at other spots #13. Hypertension #14. Chronic back pain #15. History of persistent chronic atrial fibrillation maintained on amiodarone on outpatient basis Plan: FiO2 is currently down to 2 L, Patient is improving, His had no acute events overnight, no fever or chills, vital signs have been stable He is tolerating tube feedings He continues on antibiotics, Steroids have been discontinued Generally he is very weak He is being discharged to [facility] today for subacute rehab Long-term prognosis is guarded I performed a history & physical examination of the patient and discussed their management with my nurse practitioner, Yoselin Johnson. I reviewed the nurse practitioner's note and agree with the documented findings and plan of care. Lung sounds are positive for mild diffuse rhonchi throughout the lung singh. The findings and the impression was discussed with the patient. I attest to the documentation by the nurse practitioner. Time with Patient: Less than 30
[2021-06-21] MEDS ORDERED: WARFARIN 5 MG TAB PO ONE (18:00)
[2021-06-21] MEDS ORDERED: COLLAGENASE 250 UNIT/GM OINTMENT 30 GM TUBE TOPICAL SCH (21:00)
== END 2021-06-21 15:59 | DRG 871 ==
LOC: EC 05:41 → 3SCARD 06:48
PROVIDERS: ADMIT Hospitalist; ATTEND Hospitalist
DX: A41.81 Sepsis due to Enterococcus (principal); E43 Unspecified severe protein-calorie malnutrition; G93.41 Metabolic encephalopathy; I50.33 Acute on chronic diastolic (congestive) heart failure; U07.1 COVID-19; J12.82 Pneumonia due to coronavirus disease 2019; L89.93 Pressure ulcer of unspecified site, stage 3; J96.01 Acute respiratory failure with hypoxia; J69.0 Pneumonitis due to inhalation of food and vomit; N17.0 Acute kidney failure with tubular necrosis; E87.2 Acidosis; I48.19 Other persistent atrial fibrillation; M86.9 Osteomyelitis, unspecified; J98.11 Atelectasis; J44.0 Chronic obstructive pulmonary disease with (acute) lower respiratory infection; I69.351 Hemiplegia and hemiparesis following cerebral infarction affecting right dominant side; D63.8 Anemia in other chronic diseases classified elsewhere; E66.9 Obesity, unspecified; G89.29 Other chronic pain; I11.0 Hypertensive heart disease with heart failure; Z96.649 Presence of unspecified artificial hip joint; Z95.2 Presence of prosthetic heart valve; Z95.0 Presence of cardiac pacemaker; Z93.1 Gastrostomy status; Z88.0 Allergy status to penicillin; Z79.899 Other long term (current) drug therapy; Z79.890 Hormone replacement therapy; Z79.82 Long term (current) use of aspirin; Z79.01 Long term (current) use of anticoagulants; T45.515A Adverse effect of anticoagulants, initial encounter; M19.90 Unspecified osteoarthritis, unspecified site; M85.80 Other specified disorders of bone density and structure, unspecified site; M54.40 Lumbago with sciatica, unspecified side; M46.46 Discitis, unspecified, lumbar region; L89.621 Pressure ulcer of left heel, stage 1; L89.309 Pressure ulcer of unspecified buttock, unspecified stage; L89.152 Pressure ulcer of sacral region, stage 2; K59.00 Constipation, unspecified; R65.20 Severe sepsis without septic shock; I69.320 Aphasia following cerebral infarction
CPT/HCPCS: 36415; 71045; 80048; 80053; 81001; 82728; 83605; 83615; 83735; 83880; 84145; 84484; 85025; 85610; 85730; 86140; 87040; 87635; 93005; 94640; 94660; 94760; 99285